=== PATIENT | male | born 1940 | race Caucasian/White ===

== ENCOUNTER → 2018-06-25 | Outpatient (CLI) | payer MEDICARE ==
[~2018-06-25] MED LIST: DIATRIZOATE MEGLUM/SODIUM 37% 120 ML (GASTROGRAFIN) NG ONE; FEXO-46 PO; FINA5TAB6 PO; LISI-552 PO; TAMS0.4C98 PO
--- NOTE | 2018-06-25 12:34 | Diagnostic Imaging Report ---
EXAMINATION: Small bowel follow-through. INDICATION: Abdominal pain There are no prior small bowel examinations available for comparison. There is no evidence for obstruction of the small bowel. The transit time through the small bowel is approximately 45 minutes (normal transit time 30 minutes to 3 hours). There are a few dilated segments of small bowel present. This is nonspecific. There is no focal area of narrowing. The terminal ileum was not spotted but shows no definite abnormality. IMPRESSION: There is no evidence for obstruction of the small bowel. Dictated by: Dictated on workstation # [id number]
== END ==
LOC: RAD 07:24
PROVIDERS: ATTEND Surgery
DX: R10.9 Unspecified abdominal pain (principal); R11.2 Nausea with vomiting, unspecified
CPT/HCPCS: 74250

== ENCOUNTER 2018-06-27 05:38 | Outpatient (CLI) | payer MEDICARE ==
[~2018-06-27] VITALS: Ht 177.8 cm; Wt 77.1 kg
[2018-06-27] MEDS ORDERED: FINA5TAB6 PO (13:45)
[2018-06-27] MEDS ORDERED: TAMS0.4C98 PO (13:45)
[2018-06-27] MEDS ORDERED: FEXO-46 PO (13:45)
[2018-06-27] MEDS ORDERED: LISI-552 PO (13:45)
== END 2018-06-27 13:46 | disposition home or self-care (01) ==
LOC: PREOP 05:38
PROVIDERS: ATTEND Surgery
DX: Z01.818 Encounter for other preprocedural examination (principal)

== ENCOUNTER 2018-07-02 12:25 | Day surgery (SDC) | payer MEDICARE ==
[~2018-07-02] VITALS: Ht 177.8 cm; Wt 77.1 kg
[~2018-07-02 12:25] MED LIST changes: -DIATRIZOATE MEGLUM/SODIUM 37% 120 ML (GASTROGRAFIN) NG ONE
[2018-07-02] MEDS ORDERED: LACTATED RINGERS 1,000 ML IV ONE (12:33)
[2018-07-02 13:00] VITALS: BP 138/86
--- NOTE | 2018-07-02 13:13 | Progress Note-Pre Operative ---
Pre-Operative Progress Note H&P Reviewed The H&P was reviewed, patient examined and no changes noted. Date Seen by Provider: Jul 02, 2018 Time Seen by Provider: 13:12 Date H&P Reviewed: Jul 02, 2018 Time H&P Reviewed: 13:13 Pre-Operative Diagnosis: diffuse abdominal pain, nausea and vomiting HEIDI KIDD DO Jul 02, 2018 13:13
[2018-07-02] MEDS ORDERED: PROPOFOL INJECTION 50 ML IV ONE (13:19)
[2018-07-02] MEDS ORDERED: LACTATED RINGERS 1,000 ML IV STA (13:19)
[2018-07-02] MEDS ORDERED: MIDAZOLAM 2 MG/2 ML (VERSED) VIAL ONE (13:20)
[2018-07-02] MEDS ORDERED: HURRICAINE EXT TUBE (BENZOCAINE) XX PRN (13:30)
[2018-07-02] MEDS ORDERED: HURRICAINE EXT TUBE (BENZOCAINE) ONE (13:36)
--- NOTE | 2018-07-02 14:18 | Anesthesia-General Post-Op ---
MAC Patient Condition Mental Status/LOC: Same as Preop Cardiovascular: Satisfactory Nausea/Vomiting: Absent Respiratory: Satisfactory Pain: Controlled Complications: Absent Post Op Complications Complications None Follow Up Care/Instructions Patient Instructions None needed. Anesthesiology Discharge Order Discharge Order Patient is doing well, no complaints, stable vital signs, no apparent adverse anesthesia problems. No complications reported per nursing. BARI ZAIDI CRNA Jul 02, 2018 14:18
--- NOTE | 2018-07-02 14:29 | Progress Note-Post Operative ---
Post-Operative Progess Note Surgeon (s)/Supervisor [facility] (s) Surgeon HEIDI KIDD DO Supervisor [facility]: na Pre-Operative Diagnosis diffuse abdominal pain, nausea and vomiting Post-Operative Diagnosis gastritis, small antral erosions, hiatal hernia, normal colon Procedure & Operative Findings Date of Procedure 07/02/18 Procedure Performed/Findings egd c biopsies, colonoscopy Anesthesia Type per chemical pumper Estimated Blood Loss Estimated blood loss (mL): none Specimens/Packing Specimens Removed antrum, ge HEIDI KIDD DO Jul 02, 2018 14:29
[2018-07-02 14:30] VITALS: BP 113/72
[2018-07-02] MEDS ORDERED: PANT40TA2 PO ×2 (14:34)
--- NOTE | 2018-07-02 14:47 | Discharge Inst-Simple/Standard ---
Discharge Inst-Standard Discharge Medications New, Converted or Re-Newed RX: Transmitted to Pharmacy Patient Instructions/Follow Up Plan of Care/Instructions/FU: 2 weeks Terry Activity as Tolerated: Yes Discharge Diet: Regular Diet HEIDI KIDD DO Jul 02, 2018 14:47
[2018-07-02 15:00] VITALS: BP 127/73
[2018-07-02 15:15] VITALS: BP 127/73
--- NOTE | 2018-07-02 21:44 | OPERATIVE REPORT ---
DATE OF SERVICE: 07/02/2018 PREOPERATIVE DIAGNOSES: Diffuse abdominal pain, nausea and vomiting. POSTOPERATIVE DIAGNOSES: Gastritis, small antral erosions, hiatal hernia, normal colon. PROCEDURES: EGD with biopsy and colonoscopy. SURGEON: Heidi Stewart DO ANESTHESIA: Per DEVELOPMENT PROFESSIONAL. ESTIMATED BLOOD LOSS: None. COMPLICATIONS: None. SPECIMENS: Antrum and GE junction. INDICATIONS: The patient is a 77-year-old male, who had a previous CT scan demonstrating possible partial small bowel obstruction. He had a follow up with a small bowel follow through, which had normal findings. The patient continued to have some diffuse abdominal pain, nausea and vomiting. He understands the risks and benefits of procedures and wished to proceed with procedure. Consent was signed in the chart. PROCEDURE IN DETAIL: The patient was taken to the endoscopy suite, placed in left lateral recumbent position. Timeout was performed. Scope was inserted in the mouth, down the esophagus, stomach and into the duodenum without difficulty. There were no polyps, masses or ulcerations within the duodenum. Scope was slowly retracted back into the stomach where it was further insufflated. The stomach had some slight gastritis appearance with some small antral erosions. Biopsy of this area was obtained in the antrum. Scope was retroflexed noting a hiatal hernia. No other pathology. Scope was returned to its normal position, slowly withdrawn to the distal esophagus, which had some erythematous changes. Biopsy of the GE junction was obtained. Scope was then slowly retracted back to completely removed, noting no other pathology. Digital rectal exam was performed noting no palpable polyps, masses or ulcerations. The prostate felt slightly enlarged. Scope was inserted in the rectum and advanced all the way to the cecum with minimal difficulty. Prep was adequate. Scope was then intubated through the ileocecal valve and advanced into the ileum. There are no polyps, masses or ulcerations in the visualized in the portion that was able to be visualized. Scope was then slowly retracted back into the colon. Again, there were no polyps, masses or ulcerations within the cecum, ascending, transverse, descending and sigmoid colon. Once in the rectum, scope was retroflexed noting no other pathology. Scope was returned to its normal position, slowly withdrawn until completely removed. The patient tolerated the procedure well without any complications and taken to recovery room in stable condition. RECOMMENDATIONS: The patient will be started on Protonix 40 mg daily to see if he has any improvement with this. He will need a repeat colonoscopy in 10 years unless family history of colon cancer, which would then be 5 years. If he has any issues before that, he should be seen at that time. Job ID: [id number] DocumentID: [id number] Dictated Date: 07/02/2018 14:51:52 Wrong Address Clerk Date: 07/02/2018 21:43:59 Dictated By: HEIDI STEWART DO
== END 2018-07-02 15:15 | disposition home or self-care (01) ==
LOC: ENDO 12:25
PROVIDERS: ATTEND Surgery
DX: R10.84 Generalized abdominal pain (principal); K21.0 Gastro-esophageal reflux disease with esophagitis; K29.50 Unspecified chronic gastritis without bleeding; K25.9 Gastric ulcer, unspecified as acute or chronic, without hemorrhage or perforation; K44.9 Diaphragmatic hernia without obstruction or gangrene; R19.7 Diarrhea, unspecified; I10 Essential (primary) hypertension; Z79.899 Other long term (current) drug therapy
CPT/HCPCS: 88305

== ENCOUNTER 2018-07-03 20:15 | Emergency (ER) | payer MEDICARE ==
[~2018-07-03] VITALS: Ht 177.8 cm; Wt 77.1 kg
[~2018-07-03 20:15] MED LIST changes: +PANT40TA2 PO
--- NOTE | 2018-07-03 21:45 | NUR ---
CALLED PT FROM WAITING ROOM. PT AND DECIDED THAT THEY DID NOT WISH TO BE SEEN ANYMORE DUE TO PT FEELING BETTER AND WISHING TO BE SEEN BY PCP INSTEAD.
--- NOTE | 2018-07-03 21:45 | NUR ---
PT STATES HE FEELS BETTER AND LEAVING AMA. PAPER NOT SIGNED BEFORE PT DEPARTED.
[2018-07-03 21:57] VITALS: BP 0/0
== END 2018-07-03 21:45 | disposition left against medical advice (07) ==
LOC: EDUNIT# 20:15 → ER 20:16
DX: R10.9 Unspecified abdominal pain (principal); Z98.890 Other specified postprocedural states
CPT/HCPCS: 99281

== ENCOUNTER 2018-07-11 20:18 | Emergency (ER) | payer MEDICARE ==
[~2018-07-11] VITALS: Ht 177.8 cm; Wt 77.1 kg
[2018-07-11 20:47] LABS: BASOPHILS % (AUTO) 0 % (0-10); EOSINOPHILS # (AUTO) 0.3 10^3/uL (0.0-0.3); EOSINOPHILS % (AUTO) 3 % (0-10); HEMATOCRIT 40 % (40-54); HEMOGLOBIN 13.5 G/DL (13.3-17.7); LYMPHOCYTES # (AUTO) 1.8 X 10^3 (1.0-4.0); LYMPHOCYTES % (AUTO) 21 % (12-44); MEAN CORPUSCULAR HEMOGLOBIN 28 PG (25-34); MEAN CORPUSCULAR HGB CONC 34 G/DL (32-36); MEAN CORPUSCULAR VOLUME 82 FL (80-99); MEAN PLATELET VOLUME 8.5 FL (7.4-10.4); MONOCYTES # (AUTO) 0.9 X 10^3 (0.0-1.0); MONOCYTES % (AUTO) 10 % (0-12); NEUTROPHILS # (AUTO) 5.9 X 10^3 (1.8-7.8); NEUTROPHILS % (AUTO) 66 % (42-75); PLATELET COUNT 195 10^3/uL (130-400); RED CELL DISTRIBUTION WIDTH 13.8 % (10.0-14.5); WHITE BLOOD COUNT 8.9 10^3/uL (4.3-11.0)
--- NOTE | 2018-07-11 20:47 | ED GI ---
General Stated Complaint: ABD PAIN Source of Information: Patient, Spouse Exam Limitations: No Limitations History of Present Illness Date Seen by Provider: Jul 11, 2018 Time Seen by Provider: 20:32 Initial Comments Pt had a colonoscopy a few weeks ago and EGD that were unremarkable and for the past 4 weeks he has had int cramping abd pain with N/V/D. This seems to come after eating. No abd surgeries. Known to Dr Murray. Somewhere he had an imaging study and was told that he had an obstruction 4 weeks ago but colonoscopy was unable to find anything and it spontaneously resolved. HE has a Hx of prostatism and was told that could cause a bowel obstruction so he went to Dr Tian, Urology who told him this was not the case and referred him to Dr Kidd for the endoscopy. He is anxious about his abd dumping and had an US RUQ setup outpt but wants to get that done tonight. His abd pain is intermittent, moderate, crampy and all 4 quads. Allergies and Home Medications Allergies Coded Allergies: No Known Drug Allergies (Unverified , 06/27/18) Home Medications Dicyclomine HCl 10 Mg Capsule, 10 MG PO QID Prescribed by: THU MARTINEZ on 07/11/182115 Fexofenadine HCl 180 Mg Tablet, 180 MG PO DAILY, (Reported) Finasteride 5 Mg Tablet, 5 MG PO DAILY, (Reported) Lisinopril 20 Mg Tablet, 20 MG PO DAILY, (Reported) Pantoprazole Sodium 40 Mg Tablet.dr, 40 MG PO DAILY Prescribed by: HEIDI KIDD on 07/02/18 1434 Tamsulosin HCl 0.4 Mg Cap, 0.4 MG PO DAILY, (Reported) Patient Home Medication List Home Medication List Reviewed: Yes Review of Systems Review of Systems Constitutional: No chills, No diaphoresis EENTM: No Blurred Vision, No Double Vision Respiratory: Denies Cough, Denies Shortness of Air Cardiovascular: Denies Chest Pain, Denies Lightheadedness Gastrointestinal: See HPI; Denies Abdomen Distended; Abdominal Pain; Denies Constipated; Diarrhea, Nausea, Vomiting Genitourinary: Denies Burning, Denies Discharge Musculoskeletal: No back pain, No joint pain Skin: No pruritus, No rash Past [place]-Xlnpcm-Dsadxg Hx Patient Social History Alcohol Use: Denies Use Recreational Drug Use: No Smoking Status: Never a Smoker 2nd Hand Smoke Exposure: No Recent Foreign Travel: No Contact w/Someone Who Travel: No Recent Hopitalizations: No Immunizations Up To Date Date of Pneumonia Vaccine: Mar 27, 2018 Date of Influenza Vaccine: Mar 27, 2018 Seasonal Allergies Seasonal Allergies: Yes Past Medical History Surgeries: No Respiratory: No Cardiac: Yes Hypertension Neurological: No Genitourinary: No Gastrointestinal: Yes (N&V) Chronic Diarrhea Musculoskeletal: No Endocrine: No HEENT: No Cancer: Yes Skin Psychosocial: No Integumentary: No Blood Disorders: No Physical Exam Vital Signs Vital Signs - First Documented 07/11/18 20:26 Temp 97.8 Pulse 107 Resp 16 B/P (MAP) 139/91 (107) Pulse Ox 98 O2 Delivery Room Air Capillary Refill : Height/Weight/BMI Height: 5'10.00" Weight: 170lbs. 0.0oz. [id number]; 24.4 BMI Method:Stated General Appearance: WD/WN, no apparent distress, other (anxious) HEENT: PERRL/EOMI, pharynx normal Respiratory: lungs clear, normal breath sounds, no respiratory distress, no accessory muscle use Cardiovascular: normal peripheral pulses, regular rate, rhythm, no edema Peripheral Pulses: 2+ Radial Pulses (R), 2+ Radial Pulses (L) Gastrointestinal: normal bowel sounds, soft, tenderness (LLQ and Epigastric. Mildly TTP diffusely. Neg Echevarria's, McBurneys , rebound tenderness, Psoas or other mesenteric signs. ) Neurologic/Psychiatric: alert, oriented x 3, other (anxious affect) Skin: normal color, warm/dry Focused Exam Lactate Level 07/11/18 21:08: Lactic Acid Level 0.64 Lactic Acid Level Laboratory Tests Test 07/11/18 21:08 Lactic Acid Level 0.64 MMOL/L (0.50-2.00) Progress/Results/Core Measures Results/Orders Lab Results Laboratory Tests Test 07/11/18 20:45 07/11/18 21:05 07/11/18 21:08 Range/Units White Blood Count 8.9 4.3-11.0 10^3/uL Red Blood Count 4.84 4.35-5.85 10^6/uL Hemoglobin 13.5 13.3-17.7 G/DL Hematocrit 40 40-54 % Mean Corpuscular Volume 82 80-99 FL Mean Corpuscular Hemoglobin 28 25-34 PG Mean Corpuscular Hemoglobin Concent 34 32-36 G/DL Red Cell Distribution Width 13.8 10.0-14.5 % Platelet Count 195 130-400 10^3/uL Mean Platelet Volume 8.5 7.4-10.4 FL Neutrophils (%) (Auto) 66 42-75 % Lymphocytes (%) (Auto) 21 12-44 % Monocytes (%) (Auto) 10 0-12 % Eosinophils (%) (Auto) 3 0-10 % Basophils (%) (Auto) 0 0-10 % Neutrophils # (Auto) 5.9 1.8-7.8 X 10^3 Lymphocytes # (Auto) 1.8 1.0-4.0 X 10^3 Monocytes # (Auto) 0.9 0.0-1.0 X 10^3 Eosinophils # (Auto) 0.3 0.0-0.3 10^3/uL Basophils # (Auto) 0.0 0.0-0.1 10^3/uL Sodium Level 136 135-145 MMOL/L Potassium Level 4.1 3.6-5.0 MMOL/L Chloride Level 99 98-107 MMOL/L Carbon Dioxide Level 26 21-32 MMOL/L Anion Gap 11 5-14 MMOL/L Blood Urea Nitrogen 12 7-18 MG/DL Creatinine 1.09 0.60-1.30 MG/DL Estimat Glomerular Filtration Rate > 60 BUN/Creatinine Ratio 11 Glucose Level 113 H 70-105 MG/DL Calcium Level 9.9 8.5-10.1 MG/DL Corrected Calcium 9.7 8.5-10.1 MG/DL Magnesium Level 2.0 1.8-2.4 MG/DL Total Bilirubin 0.5 0.1-1.0 MG/DL Aspartate Amino Transf (AST/SGOT) 28 5-34 U/L Alanine Aminotransferase (ALT/SGPT) 26 0-55 U/L Alkaline Phosphatase 78 40-136 U/L C-Reactive Protein High Sensitivity 0.38 0.00-0.50 MG/DL Total Protein 6.4 6.4-8.2 GM/DL Albumin 4.2 3.2-4.5 GM/DL Urine Color [place] H Urine Clarity CLEAR Urine pH 5 5-9 Urine Specific [place] 1.020 1.016-1.022 Urine Protein 1+ H NEGATIVE Urine Glucose (UA) NEGATIVE NEGATIVE Urine Ketones 2+ H NEGATIVE Urine Nitrite NEGATIVE NEGATIVE Urine Bilirubin NEGATIVE NEGATIVE Urine Urobilinogen 1 NORMAL MG/DL Urine Leukocyte Esterase 1+ H NEGATIVE Urine RBC (Auto) NEGATIVE NEGATIVE Urine RBC NONE /HPF Urine WBC 0-2 /HPF Urine Crystals NONE /LPF Urine Bacteria NEGATIVE /HPF Urine Casts NONE /LPF Urine Mucus LARGE H /LPF Urine Culture Indicated NO Lactic Acid Level 0.64 0.50-2.00 MMOL/L My Orders Orders - THU MARTINEZ Cbc With Automated Diff (07/11/18 20:40) Comprehensive Metabolic Panel (07/11/18 20:40) Hs C Reactive Protein (07/11/18 20:40) Lactic Acid Analyzer (07/11/18 20:40) Magnesium (07/11/18 20:40) Ua Culture If Indicated (07/11/18 20:40) Saline Lock/Iv-Start (07/11/18 20:40) Ns Iv 500 Ml (Sodium Chloride 0.9%) (07/11/18 21:16) Medications Given in ED Current Medications Medications Dose Ordered Sig/Maria Luz Route Start Time Stop Time Status Last Admin Dose Admin Sodium Chloride 500 ml @ 0 mls/hr Q0M ONCE IV 07/11/18 21:16 07/11/18 21:17 DC 07/11/18 21:22 0 MLS/HR Vital Signs/I&O 07/11/18 20:26 Temp 97.8 Pulse 107 Resp 16 B/P (MAP) 139/91 (107) Pulse Ox 98 O2 Delivery Room Air Progress Progress Note : Time: 20:49 Progress Note 06/2018: The patient is a 77-year-old male, who had a previous CT scan demonstrating possible partial small bowel obstruction. He had a follow up with a small bowel follow through, which had normal findings. The patient continued to have some diffuse abdominal pain, nausea and vomiting. 2006: Had EGD for Esophageal strictures. 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 Anxiety about his ongoing outpt workup brought hium here to hasten it. Vitals are aseptic and he denies current pain or N/V. We do not have US available. I have initiated Lab and UA. Offered CT Abd/Pelvis with oral gastrograffin but he states he has had 3-4 of those in the past month and they never show anything. Previous notes indicate some protonix and carafate but no antispasmodics. Might benefit from hyoscyamine. Antianxiety PRNs? after a discussion the patient thinks the dicyclomine is working but last dose was this AM. We will have him take it and refill it and he will get an US on Sunday morning, 4 days. If labs and UA are ok he wants to decline the CT abd/ Pelvis. Departure Impression Primary Impression: Abdominal cramping Disposition: HOME, SELF-CARE Condition: Improved Departure-Patient Inst. Decision time for Depature: 21:32 Referrals: HEIDI KIDD BENJAMEN H MD (PCP) Primary Care Physician Patient Instructions: Acute Abdomen (Belly Pain), Adult (DC) Add. Discharge Instructions: Keep taking the medicines as prescribed and get the US Sunday. Follow up with Dr Kidd. For severe, intractable Nausea, vomiting, abdominal pain or fever then you may return to the ER for management. Use Tylenol and Ibuprofen as needed. Scripts Dicyclomine HCl (Dicyclomine HCl) 10 Mg Capsule 10 MG PO QID for 14 Days, #56 CAP 0 Refills Prov: THU MARTINEZ 07/11/18 THU MARTINEZ Jul 11, 2018 20:46
[2018-07-11 21:05] LABS: ALANINE AMINOTRANSFERASE 26 U/L (0-55); ALBUMIN 4.2 GM/DL (3.2-4.5); ALKALINE PHOSPHATASE 78 U/L (40-136); BILIRUBIN,TOTAL 0.5 MG/DL (0.1-1.0); BUN/CREATININE RATIO 11; CALCIUM 9.9 MG/DL (8.5-10.1); CARBON DIOXIDE 26 MMOL/L (21-32); CHLORIDE 99 MMOL/L (98-107); CREATININE SERUM 1.09 MG/DL (0.60-1.30); GFR ESTIMATED > 60; GLUCOSE 113 MG/DL (70-105); POTASSIUM 4.1 MMOL/L (3.6-5.0); SODIUM 136 MMOL/L (135-145); TOTAL PROTEIN 6.4 GM/DL (6.4-8.2)
[2018-07-11 21:14] LABS: BILIRUBIN,URINE NEGATIVE (NEGATIVE); CLARITY,URINE CLEAR; COLOR,URINE AMBER; GLUCOSE, URINE (UA) NEGATIVE (NEGATIVE); KETONES,URINE 2+ (NEGATIVE); LEUKOCYTE ESTERASE ,URINE 1+ (NEGATIVE); NITRITE,URINE NEGATIVE (NEGATIVE); PH,URINE 5 (5-9); PROTEIN,URINE 1+ (NEGATIVE); UROBILINOGEN,URINE 1 MG/DL (NORMAL)
[2018-07-11] MEDS ORDERED: NS IV 500 ML 500 ML IV ONE (21:16)
[2018-07-11] MEDS ORDERED: DICY10CA12 PO (21:16)
[2018-07-11 21:22] LABS: BACTERIA,URINE NEGATIVE /HPF; WBC,URINE 0-2 /HPF
[2018-07-11 21:35] VITALS: BP 148/93
== END 2018-07-11 21:35 | disposition home or self-care (01) ==
LOC: EDUNIT# 20:18 → ER 20:20
DX: R10.13 Epigastric pain (principal); I10 Essential (primary) hypertension; Z87.19 Personal history of other diseases of the digestive system; Z85.828 Personal history of other malignant neoplasm of skin
CPT/HCPCS: 36415; 80053; 81000; 83605; 83735; 85025; 86141

== ENCOUNTER → 2018-07-15 | Outpatient (CLI) | payer MEDICARE ==
[~2018-07-15] MED LIST changes: +DICY10CA12 PO
--- NOTE | 2018-07-15 10:26 | Diagnostic Imaging Report ---
PROCEDURE: US Gallbladder. TECHNIQUE: Multiple real-time grayscale images were obtained over the right upper quadrant in various projections. INDICATION: Right upper quadrant pain. FINDINGS: The liver is normal in size at 13 cm. No discrete liver mass is identified. The portal vein is patent and shows normal direction of flow. The gallbladder is without stones or sludge. No wall thickening or pericholecystic fluid is identified. No definite biliary ductal dilatation is seen. The visualized pancreas is unremarkable. Right kidney is unremarkable. There is no ascites. IMPRESSION: No evidence of cholelithiasis or acute cholecystitis. Dictated by: Dictated on workstation # [id number]
== END ==
LOC: RAD 08:52
PROVIDERS: ATTEND Surgery
DX: R10.11 Right upper quadrant pain (principal)
CPT/HCPCS: 76705

== ENCOUNTER → 2018-07-19 | Outpatient (CLI) | payer MEDICARE ==
[~2018-07-19] MED LIST changes: +CATHETER FLUSH 10 ML SYR IV PRN
--- NOTE | 2018-07-19 12:39 | Diagnostic Imaging Report ---
INDICATION: Right upper quadrant pain. TECHNIQUE: Patient was administered 4.6 mCi technetium 99m Choletec intravenously and imaging over the abdomen was performed. After 60 minutes, patient ingested one can of Ensure and gallbladder ejection fraction was calculated. FINDINGS: There is homogeneous uptake of active by the liver. There is prompt excretion of activity into the gallbladder and common duct with normal passage of activity into the small bowel. There is a small amount of activity in the left upper quadrant, suggestive of mild bile reflux. Gallbladder ejection fraction is low at 28%. Normal values are 33% or greater. IMPRESSION: 1. No evidence of cystic duct or common bile duct obstruction. 2. Slightly low gallbladder ejection fraction of 28%. 3. Mild bile reflux into the stomach. Dictated by: Dictated on workstation # [id number]
== END ==
LOC: CARD 09:35
PROVIDERS: ATTEND Surgery
DX: R10.11 Right upper quadrant pain (principal)
CPT/HCPCS: 78227

== ENCOUNTER 2018-07-24 13:27 | Outpatient (CLI) | payer MEDICARE ==
[~2018-07-24] VITALS: Ht 177.8 cm; Wt 72.6 kg
[~2018-07-24 13:27] MED LIST changes: -CATHETER FLUSH 10 ML SYR IV PRN
[2018-07-25] MEDS ORDERED: ACHD5005 PO (11:12)
== END 2018-07-24 13:59 | disposition home or self-care (01) ==
LOC: PREOP 13:27
PROVIDERS: ATTEND Surgery
DX: Z01.818 Encounter for other preprocedural examination (principal)

== ENCOUNTER 2018-07-25 07:44 | Day surgery (SDC) | payer MEDICARE ==
[~2018-07-25] VITALS: Ht 177.8 cm; Wt 72.6 kg
[2018-07-25] MEDS: LACTATED RINGERS 1,000 ML IV PRN ×2 (08:15→11:00)
[2018-07-25] MEDS ORDERED: ceFAZolin 2 GM IV Premixed 50 ML IV ONE (08:45)
[2018-07-25] MEDS ORDERED: ceFAZolin 2 GM IV Premixed 50 ML ONE (09:04)
[2018-07-25] MEDS ORDERED: CATHETER FLUSH 10 ML SYR IV PRN (09:15)
--- NOTE | 2018-07-25 09:46 | Progress Note-Pre Operative ---
Pre-Operative Progress Note H&P Reviewed The H&P was reviewed, patient examined and no changes noted. Date Seen by Provider: Jul 25, 2018 Time Seen by Provider: 09:46 Date H&P Reviewed: Jul 25, 2018 Time H&P Reviewed: 09:46 Pre-Operative Diagnosis: RUQ ABDOMINAL PAIN, BILIARY DYSKINESIA HEIDI KIDD DO Jul 25, 2018 09:46
[2018-07-25] MEDS ORDERED: ONDANSETRON 4 MG/2 ML (SDV) Z0FRAN ONE (09:47)
[2018-07-25] MEDS ORDERED: DEXAMETHASONE 10 MG/ML (DECADRON) 1 ML VIAL ONE (09:47)
[2018-07-25] MEDS ORDERED: ROCURONIUM 10 MG/ML 5 ML SYRINGE IV ONE (09:47)
[2018-07-25] MEDS ORDERED: proPOfol 200 MG/20 ML (DIPRIVAN) VIAL IV ONE (09:48)
[2018-07-25] MEDS ORDERED: LIDOCAINE PF 2% 5 ML (XYLOCAINE) VIAL ONE (09:48)
[2018-07-25] MEDS ORDERED: fentaNYL INJECTION 100 MCG/2 ML AMP ONE ×2 (09:48→11:23)
[2018-07-25] MEDS ORDERED: SEVOFLURANE (ULTANE) 15 ML INHAL SOLN ONE ×4 (09:48→11:08)
[2018-07-25] MEDS ORDERED: BUP/EPI 0.5% 1:200,000 (SENSORCAINE) 30 ML VIAL ONE (09:49)
[2018-07-25] MEDS ORDERED: IOPAMIDOL 61% 30 ML (ISOVUE 300) VIAL IV ONE (09:50)
[2018-07-25] MEDS ORDERED: LIDOCAINE 1% INJ 20 ML 20 ML VIAL ONE (09:50)
[2018-07-25 10:22] VITALS: BP 115/67
[2018-07-25] MEDS ORDERED: GLYCOPYRROLATE 0.2 MG/ML (ROBINUL) 2 ML VIAL ONE (10:54)
[2018-07-25] MEDS ORDERED: NEOSTIGMINE 1 MG/ML 5 ML SYRINGE ONE (10:54)
--- NOTE | 2018-07-25 11:11 | Progress Note-Post Operative ---
Post-Operative Progess Note Surgeon (s)/Pipe Fitter Maintenance (s) Surgeon HEIDI KIDD DO Pipe Fitter Maintenance: Dr. Moore Pre-Operative Diagnosis RUQ ABDOMINAL PAIN, BILIARY DYSKINESIA Post-Operative Diagnosis same Procedure & Operative Findings Date of Procedure 07/25/18 Procedure Performed/Findings lap viki c ioc Anesthesia Type gen Estimated Blood Loss Estimated blood loss (mL): min Specimens/Packing Specimens Removed gallbladder HEIDI KIDD DO Jul 25, 2018 11:11
[2018-07-25] MEDS ORDERED: ACHD5005 PO (11:12)
--- NOTE | 2018-07-25 11:13 | Discharge Inst-Simple/Standard ---
Discharge Inst-Standard Discharge Medications New, Converted or Re-Newed RX: RX on Chart Patient Instructions/Follow Up Plan of Care/Instructions/FU: 2 weeks juhi Activity as Tolerated: No Discharge Diet: Regular Diet Other Inst to Patient Follow up Appt: Make appointment for 2 weeks. Instructions: No lifting greater than 10 pounds. No strenuous activity. May shower in 24 hours, no tub bath or soaking. Use incentive spirometer at home as directed. No Smoking Skin/Wound Care: You have special glue over incisions it will fall off on its own. Symptoms to Report: Appetite Changes, Extremity Discoloration, Numbness/Tingling, Swelling Increased , Bleeding Excessive, Eyesight Changes, Pain Increased, Urine Color Change, Constipation(Persistent), Fever over 101 degree F, Pain/Pressure in chest, Urinating Difficulty, Cough Up/Vomit Blood, Heart Beat Irreg/Pounding, Pain/ Pressure in jaw, Vaginal Bleeding Increase, Cramps in feet or legs, Lightheadedness, Pain/Pressure in shoulder, Diarrhea(Persistent), Memory Changes Suddenly, Questions/Concerns, Weight gain consecutive days, Dizziness/ Fainting, Nausea/Vomiting, Shortness of Breath, Weight gain over 2 pounds. If eyes or skin turn yellow notify physician. If questions or concerns contact your physician Or seek help at emergency department. HEIDI KIDD DO Jul 25, 2018 11:13
[2018-07-25] MEDS ORDERED: fentaNYL INJECTION 100 MCG/2 ML AMP IVP ONE (11:30)
[2018-07-25] MEDS ORDERED: MEPERIDINE (DEMEROL) INJ 50 MG/ML IVP ONE (11:30)
[2018-07-25] MEDS: ONDANSETRON 4 MG/2 ML (SDV) Z0FRAN IVP PRN ×2 (11:44→11:56)
[2018-07-25 12:10] VITALS: BP 127/67
[2018-07-25 12:40] VITALS: BP 115/61
[2018-07-25] MEDS ORDERED: HYDROcodone/APAP 5 MG/325 MG (LORTAB) TAB ONE (13:00)
[2018-07-25 13:10] VITALS: BP 124/67
[2018-07-25] MEDS ORDERED: HYDROcodone/APAP 5 MG/325 MG (LORTAB) TAB PO ONE (13:15)
--- NOTE | 2018-07-25 13:45 | Diagnostic Imaging Report ---
Indication: Fluoroscopy during cholecystectomy. Fluoroscopy was provided for Dr. Stewart in the OR during intraoperative cholangiogram. 11 seconds of fluoroscopy was utilized. Images demonstrate contrast being injected via the cystic duct remnant. Intrahepatic and extra hepatic bile ducts are of normal caliber. No filling defects are seen to suggest retained stone. There is some contrast in the duodenum. Impression: Fluoroscopy for intraoperative cholangiogram. Dictated by: Dictated on workstation # [id number]
--- NOTE | 2018-07-25 13:55 | Anesthesia-General Post-Op ---
MAC Patient Condition Mental Status/LOC: Same as Preop Cardiovascular: Satisfactory Nausea/Vomiting: Absent Respiratory: Satisfactory Pain: Controlled Complications: Absent Post Op Complications Complications None Follow Up Care/Instructions Patient Instructions None needed. Anesthesiology Discharge Order Discharge Order Patient is doing well, no complaints, stable vital signs, no apparent adverse anesthesia problems. No complications reported per nursing. JENNIFER KAUFMAN CRNA Jul 25, 2018 13:55
--- NOTE | 2018-07-25 14:17 | OPERATIVE REPORT ---
DATE OF SERVICE: 07/25/2018 PREOPERATIVE DIAGNOSES: Biliary dyskinesia and right upper quadrant abdominal pain. POSTOPERATIVE DIAGNOSES: Biliary dyskinesia and right upper quadrant abdominal pain. PROCEDURE: Laparoscopic cholecystectomy with intraoperative angiogram. SURGEON: Heidi Steawrt DO. SIEVE REPAIRER: Dr. Jose Moore, who assisted in retraction, dissection and closure. ANESTHESIA: General. ESTIMATED BLOOD LOSS: Minimal. COMPLICATIONS: None. INDICATIONS: The patient is a 77-year-old male, who has been having abdominal pain with workup consistent with biliary dyskinesia. He understands the risks and benefits of the procedure and wished to proceed with the procedure. Consent was signed in the chart. PROCEDURE: The patient was taken to the operating suite and was prepped and draped in a sterile fashion. Surgical pause was performed. An incision was made just above the umbilicus. Dissection was taken down to the fascia, which was then scored, grasped and elevated. The abdomen was then entered. A balloon trocar was placed after 0 Vicryl was placed in a tzidmu-kp-nfeye fashion. Abdomen was then insufflated. Under direct visualization of the laparoscope, a 5 mm trocar was placed in the subxiphoid region and two 5 mm trocars were placed in the right upper quadrant. Gallbladder was grasped, is little bit distended and elevated. Cystic duct and cystic artery were dissected out. Clips were placed on the proximal and distal portion of the cystic artery. A clip was placed on the distal portion of the cystic duct. The cystic duct was then partially transected. The catheter was inserted through the duct and the clip was used to hold it in place. A cholangiogram was performed. There were no filling defects. Contrast made its way into the duodenum without difficulty. The clip was removed and clips were placed on the proximal portion of the cystic duct after the catheter was removed. Endo-scissors were then used to completely transect the duct and the artery. Hook cautery was used to dissect the gallbladder from the gallbladder fossa achieving hemostasis. The gallbladder was placed in an Endobag and removed through the 12 mm trocar site. The abdomen was then inspected and a small left inguinal hernia noted. The cell of the distal ileum was slightly attached to the right abdominal wall near the cecum. No other pathology was noted. The abdomen was then desufflated and the trocars were removed. The Vicryl was placed in a [id number] fashion earlier was then tied down closing the fascial defect. The skin was then closed using a 4-0 Monocryl in the subcuticular fashion. The abdomen was washed and dried and Skin Affix was placed over the incisions. The patient tolerated the procedure well without complications and taken to the recovery room in stable condition. Job ID: [id number] DocumentID: [id number] Dictated Date: 07/25/2018 11:18:36 [place] Date: 07/25/2018 14:16:39 Dictated By: HEIDI STEWART DO
== END 2018-07-25 13:25 | disposition home or self-care (01) ==
LOC: SDC 07:44
PROVIDERS: ATTEND Surgery
DX: K81.1 Chronic cholecystitis (principal); I10 Essential (primary) hypertension; K21.9 Gastro-esophageal reflux disease without esophagitis; Z79.899 Other long term (current) drug therapy
CPT/HCPCS: 87081; 88304; 94664

== ENCOUNTER 2020-08-01 23:57 | Inpatient (IN) | payer MEDICARE, OTHER ==
[~2020-08-01] VITALS: Ht 172 cm; Wt 84.8 kg
[~2020-08-01 23:57] MED LIST changes: +ACHD5005 PO; -LISI-552 PO; +LISI20TA26 PO; -TAMS0.4C98 PO; +TMSL.4C PO
[2020-08-02] VITALS (10 sets, daily range): BP systolic 91–121; BP diastolic 53–69
[2020-08-02] MEDS ORDERED: fentaNYL INJECTION 100 MCG/2 ML AMP ONE ×2 (00:05→03:16)
[2020-08-02] MEDS ORDERED: fentaNYL INJECTION 100 MCG/2 ML AMP IVP ONE ×2 (00:15→03:30)
[2020-08-02] MEDS: LACTATED RINGERS 1,000 ML IV SCH ×7 (00:17→23:36)
[2020-08-02] MEDS ORDERED: ONDANSETRON 4 MG/2 ML (SDV) Z0FRAN ONE ×3 (00:42→05:20)
[2020-08-02] MEDS ORDERED: ONDANSETRON 4 MG/2 ML (SDV) Z0FRAN IVP ONE (01:00)
[2020-08-02] MEDS ORDERED: NOREPINEPHRINE 4 MG/250 ML 250 ML IV ONE (01:27)
--- NOTE | 2020-08-02 01:37 | ED Abdominal Pain ---
General Chief Complaint: Abdominal/GI Problems Stated Complaint: ABD PAIN Nursing Triage Note: transferred from [facility] for abdominal pain/hypotension after ingesting colonoscopy prep. Sepsis Screen: No Definite Risk Source of Information: Patient, EMS, Other Exam Limitations: No Limitations (Transferring facility) History of Present Illness Date Seen by Provider: Aug 02, 2020 Time Seen by Provider: 23:55 Initial Comments Mohsen is a 79-year-old male who presents to the emergency room transferred from a local hospital in [facility] with a chief complaint of abdominal pain and vomiting. Patient has a history of recent diagnosis of cancer, metastatic. Wi th masses in his lungs. Patient had a small bowel obstruction was treated at [facility] in [place] on July 01. He had a 3 or 4-day hospital stay and his small bowel obstruction resolved spontaneously with the assistance of an NG tube. Patient was referred to Dr. Yusuf this. He underwent biopsy of his left lung on July 06 which resulted in a left-sided pneumothorax. He was seen and treated overnight in the hospital and the pneumothorax resolved. He was then referred to Dr. Lawson for further evaluation of his abdomen. Dr. Lawson scheduled him for colonoscopy on August 03. Patient started drinking his bowel prep this evening and had a sudden onset of severe abdominal pain with copious vomiting. Patient presented to the hospital hypotensive in [facility]. He received a liter of fluids and had laboratory studies obtained. They did not have a CAT scan so the patient was transferred to our facility for further evaluation. Patient has previously seen Dr. Kidd here at [facility] and had his gallbladder taken out in July 2018. Patient presents with extreme abdominal pain. Peritoneal findings. Hypoactive bowel sounds and a rigid abdomen. He is not had anything to eat or drink since 4:00 this afternoon. All other review of systems reviewed and negative except as stated above. Timing/Duration: 4-6 Hours Severity/Quality: Severe, Aching, Cramping Location: Generalized Abdomen Activities at Onset: Activity (drinking bowel prep) Allergies and Home Medications Allergies Coded Allergies: No Known Drug Allergies (Unverified , 06/27/18) Home Medications Fexofenadine HCl 180 Mg Tablet, 180 MG PO DAILY, (Reported) Finasteride 5 Mg Tablet, 5 MG PO DAILY, (Reported) Hydrocodone Bit/Acetaminophen 1 Tab Tab, 1-2 TAB PO Q6H PRN for PAIN-MODERATE Prescribed by: HEIDI KIDD on 07/25/18 1112 Lisinopril 20 Mg Tablet, 20 MG PO DAILY, (Reported) Pantoprazole Sodium 40 Mg Tablet.dr, 40 MG PO DAILY Prescribed by: HEIDI KIDD on 07/02/18 1434 Tamsulosin HCl 0.4 Mg Cap, 0.4 MG PO DAILY, (Reported) Patient Home Medication List Home Medication List Reviewed: Yes Review of Systems Review of Systems Constitutional: see HPI EENTM: No Symptoms Reported Respiratory: No Symptoms Reported Cardiovascular: No Symptoms Reported Gastrointestinal: Abdominal Pain, Nausea, Vomiting Genitourinary: No Symptoms Reported Musculoskeletal: no symptoms reported Skin: no symptoms reported All Other Systems Reviewed Negative Unless Noted: Yes Past Pfawndi-Scgqfh-Onxtrk Hx Patient Social History Alcohol Use: Denies Use Smoking Status: Never a Smoker 2nd Hand Smoke Exposure: No Recent Infectious Disease Expo: No Recent Hopitalizations: No Immunizations Up To Date Date of Pneumonia Vaccine: Mar 27, 2018 Date of Influenza Vaccine: Mar 27, 2018 Seasonal Allergies Seasonal Allergies: Yes Past Medical History Surgeries: Yes (colonoscopy) Gallbladder Respiratory: No Cardiac: Yes Hypertension Neurological: No Genitourinary: No Gastrointestinal: Yes (N&V) Gastroesophageal Reflux, Chronic Constipation, Chronic Diarrhea, Gall Bladder Disease Musculoskeletal: No Endocrine: No HEENT: No Cancer: Yes Skin, Colon Psychosocial: No Integumentary: No Blood Disorders: No Physical Exam Vital Signs Vital Signs - First Documented Capillary Refill : Less Than 3 Seconds Height/Weight/BMI Height: 5'10.00" Weight: 160lbs. 0.0oz. 72.427348he; 24.00 BMI Method:Stated General Appearance: WD/WN, severe distress HEENT: PERRL/EOMI, other (dry oral mucosa) Respiratory: lungs clear, normal breath sounds, no respiratory distress, no accessory muscle use Cardiovascular: tachycardia Gastrointestinal: abnormal bowel sounds (hypoactive), guarding, tenderness (significant Abdominal tenderness, rigid abdomen) Extremities: non-tender, normal inspection, no pedal edema Male: normal genitalia Neurologic/Psychiatric: no motor/sensory deficits, alert, normal mood/affect, oriented x 3 Skin: normal color, warm/dry Focused Exam Lactate Level Lactic Acid Level Laboratory Tests Test 08/02/20 00:55 Lactic Acid Level 2.84 MMOL/L (0.50-2.00) *H Progress/Results/Core Measures Results/Orders Lab Results Laboratory Tests Test 08/02/20 00:55 Range/Units White Blood Count 7.6 4.3-11.0 10^3/uL Red Blood Count 4.63 4.30-5.52 10^6/uL Hemoglobin 12.6 L 13.3-17.7 g/dL Hematocrit 39 L 40-54 % Mean Corpuscular Volume 85 80-99 fL Mean Corpuscular Hemoglobin 27 25-34 pg Mean Corpuscular Hemoglobin Concent 32 32-36 g/dL Red Cell Distribution Width 14.4 10.0-14.5 % Platelet Count 176 130-400 10^3/uL Mean Platelet Volume 9.0 9.0-12.2 fL Immature Granulocyte % (Auto) 0 % Neutrophils (%) (Auto) 76 H 42-75 % Lymphocytes (%) (Auto) 12 12-44 % Monocytes (%) (Auto) 12 0-12 % Eosinophils (%) (Auto) 0 0-10 % Basophils (%) (Auto) 0 0-10 % Neutrophils # (Auto) 5.7 1.8-7.8 10^3/uL Lymphocytes # (Auto) 0.9 L 1.0-4.0 10^3/uL Monocytes # (Auto) 0.9 0.0-1.0 10^3/uL Eosinophils # (Auto) 0.0 0.0-0.3 10^3/uL Basophils # (Auto) 0.0 0.0-0.1 10^3/uL Immature Granulocyte # (Auto) 0.0 0.0-0.1 10^3/uL Prothrombin Time 14.9 H 12.2-14.7 SEC INR Comment 1.1 0.8-1.4 Activated Partial Thromboplast Time 26 24-35 SEC Sodium Level 139 135-145 MMOL/L Potassium Level 4.0 3.6-5.0 MMOL/L Chloride Level 105 98-107 MMOL/L Carbon Dioxide Level 21 21-32 MMOL/L Anion Gap 13 5-14 MMOL/L Blood Urea Nitrogen 22 H 7-18 MG/DL Creatinine 1.56 H 0.60-1.30 MG/DL Estimat Glomerular Filtration Rate 43 BUN/Creatinine Ratio 14 Glucose Level 199 H 70-105 MG/DL Lactic Acid Level 2.84 *H 0.50-2.00 MMOL/L Calcium Level 8.7 8.5-10.1 MG/DL Corrected Calcium 9.1 8.5-10.1 MG/DL Total Bilirubin 0.5 0.1-1.0 MG/DL Aspartate Amino Transf (AST/SGOT) 14 5-34 U/L Alanine Aminotransferase (ALT/SGPT) 12 0-55 U/L Alkaline Phosphatase 69 40-136 U/L C-Reactive Protein High Sensitivity 0.79 H 0.00-0.50 MG/DL Total Protein 5.5 L 6.4-8.2 GM/DL Albumin 3.5 3.2-4.5 GM/DL Micro Results Microbiology 08/02/20 Blood Culture - Preliminary, Resulted No growth 08/02/20 Blood Culture - Preliminary, Resulted No growth 08/02/20 Gram Stain - Final, Resulted 08/02/20 Sputum Culture - Preliminary, Resulted Gram Negative Carlito My Orders Orders - SHREYAS GIRON MD Hs C Reactive Protein (08/02/20 00:07) Lactic Acid Analyzer (08/02/20 00:07) Blood Culture (08/02/20 00:07) Ct Abdomen/Pelvis Wo (08/02/20 00:07) Fentanyl Injection (Sublimaze Injection (08/02/20 00:15) Lactated Ringers (Lr 1000 Ml Iv Solution (08/02/20 00:15) Fentanyl Injection (Sublimaze Injection (08/02/20 00:05) Ondansetron Injection (Zofran Injectio (08/02/20 01:00) Ondansetron Injection (Zofran Injectio (08/02/20 00:42) Norepinephrine 4 Mg/250 Ml (Norepinephri (08/02/20 01:27) Cbc With Automated Diff (08/02/20 01:34) Comprehensive Metabolic Panel (08/02/20 01:34) Norepinephrine 4 Mg/250 Ml (Norepinephri (08/02/20 01:44) Protime With Inr (08/02/20 01:45) Partial Thromboplastin Time (08/02/20 01:45) Lactated Ringers (Lr 1000 Ml Iv Solution (08/02/20 02:00) Morphine Injection (Morphine Injection (08/02/20 02:00) Morphine Injection (Morphine Injection (08/02/20 01:47) Medications Given in ED Vital Signs/I&O 08/01/20 08/01/20 08/02/20 23:57 23:57 01:37 Temp 36.7 36.7 36.7 Pulse 132 132 129 Resp 16 16 B/P (MAP) 70/51 (57) 70/51 (57) 88/62 Pulse Ox 94 94 O2 Delivery Room Air Room Air Blood Pressure Mean: 57 Progress Progress Note : Time: 01:45 Progress Note reviewed cat scan with dr kidd. patient being switched to levophed now. another liter of normal saline ordered. pulse is down to 109; morphine ordered. He is coming in to examine the patient Critical Care Note Critical Care Start Time: 01:00 Stop Time: 02:00 Total Time (minutes) [id number] minutes of critical care time in the evaluation and management of this patient with hypotension, rigid abdomen. Time includes evaluation of transf erring facilities lab work, evaluation and of the patient, laboratory studies, management of hypotension, discussion with general surgery and family member Departure Communication (Admissions) Time/Spoke to Admitting Phy: 02:33 Dr. Kidd will admit and take to surgery this morning. Time/Spoke to Consulting Phy: 01:[address] kidd Impression Primary Impression: Acute abdomen Additional Impressions: Nausea and vomiting Qualified Codes: R11.13 - Vomiting of fecal matter Sepsis Qualified Codes: A41.9 - Sepsis, unspecified organism; R65.21 - Severe sepsis with septic shock Disposition: ADMITTED INPATIENT Condition: Critical Admissions Decision to Admit Reason: Admit from ER (General) Decision to Admit/Date: Aug 02, 2020 Time/Decision to Admit Time: 02:33 Departure-Patient Inst. Referrals: JOHN POP MD (PCP/Family) Primary Care Physician SHREYAS GIRON MD Aug 02, 2020 01:37
[2020-08-02 01:40] LABS: BASOPHILS % (AUTO) 0 % (0-10); EOSINOPHILS % (AUTO) 0 % (0-10); HEMATOCRIT 39 % (40-54); HEMOGLOBIN 12.6 g/dL (13.3-17.7); LYMPHOCYTES # (AUTO) 0.9 10^3/uL (1.0-4.0); LYMPHOCYTES % (AUTO) 12 % (12-44); MEAN CORPUSCULAR HEMOGLOBIN 27 pg (25-34); MEAN CORPUSCULAR HGB CONC 32 g/dL (32-36); MEAN CORPUSCULAR VOLUME 85 fL (80-99); MONOCYTES # (AUTO) 0.9 10^3/uL (0.0-1.0); MONOCYTES % (AUTO) 12 % (0-12); NEUTROPHILS # (AUTO) 5.7 10^3/uL (1.8-7.8); NEUTROPHILS % (AUTO) 76 % (42-75); PLATELET COUNT 176 10^3/uL (130-400); WHITE BLOOD COUNT 7.6 10^3/uL (4.3-11.0)
[2020-08-02 01:44] LABS: ALBUMIN 3.5 GM/DL (3.2-4.5)
[2020-08-02] MEDS ORDERED: NOREPINEPHRINE 4 MG/250 ML 250 ML IV STA ×2 (01:44→06:28)
[2020-08-02 01:45] LABS: CALCIUM 8.7 MG/DL (8.5-10.1)
[2020-08-02 01:46] LABS: TOTAL PROTEIN 5.5 GM/DL (6.4-8.2)
[2020-08-02] MEDS ORDERED: morphine INJ 10 MG/ML 1ML (SYR OR VIAL) ONE ×2 (01:47→05:20)
[2020-08-02 01:48] LABS: BILIRUBIN,TOTAL 0.5 MG/DL (0.1-1.0)
[2020-08-02 01:50] LABS: CREATININE SERUM 1.56 MG/DL (0.60-1.30)
[2020-08-02] MEDS ORDERED: LACTATED RINGERS 1,000 ML IV SCH ×3 (02:00→19:15)
[2020-08-02] MEDS ORDERED: morphine INJ 4 MG/ML 1 ML (VIAL/SYRINGE) IVP ONE (02:00)
[2020-08-02 02:07] LABS: INR 1.1 (0.8-1.4); PROTHROMBIN TIME PATIENT 14.9 SEC (12.2-14.7)
[2020-08-02] MEDS ORDERED: PIPERACILLIN/TAZO 4.5 GM VIAL (ZOSYN) IV ONE (02:34)
[2020-08-02] MEDS ORDERED: NS (IVPB) 100 ML ONE (02:35)
[2020-08-02] MEDS ORDERED: PIPERACILLIN/TAZOBACTAM (BULK) 4.5 GM in NS (IVPB) 100 ML IV ONE (02:45)
--- NOTE | 2020-08-02 02:46 | History & Physical-Surgical ---
History of Present Illness History of Present Illness Reason for visit/HPI Seen and evaluated in ED. CC: Severe abdominal pain. Patient is a 79 year old male who presented to [place] [facility] and transferred to [place] for further evaluation. He has recently been diagnosed with left lung mass that is being worked up. This month he has had occasional abdominal pain and was admitted to other hospital for small bowel obstruction. This resolved with conservative measures. Patient is supposed to be having a colonoscopy this week. Was taking some prep and tonight began having severe 40/10 abdominal pain sharp/severe. Can't move without worsening pain. Nothing really making better. Has been having nausea and vomiting. Blood pressure has dropped into the 80's systolic now requiring pressors. Patient had ct scan showing thickened small bowel, free fluid in abdomen, mesenteric edema, left lung mass, question small focus of free air. Date of Admission T Date Seen by a Provider: Aug 02, 2020 Time Seen by a Provider: 02:45 I consulted on this patient on 08/02/20 02:40 Attending Physician Heidi Stewart DO Admitting Physician Jose Claudio MD Consult Allergies and Home Medications Allergies Coded Allergies: No Known Drug Allergies (Unverified , 06/27/18) Home Medications Fexofenadine HCl 180 Mg Tablet, 180 MG PO DAILY, (Reported) Finasteride 5 Mg Tablet, 5 MG PO DAILY, (Reported) Hydrocodone Bit/Acetaminophen 1 Tab Tab, 1-2 TAB PO Q6H PRN for PAIN-MODERATE Prescribed by: HEIDI STEWART on 07/25/18 1112 Lisinopril 20 Mg Tablet, 20 MG PO DAILY, (Reported) Pantoprazole Sodium 40 Mg Tablet.dr, 40 MG PO DAILY Prescribed by: HEIDI STEWART on 07/02/18 1434 Tamsulosin HCl 0.4 Mg Cap, 0.4 MG PO DAILY, (Reported) Patient Home Medication List Home Medication List Reviewed: Yes Past Qjvbgay-Iontji-Ynsbnz Hx Patient Social History Smoking Status: Never a Smoker 2nd Hand Smoke Exposure: No Recent Hopitalizations: No Immunizations Up To Date Date of Pneumonia Vaccine: Mar 27, 2018 Date of Influenza Vaccine: Mar 27, 2018 Seasonal Allergies Seasonal Allergies: Yes Surgeries History of Surgeries: Yes (colonoscopy) Surgeries: Gallbladder Respiratory History of Respiratory Disorde: No Cardiovascular History of Cardiac Disorders: Yes Cardiac Disorders: Hypertension Neurological History of Neurological Disord: No Genitourinary History of Genitourinary Disor: No Gastrointestinal History of Gastrointestinal Di: Yes (N&V) Gastrointestinal Disorders: Gastroesophageal Reflux, Chronic Constipation, Chronic Diarrhea, Gall Bladder Disease Musculoskeletal History of Musculoskeletal Dis: No Endocrine History of Endocrine Disorders: No HEENT History of HEENT Disorders: No Cancer History of Cancer: Yes Cancer: Skin, Colon Psychosocial History of Psychiatric Problem: No Integumentary History of Skin or Integumenta: No Blood Transfusions History of Blood Disorders: No Family Medical History Significant Family History: No Pertinent Family Hx Review of Systems Constitutional: No chills, No diaphoresis EENTM: No ear pain, No blurred vision, No double vision Respiratory: No cough, No dyspnea on exertion Cardiovascular: No chest pain Gastrointestinal: abdominal pain, nausea, vomiting Genitourinary: No decreased output, No discharge Musculoskeletal: No back pain, No joint pain Skin: No change in color, No change in hair/nails Psychiatric/Neurological: Denies Anxiety, Denies Depressed, Denies Emotional Problems All Other Systems Reviewed Negative Unless Noted: Yes (Negative excepted noted.) Physical Exam Vital Signs Vital Signs - First Documented Capillary Refill : Less Than 3 Seconds Height, Weight, BMI Height: 5'10.00" Weight: 160lbs. 0.0oz. 72.581332ib; 24.00 BMI Method:Stated General Appearance: Chronically ill, Moderate Distress HEENT: PERRL/EOMI, Normal ENT Inspection Neck: Normal Inspection, Non Tender Respiratory: Chest Non Tender, No Accessory Muscle Use, No Respiratory Distress Cardiovascular: No JVD, Tachycardia Gastrointestinal: Tenderness (diffuse-peritoneal on exam) Rectal: Deferred Back: No CVA Tenderness, No Vertebral Tenderness Extremity: Non Tender, No Calf Tenderness Neurologic/Psychiatric: Alert, Oriented x3, No Motor/Sensory Deficits, Normal Mood/Affect, financial engineer II-XII Norm as Tested Skin: Normal Color, Warm/Dry Lymphatic: No Adenopathy Data Review Labs Laboratory Tests 08/02/20 00:55: White Blood Count 7.6, Red Blood Count 4.63, Hemoglobin 12.6L, Hematocrit 39L, Mean Corpuscular Volume 85, Mean Corpuscular Hemoglobin 27, Mean Corpuscular Hemoglobin Concent 32, Red Cell Distribution Width 14.4, Platelet Count 176, Mean Platelet Volume 9.0, Immature Granulocyte % (Auto) 0, Neutrophils (%) (Auto) 76H, Lymphocytes (%) (Auto) 12, Monocytes (%) (Auto) 12, Eosinophils (%) (Auto) 0, Basophils (%) (Auto) 0, Neutrophils # (Auto) 5.7, Lymphocytes # (Auto) 0.9L, Monocytes # (Auto) 0.9, Eosinophils # (Auto) 0.0, Basophils # (Auto) 0.0, Immature Granulocyte # (Auto) 0.0, Prothrombin Time 14.9H, INR Comment 1.1, Activated Partial Thromboplast Time 26, Sodium Level 139, Potassium Level 4.0, Chloride Level 105, Carbon Dioxide Level 21, Anion Gap 13, Blood Urea Nitrogen 22H, Creatinine 1.56H, Estimat Glomerular Filtration Rate 43, BUN/Creatinine Ratio 14, Glucose Level 199H, Lactic Acid Level 2.84*H, Calcium Level 8.7, Corrected Calcium 9.1, Total Bilirubin 0.5, Aspartate Amino Transf (AST/SGOT) 14, Alanine Aminotransferase (ALT/SGPT) 12, Alkaline Phosphatase 69, C-Reactive Protein High Sensitivity 0.79H, Total Protein 5.5L, Albumin 3.5 Assessment/Plan Assessment/Plan Admission Diagonsis severe abdominal pain nausea vomiting hypotension concerned for ischemic bowel Admission Status: Inpatient Order (span 2 midnights) Reason for Inpatient Admission: Needing emergent surgical internvention and postop care that will require 2 midnight stay Assessment/Plan severe abdominal pain nausea vomiting hypotension concern for ischemic bowel left lung mass Patient with peritoneal abdominal exam, thickened small bowel and mesenteric edema, concern could have ischemic bowel. Patient hypotensive on IV fluids and dopamine currently. Patient discussed risks and benefits of exploratory laparotomy all other indicated procedures. He and understand risks and benefits and wish to proceed. To OR. They understand possible outcomes, including nothing that can be fixed and including . HEIDI STEWART DO Aug 02, 2020 02:46
[2020-08-02] MEDS ORDERED: MIDAZOLAM 2 MG/2 ML (VERSED) VIAL ONE (03:16)
[2020-08-02] MEDS ORDERED: LACTATED RINGERS 1,000 ML IV PRN (03:30)
[2020-08-02] MEDS ORDERED: MEPERIDINE (DEMEROL) INJ 50 MG/ML IVP ONE (03:30)
[2020-08-02] MEDS ORDERED: morphine INJ 10 MG/ML 1ML (SYR OR VIAL) IVP ONE (03:30)
[2020-08-02] MEDS ORDERED: ONDANSETRON 4 MG/2 ML (SDV) Z0FRAN IVP PRN (03:30)
[2020-08-02] MEDS ORDERED: ETOMIDATE IV SOLN 20 MG/10 ML VIAL ONE (03:33)
[2020-08-02] MEDS ORDERED: LIDOCAINE PF 2% 5 ML (XYLOCAINE) VIAL ONE (03:33)
[2020-08-02] MEDS ORDERED: SUCCINYLCHOLINE INJ 100 MG/5 ML SYR/VIAL ONE (03:33)
[2020-08-02] MEDS ORDERED: ISOFLURANE (FORANE) 15 ML/15 MIN INHALATION ONE (03:33)
[2020-08-02] MEDS ORDERED: ROCURONIUM 10 MG/ML 5 ML SYRINGE IV ONE ×2 (03:33→05:28)
[2020-08-02] MEDS ORDERED: ceFAZolin 2 GM IV Premixed 50 ML ONE (03:52)
[2020-08-02] MEDS ORDERED: PHENYLEPHRINE INJ 10 MG/ML (FOR DRIP KITS ONLY) ONE (04:18)
[2020-08-02] MEDS ORDERED: SEVOFLURANE (ULTANE) 15 ML INHAL SOLN ONE ×7 (05:19→06:01)
--- NOTE | 2020-08-02 05:47 | Progress Note-Post Operative ---
Post-Operative Progess Note Surgeon (s)/Business Trainer (s) Surgeon HEIDI KIDD DO Business Trainer: na Pre-Operative Diagnosis severe abdominal pain, concern for ischemic bowel Post-Operative Diagnosis small bowel mass c perforation Procedure & Operative Findings Date of Procedure 08/02/20 Procedure Performed/Findings exploratory lapartomy with small bowel resection Anesthesia Type general Estimated Blood Loss Estimated blood loss (mL): minimal Specimens/Packing Specimens Removed small bowel segment HEIDI KIDD DO Aug 02, 2020 05:47
--- NOTE | 2020-08-02 06:03 | Pulmonary Consultation ---
History of Present Illness History of Present Illness Date Seen by Provider: Aug 02, 2020 Time Seen by Provider: 05:58 Date of Admission History of Present Illness 79yo who was recently dx with left lung mass and at [facility] and is s/p CT bx. Pt has had persistent abdominal pain and was being treated for SBO which improved with medical treatment. Pt was scheduled for colonoscopy this week. During colonoscopy prep pt started having severe worsening abdominal pain and N/V. Pt was transferred from [facility] to our ER. Pt was found to have a small Bowel perforation and was taken to surgery for repair per Dr. Stewart. Dr. Roque is consulted me for ICU management. Allergies and Home Medications Allergies Coded Allergies: No Known Drug Allergies (Unverified , 06/27/18) Home Medications Fexofenadine HCl 180 Mg Tablet, 180 MG PO DAILY, (Reported) Finasteride 5 Mg Tablet, 5 MG PO DAILY, (Reported) Hydrocodone Bit/Acetaminophen 1 Tab Tab, 1-2 TAB PO Q6H PRN for PAIN-MODERATE Prescribed by: HEIDI STEWART on 07/25/18 1112 Lisinopril 20 Mg Tablet, 20 MG PO DAILY, (Reported) Pantoprazole Sodium 40 Mg Tablet.dr, 40 MG PO DAILY Prescribed by: HEIDI STEWART on 07/02/18 1434 Tamsulosin HCl 0.4 Mg Cap, 0.4 MG PO DAILY, (Reported) Past Rgbxwyo-Lmmedb-Vtylpn Hx Patient Social History Alcohol Use: Denies Use Smoking Status: Never a Smoker 2nd Hand Smoke Exposure: No Recent Infectious Disease Expo: No Recent Hopitalizations: No Immunizations Up To Date Date of Pneumonia Vaccine: Mar 27, 2018 Date of Influenza Vaccine: Mar 27, 2018 Seasonal Allergies Seasonal Allergies: Yes Past Medical History Surgeries: Yes (colonoscopy) Gallbladder Respiratory: No Cardiac: Yes Hypertension Neurological: No Genitourinary: No Gastrointestinal: Yes (N&V) Gastroesophageal Reflux, Chronic Constipation, Chronic Diarrhea, Gall Bladder Disease Musculoskeletal: No Endocrine: No HEENT: No Cancer: Yes Skin, Colon Psychosocial: No Integumentary: No Blood Disorders: No Family Medical History No Pertinent Family Hx Review of Systems Time Seen by Provider: 06:29 Sepsis Event Evaluation Height, Weight, BMI Height: 5'10.00" Weight: 160lbs. 0.0oz. 72.150070ch; 24.00 BMI Method:Stated Exam Exam Vital Signs Date Time Temp Pulse Resp B/P (MAP) Pulse Ox O2 Delivery O2 Flow Rate FiO2 08/02/20 03:35 36.2 96 21 121/75 96 Nasal Cannula 2.00 08/02/20 01:37 129 88/62 08/01/20 23:57 36.7 132 16 70/51 (57) 94 Room Air 36.7 08/01/20 23:57 36.7 132 16 70/51 (57) 94 Room Air I & O 08/02/20 07:00 Intake Total 2550 ml Output Total 150 ml Balance 2400 ml Height & Weight Height: 5'10.00" Weight: 160lbs. 0.0oz. 72.171568lx; 24.00 BMI Method:Stated General Appearance: Chronically ill, Other (Sedated on vent. ) HEENT: PERRL/EOMI, Normal ENT Inspection Neck: Normal Inspection, Non Tender Respiratory: Chest Non Tender, No Accessory Muscle Use, No Respiratory Distress Cardiovascular: No JVD, Tachycardia Capillary Refill: Less Than 3 Seconds Gastrointestinal: abnormal bowel sounds (hypoactive), guarding, tenderness (significant Abdominal tenderness, rigid abdomen) Extremity: Non Tender, No Calf Tenderness Skin: Normal Color, Warm/Dry Lymphatic: No Adenopathy Results Lab Laboratory Tests 08/02/20 00:55 Assessment/Plan Assessment/Plan Severe abdominal pain secondary colon perf from small bowel perforation secondary to mass -Pt remains of vent s/p surgery -Hold sedation and wean vent once pt is awake and alert. -Discussed with Dr. Stewart at 0600 -Check CXR Abdominal sepsis with septic shock upon arrival -IVF -- Increase LR to 150 -Cultures obtained while in ED -Femoral central line placed -Continue current Zosyn, and Flagyl -Start Diflucan secondary to SB perforation -Levophed - titrate to D/C -Will give another liter bolus of LR Lactic acidosis -Repeat LA -IVF Lung Mass s/p CT bx at [facility] -Obtain records and cytology report. Acute renal failure -IVF -Monitor DAPHNE SHIRLEY DO Aug 02, 2020 06:03
[2020-08-02] MEDS ORDERED: FLUCONAZOLE 200 MG/100 ML 100 ML IV ONE (06:15)
[2020-08-02] MEDS: metroNIDAZOLE 500MG/100ML IVPB 100 ML IV SCH ×3 (06:56→22:57)
--- NOTE | 2020-08-02 07:04 | Diagnostic Imaging Report ---
HISTORY: Intubation COMPARISON: None TECHNIQUE: Frontal view of the chest. FINDINGS: The endotracheal tube is about 2.7 cm above the kevin. The enteric tube tip projects over the stomach. There are bibasilar airspace opacities. This includes nodular densities in the lung bases. No pleural effusion or pneumothorax is seen. Lung volumes are normal. The cardiac silhouette is normal in size. IMPRESSION: 1. Bibasilar airspace opacities, including nodular opacities which may be due to infection or neoplastic process. Consider CT of the chest. 2. The endotracheal tube is about 2.7 cm above the kevin. Dictated by: Dictated on workstation # [id number]
--- NOTE | 2020-08-02 07:29 | Diagnostic Imaging Report ---
PROCEDURE: CT abdomen and pelvis without contrast. TECHNIQUE: Multiple contiguous axial images were obtained through the abdomen and pelvis without the use of intravenous contrast. Auto Exposure Controls were utilized during the CT exam to meet ALARA standards for radiation dose reduction. INDICATION: Abdominal pain COMPARISON: 07/20/2007 FINDINGS: There is a lobulated masslike density in the left lower lobe measuring up to 3.3 cm in size. There is dependent atelectasis in the lung bases. There is a calcified granuloma in the right lower lobe. There appears to be a likely nodule in the right middle lobe as well, but this is incompletely seen. There appear to be small nodules in the right lower lobe as well. The heart is normal in size. There is a moderate size hiatal hernia. The liver demonstrates no focal lesions. Cholecystectomy clips are noted. The spleen is large measuring 15.8 cm. The pancreas is not well seen, likely due to chronic atrophy. The adrenal glands appear normal. There is mild right hydronephrosis. There is no left hydronephrosis. No obstructing calculi are seen bilaterally. There is a small amount of ascites in the abdomen and pelvis. There is diffuse mesenteric edema. There are wall thickened mildly prominent loops of small bowel. There is diverticulosis of the colon without diverticulitis. There are small fat-containing bilateral inguinal hernias. No free air is seen. No acute osseous abnormality is seen. There are degenerative changes in the lumbar spine as well as grade 1 spondylolisthesis at multiple levels. IMPRESSION: 1. Lobulated masslike density in the left lower lobe with additional suspected nodules in the right lung. This is concerning for malignancy and metastatic disease. Consider CT of the chest to further evaluate. 2. Wall thickening and prominence of multiple loops of small bowel. This may be due to an enteritis. No definite transition point is identified. 3. Splenomegaly, may be due to portal hypertension. 4. Mild right hydronephrosis, likely reactive. 5. Mild ascites and diffuse mesenteric edema. 6. Moderate size hiatal hernia. Small bilateral inguinal hernias. Dictated by: Dictated on workstation # [id number]
[2020-08-02] MEDS: PANTOPRAZOLE 40 MG (PROTONIX) VIAL IV SCH (08:14)
[2020-08-02] MEDS: PIPERACILLIN/TAZOBACTAM (BULK) 4.5 GM in NS (IVPB) 100 ML IV SCH ×2 (08:14→18:24)
[2020-08-02] MEDS ORDERED: FLUCONAZOLE 200 MG/100 ML 50 ML, EMPTY IV BAG (PVC) 1 EA IV SCH ×2 (09:00)
--- NOTE | 2020-08-02 09:54 | Consultation - Hospitalist ---
TYLERPARKER, 08/02/20 0954: HPI History of Present Illness: HPI/Chief Complaint Hospitalist service has been consulted on Mr. Mayer for: medication management This patient is a 79-year-old male with past medical history significant for hypertension and GERD who presented to the [place] ER on 08/01 for severe abdominal cramping and vomiting. He started a colonoscopy prep for an upcoming colonoscopy but started having severe cramping. He was transferred to the [place] ED for CT imaging and further management. He was started on levophed for hypotension. Dr. Stewart was consulted for an acute abdomen and the patient had an exploratory laparotomy 08/02. Today, 08/02, the patient states he is still having abdominal pain but is improving. He is currently having hiccups and that is causing further discomfort. Source: patient Exam Limitations: no limitations Date Seen 08/02/20 Attending Physician Tariq Stewart Benjamen H MD Referring Physician Date of Admission Aug 02, 2020 at 05:59 Home Medications & Allergies Home Medications Reviewed patient Home Medication Reconciliation performed by pharmacy medication reconciliations aerospace physiological technician and/or nursing. Patients Allergies have been reviewed. Allergies Allergies Coded Allergies No Known Drug Allergies (Unverified06/27/18) Past Eyqcmou-Qciuql-Rixfly Hx Patient Social History Marrital Status: Alcohol Use: Denies Use Recreational Drug Use: No Smoking Status: Never a Smoker 2nd Hand Smoke Exposure: No Recent Foreign Travel: No Contact w/other who traveled: No Recent Hopitalizations: No Recent Infectious Disease Expo: No Immunizations Up To Date Date of Pneumonia Vaccine: Mar 27, 2018 Date of Influenza Vaccine: Mar 27, 2018 Seasonal Allergies Seasonal Allergies: Yes Past Medical History Surgeries: Gallbladder Cardiac: Hypertension Gastrointestinal: Gastroesophageal Reflux, Chronic Constipation, Chronic Diarrhea, Gall Bladder Disease Cancer: Skin, Colon History of Blood Disorders: No Family History Cancer (mother - skin cancer) Review of Systems Constitutional: chills; No malaise, No weakness EENTM: tearing Respiratory: No cough, No short of breath Cardiovascular: No chest pain, No palpitations Gastrointestinal: see HPI Genitourinary: No dysuria, No hematuria Musculoskeletal: no symptoms reported Skin: no symptoms reported Psychiatric/Neurological: No Symptoms Reported Physical Exam Physical Exam Vital Signs Vital Signs - First Documented 08/02/20 08/02/20 03:35 06:13 O2 Flow Rate 2.00 FiO2 40 Capillary Refill : Less Than 3 Seconds Height, Weight, BMI Height: 5'10.00" Weight: 160lbs. 0.0oz. 72.887628mz; 24.50 BMI Method:Stated General Appearance: Chronically ill HEENT: PERRL/EOMI; No Pale Conjunctivae (L), No Pale Conjunctivae (R) Neck: Non Tender, Supple Respiratory: Chest Non Tender, No Accessory Muscle Use, No Respiratory Distress Cardiovascular: Regular Rate, Rhythm, No Edema, Normal Peripheral Pulses, Tachycardia Gastrointestinal: Soft, Abnormal Bowel Sounds (hypoactive), Tenderness (diffuse-peritoneal on exam) Extremity: Non Tender, No Calf Tenderness Neurologic/Psychiatric: Alert, Oriented x3, No Motor/Sensory Deficits Skin: Normal Color, Warm/Dry Lymphatic: No Adenopathy Results Results/Procedures Labs Laboratory Tests 08/02/20 00:55 Patient resulted labs reviewed. Assessment/Plan Assessment and Plan Assess & Plan/Chief Complaint Small bowel perforation Septic shock requiring blood pressure support * S/p open laparotomy and small bowel resection * Dr. Stewart consulted * On flagyl, diflucan, zosyn * Off of levophed now Acute renal failure secondary to hypotension * Pt was on levophed drip in ED for hypotension, is now off * Labs revealed BUN 22, Cr 1.56, GFR 43 with no known kidney disease * Gentle fluid resuscitation * Avoid nephrotoxic agents * Renally dose all medications Lactic acidosis, resolved Hypertension * Hold home lisinopril due to ARF and hypotension Lung nodules * Recently diagnosed, work-up pending from [facility] * Will request documentation Diet: npo PPx: SCDs FULL CODE Dispo: likely >2 midnights for further treatment after open laparotomy ISABEL ROQUE MD 08/02/20 1252: HPI Referring Physician Dr Stewart Past Chusudg-Hhignp-Hppetw Hx Past Med/Social Hx: Reviewed Nursing Past Med/Soc Hx Results Results/Procedures Imaging: Reviewed Imaging Report Assessment/Plan Assessment and Plan Assess & Plan/Chief Complaint Patient was admitted to the ICU in septic shock due to bowel perforation. He underwent open laparotomy very early this AM which revealed a small bowel mass with perforation. He remained on the ventilator after surgery but was successfully liberated this morning. I am consulted for medical management. He s tates that he is feeling much better but still has incisional pain in his abdomen. He was weaned off of pressors this morning. He has a PMh of HTn and BPH. Will hold his current antihypertensives. Morrison in place with good UOP. Continue IV Abx. Await cultures. Supervisory-Addendum Brief Verification & Attestation Participated in pt care: history, MDM, physical Personally performed: exam, history, MDM, supervision of care Care discussed with: Medical Student Procedures: n/a Results interpretation: Verified all documentation Verification and Attestation of Medical Student E/M Service A medical student performed and documented this service in my presence. I reviewed and verified all information documented by the medical student and made modifications to such information, when appropriate. I personally performed the physical exam and medical decision making. Isabel Roque, Aug 02, 2020,12:22 PARKER SCOTT, Aug 02, 2020 09:54 ISABEL ROQUE MD Aug 02, 2020 12:52
[2020-08-02] MEDS: morphine INJ 4 MG/ML 1 ML (VIAL/SYRINGE) IVP PRN ×3 (10:42→22:56)
[2020-08-02] MEDS ORDERED: ARTIFICAL TEARS 0.4 ML UNIT DOSE (REFRESH PLUS) OU PRN (10:45)
[2020-08-02] MEDS: RT-ALBUTEROL SULF 2.5 MG/3 ML PRE-MIX VIAL INH SCH ×4 (11:08→22:03)
[2020-08-02] MEDS ORDERED: RT-ALBUTEROL SULF 2.5 MG/3 ML PRE-MIX VIAL INH PRN (12:00)
[2020-08-02] MEDS: HYDROcodone/APAP 5 MG/325 MG (LORTAB) TAB PO PRN ×2 (15:33→20:30)
[2020-08-02 19:57] LABS: CALCIUM 7.9 MG/DL (8.5-10.1); CREATININE SERUM 1.94 MG/DL (0.60-1.30); POTASSIUM 4.9 MMOL/L (3.6-5.0)
[2020-08-02] MEDS: NOREPINEPHRINE 4 MG/250 ML 250 ML IV SCH (20:31)
[2020-08-03] MEDS: RT-ALBUTEROL SULF 2.5 MG/3 ML PRE-MIX VIAL INH SCH ×6 (02:43→21:21)
[2020-08-03 02:54] LABS: BASOPHILS % (AUTO) 0 % (0-10); EOSINOPHILS % (AUTO) 0 % (0-10); HEMATOCRIT 30 % (40-54); HEMOGLOBIN 9.7 g/dL (13.3-17.7); LYMPHOCYTES # (AUTO) 1.1 10^3/uL (1.0-4.0); LYMPHOCYTES % (AUTO) 15 % (12-44); MEAN CORPUSCULAR HEMOGLOBIN 27 pg (25-34); MEAN CORPUSCULAR HGB CONC 32 g/dL (32-36); MEAN CORPUSCULAR VOLUME 84 fL (80-99); MEAN PLATELET VOLUME 8.8 fL (9.0-12.2); MONOCYTES # (AUTO) 0.6 10^3/uL (0.0-1.0); MONOCYTES % (AUTO) 9 % (0-12); NEUTROPHILS # (AUTO) 5.5 10^3/uL (1.8-7.8); NEUTROPHILS % (AUTO) 76 % (42-75); PLATELET COUNT 131 10^3/uL (130-400); WHITE BLOOD COUNT 7.3 10^3/uL (4.3-11.0)
[2020-08-03 03:05] LABS: ALBUMIN 2.5 GM/DL (3.2-4.5); POTASSIUM 4.3 MMOL/L (3.6-5.0)
[2020-08-03 03:06] LABS: CALCIUM 7.5 MG/DL (8.5-10.1)
[2020-08-03 03:09] LABS: BILIRUBIN,TOTAL 0.5 MG/DL (0.1-1.0)
[2020-08-03 03:10] LABS: PHOSPHORUS 3.5 MG/DL (2.3-4.7)
[2020-08-03 03:11] LABS: CREATININE SERUM 1.87 MG/DL (0.60-1.30)
[2020-08-03 03:14] LABS: MAGNESIUM 1.4 MG/DL (1.6-2.4)
[2020-08-03] MEDS ORDERED: LACTATED RINGERS 1,000 ML IV SCH ×2 (05:45→11:00)
--- NOTE | 2020-08-03 05:47 | Pulmonary Progress Note ---
Subjective Time Seen by a Provider: 05:40 Subjective/Events-last exam Pt is only requiring 2 liters of oxygen Sepsis Event Evaluation Height, Weight, BMI Height: 5'10.00" Weight: 160lbs. 0.0oz. 72.663529zp; 24.50 BMI Method:Stated Focused Exam Lactate Level 08/02/20 21:54: Lactic Acid Level 3.66*H 08/02/20 23:54: Lactic Acid Level 3.14*H 08/03/20 02:43: Lactic Acid Level 3.18*H Lactic Acid Level Laboratory Tests Test 08/03/20 02:43 Lactic Acid Level 3.18 MMOL/L (0.50-2.00) *H Exam Exam Vital Signs Date Time Temp Pulse Resp B/P (MAP) Pulse Ox O2 Delivery O2 Flow Rate FiO2 08/03/20 05:00 100 18 126/60 (82) 93 Room Air 08/03/20 04:30 36.6 08/03/20 04:01 95 Room Air 08/03/20 04:00 103 19 116/55 (75) 94 Room Air 08/03/20 03:00 99 21 104/55 (71) 93 Room Air 08/03/20 02:44 96 Room Air 08/03/20 02:00 98 13 108/58 (75) 94 Room Air 08/03/20 01:00 85 13 126/81 (96) 97 Room Air 08/03/20 01:00 85 08/03/20 00:00 89 18 121/59 (79) 96 Room Air 08/03/20 00:00 95 Room Air 08/02/20 23:52 37.0 08/02/20 23:00 101 19 117/55 (75) 95 Room Air 08/02/20 22:03 94 Room Air 08/02/20 22:00 93 14 122/65 (84) 95 Room Air 08/02/20 21:00 81 23 119/89 (99) 94 Room Air 08/02/20 20:31 102/53 08/02/20 20:15 98 22 90/48 (62) 95 Room Air 08/02/20 20:00 95 Room Air 08/02/20 19:00 105 08/02/20 19:00 36.6 08/02/20 19:00 105 15 108/46 (66) 96 Room Air 08/02/20 18:34 97 Room Air 21 08/02/20 18:00 93 15 87/51 (63) 97 Nasal Cannula 0.50 08/02/20 17:00 88 11 85/60 (68) 96 Nasal Cannula 0.50 08/02/20 16:00 95 Nasal Cannula 0.50 08/02/20 16:00 87 21 102/56 (71) 82 Nasal Cannula 0.50 08/02/20 16:00 36.4 08/02/20 15:00 91 21 101/48 (65) 96 Nasal Cannula 0.50 08/02/20 14:21 99 Room Air 08/02/20 14:00 90 20 81/48 (59) 96 Nasal Cannula 0.50 08/02/20 13:00 89 22 86/54 (65) 95 Nasal Cannula 0.50 08/02/20 12:51 87 08/02/20 12:00 95 Nasal Cannula 0.50 08/02/20 12:00 92 21 85/54 (64) 97 Nasal Cannula 0.50 08/02/20 11:19 Nasal Cannula 0.50 08/02/20 11:08 99 Nasal Cannula 3.00 08/02/20 11:00 82 19 88/56 (67) 99 Nasal Cannula 2.00 08/02/20 10:00 82 19 95/59 (71) 95 Nasal Cannula 2.00 08/02/20 09:00 93 18 89/56 (67) 100 Nasal Cannula 2.00 08/02/20 08:45 100 Nasal Cannula 2.00 08/02/20 08:45 36.1 96 100 28 08/02/20 08:02 99 Nasal Cannula 2.00 08/02/20 08:00 115 11 160/80 (106) 94 Nasal Cannula 2.00 08/02/20 07:51 36.1 Nasal Cannula 2.00 08/02/20 06:56 97 17 122/62 (82) 99 Mechanical Ventilator 40.00 08/02/20 06:40 36.3 14 116/62 (80) 100 Mechanical Ventilator 08/02/20 06:40 Mechanical Ventilator 08/02/20 06:32 90 08/02/20 06:30 14 105/56 (72) 100 Mechanical Ventilator 08/02/20 06:25 14 121/66 (84) 100 Mechanical Ventilator 08/02/20 06:25 Mechanical Ventilator 08/02/20 06:20 14 91/55 (67) 98 Mechanical Ventilator 08/02/20 06:15 14 95/58 (70) 98 Mechanical Ventilator 08/02/20 06:13 87 14 100 40 08/02/20 06:10 14 93/53 (66) 100 Mechanical Ventilator 08/02/20 06:10 Mechanical Ventilator 08/02/20 06:00 14 115/63 (80) 100 Mechanical Ventilator 08/02/20 05:55 Mechanical Ventilator 08/02/20 05:50 14 119/69 (86) 100 Mechanical Ventilator 08/02/20 05:44 36.4 14 119/69 (86) 100 Mechanical Ventilator 08/02/20 05:44 Mechanical Ventilator I & O 08/03/20 07:00 Intake Total 1000 ml Output Total 645 ml Balance 355 ml Height & Weight Height: 5'10.00" Weight: 160lbs. 0.0oz. 72.404525wy; 24.50 BMI Method:Stated General Appearance: Chronically ill HEENT: PERRL/EOMI; No Pale Conjunctivae (L), No Pale Conjunctivae (R) Neck: Non Tender, Supple Respiratory: Chest Non Tender, No Accessory Muscle Use, No Respiratory Distress Cardiovascular: Regular Rate, Rhythm, No Edema, Normal Peripheral Pulses, Tachycardia Capillary Refill: Less Than 3 Seconds Gastrointestinal: abnormal bowel sounds (hypoactive), guarding, tenderness (significant Abdominal tenderness, rigid abdomen) Extremity: Non Tender, No Calf Tenderness Neurologic/Psychiatric: Alert, Oriented x3, No Motor/Sensory Deficits Skin: Normal Color, Warm/Dry Lymphatic: No Adenopathy Results Lab Laboratory Tests 08/02/20 00:55 08/02/20 19:30 08/03/20 02:43 Assessment/Plan Assessment/Plan Hypoxia -Continue oxygen -Check Ct of chest Severe abdominal pain secondary colon perf from small bowel perforation secondary to mass -Pt remains of vent s/p surgery -Cytology pending -s/p ventilator Abdominal sepsis with septic shock upon arrival -IVF -- Increase LR to 150 -Cultures obtained while in ED -Femoral central line -D/C femoral line -Continue current Zosyn, and Flagyl -Start Diflucan secondary to SB perforation Lactic acidosis -Give another liter bolus of LR -Repeat LA -IVF Lung Mass s/p CT bx at [facility] -CT bx was negative -This is being followed in [place] -Consider repeat bx while here in Hospital -Check CT of chest. Acute renal failure -IVF -Monitor DAPHNE SHIRLEY DO Aug 03, 2020 05:47
[2020-08-03] MEDS: NOREPINEPHRINE 4 MG/250 ML 250 ML IV SCH ×3 (06:20→23:17)
[2020-08-03] MEDS: metroNIDAZOLE 500MG/100ML IVPB 100 ML IV SCH ×3 (06:20→23:13)
[2020-08-03] MEDS: LACTATED RINGERS 1,000 ML IV SCH ×3 (07:25→20:00)
[2020-08-03] MEDS: MAGNESIUM 1 GM/100 ML IVPB 100 ML IV SCH ×2 (08:07→10:22)
[2020-08-03] MEDS: PANTOPRAZOLE 40 MG (PROTONIX) VIAL IV SCH (08:07)
[2020-08-03] MEDS: PIPERACILLIN/TAZOBACTAM (BULK) 4.5 GM in NS (IVPB) 100 ML IV SCH ×4 (08:07→16:53)
[2020-08-03] MEDS: FLUCONAZOLE 100 MG/50 ML IVPB IV SCH (08:07)
[2020-08-03] MEDS: morphine INJ 4 MG/ML 1 ML (VIAL/SYRINGE) IVP PRN ×2 (08:15→12:05)
--- NOTE | 2020-08-03 08:34 | Progress Note - Surgery ---
LASHELL SOLORZANO MED STUDENT 08/03/20 0834: Subjective Date Seen by a Provider: Aug 03, 2020 Time Seen by a Provider: 08:00 Subjective/Events-last exam Pt states abd pain is improved today, light at rest, but 8-9/10 with coughing or deep breathing. Pt has not passed stool or gas yet since sx. Pt off levophed since 03:00 this morning, on room air. Pt states nausea is worse today, but denies vomiting. Pt has been using IS but struggles due to pain with deep breathing. Pt denies fevers, calf tenderness or palpitations. Review of Systems General: No Chills, No Night Sweats Pulmonary: No Dyspnea, No Cough, No Pleuritic Chest Pain Cardiovascular: No: Chest Pain, Palpitations Gastrointestinal: Nausea, Abdominal Pain, Other (obstipation ); No: Vomiting, Diarrhea Focused Exam Lactate Level 08/02/20 23:54: Lactic Acid Level 3.14*H 08/03/20 02:43: Lactic Acid Level 3.18*H 08/03/20 06:09: Lactic Acid Level 2.28*H Lactic Acid Level Laboratory Tests Test 08/03/20 06:09 Lactic Acid Level 2.28 MMOL/L (0.50-2.00) *H Objective Exam Vital Signs Date Time Temp Pulse Resp B/P (MAP) Pulse Ox O2 Delivery O2 Flow Rate FiO2 08/03/20 07:49 37.1 08/03/20 06:44 96 Room Air 0.00 08/03/20 06:00 91 20 116/54 (74) 94 Room Air 08/03/20 05:00 100 18 126/60 (82) 93 Room Air 08/03/20 04:30 36.6 08/03/20 04:01 95 Room Air 08/03/20 04:00 103 19 116/55 (75) 94 Room Air 08/03/20 03:00 99 21 104/55 (71) 93 Room Air 08/03/20 02:44 96 Room Air 21 08/03/20 02:00 98 13 108/58 (75) 94 Room Air 08/03/20 01:00 85 13 126/81 (96) 97 Room Air 08/03/20 01:00 85 08/03/20 00:00 89 18 121/59 (79) 96 Room Air 08/03/20 00:00 95 Room Air 08/02/20 23:52 37.0 08/02/20 23:00 101 19 117/55 (75) 95 Room Air 08/02/20 22:03 94 Room Air 21 08/02/20 22:00 93 14 122/65 (84) 95 Room Air 08/02/20 21:00 81 23 119/89 (99) 94 Room Air 08/02/20 20:31 102/53 08/02/20 20:15 98 22 90/48 (62) 95 Room Air 08/02/20 20:00 95 Room Air 08/02/20 19:00 105 08/02/20 19:00 36.6 08/02/20 19:00 105 15 108/46 (66) 96 Room Air 08/02/20 18:34 97 Room Air 21 08/02/20 18:00 93 15 87/51 (63) 97 Nasal Cannula 0.50 08/02/20 17:00 88 11 85/60 (68) 96 Nasal Cannula 0.50 08/02/20 16:00 95 Nasal Cannula 0.50 08/02/20 16:00 87 21 102/56 (71) 82 Nasal Cannula 0.50 08/02/20 16:00 36.4 08/02/20 15:00 91 21 101/48 (65) 96 Nasal Cannula 0.50 08/02/20 14:21 99 Room Air 08/02/20 14:00 90 20 81/48 (59) 96 Nasal Cannula 0.50 08/02/20 13:00 89 22 86/54 (65) 95 Nasal Cannula 0.50 08/02/20 12:51 87 08/02/20 12:00 95 Nasal Cannula 0.50 08/02/20 12:00 92 21 85/54 (64) 97 Nasal Cannula 0.50 08/02/20 11:19 Nasal Cannula 0.50 08/02/20 11:08 99 Nasal Cannula 3.00 08/02/20 11:00 82 19 88/56 (67) 99 Nasal Cannula 2.00 08/02/20 10:00 82 19 95/59 (71) 95 Nasal Cannula 2.00 08/02/20 09:00 93 18 89/56 (67) 100 Nasal Cannula 2.00 08/02/20 08:45 100 Nasal Cannula 2.00 08/02/20 08:45 36.1 96 100 28 I & O 08/03/20 07:00 Intake Total 1620 ml Output Total 770 ml Balance 850 ml Capillary Refill : Less Than 3 Seconds General Appearance: No Apparent Distress, Chronically ill HEENT: PERRL/EOMI; No Pale Conjunctivae (L), No Pale Conjunctivae (R) Neck: Non Tender, Supple Respiratory: Chest Non Tender, No Accessory Muscle Use, No Respiratory Distress Cardiovascular: Regular Rate, Rhythm, No Edema, Normal Peripheral Pulses, Tachycardia Gastrointestinal: normal bowel sounds, tenderness (diffuse tenderness to palpation, worse along midline abd incision. ) Extremity: Normal Inspection, Non Tender, No Calf Tenderness, Other (neg obed sign b/l ) Neurologic/Psychiatric: Alert, Oriented x3, No Motor/Sensory Deficits Skin: Normal Color, Warm/Dry, Other (abd incision line c/d/i, no erythema, no dehiscence. ) Lymphatic: No Adenopathy Results Lab Laboratory Tests 08/02/20 19:30: Sodium Level 139, Potassium Level 4.9, Chloride Level 106, Carbon Dioxide Level 21, Anion Gap 12, Blood Urea Nitrogen 26H, Creatinine 1.94H, Estimat Glomerular Filtration Rate 34, BUN/Creatinine Ratio 13, Glucose Level 152H, Lactic Acid Le brian 3.40*H, Calcium Level 7.9L 08/02/20 21:54: Lactic Acid Level 3.66*H 08/02/20 23:54: Lactic Acid Level 3.14*H 08/03/20 02:43: Sodium Level 137, Potassium Level 4.3, Chloride Level 106, Carbon Dioxide Level 21, Anion Gap 10, Blood Urea Nitrogen 28H, Creatinine 1.87H, Estimat Glomerular Filtration Rate 35, BUN/Creatinine Ratio 15, Glucose Level 161H, Lactic Acid Level 3.18*H, Calcium Level 7.5L, White Blood Count 7.3, Red Blood Count 3.56L, Hemoglobin 9.7#L, Hematocrit 30L, Mean Corpuscular Volume 84, Mean Corpuscular Hemoglobin 27, Mean Corpuscular Hemoglobin Concent 32, Red Cell Distribution Width 14.6H, Platelet Count 131, Mean Platelet Volume 8.8L, Immature Granulocyte % (Auto) 0, Neutrophils (%) (Auto) 76H, Lymphocytes (%) (Auto) 15, Monocytes (%) (Auto) 9, Eosinophils (%) (Auto) 0, Basophils (%) (Auto) 0, Neutrophils # (Auto) 5.5, Lymphocytes # (Auto) 1.1, Monocytes # (Auto) 0.6, Eosinophils # (Auto) 0.0, Basophils # (Auto) 0.0, Immature Granulocyte # (Auto) 0.0, Corrected Calcium 8.7, Phosphorus Level 3.5, Magnesium Level 1.4L, Total Bilirubin 0.5, Aspartate Amino Transf (AST/SGOT) 26, Alanine Aminotransferase (ALT/SGPT) 11, Alkaline Phosphatase 45, Total Protein 4.0L, Albumin 2.5L 08/03/20 06:09: Lactic Acid Level 2.28*H Microbiology 08/02/20 MRSA Screen - Final, Complete MRSA not isolated 08/02/20 Gram Stain - Final, Resulted 08/02/20 Anaerobic Culture, Resulted Pending 08/02/20 Surgical Culture - Preliminary, Resulted Gram Negative Carlito Assessment/Plan Assessment/Plan Assessment/Plan s/p small bowel resection 07/13 perforation. severe sepsis- pt of flagyl, zosyn, and fluconazole. taken off levophed this morning. obstipation ARTHUR left lung mass normocytic anemia d/c NG tube and urinary cath advance diet IS IV fluids and pain and nausea management IV protonix Chest CT ordered today for lung mass IV ABs DVT prophylaxis with SCD and lovenox. TARIQ STEWART DO 08/03/20 1509: Subjective Subjective/Events-last exam Pain controlled. Working on using IS. No flatus or bm. Off pressors. NG tube bothering. Lactic elevated. Objective Exam General Appearance: No Apparent Distress, Chronically ill HEENT: PERRL/EOMI Neck: Non Tender, Supple Respiratory: Chest Non Tender, No Accessory Muscle Use, No Respiratory Distress Cardiovascular: No JVD, Tachycardia Gastrointestinal: soft, tenderness (midline tenderness at incision, c/d/i no signs of infection) Extremity: Normal Inspection, Non Tender Neurologic/Psychiatric: Alert, Oriented x3 Skin: Normal Color, Warm/Dry Lymphatic: No Adenopathy Assessment/Plan Assessment/Plan Assessment/Plan s/p small bowel resection due to mass with perforation. severe sepsis- pt of flagyl, zosyn, and fluconazole. taken off levophed this morning. ARTHUR left lung mass normocytic anemia d/c NG tube and urinary cath advance diet to clears IS IV fluids and pain and nausea management IV protonix Chest CT ordered today for lung mass IV ABs DVT prophylaxis with SCD and lovenox. Supervisory-Addendum Brief Verification & Attestation Participated in pt care: history, MDM, physical Personally performed: exam, history, MDM, supervision of care Care discussed with: Medical Student Procedures: n/a Results interpretation: Verified all documentation Verification and Attestation of Medical Student E/M Service A medical student performed and documented this service in my presence. I reviewed and verified all information documented by the medical student and made modifications to such information, when appropriate. I personally performed the physical exam and medical decision making. Tariq Stewart, Aug 03, 2020,15:09 LASHELL SOLORZANO MED STUDENT Aug 03, 2020 08:34 TARIQ STEWART DO Aug 03, 2020 15:09
--- NOTE | 2020-08-03 08:58 | Diagnostic Imaging Report ---
Indication: Sepsis Portable chest 1:55 AM There is an NG tube tip projects over the stomach. There is minimal bibasilar atelectasis. There is a 2 cm round nodular opacity in right lower lung. There are no effusions or pneumothoraces. Heart size and pulmonary vascularity are normal. There has been interval removal of endotracheal tube since previous day. IMPRESSION: Minimal bibasilar atelectasis. Right lower lung pulmonary nodule. Further evaluation with chest CT recommended. Dictated by: Dictated on workstation # [id number]
--- NOTE | 2020-08-03 09:42 | Progress Note - Hospitalist ---
Subjective HPI/CC On Admission Date Seen by Provider: Aug 03, 2020 Time Seen by Provider: 09:36 Hospitalist service has been consulted on Mr. Mayer for: medication management This patient is a 79-year-old male with past medical history significant for hypertension and GERD who presented to the [place] ER on 08/01 for severe abd ominal cramping and vomiting. He started a colonoscopy prep for an upcoming colonoscopy but started having severe cramping. He was transferred to the [place] ED for CT imaging and further management. He was started on levophed for hypotension. Dr. Stewart was consulted for an acute abdomen and the patient had an exploratory laparotomy 08/02. Today, 08/02, the patient states he is still having abdominal pain but is improving. He is currently having hiccups and that is causing further discomfort . Subjective/Events-last exam Pt reports feeling better this morning. Still having incisional pain and some heart burn but no other complaints. Focused Exam Lactate Level 08/03/20 06:09: Lactic Acid Level 2.28*H 08/03/20 08:35: Lactic Acid Level 3.42*H 08/03/20 14:35: Lactic Acid Level 9.18*H Lactic Acid Level Laboratory Tests Test 08/03/20 14:35 Lactic Acid Level 9.18 MMOL/L (0.50-2.00) *H Objective Exam Vital Signs Vital Signs Date Time Temp Pulse Resp B/P (MAP) Pulse Ox O2 Delivery O2 Flow Rate FiO2 08/03/20 15:59 37.2 08/03/20 15:45 98 Room Air 08/03/20 15:00 110 12 119/68 (85) 08/03/20 10:39 0.00 08/03/20 02:44 21 Capillary Refill : Less Than 3 Seconds General Appearance: No Apparent Distress, WD/WN HEENT: Other (NGT in place) Respiratory: Lungs Clear, No Respiratory Distress Cardiovascular: Regular Rate, Rhythm, No Murmur Gastrointestinal: Abnormal Bowel Sounds (quiet); No Distended; Tenderness (appropriately), Other (surgical dressing in place, clean and dry) Neurologic/Psychiatric: Alert, Oriented x3 Results/Procedures Lab Laboratory Tests 08/02/20 19:30 08/03/20 02:43 Patient resulted labs reviewed. Imaging: Reviewed Imaging Report Assessment/Plan Assessment and Plan Assess & Plan/Chief Complaint Small bowel perforation Septic shock requiring blood pressure support * S/p open laparotomy and small bowel resection * Dr. Stewart primary * On flagyl, diflucan, zosyn * Off of levophed since 2am today * Doing well but lactic acidosis persists but was trending down on last check, continue to trend Acute renal failure secondary to hypotension * Creatinine down to 1.87 today, trend * Monitor UOP, was adequate yesterday * Gentle fluid resuscitation * Avoid nephrotoxic agents * Renally dose all medications Hypertension * Hold home lisinopril due to ARF and hypotension Lung nodules * Recently diagnosed, work-up pending from [facility] * Will request documentation * CT Chest ordered this AM and pending Diet: npo PPx: SCDs FULL CODE ISABEL VALDOVINOS MD Aug 03, 2020 09:42
--- NOTE | 2020-08-03 10:56 | Diagnostic Imaging Report ---
EXAMINATION: CT Chest without contrast. TECHNIQUE: Multiple contiguous axial images were obtained through the chest without the use of intravenous contrast. All CT scans use one or more of the following dose optimizing techniques: automated exposure control, MA and/or KvP adjustment based on a patient size and exam type, or iterative reconstruction. HISTORY: Lung mass. COMPARISON: None available. FINDINGS: There are small bilateral pleural effusions with overlying atelectasis. The radiographic abnormality is a 2.2 x 1.9 cm nodule in the right middle lobe. A more ill-defined mass-like area in the left lower lobe is now partially obscured by atelectasis. No pneumothorax. There is no axillary or supraclavicular lymphadenopathy. There is no mediastinal lymphadenopathy. Heart size is normal. There are severe coronary artery calcifications. No pericardial effusion. Aorta is normal in caliber. Limited views of the upper abdomen show changes of cholecystectomy. A nasogastric tube is present. There is a moderate amount of free air in the upper abdomen. There are no suspicious osseous lesions. IMPRESSION: 1. Masslike area in the left lower lobe is now partially obscured by atelectasis and the radiographic abnormality corresponds to a suspicious nodule in the right middle lobe. Biopsy or PET/CT is recommended. 2. Moderate amount of free air in the upper abdomen. The patient reportedly had an abdominal surgery yesterday as was confirmed with his nurse. Dictated by: Dictated on workstation # [id number]
--- NOTE | 2020-08-03 13:09 | Anesthesia-General Post-Op ---
General Patient Condition Mental Status/LOC: Same as Preop Cardiovascular: Satisfactory Nausea/Vomiting: Absent Respiratory: Satisfactory Pain: Controlled Complications: Absent Post Op Complications Complications None Follow Up Care/Instructions Patient Instructions None needed. Anesthesia/Patient Condition Patient Condition Patient is doing well, C/O sore throat but still with NGT, stable vital signs, no apparent adverse anesthesia problems. TATE BAKER DO Aug 03, 2020 13:09
[2020-08-03] MEDS ORDERED: NS IV 1000 ML 1,000 ML IV ONE (15:30)
--- NOTE | 2020-08-03 18:11 | OPERATIVE REPORT ---
DATE OF SERVICE: 08/02/2020 PREOPERATIVE DIAGNOSIS: Severe abdominal pain, concern for ischemic bowel. POSTOPERATIVE DIAGNOSIS: Small bowel mass with perforation. PROCEDURE PERFORMED: Exploratory laparotomy, small bowel resection. SURGEON: Tariq Stewart DO ANESTHESIA: General. ESTIMATED BLOOD LOSS: Minimal. COMPLICATIONS: None. SPECIMENS: Small bowel segment. INDICATIONS: The patient is a 79-year-old male who had previous small bowel obstruction, which was at outlying facility earlier in the month. The patient had conservative measures and was able to be discharged home. The patient was planning on colonoscopy this week and he was undergoing prep and started having severe abdominal pain and was transferred for further evaluation to the Emergency Department here for CT scan. CT scan was performed demonstrating thickening of the small bowel and with fluid in the abdomen and there was a small area that I question if there is some small free air. On physical exam, the patient had peritonitis and we discussed risks and benefits of evaluation with procedure. The patient and understand risks and benefits and wished to proceed. Consent was signed in the chart. DESCRIPTION OF PROCEDURE: The patient was prepped and draped in sterile fashion. Timeout was performed. Midline incision was made. A lot of succus throughout the abdomen, which was suctioned and cultured. The small bowel was then ran, which from the ligament of Treitz, which this area was all dilated and continued to be ran until a mass was found in the small bowel. There was evidence of perforation at this location, just distal to the mass was a mesenteric implant of approximately 1.4 cm in diameter. Small bowel was continued to be ran all the way to the ileocecal valve with no other pathology noted. The colon all had normal appearance. The stomach had normal appearance. The pelvis had a normal appearance. No other pathology noted. It was decided then to do a small bowel resection, also incorporating the mesenteric nodule. The small bowel, both proximally and distally was dissected around and a eoff-yu-ceab anastomosis was created. A LigaSure was then used to divide the mesentery from the small bowel. There was a slight mesenteric bleed. Therefore, 3-0 Vicryl suture was used to suture ligate this area. The anastomosis was then inspected along the transverse staple line and a small area of the anastomosis appeared to have some questionable ischemia; therefore, the abdomen was then irrigated with copious amounts of irrigation and suctioned until clear. The anastomosis was then reinspected and I question the viability of the anastomosis. Therefore, we performed a wqbq-cu-[id number] anastomosis with the linear TYRA staple and the previous anastomosis was resected. At this time, the mesentery defect was then closed using 3-0 Vicryl in a running fashion and the abdomen was then irrigated and suctioned and the anastomosis was reinspected and now appears viable. No other pathology was noted within the abdomen. The fascia was then closed using 1-0 looped PDS. The wound was irrigated and suctioned and the skin was then closed using cara. The patient tolerated procedure well without any complications, taken to recovery room in stable condition. The patient was sent to the Intensive Care Unit. Job ID: [id number] DocumentID: [id number] Dictated Date: 08/03/2020 16:42:27 Rn Bsn Date: 08/03/2020 18:11:25 Dictated By: DO NENO SMITH
[2020-08-03] MEDS: HYDROcodone/APAP 5 MG/325 MG (LORTAB) TAB PO PRN (20:00)
[2020-08-03] MEDS: ENOXAPARIN 40 MG/0.4 ML (LOVENOX) SYR SC SCH (21:27)
[2020-08-04] MEDS: PIPERACILLIN/TAZOBACTAM (BULK) 4.5 GM in NS (IVPB) 100 ML IV SCH ×4 (00:44→23:52)
[2020-08-04] MEDS: LACTATED RINGERS 1,000 ML IV SCH ×3 (00:44→23:49)
[2020-08-04] MEDS: RT-ALBUTEROL SULF 2.5 MG/3 ML PRE-MIX VIAL INH SCH ×2 (01:45→06:55)
[2020-08-04 03:43] LABS: BASOPHILS % (AUTO) 0 % (0-10); EOSINOPHILS % (AUTO) 0 % (0-10); HEMATOCRIT 28 % (40-54); HEMOGLOBIN 8.8 g/dL (13.3-17.7); LYMPHOCYTES # (AUTO) 0.9 10^3/uL (1.0-4.0); LYMPHOCYTES % (AUTO) 14 % (12-44); MEAN CORPUSCULAR HEMOGLOBIN 27 pg (25-34); MEAN CORPUSCULAR HGB CONC 32 g/dL (32-36); MEAN CORPUSCULAR VOLUME 85 fL (80-99); MEAN PLATELET VOLUME 9.1 fL (9.0-12.2); MONOCYTES # (AUTO) 0.3 10^3/uL (0.0-1.0); MONOCYTES % (AUTO) 5 % (0-12); NEUTROPHILS # (AUTO) 5.3 10^3/uL (1.8-7.8); NEUTROPHILS % (AUTO) 80 % (42-75); PLATELET COUNT 111 10^3/uL (130-400); WHITE BLOOD COUNT 6.6 10^3/uL (4.3-11.0)
[2020-08-04 03:57] LABS: POTASSIUM 4.2 MMOL/L (3.6-5.0)
[2020-08-04 03:58] LABS: CALCIUM 7.8 MG/DL (8.5-10.1)
[2020-08-04 04:03] LABS: CREATININE SERUM 1.56 MG/DL (0.60-1.30); PHOSPHORUS 2.9 MG/DL (2.3-4.7)
[2020-08-04 04:05] LABS: MAGNESIUM 2.1 MG/DL (1.6-2.4)
--- NOTE | 2020-08-04 05:48 | Pulmonary Progress Note ---
Subjective Time Seen by a Provider: 05:45 Sepsis Event Evaluation Height, Weight, BMI Height: 5'10.00" Weight: 160lbs. 0.0oz. [id number]; 24.50 BMI Method:Stated Focused Exam Lactate Level 08/03/20 14:35: Lactic Acid Level 9.18*H 08/03/20 17:20: Lactic Acid Level 3.03*H 08/03/20 19:31: Lactic Acid Level 1.77 Exam Exam Vital Signs Date Time Temp Pulse Resp B/P (MAP) Pulse Ox O2 Delivery O2 Flow Rate FiO2 08/04/20 05:00 95 16 148/81 (103) 96 Room Air 08/04/20 04:53 90 19 141/82 (101) 94 Room Air 08/04/20 04:00 93 19 159/77 (104) 93 Room Air 08/04/20 04:00 37.3 08/04/20 04:00 95 Room Air 08/04/20 03:00 92 18 155/72 (99) 93 Room Air 08/04/20 02:00 86 16 149/73 (98) 93 Room Air 08/04/20 01:45 93 Room Air 08/04/20 01:00 88 19 134/79 (97) 92 Room Air 08/04/20 01:00 88 08/04/20 00:00 93 Room Air 08/04/20 00:00 87 17 133/69 (90) 87 Room Air 08/04/20 00:00 37.0 08/03/20 23:00 92 17 129/64 (85) 93 Room Air 08/03/20 22:34 103 26 145/68 (93) 94 Room Air 08/03/20 21:21 95 Room Air 08/03/20 21:06 114 26 178/84 (115) 98 Room Air 08/03/20 20:00 97 Room Air 08/03/20 20:00 100 17 151/75 (106) 93 Room Air 08/03/20 19:00 103 08/03/20 19:00 98 19 159/77 (103) 94 Room Air 08/03/20 18:04 96 Room Air 08/03/20 18:00 96 18 149/72 (97) 94 Room Air 08/03/20 17:00 102 28 137/79 (98) 95 Room Air 08/03/20 16:00 112 23 149/109 (122) 96 Room Air 08/03/20 15:59 37.2 08/03/20 15:45 98 Room Air 08/03/20 15:00 110 12 119/68 (85) 92 Room Air 08/03/20 14:39 96 Room Air 08/03/20 14:00 98 17 141/78 (99) 93 Room Air 08/03/20 13:00 102 18 152/69 (96) 96 Room Air 08/03/20 12:52 105 08/03/20 12:00 100 22 159/90 (113) 95 Room Air 08/03/20 12:00 36.8 08/03/20 12:00 Room Air 08/03/20 11:00 105 23 121/66 (84) 94 Room Air 08/03/20 10:39 96 Room Air 0.00 08/03/20 10:00 99 13 136/57 (83) 92 Room Air 08/03/20 09:00 102 18 143/66 (91) 94 Room Air 08/03/20 08:00 102 17 157/83 (107) 97 Room Air 08/03/20 07:49 37.1 08/03/20 07:45 97 Room Air 08/03/20 07:00 101 14 115/71 (86) 95 Room Air 08/03/20 06:44 96 Room Air 0.00 08/03/20 06:36 91 08/03/20 06:00 91 20 116/54 (74) 94 Room Air I & O 08/04/20 07:00 Intake Total 3600 ml Output Total 1150 ml Balance 2450 ml Height & Weight Height: 5'10.00" Weight: 160lbs. 0.0oz. 72.404064pf; 24.50 BMI Method:Stated General Appearance: No Apparent Distress, WD/WN HEENT: Other (NGT in place) Neck: Non Tender, Supple Respiratory: Lungs Clear, No Respiratory Distress Cardiovascular: Regular Rate, Rhythm, No Murmur Capillary Refill: Less Than 3 Seconds Gastrointestinal: soft, tenderness (midline tenderness at incision, c/d/i no signs of infection) Extremity: Normal Inspection, Non Tender Neurologic/Psychiatric: Alert, Oriented x3 Skin: Normal Color, Warm/Dry Lymphatic: No Adenopathy Results Lab Laboratory Tests 08/02/20 19:30 08/03/20 02:43 08/04/20 03:15 Assessment/Plan Assessment/Plan Hypoxia -Now on RA Severe abdominal pain secondary colon perf from small bowel perforation s econdary to mass -Pt remains of vent s/p surgery -Cytology pending -s/p ventilator Abdominal sepsis with septic shock upon arrival -IVF -- Increase LR to 150 -Cultures obtained while in ED -Femoral central line -D/C femoral line -Continue current Zosyn, and Flagyl -Start Diflucan secondary to SB perforation Lactic acidosis -Give another liter bolus of LR -Repeat LA -IVF Lung Mass s/p CT bx at [facility] -CT bx was negative -This is being followed in [place] 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 Pt already had bx and is scheduled for repeat imaging per pt. Acute renal failure -IVF -Monitor I will sign off once pt transfers out of ICU. Please call with any questions or concerns. DAPHNE SHIRLEY DO Aug 04, 2020 05:48
[2020-08-04] MEDS: ONDANSETRON 4 MG/2 ML (SDV) Z0FRAN IVP PRN (06:19)
[2020-08-04] MEDS: HYDROcodone/APAP 5 MG/325 MG (LORTAB) TAB PO PRN ×2 (06:22→23:51)
[2020-08-04] MEDS: metroNIDAZOLE 500MG/100ML IVPB 100 ML IV SCH ×3 (06:22→21:28)
--- NOTE | 2020-08-04 07:57 | Progress Note - Surgery ---
LASHELL SOLORZANO MED STUDENT 08/04/20 0757: Subjective Date Seen by a Provider: Aug 04, 2020 Time Seen by a Provider: 07:40 Subjective/Events-last exam Pt states he feels 'much better' this morning. States hes sleeping well, which is a first since admission. Abd pain is minimal at rest. Pt states nausea is unchanged- no vomitting. Pt has not passed gas or stool. Pt has urinated multiple times since cath was pulled- denies dysuria. Pt only has abd pain with standing up and moving. Using IS. No new complaints. Review of Systems General: No Chills, No Night Sweats HEENT: No Dysphasia, No Sore Throat Pulmonary: No Dyspnea, No Cough, No Pleuritic Chest Pain Cardiovascular: Chest Pain (some acid reflux sxs with liquids. ); No: Palpitations Gastrointestinal: Nausea, Abdominal Pain (minimal at rest this morning. ); No: Vomiting, Diarrhea, Melena, Hematochezia Genitourinary: No Dysuria, No Incontinence Focused Exam Lactate Level 08/03/20 14:35: Lactic Acid Level 9.18*H 08/03/20 17:20: Lactic Acid Level 3.03*H 08/03/20 19:31: Lactic Acid Level 1.77 Objective Exam Vital Signs Date Time Temp Pulse Resp B/P (MAP) Pulse Ox O2 Delivery O2 Flow Rate FiO2 08/04/20 06:55 96 Room Air 08/04/20 06:00 98 15 155/86 (109) 93 Room Air 08/04/20 05:00 95 16 148/81 (103) 96 Room Air 08/04/20 04:53 90 19 141/82 (101) 94 Room Air 08/04/20 04:00 93 19 159/77 (104) 93 Room Air 08/04/20 04:00 37.3 08/04/20 04:00 95 Room Air 08/04/20 03:00 92 18 155/72 (99) 93 Room Air 08/04/20 02:00 86 16 149/73 (98) 93 Room Air 08/04/20 01:45 93 Room Air 08/04/20 01:00 88 19 134/79 (97) 92 Room Air 08/04/20 01:00 88 08/04/20 00:00 93 Room Air 08/04/20 00:00 87 17 133/69 (90) 87 Room Air 08/04/20 00:00 37.0 08/03/20 23:00 92 17 129/64 (85) 93 Room Air 08/03/20 22:34 103 26 145/68 (93) 94 Room Air 08/03/20 21:21 95 Room Air 08/03/20 21:06 114 26 178/84 (115) 98 Room Air 08/03/20 20:00 97 Room Air 08/03/20 20:00 100 17 151/75 (106) 93 Room Air 08/03/20 19:00 103 08/03/20 19:00 98 19 159/77 (103) 94 Room Air 08/03/20 18:04 96 Room Air 08/03/20 18:00 96 18 149/72 (97) 94 Room Air 08/03/20 17:00 102 28 137/79 (98) 95 Room Air 08/03/20 16:00 112 23 149/109 (122) 96 Room Air 08/03/20 15:59 37.2 08/03/20 15:45 98 Room Air 08/03/20 15:00 110 12 119/68 (85) 92 Room Air 08/03/20 14:39 96 Room Air 08/03/20 14:00 98 17 141/78 (99) 93 Room Air 08/03/20 13:00 102 18 152/69 (96) 96 Room Air 08/03/20 12:52 105 08/03/20 12:00 100 22 159/90 (113) 95 Room Air 08/03/20 12:00 36.8 08/03/20 12:00 Room Air 08/03/20 11:00 105 23 121/66 (84) 94 Room Air 08/03/20 10:39 96 Room Air 0.00 08/03/20 10:00 99 13 136/57 (83) 92 Room Air 08/03/20 09:00 102 18 143/66 (91) 94 Room Air 08/03/20 08:00 102 17 157/83 (107) 97 Room Air I & O 08/04/20 07:00 Intake Total 3800 ml Output Total 1400 ml Balance 2400 ml Capillary Refill : Less Than 3 Seconds General Appearance: No Apparent Distress, WD/WN HEENT: PERRL/EOMI, Moist Mucous Membranes, Other (NGT in place) Neck: Non Tender, Supple Respiratory: Lungs Clear, Normal Breath Sounds, No Respiratory Distress Cardiovascular: Regular Rate, Rhythm, No Murmur Gastrointestinal: guarding, tenderness (very tender to palpation diffusely. ), other (abd incision site c/d/i, no erythema, no dehisence. ) Extremity: Normal Inspection, Non Tender, No Calf Tenderness, Other (neg b/l obed sign ) Neurologic/Psychiatric: Alert, Oriented x3, Normal Mood/Affect, vp transportation II-XII Norm as Tested Skin: Normal Color, Warm/Dry Lymphatic: No Adenopathy Results Lab Laboratory Tests 08/03/20 08:35: Lactic Acid Level 3.42*H 08/03/20 14:35: Lactic Acid Level 9.18*H 08/03/20 17:20: Lactic Acid Level 3.03*H 08/03/20 19:31: Lactic Acid Level 1.77 08/04/20 03:15: White Blood Count 6.6, Red Blood Count 3.27L, Hemoglobin 8.8L, Hematocrit 28L, Mean Corpuscular Volume 85, Mean Corpuscular Hemoglobin 27, Mean Corpuscular Hemoglobin Concent 32, Red Cell Distribution Width 14.6H, Platelet Count 111L, M haider Platelet Volume 9.1, Immature Granulocyte % (Auto) 1, Neutrophils (%) (Auto) 80H, Lymphocytes (%) (Auto) 14, Monocytes (%) (Auto) 5, Eosinophils (%) (Auto) 0, Basophils (%) (Auto) 0, Neutrophils # (Auto) 5.3, Lymphocytes # (Auto) 0.9L, Monocytes # (Auto) 0.3, Eosinophils # (Auto) 0.0, Basophils # (Auto) 0.0, Immature Granulocyte # (Auto) 0.1, Sodium Level 138, Potassium Level 4.2, Chloride Level 108H, Carbon Dioxide Level 23, Anion Gap 7, Blood Urea Nitrogen 25H, Creatinine 1.56H, Estimat Glomerular Filtration Rate 43, BUN/Creatinine Ratio 16, Glucose Level 111H, Calcium Level 7.8L, Phosphorus Level 2.9, Magne sium Level 2.1 Microbiology 08/02/20 MRSA Screen - Final, Complete MRSA not isolated 08/02/20 Gram Stain - Final, Resulted 08/02/20 Anaerobic Culture, Resulted Pending 08/02/20 Surgical Culture - Preliminary, Resulted Enterobacter cloacae complex Hafnia alvei Testing In Progress 08/02/20 Blood Culture - Preliminary, Resulted No growth Assessment/Plan Assessment/Plan Assessment/Plan s/p small bowel resection due to mass with perforation. sepsis- pt of flagyl, zosyn, and fluconazole. Pt normotensive. lactic acid dropped to 1.77 last night. ARTHUR left lower lobe and right middle lobe lung masses - per chest CT 08/03 normocytic anemia advance diet once pt passes gas. IS and encourage ambulation. IV fluids, pain, nausea, and electrolyte management IV protonix IV ABs DVT prophylaxis with SCD and lovenox. Outpt PET scan Pathology results on SB mass pending. TARIQ STEWART DO 08/05/20 1449: Subjective Subjective/Events-last exam Patient feeling better today. Ambulating. Pain fairly controlled. No flatus or bm. No difficulty urinating. Using IS. Denies n/v fever sweats chills shortness of breath or chest pain. Objective Exam General Appearance: No Apparent Distress, WD/WN HEENT: PERRL/EOMI, Normal ENT Inspection Neck: Non Tender, Supple Respiratory: Chest Non Tender, No Accessory Muscle Use, No Respiratory Distress Cardiovascular: Regular Rate, Rhythm, No JVD Gastrointestinal: No guarding, No rebound; tenderness (incisional clean dry intact) Extremity: Normal Inspection, Non Tender, No Calf Tenderness Neurologic/Psychiatric: Alert, Oriented x3, Normal Mood/Affect, vp transportation II-XII Norm as Tested Skin: Normal Color, Warm/Dry Lymphatic: No Adenopathy Assessment/Plan Assessment/Plan Assessment/Plan s/p small bowel resection due to mass with perforation. sepsis- pt on flagyl, zosyn, and fluconazole ARTHUR left lower lobe and right middle lobe lung masses - per chest CT 08/03 normocytic anemia clear liquids will advance diet once pt passes gas. IS and encourage ambulation. IV fluids, pain, nausea, and electrolyte management IV protonix IV ABs DVT prophylaxis with SCD and lovenox. Pathology results on SB mass pending. Supervisory-Addendum Brief Verification & Attestation Participated in pt care: history, MDM, physical Personally performed: exam, history, MDM, supervision of care Care discussed with: Medical Student Procedures: n/a Results interpretation: Verified all documentation Verification and Attestation of Medical Student E/M Service A medical student performed and documented this service in my presence. I re viewed and verified all information documented by the medical student and made modifications to such information, when appropriate. I personally performed the physical exam and medical decision making. Traiq Stewart, Aug 04, 2020,14:52 LASHELL SOLORZANO MED STUDENT Aug 04, 2020 07:57 TARIQ STEWART DO Aug 05, 2020 14:49
--- NOTE | 2020-08-04 08:10 | Diagnostic Imaging Report ---
Indication: Sepsis Upright portable chest shows normal heart size and vascularity. There is a nodule at the right lung base which is partially obscured by EKG leads. Bibasilar atelectasis. No significant effusions are evident. These findings are similar to the 08/03/2020 study. IMPRESSION: Stable chest. Dictated by: Dictated on workstation # [id number]
[2020-08-04] MEDS ORDERED: KETOROLAC 15 MG/ML VIAL ONE (08:35)
[2020-08-04] MEDS ORDERED: KETOROLAC 15 MG/ML VIAL IVP ONE (08:45)
[2020-08-04] MEDS: FLUCONAZOLE 100 MG/50 ML IVPB IV SCH (08:49)
[2020-08-04] MEDS: PANTOPRAZOLE 40 MG (PROTONIX) VIAL IV SCH (08:49)
--- NOTE | 2020-08-04 09:27 | Progress Note - Hospitalist ---
Subjective HPI/CC On Admission Date Seen by Provider: Aug 04, 2020 Time Seen by Provider: 09:22 Hospitalist service has been consulted on Mr. Mayer for: medication management This patient is a 79-year-old male with past medical history significant for hypertension and GERD who presented to the [facility] on 08/01 for severe abd ominal cramping and vomiting. He started a colonoscopy prep for an upcoming colonoscopy but started having severe cramping. He was transferred to the [place] ED for CT imaging and further management. He was started on levophed for hypotension. Dr. Stewart was consulted for an acute abdomen and the patient had an exploratory laparotomy 08/02. Today, 08/02, the patient states he is still having abdominal pain but is improving. He is currently having hiccups and that is causing further discomfort . Subjective/Events-last exam Pt reports doing better. About to get to the chair so he can eat breakfast. Having some incisional pain. Focused Exam Lactate Level 08/03/20 14:35: Lactic Acid Level 9.18*H 08/03/20 17:20: Lactic Acid Level 3.03*H 08/03/20 19:31: Lactic Acid Level 1.77 Objective Exam Vital Signs Vital Signs Date Time Temp Pulse Resp B/P (MAP) Pulse Ox O2 Delivery O2 Flow Rate FiO2 08/04/20 08:01 37.1 08/04/20 06:55 96 Room Air 08/04/20 06:00 98 15 155/86 (109) 08/03/20 10:39 0.00 08/03/20 02:44 21 Capillary Refill : Less Than 3 Seconds General Appearance: No Apparent Distress, Chronically ill Cardiovascular: Regular Rate, Rhythm, No Murmur Gastrointestinal: Normal Bowel Sounds, Non Tender, Soft Neurologic/Psychiatric: Alert, Oriented x3 Results/Procedures Lab Laboratory Tests 08/04/20 03:15 Patient resulted labs reviewed. Imaging: Reviewed Imaging Report Assessment/Plan Assessment and Plan Assess & Plan/Chief Complaint Small bowel perforation Septic shock requiring blood pressure support * S/p open laparotomy and small bowel resection * Dr. Stewart primary * On flagyl, diflucan, zosyn * Lactic acidosis resolved * tolerating CLD Acute renal failure secondary to hypotension * Creatinine down to 1.56 today, trend * Avoid nephrotoxic agents * Renally dose all medications Hypertension * Hold home lisinopril due to ARF and hypotension Lung nodules * Recently diagnosed, work-up pending from [facility] * Will request documentation from [facility] * CT Chest confirms mass, defer to Dr Ghotra regarding potential biopsy Diet: CLD PPx: SCDs FULL CODE ISABEL VALDOVINOS MD Aug 04, 2020 09:27
[2020-08-04 10:30] VITALS: BP 99/74
--- NOTE | 2020-08-04 14:13 | Occupational Therapy Eval ---
OT Evaluation-General/PLF Medical Diagnosis Admission Date Aug 02, 2020 at 05:59 Medical Diagnosis: Laparotomy and small bowel resection. Small bowel perforation Onset Date: Aug 01, 2020 Therapy Diagnosis Therapy Diagnosis: Weakness, Decreased ADL skills Height/Weight Height (Feet): 5 Height (Inches): 10.00 Weight (Pounds): 160 Weight (Ounces): 0.0 Precautions Precautions/Isolations: Fall Prevention, Standard Precautions Weight Bear Status Weight Bearing Restriction: Weight Bearing/Tolerated Referral Physician: Dr. Ghotra Referral Reason: Activity Tolerance, Self Care, Evaluation/Treatment, Strengthening/ROM Medical History Pertinent Medical History: GERD, HTN Additional Medical History Lung mass Current History Pt. became nauseated and was vomiting at home. Came to ER in [place] and then sent to ER in [place]. Underwent laparotomy and small bowel resection. Reviewed History: Yes Social History Home: Single Level Current Living Status: Spouse ADL-Prior Level of Function SCALE: Activities may be completed with or without assistive devices. 7-Llikckrveh-dslbdaq completes the activity by him/herself with no assistance from a helper. 5-Set-up or Clean-up Assistance-helper sets up or cleans up; patient completes activity. [place] assists only prior to or following the activity. 4-Supervision or Touching Assistance-helper provides verbal cues and/or touching/steadying and/or contact guard assistance as patient completes activity. Assistance may be provided throughout the activity or intermittently. 3-Partial/Moderate Assistance-helper does LESS THAN HALF the effort. [place] lifts, holds or supports trunk or limbs, but provides less than half the effort. 2-Substantial/Maximal Assistance-helper does MORE THAN HALF the effort. [place] lifts or holds trunk or limbs and provides more than half the effort. 1-Qecnkvoeb-tqahlz does ALL the effort. Patient does none of the effort to complete the activity. Or, the assistance of 2 or more helpers is required for the patient to complete the activity. If activity was not attempted, code reason: 7-Patient Refused. 9-Not Applicable-not attempted and the patient did not perform the activity before the current illness, exacerbation or injury. 10-Not Attempted due to Environmental Limitations-(lack of equipment, weather restraints, etc.). 88-Not Attempted due to Medical Conditions or Safety Concerns. ADL PLOF Comments Pt. was independent with daily tasks prior to this hospitalization. Does not use walker or assistive device. 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 indicates that he has some discomfort in abdomen with movement, but is com fortable sitting. Pt. has had pain medication. Appearance Pt. up in chair. Alert and oriented. Agrees to work with therapy. Mental Status/Objective Patient Orientation: Person, Place, Time, Situation Attachments: IV, Telemetry Current Glasses/Contacts: Yes Upper Extremity ROM WFL Upper Extremity Strength NT due to abdominal surgery ADL-Treatment Eating (QC): 88 (Pt. only allowed clear liquids.) On/Off Footwear (QC): 4 (Pt. able to bring up feet while seated, and doff/don slipper socks.) Toileting Hygiene (QC): 88 (Pt. has not been able to have BM or pass gas yet.) Other Treatments Pt. up in chair. Spouse in room. OT/PT completed co-treatment due to need of skilled assistance x 2 for low endurance and mobility needs. PT tests LE strength and facilitates mobility while OT addresses ADL goals. Pt. is able to doff/don slipper socks with SBA, while seated in chair. Pt. indicates that his LE are swollen and feel tight. He is able to stand with CGA, and ambulate slowly with walker in mobley. Please see PT notes for distance. Pt. indicates when he needs to go back to room. Pt. able to transfer back to chair. UE strength not tested due to recent abdominal surgery. All needs met up in chair. Pt. still on clear liquid diet and has not had BM yet. Educated on therapy goals. Pt. verbalizes understanding. Education OT Patient Education: Correct positioning, Modified ADL techniques, Progress toward Goal/Update tx plan, Purpose of tx/functional activities, Reviewed precautions, Rehab process, Transfer techniques Teaching Recipient: Patient Teaching Methods: Demonstration, Discussion Response to Teaching: Verbalize Understanding, Return Demonstration OT Hydraulic Boom Operator Goals Usp Goals Time Frame: Aug 11, 2020 Eating (QC): 6 Oral Hygiene (QC): 6 Toileting Hygiene (QC): 6 Shower/Bathe Self (QC): 4 Upper Body Dressing (QC): 6 Lower Body Dressing (QC): 6 On/Off Footwear (QC): 6 Additional Goals: 1-Demonstrate ADL Tasks, 2-Verbalize Understanding, 3-ImproveStrength/Bharathi 1=Demonstrate adherence to instructed precautions during ADL tasks. 2=Patient will verbalize/demonstrate understanding of assistive devices/modifications for ADL. 3=Patient will improve strength/tolerance for activity to enable patient to per form ADL's. OT Education/Plan Problem List/Assessment Assessment: Decreased Activ Tolerance, Impaired I ADL's, Impaired Self-Care Skills Discharge Recommendations Plan/Recommendations: Continue POC Therapy Discharge Recommendati: Home & Family Treatment Plan/Plan of Care Treatment,Training & Education: Yes Patient would benefit from OT for education, treatment and training to promote independence in ADL's, mobility, safety and/or upper extremity function for ADL's. Plan of Care: ADL Retraining, Functional Mobility, UE Funct Exercise/Act Treatment Duration: Aug 11, 2020 Frequency: 5 times per week Estimated Hrs Per Day: .25 hour per day Agreement: Yes Rehab Potential: Good Time/GCodes Start Time: 13:25 Stop Time: 13:45 Total Time Billed (hr/min): 20 Billed Treatment Time 1, MARY RUSSELL OT Aug 04, 2020 14:13
--- NOTE | 2020-08-04 14:22 | Physical Therapy Evaluation ---
PT Evaluation-General Medical Diagnosis Admission Date Aug 02, 2020 at 05:59 Medical Diagnosis: Laparotomy and small bowel resection. Small bowel perforation Onset Date: Aug 01, 2020 Therapy Diagnosis Therapy Diagnosis: impaired mobility, strength, endurance Height/Weight Height (Feet): 5 Height (Inches): 10.00 Weight (Pounds): 160 Weight (Ounces): 0.0 Precautions Precautions/Isolations: Fall Prevention, Standard Precautions Referral Physician: Dr. Ghotra Reason for Referral: Evaluation/Treatment Medical History Pertinent Medical History: GERD, HTN Reviewed History: Yes Social History Home: Single Level Current Living Status: Spouse Entry Into Home: Stairs With Railing PT Steps Into Home: 2 Prior Prior Level of Function SCALE: Activities may be completed with or without assistive devices. 8-Vikdbbmpaq-ijaqflr completes the activity by him/herself with no assistance from a helper. 5-Set-up or Clean-up Assistance-helper sets up or cleans up; patient completes activity. [place] assists only prior to or following the activity. 4-Supervision or Touching Assistance-helper provides verbal cues and/or touching/steadying and/or contact guard assistance as patient completes activity. Assistance may be provided throughout the activity or intermittently. 3-Partial/Moderate Assistance-helper does LESS THAN HALF the effort. [place] lifts, holds or supports trunk or limbs, but provides less than half the effort. 2-Substantial/Maximal Assistance-helper does MORE THAN HALF the effort. [place] lifts or holds trunk or limbs and provides more than half the effort. 7-Ncaqxhlem-erjbgp does ALL the effort. Patient does none of the effort to compl ete the activity. Or, the assistance of 2 or more helpers is required for the patient to complete the activity. If activity was not attempted, code reason: 7-Patient Refused. 9-Not Applicable-not attempted and the patient did not perform the activity before the current illness, exacerbation or injury. 10-Not Attempted due to Environmental Limitations-(lack of equipment, weather restraints, etc.). 88-Not Attempted due to Medical Conditions or Safety Concerns. Bed Mobility: 6 Transfers (B,C,W/C): 6 Gait: 6 Stairs: 6 Stairs: Independent PT Evaluation-Current Subjective Patient in recliner pre tx, agrees to PT, has no complaints of pain Pt/Family Goals to be independent at home Objective Patient Orientation: Person, Place, Situation Attachments: Morrison Catheter, IV ROM/Strength ROM Lower Extremities WNL Strength Lower Extremities LLE (hip flexion 3-/5, knee flexion 4/5, knee extension 4/5, dorsiflexion 5/5), RLE (hip flexion 3-/5, knee flexion 4/5, knee extension 4/5, dorsiflexion 5/5) Sensory Vision: Wears Glasses Hearing: Functional Sensation Right Lower Extremit: Intact Sensation Left Lower Extremity: Intact Transfers Sit to Stand (QC): 4 Chair/Pwj-ye-Ijwdg Xfer(QC): 4 Gait Does the Patient Walk?: Yes Mode of Locomotion: Walk Anticipated Mode of Locomotion: Walk Walk 10 feet (QC): 4 Walk 50 ft with 2 Turns(QC): 4 Walk 150 ft (QC): 4 Distance: 160' Gait Assistive Device: FWW Comments/Gait Description Patient ambulates slow but steady, no LOB Balance Sitting Static: Normal Sitting Dynamic: Normal Standing Static: Good Standing Dynamic: Good Treatment BLE seated exercises x20 (AP, LAQ) Assessment/Needs Patient has impaired mobility, strength, endurance. Patient in recliner post tx with nurse call,phone, tray, all needs met, in room. Patient needs CGA with ambulation, no unsteadiness Rehab Potential: Fair PT [employer] Worker Goals Alf Goals PT [employer] Worker Goals Time Frame: Aug 11, 2020 Roll Left & Right (QC): 6 Sit to Lying (QC): 6 Lying-Sitting on Side/Bed(QC): 6 Sit to Stand (QC): 6 Chair/Hfv-xo-Vhgoi Xfer(QC): 6 Walk 10 feet (QC): 6 Walk 50ft with 2 Turns (QC): 6 Walk 150 ft (QC): 6 PT Plan Problem List Problem List: Activity Tolerance, Functional Strength, Safety, Balance, Gait, Transfer, Bed Mobility, ROM Treatment/Plan Treatment Plan: Continue Plan of Care Treatment Plan: Bed Mobility, Education, Functional Activity Bharathi, Functional Strength, Gait, Safety, Therapeutic Exercise, Transfers Treatment Duration: Aug 11, 2020 Frequency: 6 times per week Estimated Hrs Per Day: .25 hour per day Patient and/or Family Agrees t: Yes Safety Risks/Education Patient Education: Gait Training, Transfer Techniques, Correct Positioning, Safety Issues Teaching Recipient: Patient Teaching Methods: Demonstration, Discussion Response to Teaching: Reinforcement Needed Discharge Recommendations Plan Patient will perform bed mobility and transfer training, balance and endurance training,functional strengthening, stair training, gait training, and education, to improve functional mobility and independence at home. Therapy Discharge Recommendati: Home & Family Time/GCodes Time In: 1324 Time Out: 1341 Total Billed Treatment Time: 17 Total Billed Treatment 1 visit DOMENICO Mccarthy' YASMINE MCINTYRE PT Aug 04, 2020 14:22
[2020-08-04] MEDS: ENOXAPARIN 40 MG/0.4 ML (LOVENOX) SYR SC SCH (20:42)
[2020-08-05] MEDS: metroNIDAZOLE 500MG/100ML IVPB 100 ML IV SCH (05:40)
[2020-08-05 06:04] LABS: EOSINOPHILS # (AUTO) 0.3 10^3/uL (0.0-0.3); MEAN CORPUSCULAR VOLUME 85 fL (80-99)
[2020-08-05 06:06] LABS: BASOPHILS % (AUTO) 0 % (0-10); EOSINOPHILS % (AUTO) 4 % (0-10); HEMATOCRIT 30 % (40-54); HEMOGLOBIN 9.8 g/dL (13.3-17.7); LYMPHOCYTES % (AUTO) 16 % (12-44); MEAN CORPUSCULAR HEMOGLOBIN 28 pg (25-34); MEAN CORPUSCULAR HGB CONC 33 g/dL (32-36); MEAN PLATELET VOLUME 9.2 fL (9.0-12.2); MONOCYTES # (AUTO) 0.3 10^3/uL (0.0-1.0); MONOCYTES % (AUTO) 4 % (0-12); NEUTROPHILS # (AUTO) 4.8 10^3/uL (1.8-7.8); NEUTROPHILS % (AUTO) 76 % (42-75); PLATELET COUNT 121 10^3/uL (130-400); WHITE BLOOD COUNT 6.4 10^3/uL (4.3-11.0)
[2020-08-05 06:11] LABS: POTASSIUM 3.8 MMOL/L (3.6-5.0)
[2020-08-05 06:12] LABS: CALCIUM 8.1 MG/DL (8.5-10.1)
[2020-08-05 06:16] LABS: PHOSPHORUS 2.5 MG/DL (2.3-4.7)
[2020-08-05 06:17] LABS: CREATININE SERUM 1.55 MG/DL (0.60-1.30)
[2020-08-05 06:19] LABS: MAGNESIUM 2.1 MG/DL (1.6-2.4)
[2020-08-05 06:20] LABS: SMEAR SCAN COMMENT YES
--- NOTE | 2020-08-05 07:49 | Progress Note - Surgery ---
LASHELL SOLORZANO MED STUDENT 08/05/20 0749: Subjective Date Seen by a Provider: Aug 05, 2020 Time Seen by a Provider: 07:30 Subjective/Events-last exam Pt overall feels worse today, mainly due to the feeling of distension and SOB. Pt states hes SOB with drinking liquids, but denies SOB with movement. Pt has not passed gas or stool since surgery. Pt urine output adequate over past 24hrs. Nausea is unchanged. Pt struggleing to tolerate liquid diet due to sense of distension and accompanying SOB. abd pain is minimal at rest. Pt denies night sweats, SOB, chest pain, and calf pain. Review of Systems General: No Chills, No Night Sweats HEENT: No Dysphasia, No Sore Throat Pulmonary: Dyspnea; No Pleuritic Chest Pain Cardiovascular: Edema; No: Chest Pain, Palpitations Gastrointestinal: Nausea, Abdominal Pain, Constipation (ileus ); No: Vomiting, Diarrhea, Melena, Hematochezia Genitourinary: No Dysuria, No Incontinence Focused Exam Lactate Level 08/03/20 14:35: Lactic Acid Level 9.18*H 08/03/20 17:20: Lactic Acid Level 3.03*H 08/03/20 19:31: Lactic Acid Level 1.77 Objective Exam Vital Signs Date Time Temp Pulse Resp B/P (MAP) Pulse Ox O2 Delivery O2 Flow Rate FiO2 08/05/20 04:27 36.5 97 22 144/79 (100) 93 Room Air 08/05/20 00:01 36.9 98 22 158/76 (103) 93 Room Air 08/04/20 20:28 36.6 98 22 161/76 (104) 94 Room Air 08/04/20 20:00 Room Air 08/04/20 19:11 95 Room Air 08/04/20 16:21 80 17 118/73 (88) 97 Room Air 08/04/20 16:00 Room Air 08/04/20 13:00 90 08/04/20 12:00 36.5 08/04/20 12:00 95 Room Air 08/04/20 12:00 80 17 118/73 (88) 97 Room Air 08/04/20 11:00 87 19 130/75 (93) 93 Room Air 08/04/20 10:30 37.1 95 92 08/04/20 10:00 95 18 99/74 (82) 92 Room Air 08/04/20 09:00 92 20 140/81 (100) 92 Room Air 08/04/20 08:01 37.1 08/04/20 08:00 108 20 153/82 (105) 92 Room Air 08/04/20 08:00 95 Room Air I & O 08/05/20 07:00 Intake Total 2400 ml Output Total 1100 ml Balance 1300 ml Capillary Refill : Less Than 3 Seconds General Appearance: No Apparent Distress, Chronically ill HEENT: PERRL/EOMI, Moist Mucous Membranes, Other (NGT in place) Neck: Non Tender, Supple Respiratory: No Accessory Muscle Use, No Respiratory Distress, Decreased Breath Sounds (lung sounds decreased in b/l lower patino. ) Cardiovascular: Regular Rate, Rhythm, No Murmur Gastrointestinal: distended (distended and firm abd ), tenderness (improved compared to yesterday, mainly over incision site. ), other (abd incision site c/d/i, no erythema, no dehisence. ) Extremity: Normal Inspection, Non Tender, No Calf Tenderness, Pedal Edema, Other (neg b/l obed sign ) Neurologic/Psychiatric: Alert, Oriented x3, Normal Mood/Affect, snipper II-XII Norm as Tested Skin: Normal Color, Warm/Dry Lymphatic: No Adenopathy Results Lab Laboratory Tests 08/05/20 05:32: White Blood Count 6.4, Red Blood Count 3.56L, Hemoglobin 9.8L, Hematocrit 30L, Mean Corpuscular Volume 85, Mean Corpuscular Hemoglobin 28, Mean Corpuscular Hemoglobin Concent 33, Red Cell Distribution Width 14.6H, Platelet Count 121L, Mean Platelet Volume 9.2, Immature Granulocyte % (Auto) 0, Neutrophils (%) (Auto) 76H, Lymphocytes (%) (Auto) 16, Monocytes (%) (Auto) 4, Eosinophils (%) (Auto) 4, Basophils (%) (Auto) 0, Neutrophils # (Auto) 4.8, Lymphocytes # (Auto) 1.0, Monocytes # (Auto) 0.3, Eosinophils # (Auto) 0.3, Basophils # (Auto) 0.0, Immature Granulocyte # (Auto) 0.0, Sodium Level 136, Potassium Level 3.8, Chloride Level 107, Carbon Dioxide Level 22, Anion Gap 7, Blood Urea Nitrogen 23H, Creatinine 1.55H, Estimat Glomerular Filtration Rate 44, BUN/Creatinine Ratio 15, Glucose Level 92, Calcium Level 8.1L, Phosphorus Level 2.5, Magnesium Level 2.1, Smear Scan YES Microbiology 08/03/20 Catheter Tip Culture - Preliminary, Resulted No growth 08/02/20 MRSA Screen - Final, Complete MRSA not isolated 08/02/20 Gram Stain - Final, Resulted 08/02/20 Anaerobic Culture - Preliminary, Resulted No anaerobes isolated 08/02/20 Surgical Culture - Preliminary, Resulted 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 Postoperative ileus Possible pulmonary edema sepsis- pt of flagyl, zosyn, and fluconazole. Pt normotensive. 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 liquid diet CXR IS and encourage ambulation. IV fluids, nausea, and electrolyte management. IV protonix IV ABs - surgical culture results zosyn sensitive. DVT prophylaxis with SCD and lovenox. Outpt PET scan Pathology results on SB mass pending. TARIQ STEWART DO 08/05/20 1457: Subjective Subjective/Events-last exam Feeling okay, a little bloated. No bm or flatus. Tolerating liquids. No n/v. Ambulating and using IS. Denies n/v fever sweats chills shortness of breath or chest pain. Objective Exam General Appearance: No Apparent Distress, Chronically ill HEENT: PERRL/EOMI Neck: Non Tender, Supple Respiratory: Chest Non Tender, No Accessory Muscle Use, No Respiratory Distress Cardiovascular: Regular Rate, Rhythm, No JVD Gastrointestinal: distended (minimal distention), tenderness (incisional), other (abd incision site c/d/i, no erythema, no dehisence. ) Extremity: Normal Inspection, Non Tender, No Calf Tenderness Neurologic/Psychiatric: Alert, Oriented x3, Normal Mood/Affect, snipper II-XII Norm as Tested Skin: Normal Color, Warm/Dry Lymphatic: No Adenopathy Assessment/Plan Assessment/Plan Assessment/Plan s/p small bowel resection due to mass with perforation. Postoperative ileus- awaiting bowel function sepsis ARTHUR left lower lobe and right middle lobe lung masses - per chest CT 08/03 normocytic anemia - H&H improved today. liquid diet CXR stable IS and encourage ambulation. IV fluids, nausea, and electrolyte management. IV protonix IV ABs - surgical culture results zosyn sensitive. DVT prophylaxis with SCD and lovenox. Outpt PET scan Pathology results on SB mass pending. Supervisory-Addendum Brief Verification & Attestation Participated in pt care: history, MDM, physical Personally performed: exam, history, MDM, supervision of care Care discussed with: Medical Student Procedures: n/a Results interpretation: Verified all documentation Verification and Attestation of Medical Student E/M Service A medical student performed and documented this service in my presence. I reviewed and verified all information documented by the medical student and made modifications to such information, when appropriate. I personally performed the physical exam and medical decision making. Tariq Stewart, Aug 05, 2020,14:57 LASHELL SOLORZANO MED STUDENT Aug 05, 2020 07:49 TARIQ STEWART DO Aug 05, 2020 14:57
[2020-08-05] MEDS: PANTOPRAZOLE 40 MG (PROTONIX) VIAL IV SCH (09:13)
[2020-08-05] MEDS: PIPERACILLIN/TAZOBACTAM (BULK) 4.5 GM in NS (IVPB) 100 ML IV SCH ×2 (09:15→17:13)
--- NOTE | 2020-08-05 10:42 | Occupational Ther Daily Note ---
OT Current Status-Daily Note Subjective Pt AxO, denies pain though states "pressure like a balloon," in abdomen. Pt agrees to tx. Nursing notified of pt's desires to shower, denies with cara at this time, bed bath completed Mental Status/Objective Patient Orientation: Person, Place, Situation, Normal For Age Attachments: IV ADL-Treatment Therapy Code Descriptions/Definitions Functional [place] Measure: 0=Not Assessed/NA 4=Minimal Assistance 1=Total Assistance 5=Supervision or Setup 2=Maximal Assistance 6=Modified [place] 3=Moderate Assistance 7=Complete IndependenceSCALE: Activities may be completed with or without assistive devices. 6-Zkwridotci-ttsdbop completes the activity by him/herself with no assistance from a helper. 5-Set-up or Clean-up Assistance-helper sets up or cleans up; patient completes activity. [place] assists only prior to or following the activity. 4-Supervision or Touching Assistance-helper provides verbal cues and/or touching/steadying and/or contact guard assistance as patient completes activity. Assistance may be provided throughout the activity or intermittently. 3-Partial/Moderate Assistance-helper does LESS THAN HALF the effort. [place] l ifts, holds or supports trunk or limbs, but provides less than half the effort. 2-Substantial/Maximal Assistance-helper does MORE THAN HALF the effort. [place] lifts or holds trunk or limbs and provides more than half the effort. 8-Iuhxiievl-rtxkuk does ALL the effort. Patient does none of the effort to complete the activity. Or, the assistance of 2 or more helpers is required for t he patient to complete the activity. If activity was not attempted, code reason: 7-Patient Refused. 9-Not Applicable-not attempted and the patient did not perform the activity before the current illness, exacerbation or injury. 10-Not Attempted due to Environmental Limitations-(lack of equipment, weather restraints, etc.). 88-Not Attempted due to Medical Conditions or Safety Concerns. Eating (QC): 6 Bathing Location: L Arm, R Arm, L Upper Leg, R Upper Leg, Chest, Abdomen, Buttocks, Perineal Area Shower/Bathe Self (QC): 4 (s/u cloths and SBA all tasks while on toilet.) Upper Body Dressing (QC): 5 (s/u gown) Toileting Hygiene (QC): 4 (SBA in stance/ in sit.) Toilet Transfer (QC): 4 (CGA) Other Treatment Pt completes sit to stand CGA, ambulates to toilet with no AD. Sits with control, completes sponge bath and dressing as outlined. No safety concerns, tho ug pt does express increased pressure upon movement. Returns to chair, edema in BLE, educated on benefits of elevation intermittently. Scrotum edematous. Educated on benefits of ambulation with therapy and LE exercises. Pt agrees, left in recliner with all needs met, call light in reach. Education OT Patient Education: Correct positioning, Modified ADL techniques, Progress toward Goal/Update tx plan, Safety issues Teaching Recipient: Patient Teaching Methods: Demonstration, Discussion Response to Teaching: Verbalize Understanding, Return Demonstration OT Retirement Goals Vice Provost Goals Time Frame: Aug 11, 2020 Eating (QC): 6 Oral Hygiene (QC): 6 Toileting Hygiene (QC): 6 Shower/Bathe Self (QC): 4 Upper Body Dressing (QC): 6 Lower Body Dressing (QC): 6 On/Off Footwear (QC): 6 Additional Goals: 1-Demonstrate ADL Tasks, 2-Verbalize Understanding, 3- ImproveStrength/Bharathi 1=Demonstrate adherence to instructed precautions during ADL tasks. 2=Patient will verbalize/demonstrate understanding of assistive devices/modifications for ADL. 3=Patient will improve strength/tolerance for activity to enable patient to perform ADL's. OT Education/Plan Problem List/Assessment Assessment: Decreased Activ Tolerance, Edema, Impaired I ADL's Discharge Recommendations Plan/Recommendations: Continue POC Therapy Discharge Recommendati: Home & Family Treatment Plan/Plan of Care Treatment,Training & Education: Yes Patient would benefit from OT for education, treatment and training to promote independence in ADL's, mobility, safety and/or upper extremity function for ADL's. Plan of Care: ADL Retraining, Functional Mobility, UE Funct Exercise/Act Treatment Duration: Aug 11, 2020 Frequency: 5 times per week Estimated Hrs Per Day: .25 hour per day Agreement: Yes Rehab Potential: Good Time/GCodes Start Time: 10:10 Stop Time: 10:26 Total Time Billed (hr/min): 16 Billed Treatment Time 1, ADL (16) SYL ROTH OTR Aug 05, 2020 10:42
--- NOTE | 2020-08-05 12:09 | Physical Therapy Daily Note ---
PT Daily Note-Current Subjective Patient agrees to PT. Pain Numeric Pain Scale: 8 Location: Left, Lower Location Body Site: Abdomen Pain Description: Sharp Comment: RN and physician notified Mental Status Patient Orientation: Normal For Age Attachments: IV Transfers SCALE: Activities may be completed with or without assistive devices. 9-Coknodrjyi-toqpyyo completes the activity by him/herself with no assistance from a helper. 5-Set-up or Clean-up Assistance-helper sets up or cleans up; patient completes activity. [place] assists only prior to or following the activity. 4-Supervision or Touching Assistance-helper provides verbal cues and/or touching/steadying and/or contact guard assistance as patient completes activity. Assistance may be provided throughout the activity or intermittently. 3-Partial/Moderate Assistance-helper does LESS THAN HALF the effort. [place] lifts, holds or supports trunk or limbs, but provides less than half the effort. 2-Substantial/Maximal Assistance-helper does MORE THAN HALF the effort. [place] lifts or holds trunk or limbs and provides more than half the effort. 3-Jolyxnnae-amgdgn does ALL the effort. Patient does none of the effort to complete the activity. Or, the assistance of 2 or more helpers is required for the patient to complete the activity. If activity was not attempted, code reason: 7-Patient Refused. 9-Not Applicable-not attempted and the patient did not perform the activity before the current illness, exacerbation or injury. 10-Not Attempted due to Environmental Limitations-(lack of equipment, weather restraints, etc.). 88-Not Attempted due to Medical Conditions or Safety Concerns. Sit to Stand (QC): 6 Gait Training Does the Patient Walk?: Yes Distance: 500' Walk 10 feet (QC): 6 Walk 50 ft with 2 Turns(QC): 6 Walk 150 ft (QC): 6 Gait Assistive Device: FWW safe and functional with no deviation Assessment Nursing instructed by physician to ambulate in hallway PRN. Patient, if not att ached to IV, can be up in room and hallway ad albert. PT Prison Goals Meat Butcher Goals PT Prison Goals Time Frame: Aug 11, 2020 Roll Left & Right (QC): 6 Sit to Lying (QC): 6 Lying-Sitting on Side/Bed(QC): 6 Sit to Stand (QC): 6 Chair/Xdn-cv-Xrrzs Xfer(QC): 6 Walk 10 feet (QC): 6 Walk 50ft with 2 Turns (QC): 6 Walk 150 ft (QC): 6 PT Plan Treatment/Plan Treatment Plan: Continue Plan of Care Treatment Plan: Bed Mobility, Education, Functional Activity Bharathi, Functional Strength, Gait, Safety, Therapeutic Exercise, Transfers Treatment Duration: Aug 11, 2020 Frequency: 6 times per week Estimated Hrs Per Day: .25 hour per day Patient and/or Family Agrees t: Yes Time/GCodes Time In: 1115 Time Out: 1125 Total Billed Treatment Time: 10 Total Billed Treatment 1 visit FA 10 min CARLO CUMMINGS PT Aug 05, 2020 12:09
[2020-08-05] MEDS: LACTATED RINGERS 1,000 ML IV SCH (14:09)
[2020-08-05] MEDS: ENOXAPARIN 40 MG/0.4 ML (LOVENOX) SYR SC SCH (19:18)
[2020-08-05] MEDS ORDERED: lisINopril 20 MG (PRINIVIL) TABLET ONE (19:43)
[2020-08-05] MEDS: lisINopril 20 MG (PRINIVIL) TABLET PO SCH (19:49)
[2020-08-05] MEDS: ONDANSETRON 4 MG/2 ML (SDV) Z0FRAN IVP PRN (23:26)
[2020-08-06] MEDS: PIPERACILLIN/TAZOBACTAM (BULK) 4.5 GM in NS (IVPB) 100 ML IV SCH ×3 (00:14→17:13)
[2020-08-06] MEDS ORDERED: ACETAMINOPHEN 325 MG TABLET ONE (03:39)
[2020-08-06] MEDS: LACTATED RINGERS 1,000 ML IV SCH ×2 (03:44→16:22)
[2020-08-06] MEDS ORDERED: ACETAMINOPHEN 325 MG TABLET PO PRN (03:45)
[2020-08-06 06:33] LABS: BASOPHILS % (AUTO) 0 % (0-10); EOSINOPHILS # (AUTO) 0.1 10^3/uL (0.0-0.3); EOSINOPHILS % (AUTO) 2 % (0-10); HEMATOCRIT 29 % (40-54); HEMOGLOBIN 9.3 g/dL (13.3-17.7); LYMPHOCYTES # (AUTO) 0.9 10^3/uL (1.0-4.0); LYMPHOCYTES % (AUTO) 12 % (12-44); MEAN CORPUSCULAR HEMOGLOBIN 27 pg (25-34); MEAN CORPUSCULAR HGB CONC 33 g/dL (32-36); MEAN CORPUSCULAR VOLUME 84 fL (80-99); MONOCYTES # (AUTO) 0.6 10^3/uL (0.0-1.0); MONOCYTES % (AUTO) 7 % (0-12); NEUTROPHILS % (AUTO) 78 % (42-75); PLATELET COUNT 122 10^3/uL (130-400); WHITE BLOOD COUNT 7.7 10^3/uL (4.3-11.0)
[2020-08-06 06:51] LABS: POTASSIUM 3.5 MMOL/L (3.6-5.0)
[2020-08-06 06:57] LABS: CREATININE SERUM 1.43 MG/DL (0.60-1.30); PHOSPHORUS 2.5 MG/DL (2.3-4.7)
[2020-08-06 07:00] LABS: MAGNESIUM 1.8 MG/DL (1.6-2.4)
--- NOTE | 2020-08-06 07:47 | Progress Note - Surgery ---
ANKIT DOMÍNGUEZ,MED STUDENT 08/06/20 0747: Subjective Date Seen by a Provider: Aug 06, 2020 Time Seen by a Provider: 06:53 Subjective/Events-last exam Pt seen and examined this AM. Had 3 BMs overnight and states he is feeling much better. States first BM was desmond and then last one was larger and softer. Reports emesis that was black in color while he was having first BM. Denies abdominal pain, nausea, fever, chills. SOB and abdominal distension improved from yesterday Review of Systems General: No Chills Pulmonary: No Dyspnea, No Cough Cardiovascular: No: Chest Pain, Edema Gastrointestinal: Vomiting; No: Nausea, Abdominal Pain Focused Exam Lactate Level 08/03/20 14:35: Lactic Acid Level 9.18*H 08/03/20 17:20: Lactic Acid Level 3.03*H 08/03/20 19:31: Lactic Acid Level 1.77 Objective Exam Vital Signs Date Time Temp Pulse Resp B/P (MAP) Pulse Ox O2 Delivery O2 Flow Rate FiO2 08/06/20 07:31 Room Air 08/06/20 04:40 37.1 08/06/20 04:00 38.1 98 17 144/75 (98) 95 Room Air 08/06/20 03:44 38.1 08/05/20 23:59 37.4 101 17 158/75 (102) 96 Room Air 08/05/20 19:20 37.3 97 16 185/85 (118) 95 Room Air 08/05/20 19:19 Room Air 08/05/20 18:09 96 Room Air 08/05/20 16:32 37.1 91 17 153/80 (104) 96 Room Air 08/05/20 12:00 37.7 95 22 134/78 (96) 97 Room Air 08/05/20 08:00 Room Air 08/05/20 08:00 35.8 91 20 124/71 (88) 95 Room Air I & O 08/06/20 07:00 Intake Total 4190 ml Output Total 75 ml Balance 4115 ml Capillary Refill : Less Than 3 Seconds General Appearance: No Apparent Distress, Chronically ill HEENT: PERRL/EOMI Respiratory: Lungs Clear, No Accessory Muscle Use, No Respiratory Distress Cardiovascular: Regular Rate, Rhythm, No Murmur Peripheral Pulses: 2+ Radial Pulses (R), 2+ Radial Pulses (L) Gastrointestinal: soft, distended, tenderness (incisional), other (abd incision site c/d/i, no erythema) Extremity: Non Tender, No Calf Tenderness Neurologic/Psychiatric: Alert, No Motor/Sensory Deficits, Normal Mood/Affect Skin: Normal Color, Warm/Dry Results Lab Laboratory Tests 08/06/20 05:57: White Blood Count 7.7, Red Blood Count 3.39L, Hemoglobin 9.3L, Hematocrit 29L, Mean Corpuscular Volume 84, Mean Corpuscular Hemoglobin 27, Mean Corpuscular Hemoglobin Concent 33, Red Cell Distribution Width 14.5, Platelet Count 122L, Mean Platelet Volume 9.0, Immature Granulocyte % (Auto) 0, Neutrophils (%) (Auto) 78H, Lymphocytes (%) (Auto) 12, Monocytes (%) (Auto) 7, Eosinophils (%) (Auto) 2, Basophils (%) (Auto) 0, Neutrophils # (Auto) 6.0, Lymphocytes # (Auto) 0.9L, Monocytes # (Auto) 0.6, Eosinophils # (Auto) 0.1, Basophils # (Auto) 0.0, Immature Granulocyte # (Auto) 0.0, Sodium Level 135, Potassium Level 3.5L, Chloride Level 106, Carbon Dioxide Level 21, Anion Gap 8, Blood Urea Nitrogen 19H, Creatinine 1.43H, Estimat Glomerular Filtration Rate 48, BUN/Creatinine Ratio 13, Glucose Level 106H, Calcium Level 8.0L, Phosphorus Level 2.5, Magnesium Level 1.8 Microbiology 08/03/20 Catheter Tip Culture - Preliminary, Resulted No growth 08/02/20 MRSA Screen - Final, Complete MRSA not isolated 08/02/20 Gram Stain - Final, Resulted 08/02/20 Anaerobic Culture - Preliminary, Resulted No anaerobes isolated 08/02/20 Surgical Culture - Final, Resulted 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 Postoperative ileus- improved hypokalemia- K 3.5 this AM sepsis, resolved ARTHUR- Cr 1.43 today from 1.55 yesterday, urine output low yesterday- 0.35ml/kg/hr left lower lobe and right middle lobe lung masses - per chest CT 08/03 normocytic anemia- Hgb stable, 9.3 this AM. liquid diet currently, advance? Replace potassium CXR stable IS and encourage ambulation. Continue IV fluids, protonix and antibiotics Monitor urine output DVT prophylaxis with SCD and lovenox. Outpt PET scan Pathology results on SB mass pending. STEWARTTARIQ Wil DO 08/06/20 1007: Subjective Subjective/Events-last exam Feeling better. + flatus and bm. tolerating clear liquids. feels a little weak. Denies n/v fever sweats chills shortness of breath or chest pain. Objective Exam General Appearance: No Apparent Distress, Chronically ill HEENT: PERRL/EOMI Respiratory: Chest Non Tender, No Accessory Muscle Use, No Respiratory Distress Cardiovascular: Regular Rate, Rhythm, No JVD Gastrointestinal: soft, distended (minimal), tenderness (incisional), other (abd incision site c/d/i, no erythema) Extremity: Non Tender, No Calf Tenderness Neurologic/Psychiatric: Alert, Oriented x3, No Motor/Sensory Deficits, Normal Mood/Affect Skin: Normal Color, Warm/Dry Lymphatic: No Adenopathy Assessment/Plan Assessment/Plan Assessment/Plan s/p small bowel resection due to mass with perforation. Postoperative ileus- improved hypokalemia- K 3.5 this AM sepsis, resolved ARTHUR- Cr 1.43 today from 1.55 yesterday, urine output low yesterday- 0.35ml/kg/hr left lower lobe and right middle lobe lung masses - per chest CT 08/03 normocytic anemia- Hgb stable, 9.3 this AM. liquid diet currently, advance diet today Replace potassium IS and encourage ambulation. Continue IV fluids, protonix and antibiotics Monitor urine output since decreased DVT prophylaxis with SCD and lovenox. Consult Dr. Perdomo- oncology Pathology results on SB mass pending. likely home tomorrow Supervisory-Addendum Brief Verification & Attestation Participated in pt care: history, MDM, physical Personally performed: exam, history, MDM, supervision of care Care discussed with: Medical Student Procedures: n/a Results interpretation: Verified all documentation Verification and Attestation of Medical Student E/M Service A medical student performed and documented this service in my presence. I r eviewed and verified all information documented by the medical student and made modifications to such information, when appropriate. I personally performed the physical exam and medical decision making. Tariq Stewart, Aug 06, 2020,10:07 ANKIT DOMÍNGUEZ,MED STUDENT Aug 06, 2020 07:47 TARIQ STEWART DO Aug 06, 2020 10:07
[2020-08-06] MEDS: PANTOPRAZOLE 40 MG (PROTONIX) VIAL IV SCH (09:24)
[2020-08-06] MEDS: lisINopril 20 MG (PRINIVIL) TABLET PO SCH (09:24)
[2020-08-06] MEDS ORDERED: ACHD5005 PO (10:09)
[2020-08-06] MEDS ORDERED: DOCU-143 PO (10:11)
--- NOTE | 2020-08-06 10:13 | Discharge Inst-Simple/Standard ---
Discharge Inst-Standard Discharge Medications New, Converted or Re-Newed RX: RX on Chart Patient Instructions/Follow Up Plan of Care/Instructions/FU: 2 weeks Terry Activity as Tolerated: No Discharge Diet: Regular Diet Other Inst to Patient Follow up Appt: Make appointment for 2 weeks- Terry. Instructions: No lifting greater than 10 pounds. No strenuous activity. May shower, no tub bath or soaking. Use incentive spirometer at home as directed. No Smoking Skin/Wound Care: Keep incision area clean and dry. Symptoms to Report: Appetite Changes, Extremity Discoloration, Numbness/Tingling, Swelling Increased, Bleeding Excessive, Eyesight Changes, Pain Increased, Urine Color Change, Constipation(Persistent), Fever over 101 degree F, Pain/Pressure in chest, Urinating Difficulty, Cough Up/Vomit Blood, Heart Beat Irreg/Pounding, Pain/Pressure in jaw, Vaginal Bleeding Increase, Cramps in feet or legs, Lightheadedness, Pain/Pressure in shoulder, Diarrhea(Persistent), Memory Changes Suddenly, Questions/Concerns, Weight gain consecutive days, Dizziness/Fainting, Nausea/Vomiting, Shortness of Breath, Weight gain over 2 pounds If questions or concerns contact your physician Or seek help at emergency department. HEIDI KDID DO Aug 06, 2020 10:13
[2020-08-06 10:31] VITALS: BP 131/71
--- NOTE | 2020-08-06 10:58 | Occupational Ther Daily Note ---
OT Current Status-Daily Note Subjective Pt AxO, upright in chair. No c/o pain. States ~4 BMs yesterday. Agrees to tx. Mental Status/Objective Patient Orientation: Person, Place, Situation, Normal For Age ADL-Treatment Therapy Code Descriptions/Definitions Functional Brock Measure: 0=Not Assessed/NA 4=Minimal Assistance 1=Total Assistance 5=Supervision or Setup 2=Maximal Assistance 6=Modified Brock 3=Moderate Assistance 7=Complete IndependenceSCALE: Activities may be completed with or without assistive devices. 0-Fbarwnbdgw-jzlbtjp completes the activity by him/herself with no assistance from a helper. 5-Set-up or Clean-up Assistance-helper sets up or cleans up; patient completes activity. [place] assists only prior to or following the activity. 4-Supervision or Touching Assistance-helper provides verbal cues and/or touching/steadying and/or contact guard assistance as patient completes activity. Assistance may be provided throughout the activity or intermittently. 3-Partial/Moderate Assistance-helper does LESS THAN HALF the effort. [place] lifts, holds or supports trunk or limbs, but provides less than half the effort. 2-Substantial/Maximal Assistance-helper does MORE THAN HALF the effort. [place] lifts or holds trunk or limbs and provides more than half the effort. 2-Sclkbafgf-doxjrd does ALL the effort. Patient does none of the effort to complete the activity. Or, the assistance of 2 or more helpers is required for the patient to complete the activity. If activity was not attempted, code reason: 7-Patient Refused. 9-Not Applicable-not attempted and the patient did not perform the activity before the current illness, exacerbation or injury. 10-Not Attempted due to Environmental Limitations-(lack of equipment, weather restraints, etc.). 88-Not Attempted due to Medical Conditions or Safety Concerns. Eating (QC): 6 Oral Hygiene (QC): 6 Lower Body Dressing (QC): 6 Toileting Hygiene (QC): 5 Toilet Transfer (QC): 6 Other Treatment Completes all transfers without AD and with IND level. Pt completes BM on toilet (loose), completes hygiene and changes briefs. Pt states main goal is to ambulate further, IND with ADLs. Pt washes hands and completes oral care IND, returns to recliner with all needs met, call light in reach, d/c on this time due to IND ADLs. 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 2=Patient will verbalize/demonstrate understanding of assistive devices/modifications for ADL. 3=Patient will improve strength/tolerance for activity to enable patient to perform ADL's. OT Education/Plan Problem List/Assessment Assessment: Decreased Activ Tolerance, Impaired I ADL's Discharge Recommendations Plan/Recommendations: Continue POC Therapy Discharge Recommendati: Home & Family Treatment Plan/Plan of Care Treatment,Training & Education: Yes Patient would benefit from OT for education, treatment and training to promote independence in ADL's, mobility, safety and/or upper extremity function for ADL's. Plan of Care: ADL Retraining, Functional Mobility, UE Funct Exercise/Act Treatment Duration: Aug 11, 2020 Frequency: 5 times per week Estimated Hrs Per Day: .25 hour per day Agreement: Yes Rehab Potential: Good Time/GCodes Start Time: 10:10 Stop Time: 10:25 Total Time Billed (hr/min): 15 Billed Treatment Time 1, ADL (15) d/c. SYL ROTH OTR Aug 06, 2020 10:58
--- NOTE | 2020-08-06 11:05 | Physical Therapy Daily Note ---
PT Daily Note-Current Subjective Patient agrees to PT. Patient and nursing report he is up ambulating with nursing staff 3/day. Mental Status Patient Orientation: Normal For Age Attachments: IV Transfers SCALE: Activities may be completed with or without assistive devices. 7-Hlzagsflpe-oexejcm completes the activity by him/herself with no assistance from a helper. 5-Set-up or Clean-up Assistance-helper sets up or cleans up; patient completes activity. [place] assists only prior to or following the activity. 4-Supervision or Touching Assistance-helper provides verbal cues and/or touching/steadying and/or contact guard assistance as patient completes activity. Assistance may be provided throughout the activity or intermittently. 3-Partial/Moderate Assistance-helper does LESS THAN HALF the effort. [place] lifts, holds or supports trunk or limbs, but provides less than half the effort. 2-Substantial/Maximal Assistance-helper does MORE THAN HALF the effort. [place] lifts or holds trunk or limbs and provides more than half the effort. 9-Dzqgflase-wlbifw does ALL the effort. Patient does none of the effort to complete the activity. Or, the assistance of 2 or more helpers is required for the patient to complete the activity. If activity was not attempted, code reason: 7-Patient Refused. 9-Not Applicable-not attempted and the patient did not perform the activity before the current illness, exacerbation or injury. 10-Not Attempted due to Environmental Limitations-(lack of equipment, weather restraints, etc.). 88-Not Attempted due to Medical Conditions or Safety Concerns. Sit to Stand (QC): 6 Gait Training Does the Patient Walk?: Yes Distance: 800' Walk 10 feet (QC): 6 Walk 50 ft with 2 Turns(QC): 6 Walk 150 ft (QC): 6 Gait Assistive Device: FWW safe and functional with no deviation Assessment Patient remains up in recliner. PT to dismiss patient from services due to at PLOF and is up with nursing staff 3/day. RN agrees. PT Pharmaceutical Scientist Goals Senior Care Goals PT Pharmaceutical Scientist Goals Time Frame: Aug 11, 2020 Roll Left & Right (QC): 6 Sit to Lying (QC): 6 Lying-Sitting on Side/Bed(QC): 6 Sit to Stand (QC): 6 Chair/Rsj-du-Fuaty Xfer(QC): 6 Walk 10 feet (QC): 6 Walk 50ft with 2 Turns (QC): 6 Walk 150 ft (QC): 6 PT Plan Treatment/Plan Treatment Plan: Discontinue PT, goals met Treatment Plan: Bed Mobility, Education, Functional Activity Bharathi, Functional Strength, Gait, Safety, Therapeutic Exercise, Transfers Treatment Duration: Aug 11, 2020 Frequency: 6 times per week Estimated Hrs Per Day: .25 hour per day Patient and/or Family Agrees t: Yes Time/GCodes Time In: 1025 Time Out: 1035 Total Billed Treatment Time: 10 Total Billed Treatment 1 visit FA 10 min CARLO CUMMINGS PT Aug 06, 2020 11:05
[2020-08-06] MEDS: ONDANSETRON 4 MG/2 ML (SDV) Z0FRAN IVP PRN ×2 (12:30→17:13)
--- NOTE | 2020-08-06 13:30 | Oncology Consultation ---
Visit Information Visit Information Date of Admission Aug 02, 2020 at 05:59 Attending Physician Heidi Kidd DO Admitting Physician Jose Claudio MD Chief Complaint Called to see the patient with newly diagnosed DLBCL Interval History Mr. Mayer is a 79 year old white man presented to ER with severe abdominal pain., n/v and CT scan showed small bowel mass with perforation 08/02/2019. He had surgery by Dr Kidd and complicated with post surgical ileum. 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 He is still have staple in his large incision in the middle of abdomen. He is able to eat soft food. He had bowel movement last night. His pain is resolved. The plan is to discharge home either today or tomorrow. He has no fever, chill nor other B symptoms. I consulted the patient on: 08/06/20 13:24 Time Seen by Provider: 11:00 Review of Systems Constitutional: see HPI Health Status Allergies Coded Allergies: No Known Drug Allergies (Unverified , 06/27/18) Home Medications Docusate Sodium (Colace) 100 Mg Capsule, 100 MG PO BID, #30 Prescribed by: HEIDI KIDD on 08/06/20 1011 Fexofenadine HCl (Fexofenadine HCl) 180 Mg Tablet, 180 MG PO DAILY, (Reported) Finasteride (Finasteride) 5 Mg Tablet, 5 MG PO DAILY, (Reported) Hydrocodone Bit/Acetaminophen (Lortab 5 Mg Tablet) 1 Tab Tab, 1-2 TAB PO Q6H PRN for PAIN-MODERATE, #30 Ref 0 Prescribed by: HEIDI KIDD on 07/25/18 1112 Hydrocodone/Acetaminophen (Hydrocodone-Acetamin 5-325 mg) 1 Each Tablet, 1 EACH PO Q4H PRN for PAIN-MODERATE (5-7), #20 Prescribed by: HEIDI KIDD on 08/06/20 1009 Lisinopril (Lisinopril) 20 Mg Tablet, 20 MG PO DAILY, (Reported) Pantoprazole Sodium (Protonix) 40 Mg Tablet.dr, 40 MG PO DAILY, #30 Ref 4 Prescribed by: HEIDI KIDD on 07/02/18 1434 Tamsulosin HCl (Flomax) 0.4 Mg Cap, 0.4 MG PO DAILY, (Reported) IQP-Ijfqig-Dgcalg Hx Patient Social History Marrital Status: Smoking Status: Never a Smoker 2nd Hand Smoke Exposure: No Recent Hopitalizations: No Alcohol Use?: Unable to obtain Have you traveled recently?: No Immunizations Up To Date Date of Pneumonia Vaccine: Mar 27, 2018 Date of Influenza Vaccine: Mar 11, 2020 Family Medical History Significant Family History: Cancer (mother - skin cancer) Physical Exam Vital Signs Vital Signs - First Documented 08/02/20 08/02/20 03:35 06:13 O2 Flow Rate 2.00 FiO2 40 Capillary Refill : Less Than 3 Seconds Height, Weight, BMI Height: 5'10.00" Weight: 160lbs. 0.0oz. [id number]; 24.50 BMI Method:Stated General Appearance: No Apparent Distress HEENT: PERRL/EOMI Neck: Non Tender, Supple Respiratory: Lungs Clear, No Accessory Muscle Use, No Respiratory Distress Cardiovascular: Regular Rate, Rhythm, No Edema Gastrointestinal: Soft, Other (large incision 20cm long with cara in the mid abdomen. No bleeding. No sign of infection) Extremity: No Calf Tenderness, No Pedal Edema Neurologic/Psychiatric: Alert, Oriented x3 Data Review Labs Laboratory Tests 08/06/20 05:57 Laboratory Tests 08/03/20 14:35: Lactic Acid Level 9.18*H 08/03/20 17:20: Lactic Acid Level 3.03*H 08/03/20 19:31: 08/04/20 03:15: Red Blood Count 3.27L, Hemoglobin 8.8L, Hematocrit 28L, Red Cell Distribution Width 14.6H, Platelet Count 111L, Neutrophils (%) (Auto) 80H, Lymphocytes # (Auto) 0.9L, Chloride Level 108H, Blood Urea Nitrogen 25H, Creatinine 1.56H, Glucose Level 111H, Calcium Level 7.8L 08/05/20 05:32: Red Blood Count 3.56L, Hemoglobin 9.8L, Hematocrit 30L, Red Cell Distribution Width 14.6H, Platelet Count 121L, Neutrophils (%) (Auto) 76H, Blood Urea Nitrogen 23H, Creatinine 1.55H, Calcium Level 8.1L 08/06/20 05:57: Red Blood Count 3.39L, Hemoglobin 9.3L, Hematocrit 29L, Platelet Count 122L, Neutrophils (%) (Auto) 78H, Blood Urea Nitrogen 19H, Creatinine 1.43H, Calcium Level 8.0L, Lymphocytes # (Auto) 0.9L, Potassium Level 3.5L, Glucose Level 106H Laboratory Tests 08/06/20 05:57 Impression & Plan Impression & Plan IMP: 1 Diffuse large b cell lymphoma. Presented with small bowel obstruction and perforation from the mass. 2.Local physician noticed lung mass and was in the processing of work up before this admission. 3. Anemia from recent surgery. 4. Large abdominal incision with cara. 5. Acute renal insufficiency noticed during this admission. Cr is better from 1.9 to 1.43 now. Plan: 1. Need PET CT to complete the staging. Will call him next week for the schedule and instruction. 2. Pt is interested in chemotherapy. 3. He will need the port placement at some point' 4. Can be discharged from hem/onc point of view 5. I will see him at the cancer center on 08/17/2020 to discuss the PET CT result and prognosis as well as treatment options. TIM PATEL MD Aug 06, 2020 13:30
[2020-08-06] MEDS: ENOXAPARIN 40 MG/0.4 ML (LOVENOX) SYR SC SCH (21:05)
[2020-08-07] MEDS: PIPERACILLIN/TAZOBACTAM (BULK) 4.5 GM in NS (IVPB) 100 ML IV SCH ×2 (01:04→08:04)
[2020-08-07 06:07] LABS: BASOPHILS % (AUTO) 0 % (0-10); EOSINOPHILS # (AUTO) 0.3 10^3/uL (0.0-0.3); EOSINOPHILS % (AUTO) 5 % (0-10); HEMATOCRIT 32 % (40-54); HEMOGLOBIN 10.1 g/dL (13.3-17.7); LYMPHOCYTES # (AUTO) 1.1 10^3/uL (1.0-4.0); LYMPHOCYTES % (AUTO) 16 % (12-44); MEAN CORPUSCULAR HEMOGLOBIN 27 pg (25-34); MEAN CORPUSCULAR HGB CONC 32 g/dL (32-36); MEAN CORPUSCULAR VOLUME 84 fL (80-99); MEAN PLATELET VOLUME 9.1 fL (9.0-12.2); MONOCYTES # (AUTO) 0.6 10^3/uL (0.0-1.0); MONOCYTES % (AUTO) 9 % (0-12); NEUTROPHILS # (AUTO) 4.6 10^3/uL (1.8-7.8); NEUTROPHILS % (AUTO) 69 % (42-75); PLATELET COUNT 155 10^3/uL (130-400); WHITE BLOOD COUNT 6.6 10^3/uL (4.3-11.0)
[2020-08-07 06:15] LABS: POTASSIUM 3.5 MMOL/L (3.6-5.0)
[2020-08-07 06:16] LABS: CALCIUM 8.1 MG/DL (8.5-10.1)
[2020-08-07 06:20] LABS: PHOSPHORUS 2.4 MG/DL (2.3-4.7)
[2020-08-07 06:21] LABS: CREATININE SERUM 1.31 MG/DL (0.60-1.30)
[2020-08-07] MEDS: LACTATED RINGERS 1,000 ML IV SCH (06:29)
[2020-08-07] MEDS: PANTOPRAZOLE 40 MG (PROTONIX) VIAL IV SCH (08:04)
[2020-08-07] MEDS: lisINopril 20 MG (PRINIVIL) TABLET PO SCH (08:04)
--- NOTE | 2020-08-07 08:28 | Progress Note - Surgery ---
ANKIT DOMÍNGUEZ,MED STUDENT 08/07/20 0828: Subjective Date Seen by a Provider: Aug 07, 2020 Time Seen by a Provider: 07:40 Subjective/Events-last exam Pt seen and examined this AM. Denies any abd pain. Reports loose BMs. States that foods and liquids aren't sitting well in his stomach and he is vomiting foods back up. Also reports burping often. Denies fever, chills, chest pain, SOB. Review of Systems General: No Chills Pulmonary: No Dyspnea, No Cough Cardiovascular: No: Chest Pain, Edema Gastrointestinal: Nausea, Vomiting, Diarrhea; No: Abdominal Pain Neurological: No: Weakness Objective Exam Vital Signs Date Time Temp Pulse Resp B/P (MAP) Pulse Ox O2 Delivery O2 Flow Rate FiO2 08/07/20 08:00 Room Air 08/07/20 04:54 88 18 152/83 (106) 95 Room Air 08/06/20 23:56 37.1 94 20 164/86 (112) 94 Room Air 08/06/20 21:00 Room Air 08/06/20 20:20 35.7 95 19 149/82 (104) 96 Room Air 08/06/20 18:19 Room Air 08/06/20 15:57 36.4 95 18 149/83 (105) 96 Room Air 08/06/20 12:00 36.0 105 18 166/83 (110) 97 Room Air 08/06/20 10:31 96 95 I & O 08/07/20 07:00 Intake Total 3710 ml Output Total 100 ml Balance 3610 ml Capillary Refill : Less Than 3 Seconds General Appearance: No Apparent Distress, WD/WN, Chronically ill HEENT: PERRL/EOMI, Moist Mucous Membranes Respiratory: Lungs Clear, No Accessory Muscle Use, No Respiratory Distress Cardiovascular: Regular Rate, Rhythm, No Edema Peripheral Pulses: 2+ Radial Pulses (R), 2+ Radial Pulses (L) Gastrointestinal: soft, distended (minimal), tenderness (incisional), other (abd incision site c/d/i, no erythema) Extremity: No Calf Tenderness, No Pedal Edema Neurologic/Psychiatric: Alert, Oriented x3, Normal Mood/Affect Skin: Normal Color, Warm/Dry Results Lab Laboratory Tests 08/07/20 05:23: White Blood Count 6.6, Red Blood Count 3.78L, Hemoglobin 10.1L, Hematocrit 32L, Mean Corpuscular Volume 84, Mean Corpuscular Hemoglobin 27, Mean Corpuscular H emoglobin Concent 32, Red Cell Distribution Width 14.5, Platelet Count 155, Mean Platelet Volume 9.1, Immature Granulocyte % (Auto) 1, Neutrophils (%) (Auto) 69, Lymphocytes (%) (Auto) 16, Monocytes (%) (Auto) 9, Eosinophils (%) (Auto) 5, Basophils (%) (Auto) 0, Neutrophils # (Auto) 4.6, Lymphocytes # (Auto) 1.1, Monocytes # (Auto) 0.6, Eosinophils # (Auto) 0.3, Basophils # (Auto) 0.0, Immature Granulocyte # (Auto) 0.1, Sodium Level 137, Potassium Level 3.5L, Chloride Level 108H, Carbon Dioxide Level 21, Anion Gap 8, Blood Urea Nitrogen 19H, Creatinine 1.31H, Estimat Glomerular Filtration Rate 53, BUN/Creatinine Ratio 15, Glucose Level 103, Calcium Level 8.1L, Phosphorus Level 2.4, Magnesium Level 2.0 Microbiology 08/03/20 Catheter Tip Culture - Final, Complete No growth 08/02/20 MRSA Screen - Final, Complete MRSA not isolated 08/02/20 Gram Stain - Final, Complete 08/02/20 Anaerobic Culture - Final, Complete No anaerobes isolated 08/02/20 Surgical Culture - Final, Complete 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 Postoperative ileus- improved hypokalemia- K 3.5 this AM, unchanged from yesterday sepsis, resolved ARTHUR- Cr 1.31 today from 1.43 yesterday left lower lobe and right middle lobe lung masses - per chest CT 08/03 normocytic anemia- Hgb stable, 10.1 this AM. Regular diet, zofran for nausea Replace potassium IS and encourage ambulation. Continue IV fluids, protonix and antibiotics DVT prophylaxis with SCD and lovenox. 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 Perdomo consulted- PET scan next week and appointment 08/17/2020 JOSE CRENSHAW DO 08/07/20 1024: Subjective Time Seen by a Provider: 10:16 Subjective/Events-last exam Pt seen and examined, denied any nausea and vomiting to me. He stated they gave him too much food and he can't eat it all. Denied abdominal pain. +BM Review of Systems General: No Chills Pulmonary: No Dyspnea, No Cough Cardiovascular: No: Chest Pain, Edema Gastrointestinal: Diarrhea; No: Nausea, Vomiting, Abdominal Pain Objective Exam General Appearance: No Apparent Distress, Chronically ill HEENT: Moist Mucous Membranes Respiratory: Lungs Clear, No Accessory Muscle Use, No Respiratory Distress Cardiovascular: Regular Rate, Rhythm, No Murmur Gastrointestinal: soft, distended (minimal), tenderness (incisional) Neurologic/Psychiatric: Alert, Oriented x3 Assessment/Plan Assessment/Plan Assessment/Plan s/p small bowel resection due to mass with perforation. Postoperative ileus- improved hypokalemia- K 3.5 this AM, unchanged from yesterday sepsis, resolved ARTHUR- Cr 1.31 today from 1.43 yesterday left lower lobe and right middle lobe lung masses - per chest CT 08/03 normocytic anemia- Hgb stable, 10.1 this AM. Regular diet, zofran for nausea Replace potassium IS and encourage ambulation. Continue IV fluids, protonix and antibiotics DVT prophylaxis with SCD and lovenox. 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 Perdomo consulted- PET scan next week and appointment 08/17/2020 Supervisory-Addendum Brief Verification & Attestation Participated in pt care: history, MDM, physical Personally performed: exam, history, MDM Care discussed with: Medical Student Procedures: n/a Verification and Attestation of Medical Student E/M Service A medical student performed and documented this service. I then reviewed and verified all information documented by the medical student and made modifications to such information, when appropriate. I personally performed a physical exam, medical decision making and then discussed any differences between the notes and made revisions as necessary to create one note. Jose Crenshaw , 08/07/20 , 10:23 ANKIT DOMÍNGUEZ,MED STUDENT Aug 07, 2020 08:28 JOSE CRENSHAW DO Aug 07, 2020 10:24
[2020-08-07] MEDS ORDERED: AMOX-358 PO (10:25)
--- NOTE | 2020-08-09 03:18 | Physician Query Clarification ---
PQ-Link Manifestation-Etiology Admission/Discharge Admission Date: Aug 02, 2020 at 05:59 Discharge Date: Aug 07, 2020 at 12:40 HEIDI Alegre DO The medical record reflects the following clinical scenario: History/Risk Factors:79 y/o male patient abdominal pain, nausea vomiting and blood pressure has dropped into 80 s. Hand P, 08/02: abdominal pain, nausea vomiting, hypotension and concerned for ischemic bowel. Progress notes, 08/03: Small bowel perforation, septic shock requiring blood pressure support, acute renal failure secondary to hypotension. Respiratory progress notes, 08/04: Severe abdominal pain secondary colon perforation from small bowel perforation secondary to mass, abdominal sepsis with septic shock upon arrival . Clinical Findings:Lactic acid-2.84 H, BP-70/51, pulse-132 Treatment: small bowel resection, IV F, IV antibiotics Question: Can you specify if the Sepsis is due to/associated with small bowel perforation? Please document a response in the Progress Note or Discharge Summary. 1. Yes - Sepsis is due to/associated with small bowel perforation. 2. No -Sepsis is not due to/associated with small bowel perforation. 3. Other, with explanation of the clinical findings. 4. Clinically undetermined, no explanation for the clinical findings. PHYSICIAN RESPONSE Manifestation due to/assoic: Yes Please remember a lack of response to the above will prompt a phone page by [facility]/Coding staff. In responding to this query, please exercise your independent professional judgment. The purpose of this communication is to more accurately reflect the complexity of your patients condition. The fact that a question is asked does not imply that any particular answer is desired or expected. Thank you for your timely response to this clarification. Requestors name: [ ] Phone # [ ] THIS PHYSICIAN QUERY FORM IS A PERMANENT PART OF THE MEDICAL RECORD TARIQ AGUILARAllan Aug 09, 2020 03:18 HEIDI KIDD DO Aug 09, 2020 08:09
== END 2020-08-07 12:40 | disposition home or self-care (01) | DRG 853 ==
LOC: EDUNIT# 23:57 → ER 23:58 → SDC 08-02 02:33 → ICU 08-02 05:59 → 4TH 08-04 14:27
PROVIDERS: ADMIT Surgery; ATTEND Surgery
PROC: 5A1935Z Respiratory Ventilation, Less than 24 Consecutive Hours (ICD-10-PCS; 2020-08-02)
PROC: 0BH17EZ Insertion of Endotracheal Airway into Trachea, Via Natural or Artificial Opening (ICD-10-PCS; 2020-08-02)
PROC: 0DT80ZZ Resection of Small Intestine, Open Approach (ICD-10-PCS; principal; 2020-08-02 03:47)
DX: A41.9 Sepsis, unspecified organism (principal); K63.1 Perforation of intestine (nontraumatic); R65.21 Severe sepsis with septic shock; E87.2 Acidosis; N17.9 Acute kidney failure, unspecified; K56.7 Ileus, unspecified; I10 Essential (primary) hypertension; Z20.822 Contact with and (suspected) exposure to COVID-19; K21.9 Gastro-esophageal reflux disease without esophagitis; R91.8 Other nonspecific abnormal finding of lung field; I95.9 Hypotension, unspecified; K59.00 Constipation, unspecified; D64.9 Anemia, unspecified; E87.6 Hypokalemia; R09.02 Hypoxemia
CPT/HCPCS: 36415; 71045; 71250; 74176; 80048; 80053; 83605; 83735; 84100; 85025; 85610; 85730; 86141; 87040; 87070; 87075; 87077; 87081; 87186; 87205; 87635; 94002; 94640; 94664; 94760; 94799; 96361; 96365; 96366; 96375

== ENCOUNTER 2020-08-17 05:43 | Outpatient (RCR) | payer MEDICARE ==
[~2020-08-17] VITALS: Ht 177.8 cm; Wt 83.6 kg
[~2020-08-17 05:43] MED LIST changes: -FOLI-88 PO; -MAGN200T PO; -OMEG12002 PO
[2020-08-17] MEDS ORDERED: OMEG12002 PO (15:01)
[2020-08-17] MEDS ORDERED: FOLI-88 PO (15:01)
[2020-08-17] MEDS ORDERED: MAGN200T PO (15:01)
== END 2020-08-17 15:59 | disposition home or self-care (01) ==
LOC: PREOP 05:43
PROVIDERS: ATTEND Surgery
DX: Z01.818 Encounter for other preprocedural examination (principal)

== ENCOUNTER → 2020-08-17 | Outpatient (CLI) | payer MEDICARE ==
[~2020-08-17] MED LIST changes: +AMOX-358 PO; +DOCU-143 PO; +FOLI-88 PO; +MAGN200T PO; +OMEG12002 PO
--- NOTE | 2020-08-17 14:58 | Diagnostic Imaging Report ---
INDICATION: Diffuse non-Hodgkin's lymphoma. The study was performed for initial staging. Serum blood glucose level at the time of injection is 105 mg/dL. TECHNIQUE: The patient was administered 13.8 mCi F18-FDG intravenously in the left antecubital location and PET imaging was performed from the top of the skull to mid thighs. Noncontrast CT was also performed for attenuation correction and anatomic correlation. COMPARISON: No prior PET/CT studies are available for comparison. There is symmetric activity throughout the brain. Soft tissues of the neck are unremarkable. No mediastinal or hilar hypermetabolism is identified. There is a hypermetabolic mass in the right upper lobe measuring 22 mm in size. SUV max is approximately 9.9. There is also a hypermetabolic mass in the posterolateral left lower lobe measuring approximately 19 mm. SUV max is 11.4. The patient does have moderate bilateral pleural effusions. The abdomen and pelvis demonstrate physiologic activity throughout the gastrointestinal and genitourinary tract. The patient is status post recent colon surgery. There is perihepatic ascites. The patient has diverticulosis of the sigmoid. No other suspicious areas of hypermetabolism are seen. IMPRESSION: 1. Moderate bilateral pleural effusions. There is a hypermetabolic mass in the right upper lobe and a hypermetabolic mass in the left lower lobe of the chest. No hypermetabolic mediastinal or hilar lymphadenopathy is identified. No suspicious hypermetabolism in the abdomen or pelvis is detected. Dictated by: Dictated on workstation # [id number]
== END ==
LOC: RAD 10:04
PROVIDERS: ATTEND Internal Medicine Hematology & Oncology
DX: C83.30 Diffuse large B-cell lymphoma, unspecified site (principal); J90 Pleural effusion, not elsewhere classified
CPT/HCPCS: 78815; A9552

== ENCOUNTER 2020-08-20 08:08 | Day surgery (SDC) | payer MEDICARE, OTHER ==
[~2020-08-20] VITALS: Ht 177.8 cm; Wt 83.6 kg
[~2020-08-20 08:08] MED LIST changes: +FOLI-88 PO; +MAGN200T PO; +OMEG12002 PO
[2020-08-20] MEDS ORDERED: 0.9% SODIUM CHLORIDE PF INJ 20 ML VIAL ONE (08:26)
[2020-08-20] MEDS ORDERED: HEParin (CENTRAL IV FLUSH) 500 UNIT/5 ML SYR ONE (08:26)
[2020-08-20] MEDS ORDERED: LIDOCAINE/EPI 1%-1:100,000 (XYLOCAINE) 50 ML ONE (08:26)
[2020-08-20] MEDS ORDERED: LACTATED RINGERS 1,000 ML IV PRN (08:30)
[2020-08-20] MEDS ORDERED: ceFAZolin 2 GM IV Premixed 50 ML IV ONE (08:30)
[2020-08-20 09:00] VITALS: BP 136/88
[2020-08-20] MEDS ORDERED: PROPOFOL INJECTION 50 ML IV ONE (09:23)
[2020-08-20] MEDS ORDERED: fentaNYL INJ 100 MCG/2 ML AMP ONE (09:41)
--- NOTE | 2020-08-20 11:27 | Progress Note-Pre Operative ---
Pre-Operative Progress Note H&P Reviewed The H&P was reviewed, patient examined and no changes noted. Date Seen by Provider: Aug 20, 2020 Time Seen by Provider: : Date H&P Reviewed: Aug 20, 2020 Time H&P Reviewed: : Pre-Operative Diagnosis: b-cell lymphoma HEIDI KIDD DO Aug 20, 2020 11:27
[2020-08-20 12:01] VITALS: BP 115/66
--- NOTE | 2020-08-20 12:03 | Discharge Inst-Simple/Standard ---
Discharge Inst-Standard Patient Instructions/Follow Up Plan of Care/Instructions/FU: 2-3 weeks Terry Ice pack on 15min off 30 min and repeat for first 48 hours. This decreases swelling and discomfort. Activity as Tolerated: No Discharge Diet: Regular Diet Other Inst to Patient Follow up Appt: Make appointment for 2-3 week. Instructions: No lifting greater than 10 pounds. No strenuous activity. May shower in 24 hours, no tub bath or soaking. Use incentive spirometer at home as directed. No Smoking Skin/Wound Care: You have special glue over your incision that will fall off on it's own. Ice pack on 15 min off 30 min and repeat for first 48 hours. This will decrease swelling and discomfort. Symptoms to Report: Appetite Changes, Extremity Discoloration, Numbness/Tingling, Swelling Increased, Bleeding Excessive, Eyesight Changes, Pain Increased, Urine Color Change, Constipation(Persistent), Fever over 101 degree F, Pain/Pressure in chest, Urinating Difficulty, Cough Up/Vomit Blood, Heart Beat Irreg/Pounding, Pain/Pressure in jaw, Vaginal Bleeding Increase, Cramps in feet or legs, Lightheadedness, Pain/Pressure in shoulder, Diarrhea(Persistent), Memory Changes Suddenly, Questions/Concerns, Weight gain consecutive days, Dizziness/Fainting, Nausea/Vomiting, Shortness of Breath, Weight gain over 2 pounds If questions or concerns contact your physician Or seek help at emergency department. HEIDI KIDD DO Aug 20, 2020 12:03
--- NOTE | 2020-08-20 12:06 | Anesthesia-General Post-Op ---
MAC Patient Condition Mental Status/LOC: Same as Preop Cardiovascular: Satisfactory Nausea/Vomiting: Absent Respiratory: Satisfactory Pain: Controlled Complications: Absent Post Op Complications Complications None Follow Up Care/Instructions Patient Instructions None needed. Anesthesiology Discharge Order Discharge Order Patient is doing well, no complaints, stable vital signs, no apparent adverse anesthesia problems. No complications reported per nursing. SOO VIEIRA CRNA Aug 20, 2020 12:06
[2020-08-20 12:10] VITALS: BP 115/71
[2020-08-20] MEDS ORDERED: morphine INJ 10 MG/ML 1ML (SYR OR VIAL) IVP ONE (12:15)
[2020-08-20 12:20] VITALS: BP_SYST 121; BP_SYST 136; BP_DIAS 70; BP_DIAS 71
--- NOTE | 2020-08-20 12:22 | Diagnostic Imaging Report ---
INDICATION: Port placement Portable chest 12:17 PM Right IJ Port-A-Cath tip projects over the SVC. There is a 2.2 cm nodule in the right lower lung. There is a 2.8 cm nodular opacity in the left lower lung. There are no effusions or pneumothoraces. IMPRESSION: Port-A-Cath tip projects over the SVC. Dictated by: Dictated on workstation # [id number]
[2020-08-20 12:50] VITALS: BP 164/87
[2020-08-20 13:05] VITALS: BP 164/87
--- NOTE | 2020-08-20 14:17 | Diagnostic Imaging Report ---
INDICATION: Port insertion IMPRESSION: 30.7 seconds of fluoroscopy and single AP digital image was used in surgery by Dr. Stewart during Port-A-Cath insertion. Images of catheter tip projecting over the SVC at the cavoatrial junction. Dictated by: Dictated on workstation # [id number]
--- NOTE | 2020-09-08 20:04 | Progress Note-Post Operative ---
Post-Operative Progess Note Surgeon (s)/Foreign Collection Clerk (s) Surgeon HEIDI KIDD DO Foreign Collection Clerk: na Pre-Operative Diagnosis b-cell lymphoma Post-Operative Diagnosis same Procedure & Operative Findings Date of Procedure 08/20/20 Procedure Performed/Findings PROCEDURE: Right internal jugular port placement using ultrasound guidance. COMPLICATIONS: None. INDICATIONS: The patient is a 79 year old male with b cell lymphoma. Patient understands the risks and benefits of port placement and wished to proceed with the procedure. Consent was signed on the chart. PROCEDURE: The patient was taken to the operating suite, was prepped and draped in the sterile fashion. A surgical pause was performed. Ultrasound was used to locate the internal jugular vein. Once located anesthetic was infiltrated above it. Using micro-access kit, the right internal vein was accessed. Dark nonpulsatile blood was withdrawn. The wire was inserted. Fluoroscopy assured proper placement. The needle was removed. The micro-access dilator was advanced over the wire and the wire was removed. The regular wire was inserted and fluoroscopy assured proper placement. The wire was then secured. Local anesthetic was used to anesthetize from the neck for tunneling down to the right chest and for pocket creation. A 15 blade scalpel was used to make an incision over the right chest. Cautery was used to dissect down to the pectoral fascia. A pocket was created with blunt dissection. The dilator sheath was then advanced over the wire under fluoroscopy and the dilator and wire were removed. The Groshong catheter was inserted through the sheath and the sheath was then removed. The Groshong wire was removed. The catheter was then tunneled to the right chest pocket. Fluoroscopy was used to cut to length and this was then attached to the port which was then placed within the pocket. The port was then accessed without difficulty. It was then flushed with saline and then heparin. The subcutaneous tissues were then reapproximated using 3-0 Vicryl. The areas were then washed and dried. Skin Affix was placed over incision. The insertion point of the neck Skin Affix was placed over the incision. The patient tolerated the procedure well without complication and was taken to recovery room in stable condition. Chest x-ray is pending. Anesthesia Type mac c local Estimated Blood Loss Estimated blood loss (mL): minimal Specimens/Packing Specimens Removed EHIDI Beckford DO Sep 08, 2020 20:04
== END 2020-08-20 13:05 | disposition home or self-care (01) ==
LOC: SDC 08:08
PROVIDERS: ATTEND Surgery
DX: C83.30 Diffuse large B-cell lymphoma, unspecified site (principal); I87.2 Venous insufficiency (chronic) (peripheral); I10 Essential (primary) hypertension; K21.9 Gastro-esophageal reflux disease without esophagitis; Z79.899 Other long term (current) drug therapy; Z20.822 Contact with and (suspected) exposure to COVID-19
CPT/HCPCS: 36561; 71045; 76000; 87081; C1788

== ENCOUNTER → 2020-08-26 | Outpatient (CLI) | payer MEDICARE ==
[~2020-08-26] MED LIST changes: +CATHETER FLUSH 10 ML SYR IV PRN; +HEParin (CENTRAL IV FLUSH) 500 UNIT/5 ML SYR ONE
--- NOTE | 2020-08-27 12:26 | Diagnostic Imaging Report ---
INDICATION: Anti-neoplastic chemo regimen. The patient was administered 27.3 mCi technetium 99m pertechnetate labeled to the patient's red blood cells and gated cardiac imaging over the chest was performed. Left ventricular ejection fraction is calculated to be 62%. IMPRESSION: LV ejection fraction of 62%. Dictated by: Dictated on workstation # [id number]
== END ==
LOC: CARD 14:00
PROVIDERS: ATTEND Internal Medicine Hematology & Oncology
DX: Z51.11 Encounter for antineoplastic chemotherapy (principal)
CPT/HCPCS: 78472; A9560

== ENCOUNTER 2020-09-10 10:33 | Observation (INO) | payer MEDICARE ==
[2020-09-10] VITALS (8 sets, daily range): BP systolic 123–167; BP diastolic 66–78
[~2020-09-10] VITALS: Ht 167.7 cm; Wt 73.0 kg
[~2020-09-10 10:33] MED LIST changes: -CATHETER FLUSH 10 ML SYR IV PRN; -HEParin (CENTRAL IV FLUSH) 500 UNIT/5 ML SYR ONE
--- NOTE | 2020-09-10 10:54 | ED Chest Pain ---
General Stated Complaint: CP Source: patient, spouse Exam Limitations: no limitations History of Present Illness Date Seen by Provider: Sep 10, 2020 Time Seen by Provider: 10:41 Initial Comments The patient presents ER by private conveyance with his spouse and chief complaint that about 7:00 this morning he started experiencing some left-sided chest pain nonradiating waxing and waning between a 4 and a 6. Presently a 4 out of 10. No nausea sweats fever shortness of breath dysuria diarrhea. He does not have a history of coronary disease. He is never a smoker and not a drinker. He thought maybe it was just indigestion but did not take any antacids, Tylenol, aspirin etc. He was recently diagnosed with colon cancer and had a colectomy by local surgery and started his first dose of chemotherapy on 31 August under the care of Dr. Cardenas, oncology. He is not having a cough. His pain is not worse with exertion. He was feeling some palpitations in his chest and irregular heart rate but denies a history of atrial fibrillation/flutter. He is not on blood thinners. He does not know a balloon sander. Allergies and Home Medications Allergies Coded Allergies: No Known Drug Allergies (Unverified , 08/17/20) Home Medications Docusate Sodium 100 Mg Capsule, 100 MG PO BID Prescribed by: HEIDI KIDD on 08/06/20 1011 Finasteride 5 Mg Tablet, 5 MG PO DAILY, (Reported) Folic Acid/Multivit-Min/Lutein 1 Each Tab.chew, 1 EACH PO DAILY, (Reported) Lisinopril 20 Mg Tablet, 20 MG PO DAILY, (Reported) Magnesium 200 Mg Tablet, 400 MG PO UD, (Reported) THREE TIMES A WEEK [place]-3/Dha/Epa/Fish Oil 1,200 Mg Capsule, 1,200 MG PO DAILY, (Reported) Tamsulosin HCl 0.4 Mg Cap, 0.4 MG PO DAILY, (Reported) Patient Home Medication List Home Medication List Reviewed: Yes Review of Systems Review of Systems Constitutional: No chills, No diaphoresis EENTM: No Blurred Vision, No Double Vision Respiratory: Denies Cough, Denies Shortness of Air, Denies SOA With Exertion Cardiovascular: See HPI, Chest Pain; Denies Edema; Irregular Heart Rate, Palpitations Gastrointestinal: Denies Abdomen Distended, Denies Abdominal Pain Genitourinary: Denies Burning, Denies Discharge Musculoskeletal: No back pain, No joint pain All Other Systems Reviewed Negative Unless Noted: Yes Past Upcbhgn-Bhidnq-Whjeim Hx Patient Social History 2nd Hand Smoke Exposure: No Recent Hopitalizations: Yes (AUG 02 2020 BOWEL OBSTRUCTION SX) Immunizations Up To Date Date of Pneumonia Vaccine: Mar 27, 2018 Date of Influenza Vaccine: Mar 11, 2020 Seasonal Allergies Seasonal Allergies: Yes (HAY FEVER) Past Medical History Surgeries: Yes (colonoscopy, BOWEL OB SX, 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 0.0oz. 72.786016wg; 26.44 BMI Method:Stated General Appearance: WD/WN, Anxious, Mild Distress HEENT: PERRL/EOMI, Pharynx Normal, Moist Mucous Membranes Neck: Full Range of Motion, Normal Inspection Respiratory: Chest Non Tender, Lungs Clear, Normal Breath Sounds, No Accessory Muscle Use, No Respiratory Distress Cardiovascular: Regular Rate, Rhythm, No Edema, Normal Peripheral Pulses Gastrointestinal: No Organomegaly, Non Tender, Soft Extremity: Normal Capillary Refill, Normal Inspection, No Pedal Edema Neurologic/Psychiatric: Alert, Oriented x3 Skin: Normal Color, Warm/Dry Progress/Results/Core Measures Results/Orders Lab Results Laboratory Tests Test 09/10/20 10:54 Range/Units White Blood Count 3.7 L 4.3-11.0 10^3/uL Red Blood Count 3.51 L 4.30-5.52 10^6/uL Hemoglobin 9.3 L 13.3-17.7 g/dL Hematocrit 30 L 40-54 % Mean Corpuscular Volume 84 80-99 fL Mean Corpuscular Hemoglobin 27 25-34 pg Mean Corpuscular Hemoglobin Concent 32 32-36 g/dL Red Cell Distribution Width 15.8 H 10.0-14.5 % Platelet Count 174 130-400 10^3/uL Mean Platelet Volume 8.5 L 9.0-12.2 fL Immature Granulocyte % (Auto) 1 % Neutrophils (%) (Auto) 70 42-75 % Lymphocytes (%) (Auto) 15 12-44 % Monocytes (%) (Auto) 9 0-12 % Eosinophils (%) (Auto) 6 0-10 % Basophils (%) (Auto) 1 0-10 % Neutrophils # (Auto) 2.6 1.8-7.8 10^3/uL Lymphocytes # (Auto) 0.5 L 1.0-4.0 10^3/uL Monocytes # (Auto) 0.3 0.0-1.0 10^3/uL Eosinophils # (Auto) 0.2 0.0-0.3 10^3/uL Basophils # (Auto) 0.0 0.0-0.1 10^3/uL Immature Granulocyte # (Auto) 0.0 0.0-0.1 10^3/uL Prothrombin Time 14.4 12.2-14.7 SEC INR Comment 1.1 0.8-1.4 Activated Partial Thromboplast Time 28 24-35 SEC D-Dimer 1.86 H 0.00-0.49 UG/ML Sodium Level 137 135-145 MMOL/L Potassium Level 4.3 3.6-5.0 MMOL/L Chloride Level 103 98-107 MMOL/L Carbon Dioxide Level 25 21-32 MMOL/L Anion Gap 9 5-14 MMOL/L Blood Urea Nitrogen 21 H 7-18 MG/DL Creatinine 1.11 0.60-1.30 MG/DL Estimat Glomerular Filtration Rate > 60 BUN/Creatinine Ratio 19 Glucose Level 112 H 70-105 MG/DL Calcium Level 9.0 8.5-10.1 MG/DL Corrected Calcium 9.2 8.5-10.1 MG/DL Magnesium Level 1.9 1.6-2.4 MG/DL Total Bilirubin 0.3 0.1-1.0 MG/DL Aspartate Amino Transf (AST/SGOT) 18 5-34 U/L Alanine Aminotransferase (ALT/SGPT) 25 0-55 U/L Alkaline Phosphatase 70 40-136 U/L Myoglobin 50.7 10.0-92.0 NG/ML Troponin I < 0.028 <0.028 NG/ML B-Type Natriuretic Peptide 37.2 <100.0 PG/ML Total Protein 5.9 L 6.4-8.2 GM/DL Albumin 3.8 3.2-4.5 GM/DL Lipase 29 8-78 U/L My Orders Orders - THU MARTINEZ Continuous Ekg Monitoring (09/10/20 10:37) Ekg Tracing (09/10/20 10:37) Cbc With Automated Diff (09/10/20 10:48) Magnesium (09/10/20 10:48) Chest 1 View, Ap/Pa Only (09/10/20 10:48) Comprehensive Metabolic Panel (09/10/20 10:48) Myoglobin Serum (09/10/20 10:48) Protime With Inr (09/10/20 10:48) Partial Thromboplastin Time (09/10/20 10:48) O2 (09/10/20 10:48) Lipid Panel (09/11/20 06:00) Ed Iv/Invasive Line Start (09/10/20 10:48) Lipase (09/10/20 10:48) BNP (09/10/20 10:48) Fibrin Degradation Products (09/10/20 10:48) Troponin I (09/10/20 10:48) Nitroglycerin 0.4 Mg Btl 25's (Nitrostat (09/10/20 11:00) Aspirin Chewable Tablet (Baby Aspirin Ch (09/10/20 11:00) Pantoprazole Injection (Protonix Injecti (09/10/20 11:00) Ct Angio Chest W (09/10/20 11:33) Iohexol Injection (Omnipaque 350 Mg/Ml 1 (09/10/20 11:45) Received Contrast (Hold Metformin- Contr (09/10/20 11:45) Sodium Chloride Flush (Catheter Flush Sy (09/10/20 11:45) Ns (Ivpb) (Sodium Chloride 0.9% Ivpb Bag (09/10/20 11:45) Medications Given in ED Current Medications Medications Dose Ordered Sig/Maria Luz Route Start Time Stop Time Status Last Admin Dose Admin Aspirin 324 mg ONCE ONCE PO 09/10/20 11:00 09/10/20 11:01 DC 09/10/20 10:57 324 MG Iohexol 100 ml ONCE ONCE IV 09/10/20 11:45 09/10/20 11:46 DC 09/10/20 12:03 67 ML Pantoprazole 40 mg ONCE ONCE IV 09/10/20 11:00 09/10/20 11:01 DC 09/10/20 10:57 40 MG Sodium Chloride 10 ml NEEDED PRN IV 09/10/20 11:45 09/10/20 14:17 DC 09/10/20 12:03 10 ML Sodium Chloride 100 ml ONCE ONCE IV 09/10/20 11:45 09/10/20 11:46 DC 09/10/20 12:03 80 ML Vital Signs/I&O 09/10/20 09/10/20 10:40 10:40 Pulse 67 Resp 18 B/P (MAP) 147/89 (108) Pulse Ox 100 O2 Delivery Room Air Room Air Progress Progress Note : Time: 10:52 Progress Note The patient's lungs are clear. We will get a D-dimer because of the possibility of a blood clot related to his cancer. Cardiac work-up with aspirin 324 mg and since he still having 4 out of 10 pain we will give him some nitroglycerin. Even with a negative troponin he is still high risk for acute coronary syndrome. Pain started about 3 to 4 hours prior to his arrival. High risk; 12-65% 30-day MACE. Admit to hospital or observation. Further testing indicated. Pantoprazole Initial ECG Impression Date: Sep 10, 2020 Initial ECG Impression Time: 10:44 Initial ECG Rate: 77 Initial ECG Rhythm: Normal Sinus Initial ECG Intervals: Normal Initial ECG Impression: Normal Comment Normal sinus rhythm without clinically relevant ST elevation or depression. PVC. Diagnostic Imaging Diagonstic Imaging: Xray Plain Films/CT/US/NM/MRI: chest Comments Right lower lobe nodule noted. No acute infiltrate. [facility]. [place], [place] NAME: WESLEY CRUM [facility] REC#: [id number] PT STATUS: REG ER : 1940 PHYSICIAN: THU MARTINEZ MD ADMIT DATE: 09/10/20/ER Draft Date of Exam:09/10/20 CHEST 1 VIEW, AP/PA ONLY CLINICAL INDICATION: Patient complains of chest pain and irregular heart rate. Patient's symptoms started around 7:00 a.m. EXAM: Portable chest x-ray upright view. COMPARISONS: Chest x-ray dated 08/20/2020. FINDINGS: There is interval increased size of the nodule overlying the periphery of the right lung base which measures 2.6 cm compared to the prior study measured at 2.2 cm. Amorphous opacity in the left lung base region is again noted but more ill-defined. There is no interval lung infiltrate. There is no pleural effusion or pneumothorax. Pulmonary vasculature and cardiac silhouette is within normal limits. There are degenerative spurs involving the thoracic spine. Port-A-Cath is again seen overlying the right chest. IMPRESSION: 1: There is no interval lung infiltrate seen. 2: There is slight increased size of the nodular area in the right lung base. 3: There is more ill-defined appearance of the amorphous opacity in the left lung base region. 3: The remainder of this exam shows no significant interval change compared to the prior study of comparison. Dictated on workstation # [id number] Dict: 09/10/20 1134 Trans: 09/10/20 1139 [facility] [id number] Interpreted by: TRISTAN SANTILLAN MD Electronically signed by: Reviewed: Reviewed by Me, Discussed w/Radiologist (Left message with radiologist) Diagonstic Imaging: CT (angio) Plain Films/CT/US/NM/MRI: chest Comments NAME: WESLEY CRUM MED REC#: [id number] PT STATUS: REG ER : 1940 PHYSICIAN: THU MARTINEZ MD ADMIT DATE: 09/10/20/ER Draft Date of Exam:09/10/20 CT ANGIO CHEST W PROCEDURE: CT angiography of the chest with contrast. TECHNIQUE: Multiple contiguous axial images were obtained through the chest after uneventful bolus administration of intravenous contrast. 3D reconstructed CTA MIP acquisitions were also performed. Auto Exposure Controls were utilized during the CT exam to meet ALARA standards for radiation dose reduction. INDICATION: Chest pain, tachycardia, small intestine malignancy. COMPARISON with a nonenhanced chest CT 08/03/2020. The pulmonary arterial branches are widely patent, well opacified and showed no evidence for PE. The thoracic aorta is nonaneurysmal. There are coronary arterial atherosclerotic vascular calcifications. There is no pleural or pericardial effusion. Soft tissue density right lung mass, unchanged, measuring 2.3 cm in diameter. It is believed to be within the posterior inferior aspect of the right middle lobe. No new lung mass. No findings of pneumonia. Mild basilar atelectasis. No acute soft tissue or osseous chest wall pathology. The visualized upper abdomen unremarkable. IMPRESSION: Right lung mass, unchanged. No new lesion, no adenopathy or effusion. Negative for PE. No findings of pneumonia or pneumothorax. Resolution of prior pleural fluid and infiltrates. Dictated on workstation # [id number] Dict: 09/10/20 1216 Trans: 09/10/20 1221 [facility] [id number] Interpreted by: NICK SILVA Electronically signed by: Reviewed: Reviewed by Me Departure Communication (Admissions) Time/Spoke to Admitting Phy: 12:[address] Lomeli and she agrees to observe the patient with consult cardiology. She would like a right leg ultrasound venous Doppler. Time/Spoke to Consulting Phy: 12:30 Discussed the case with cardiology Dr. Phillips and he agrees to consult on the case. We discussed doing Lovenox for now and since the patient had recent colectomy and has lung nodules and possible mets elsewhere including the brain we have elected to withhold Lovenox for the time being. Impression Primary Impression: Chest pain Qualified Codes: R07.9 - Chest pain, unspecified Additional Impression: Acute coronary syndrome without high troponin Disposition: ADMITTED INPATIENT Condition: Stable Admissions Decision to Admit Reason: Admit from ER (General) Decision to Admit/Date: Sep 10, 2020 Time/Decision to Admit Time: 11:00 Departure-Patient Inst. Referrals: JOHN POP MD (PCP/Family) Primary Care Physician THU MARTINEZ Sep 10, 2020 10:54
[2020-09-10 11:00] LABS: BASOPHILS % (AUTO) 1 % (0-10); EOSINOPHILS # (AUTO) 0.2 10^3/uL (0.0-0.3); EOSINOPHILS % (AUTO) 6 % (0-10); HEMATOCRIT 30 % (40-54); HEMOGLOBIN 9.3 g/dL (13.3-17.7); LYMPHOCYTES # (AUTO) 0.5 10^3/uL (1.0-4.0); LYMPHOCYTES % (AUTO) 15 % (12-44); MEAN CORPUSCULAR HEMOGLOBIN 27 pg (25-34); MEAN CORPUSCULAR HGB CONC 32 g/dL (32-36); MEAN CORPUSCULAR VOLUME 84 fL (80-99); MEAN PLATELET VOLUME 8.5 fL (9.0-12.2); MONOCYTES # (AUTO) 0.3 10^3/uL (0.0-1.0); MONOCYTES % (AUTO) 9 % (0-12); NEUTROPHILS # (AUTO) 2.6 10^3/uL (1.8-7.8); NEUTROPHILS % (AUTO) 70 % (42-75); PLATELET COUNT 174 10^3/uL (130-400); WHITE BLOOD COUNT 3.7 10^3/uL (4.3-11.0)
[2020-09-10] MEDS ORDERED: ASPIRIN 81 MG CHEW (CHILDREN'S ASA) PO ONE (11:00)
[2020-09-10] MEDS ORDERED: NITROGLYCERIN 0.4 MG SL TABS BTL 25'S SL PRN ×2 (11:00→14:30)
[2020-09-10] MEDS ORDERED: PANTOPRAZOLE 40 MG (PROTONIX) VIAL IV ONE (11:00)
[2020-09-10 11:15] LABS: INR 1.1 (0.8-1.4); PROTHROMBIN TIME PATIENT 14.4 SEC (12.2-14.7)
[2020-09-10 11:22] LABS: ALANINE AMINOTRANSFERASE 25 U/L (0-55); ALBUMIN 3.8 GM/DL (3.2-4.5); ALKALINE PHOSPHATASE 70 U/L (40-136); BILIRUBIN,TOTAL 0.3 MG/DL (0.1-1.0); BUN/CREATININE RATIO 19; CARBON DIOXIDE 25 MMOL/L (21-32); CHLORIDE 103 MMOL/L (98-107); CREATININE SERUM 1.11 MG/DL (0.60-1.30); GFR ESTIMATED > 60; GLUCOSE 112 MG/DL (70-105); LIPASE 29 U/L (8-78); MAGNESIUM 1.9 MG/DL (1.6-2.4); POTASSIUM 4.3 MMOL/L (3.6-5.0); SODIUM 137 MMOL/L (135-145); TOTAL PROTEIN 5.9 GM/DL (6.4-8.2)
--- NOTE | 2020-09-10 11:40 | Diagnostic Imaging Report ---
CLINICAL INDICATION: Patient complains of chest pain and irregular heart rate. Patient's symptoms started around 7:00 a.m. EXAM: Portable chest x-ray upright view. COMPARISONS: Chest x-ray dated 08/20/2020. FINDINGS: There is interval increased size of the nodule overlying the periphery of the right lung base which measures 2.6 cm compared to the prior study measured at 2.2 cm. The previously seen 2.8 cm nodular opacity in the left lung base region is more ill-defined on this exam. There is no interval lung infiltrate. There is no pleural effusion or pneumothorax. Pulmonary vasculature and cardiac silhouette is within normal limits. There are degenerative spurs involving the thoracic spine. Port-A-Cath is again seen overlying the right chest. IMPRESSION: 1: There is no interval lung infiltrate seen. 2: There is slight increased size of the nodular area in the right lung base. 3: There is more ill-defined appearance of the previous described nodular opacity in the left lung base region. 3: The remainder of this exam shows no significant interval change compared to the prior study of comparison. Dictated by: Dictated on workstation # [id number]
[2020-09-10] MEDS ORDERED: NS 100 ML (IVPB) BAG IV ONE (11:45)
[2020-09-10] MEDS ORDERED: IOHEXOL 350 MG/ML 100 ML (OMNIPAQUE 350) VIAL IV ONE (11:45)
[2020-09-10] MEDS ORDERED: CATHETER FLUSH 10 ML SYR IV PRN ×2 (11:45→14:30)
[2020-09-10] MEDS ORDERED: HOLD METFORMIN - RECEIVED CONTRAST 20 ML VIAL IV SCH (11:45)
--- NOTE | 2020-09-10 12:22 | Diagnostic Imaging Report ---
PROCEDURE: CT angiography of the chest with contrast. TECHNIQUE: Multiple contiguous axial images were obtained through the chest after uneventful bolus administration of intravenous contrast. 3D reconstructed CTA MIP acquisitions were also performed. Auto Exposure Controls were utilized during the CT exam to meet ALARA standards for radiation dose reduction. INDICATION: Chest pain, tachycardia, small intestine malignancy. COMPARISON with a nonenhanced chest CT 08/03/2020. The pulmonary arterial branches are widely patent, well opacified and showed no evidence for PE. The thoracic aorta is nonaneurysmal. There are coronary arterial atherosclerotic vascular calcifications. There is no pleural or pericardial effusion. Soft tissue density right lung mass, unchanged, measuring 2.3 cm in diameter. It is believed to be within the posterior inferior aspect of the right middle lobe. No new lung mass. No findings of pneumonia. Mild basilar atelectasis. No acute soft tissue or osseous chest wall pathology. The visualized upper abdomen unremarkable. IMPRESSION: Right lung mass, unchanged. No new lesion, no adenopathy or effusion. Negative for PE. No findings of pneumonia or pneumothorax. Resolution of prior pleural fluid and infiltrates. Dictated by: Dictated on workstation # [id number]
--- NOTE | 2020-09-10 14:15 | Diagnostic Imaging Report ---
PROCEDURE: US right lower extremity venous. TECHNIQUE: Multiple real-time grayscale images were obtained over the right lower extremity in various projections. Additional spectral analysis and color Doppler duplex images were also obtained. INDICATION: Right leg swelling. The femoropopliteal deep venous system is widely patent. Superficial veins of the thigh are patent. The popliteal vein is patent. Within the calf there is a segment of occlusive thrombus within the peroneal vein. IMPRESSION: Venous thrombus isolated to the peroneal vein within the calf. The femoropopliteal deep venous system was all widely patent. Dictated by: Dictated on workstation # [id number]
[2020-09-10] MEDS ORDERED: ACETAMINOPHEN 325 MG TABLET PO PRN (14:30)
[2020-09-10] MEDS ORDERED: ANTACID SUSP 30 ML UDC (MYLANTA) PO PRN (14:30)
[2020-09-10] MEDS ORDERED: ONDANSETRON 4 MG/2 ML (SDV) Z0FRAN IVP PRN (14:30)
[2020-09-10] MEDS ORDERED: morphine INJ 4 MG/ML 1 ML (VIAL/SYRINGE) IV PRN (14:30)
--- NOTE | 2020-09-10 14:49 | History & Physical-Hospitalist ---
History of Present Illness HPI/Chief Complaint 79 yo wm presented to ER this am with with c/o indigestion and irregular heart beats. At the time of my interview he is pain free without intervention. Denies NVD or diaphoresis. No hx CAD. CTA negative for PE. Venous dopller right leg negative. EKG unremarkable Source: patient Exam Limitations: no limitations Date Seen 09/10/20 Time Seen by a Provider: 12:30 Attending Physician Hilary Roman MD PCP Jose Claudio MD Referring Physician Date of Admission Sep 10, 2020 at 12:45 Home Medications & Allergies Home Medications Reviewed patient Home Medication Reconciliation performed by pharmacy medication reconciliations emergency veterinary technician and/or nursing. Patients Allergies have been reviewed. Allergies Allergies Coded Allergies No Known Drug Allergies (Unverified08/17/20) Patient Social History Marrital Status: Employed/Student: retired Tobacco Use?: No Smoking Status: Never a Smoker Substance use?: No Alcohol Use?: No Pt stated abuse/neglect: No Immunizations Up To Date Influenza Vaccine Up-to-Date: Yes; Up-to-Date First/Initial COVID19 Vaccinat: 09-02-20 Tetanus Booster (TDap): Unknown Date of Pneumonia Vaccine: Mar 27, 2018 Current Status Do you have an Advance Directi: No Communicates: Verbally Primary Language: Irish Preferred Spoken Language: Irish Is interpretation needed?: No Sensory deficits: Vision impairment Implanted or Applied Medical D: Port-a-cath Past Medical History Ca colon- metastatic, s/p resection HTN Hyperlipidemia Review of Systems Constitutional: see HPI EENTM: no symptoms reported Respiratory: no symptoms reported Cardiovascular: chest pain, edema, palpitations Gastrointestinal: abdominal pain (mild since surgery) Musculoskeletal: no symptoms reported Skin: no symptoms reported Psychiatric/Neurological: No Symptoms Reported Physical Exam Physical Exam Vital Signs Vital Signs - First Documented 09/10/20 14:00 Temp 35.6 Capillary Refill : Less Than 3 Seconds Height, Weight, BMI Height: 5'10.00" Weight: 160lbs. 0.0oz. 72.860693cp; 25.95 BMI Method:Stated General Appearance: No Apparent Distress HEENT: Normal ENT Inspection Neck: Normal Inspection, Non Tender Respiratory: Chest Non Tender, Lungs Clear, Normal Breath Sounds, No Accessory Muscle Use, No Respiratory Distress Cardiovascular: Regular Rate, Rhythm, No Gallop, No Murmur, Normal Peripheral Pulses Gastrointestinal: Normal Bowel Sounds, Soft, Tenderness Rectal: Deferred Back: Normal Inspection, No Vertebral Tenderness Extremity: No Calf Tenderness, Pedal Edema (right greater than left) Neurologic/Psychiatric: Alert, Oriented x3, No Motor/Sensory Deficits, Normal Mood/Affect Skin: Pallor Lymphatic: No Adenopathy Results Results/Procedures Labs Laboratory Tests 09/10/20 10:54 09/11/20 04:00 Patient resulted labs reviewed. 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
--- NOTE | 2020-09-10 15:18 | Consultation-Cardiology ---
HPI-Cardiology Cardiology Consultation: Date of Consultation 09/10/20 Date of Admission Attending Physician Hilary Jara MD Admitting Physician Jose Claudio MD Consulting Physician Reinaldo PHILLIPS MD HPI: Time Seen by a Provider: 14:00 Chief Complaint: Chest discomfort This is a 79-year-old gentleman who presented with nonradiating left-sided chest discomfort. Mild intensity. No other cardiac complaints. Patient denies any history of coronary disease. He denies active smoking. He denies diabetes and hyperlipidemia. He has a history of hypertension. 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 He received his first chemotherapy 2 weeks ago. He received his first dose of COVID-19 vaccine last week. Review of Systems-Cardiology Review of Systems Constitutional: As described under HPI; No As described under HPI, No no symptoms reported, No chills, No fever, No lightheadedness Eyes: No As described under HPI, No no symptoms reported, No blindness, No blurred vision, No contact lenses, No drainage, No decreased acuity, No foreign body sensation, No pain, No vision change Ears/Nose/Throat: No As described under HPI, No no symptoms reported, No chronic hearing loss, No ear discharge, No ear pain, No nasal drainage, No ulcerations Respiratory: No no symptoms reported; As described under HPI; No As described under HPI, No cough, No orthopnea, No shortness of breath, No SOB with excertion Cardiovascular: No no symptoms reported; As described under HPI; No As described under HPI; chest pain; No edema, No irregular heart rate, No light headedness, No palpitations Gastrointestinal: No no symptoms reported, No As described under HPI, No abdom en distended, No abdominal pain, No blood streaked bowels, No constipation, No diarrhea, No nausea, No vomiting, No stool coloration changes Genitourinary: No As described under HPI, No burning, No dysuria, No discharge, No frequency, No flank pain, No hematuria, No urgency Skin: No rash, No skin related problems, No ulcerations Psychiatric/Neurological: No anxiety, No depression, No seizure, No focal weakness, No syncope Hematologic: No bleeding abnormalities All Other Systems Reviewed Negative Unless Noted: Yes ADV-Trspdt-Dombtr Hx Patient Social History Marrital Status: Employed/Student: retired Smoking Status: Never a Smoker 2nd Hand Smoke Exposure: No Have you traveled recently?: No Alcohol Use?: No Pt feels they are or have been: No Immunizations Up To Date Tetanus Booster (TDap): Unknown Date of Pneumonia Vaccine: Mar 27, 2018 Date of Influenza Vaccine: Mar 11, 2020 Past Medical History PMH As described under Assessment. Allergies and Home Medications Allergies Coded Allergies: No Known Drug Allergies (Unverified , 08/17/20) Home Medications Docusate Sodium 100 Mg Capsule, 100 MG PO BID Prescribed by: HEIDI KIDD on 08/06/20 1011 Finasteride 5 Mg Tablet, 5 MG PO DAILY, (Reported) Folic Acid/Multivit-Min/Lutein 1 Each Tab.chew, 1 EACH PO DAILY, (Reported) Lisinopril 20 Mg Tablet, 20 MG PO DAILY, (Reported) Magnesium 200 Mg Tablet, 400 MG PO UD, (Reported) THREE TIMES A WEEK Harrison-3/Dha/Epa/Fish Oil 1,200 Mg Capsule, 1,200 MG PO DAILY, (Reported) Tamsulosin HCl 0.4 Mg Cap, 0.4 MG PO DAILY, (Reported) Patient Home Medication List Home Medication List Reviewed: Yes Physical Exam-Cardiology Physical Exam Vital Signs/I&O 09/10/20 09/10/20 09/10/20 09/10/20 10:40 10:40 13:55 14:00 Temp 35.6 Pulse 67 65 71 Resp 18 16 18 B/P (MAP) 147/89 (108) 173/82 167/78 (107) Pulse Ox 100 99 99 O2 Delivery Room Air Room Air Room Air Room Air 09/10/20 09/10/20 09/10/20 14:22 14:39 14:59 Temp 36.09148 Pulse 71 69 Resp 18 B/P (MAP) 167/78 Pulse Ox 99 O2 Delivery Room Air Capillary Refill : Less Than 3 Seconds Constitutional: appears stated age, AAO x 3; No apparent distress; well- developed, well-nourished HEENT: PERRL; No discharge; hearing is well preserved, oral hygience is good; No ulceration, No xanthelasmas are seen Neck: No carotid bruit; carotid pulses are 2 + bilaterally Respiratory: chest is bilaterally symmetric, lungs clear to auscultation Cardiovascular: regular rate-rhythm, S1 and S2 Gastrointestinal: soft, audible bowel sounds; No spleenomegaly Rectal: deferred Extremities: No clubbing, No cyanosis; no lower extremity edema bilateral; No significant edema Neurologic/Psychiatric: no motor/sensory deficits, alert, normal mood/affect, oriented x 3, power is 5/5 both on sides Skin: normal color; No rash, No ulcerations Data Review Labs Laboratory Tests 09/10/20 10:54: White Blood Count 3.7L, Red Blood Count 3.51L, Hemoglobin 9.3L, Hematocrit 30L, Mean Corpuscular Volume 84, Mean Corpuscular Hemoglobin 27, Mean Corpuscular Hemoglobin Concent 32, Red Cell Distribution Width 15.8H, Platelet Count 174, Mean Platelet Volume 8.5L, Immature Granulocyte % (Auto) 1, Neutrophils (%) (Auto) 70, Lymphocytes (%) (Auto) 15, Monocytes (%) (Auto) 9, Eosinophils (%) (Auto) 6, Basophils (%) (Auto) 1, Neutrophils # (Auto) 2.6, Lymphocytes # (Auto) 0.5L, Monocytes # (Auto) 0.3, Eosinophils # (Auto) 0.2, Basophils # (Auto) 0.0, Immature Granulocyte # (Auto) 0.0, Prothrombin Time 14.4, INR Comment 1.1, Activated Partial Thromboplast Time 28, D-Dimer 1.86H, Sodium Level 137, Potassium Level 4.3, Chloride Level 103, Carbon Dioxide Level 25, Anion Gap 9, Blood Urea Nitrogen 21H, Creatinine 1.11, Estimat Glomerular Filtration Rate > 60, BUN/Creatinine Ratio 19, Glucose Level 112H, Calcium Level 9.0, Corrected Calcium 9.2, Magnesium Level 1.9, Total Bilirubin 0.3, Aspartate Amino Transf (AST/SGOT) 18, Alanine Aminotransferase (ALT/SGPT) 25, Alkaline Phosphatase 70, Myoglobin 50.7, Troponin I < 0.028, B-Type Natriuretic Peptide 37.2, Total Protein 5.9L, Albumin 3.8, Lipase 29 A/P-Cardiology Assessment/Admission Diagnosis Chest discomfort, Hypertension, B-cell lymphoma Plan Lower likelihood of acute coronary syndrome. Echocardiogram. Serial troponin. If negative serial troponin, acute coronary syndrome will be ruled out. Patient will follow up with Dr. Chow as an outpatient for nuclear stress testing. Patient understands. Continue outpatient medical therapy for hypertension. Defer treatment of B-cell lymphoma to oncology. Thank you for your consultation. Please call me if you have any questions. Jim Phillips MD, FACP, FACC, FSCAI, FHRS, CCDS Interventional Cardiology Cardiac Electrophysiology Vascular Medicine and Endovascular Interventions Clinical Quality Measures AMI/AHF: ASA po Prior to arrival: Reinaldo Hernandez MD Sep 10, 2020 15:18
[2020-09-10] MEDS ORDERED: PANT40TA52 PO (15:29)
[2020-09-10] MEDS ORDERED: ONDA8TAB13 PO (15:29)
[2020-09-10] MEDS ORDERED: LORA10TA7 PO (15:29)
[2020-09-10] MEDS ORDERED: ALLO300T2 PO (15:29)
[2020-09-10] MEDS ORDERED: ACET-2267 PO (15:29)
[2020-09-11] MEDS: CATHETER FLUSH 10 ML SYR IV SCH ×2 (01:52→05:19)
[2020-09-11 04:00] VITALS: BP 109/66
[2020-09-11 04:08] LABS: BASOPHILS % (AUTO) 1 % (0-10); EOSINOPHILS # (AUTO) 0.2 10^3/uL (0.0-0.3); EOSINOPHILS % (AUTO) 6 % (0-10); HEMATOCRIT 29 % (40-54); HEMOGLOBIN 8.9 g/dL (13.3-17.7); LYMPHOCYTES # (AUTO) 0.5 10^3/uL (1.0-4.0); LYMPHOCYTES % (AUTO) 14 % (12-44); MEAN CORPUSCULAR HEMOGLOBIN 26 pg (25-34); MEAN CORPUSCULAR HGB CONC 31 g/dL (32-36); MEAN CORPUSCULAR VOLUME 85 fL (80-99); MEAN PLATELET VOLUME 8.8 fL (9.0-12.2); MONOCYTES # (AUTO) 0.3 10^3/uL (0.0-1.0); MONOCYTES % (AUTO) 9 % (0-12); NEUTROPHILS # (AUTO) 2.4 10^3/uL (1.8-7.8); NEUTROPHILS % (AUTO) 71 % (42-75); PLATELET COUNT 163 10^3/uL (130-400); WHITE BLOOD COUNT 3.4 10^3/uL (4.3-11.0)
[2020-09-11 04:33] LABS: ALANINE AMINOTRANSFERASE 22 U/L (0-55); ALBUMIN 3.4 GM/DL (3.2-4.5); ALKALINE PHOSPHATASE 61 U/L (40-136); BILIRUBIN,TOTAL 0.3 MG/DL (0.1-1.0); BUN/CREATININE RATIO 20; CALCIUM 8.9 MG/DL (8.5-10.1); CARBON DIOXIDE 25 MMOL/L (21-32); CHLORIDE 105 MMOL/L (98-107); CHOLESTEROL 95 MG/DL (< 200); CREATININE SERUM 1.08 MG/DL (0.60-1.30); GFR ESTIMATED > 60; GLUCOSE 100 MG/DL (70-105); HDL CHOLESTEROL 38 MG/DL (40-60); POTASSIUM 4.4 MMOL/L (3.6-5.0); SODIUM 139 MMOL/L (135-145); TOTAL PROTEIN 5.2 GM/DL (6.4-8.2); TRIGLYCERIDES 60 MG/DL (<150); VLDL CHOLESTEROL 12 MG/DL (5-40)
[2020-09-11 08:37] VITALS: BP 111/67
[2020-09-11] MEDS ORDERED: ASPIRIN E.C. 81 MG (ECOTRIN) TAB PO SCH (09:00)
--- NOTE | 2020-09-11 11:37 | Discharge Summary ---
Discharge Summary Hospital Course Was the Problem List Reviewed?: Yes Final Diagnosis: Chest pain uncertain etiology Hospital Course Date of Admission: Sep 10, 2020 at 12:45 Admission Diagnosis : Chest pain Family Physician/Provider: Jose Claudio MD Date of Discharge: 09/11/20 Discharge Diagnosis: [Chest pain uncertain etiology] Hospital Course: [79-year-old white male admitted with complaints of chest pain and irregular heartbeat. Serial troponins were negative. There were no cardiac arrhythmias. Patient did have frequent PVCs. Patient was seen by cardiology who felt that the patient was stable for outpatient risk stratification. He is being discharged with follow-up with Dr. Chow next week. Lipid panel showed no evidence of hyperlipidemia.] Labs and Pending Lab Test: Laboratory Tests 09/10/20 17:10: Troponin I < 0.028 09/11/20 04:00: Troponin I < 0.028, White Blood Count 3.4L, Red Blood Count 3.39L, Hemoglobin 8.9L, Hematocrit 29L, Mean Corpuscular Volume 85, Mean Corpuscular Hemoglobin 26, Mean Corpuscular Hemoglobin Concent 31L, Red Cell Distribution Width 15.7H, Platelet Count 163, Mean Platelet Volume 8.8L, Immature Granulocyte % (Auto) 0, Neutrophils (%) (Auto) 71, Lymphocytes (%) (Auto) 14, Monocytes (%) (Auto) 9, Eosinophils (%) (Auto) 6, Basophils (%) (Auto) 1, Neutrophils # (Auto) 2.4, Lymphocytes # (Auto) 0.5L, Monocytes # (Auto) 0.3, Eosinophils # (Auto) 0.2, B asophils # (Auto) 0.0, Immature Granulocyte # (Auto) 0.0, Sodium Level 139, Potassium Level 4.4, Chloride Level 105, Carbon Dioxide Level 25, Anion Gap 9, Blood Urea Nitrogen 22H, Creatinine 1.08, Estimat Glomerular Filtration Rate > 6 0, BUN/Creatinine Ratio 20, Glucose Level 100, Calcium Level 8.9, Corrected Calcium 9.4, Total Bilirubin 0.3, Aspartate Amino Transf (AST/SGOT) 16, Alanine Aminotransferase (ALT/SGPT) 22, Alkaline Phosphatase 61, Total Protein 5.2L, Al bumin 3.4, Triglycerides Level 60, Cholesterol Level 95, LDL Cholesterol Direct 34, VLDL Cholesterol 12, HDL Cholesterol 38L Home Meds Active Reported Tylenol Extra Strength (Acetaminophen) 500 Mg Tablet 500-1,000 Mg PO Q8H PRN Loratadine 10 Mg Tablet 10 Mg PO DAILY Ondansetron Odt (Ondansetron) 8 Mg Tab.rapdis 8 Mg PO Q6H Pantoprazole Sodium 40 Mg Tablet.dr 40 Mg PO DAILY Allopurinol 300 Mg Tablet 300 Mg PO DAILY Multi-Vitamin Gummies (Folic Acid/Multivit-Min/Lutein) 1 Each Tab.chew 1 Each PO DAILY Lisinopril 20 Mg Tablet 20 Mg PO DAILY Flomax (Tamsulosin HCl) 0.4 Mg Cap 0.4 Mg PO DAILY Finasteride 5 Mg Tablet 5 Mg PO DAILY Assessment/Pt Instructions Chest pain uncertain etiology Diffuse B cell lymphoma BPH History of hypertension Discharge Instructions Discharge Diet: Cardiac Diet Activity as Tolerated: Yes Orders & Referrals Dr. Chow Consultations Dr. Phillips Discharge Physical Examination General Appearance: Alert, Oriented X3, Cooperative Respiratory: Clear to Auscultation Cardiovascular: Regular Rate, Normal S1, Normal S2 Abdominal: Normal Bowel Sounds, Soft Extremities: No Edema Skin: No Rashes Neuro: Normal Gait, Normal Speech, Strength at 5/5 X4 Ext Psych/Mental Status: Mental Status NL Allergies: Coded Allergies: No Known Drug Allergies (Unverified , 08/17/20) Copy Copies To 1: [facility] Discharge Summary Date of Admission Sep 10, 2020 at 12:45 Date of Discharge Discharge Date: Sep 11, 2020 Discharge Time: 1300 Admission Diagnosis chest pain-r/o RI Hx SBO secondary to [place] Lymphoma- Diffuse T cell-on Chemo Dr. Perdomo HTN- controlled Hyperlipidemia- on medication Admit for observation and r/o Clinical Quality Measures AMI/AHF: ASA po Prior to arrival: ROYER King MD Sep 11, 2020 11:37
== END 2020-09-11 12:38 | disposition home or self-care (01) ==
LOC: EDUNIT# 10:33 → ER 10:34 → 4TH 12:45
PROVIDERS: ADMIT Internal Medicine; ATTEND Internal Medicine
DX: R07.9 Chest pain, unspecified (principal); I10 Essential (primary) hypertension; E78.5 Hyperlipidemia, unspecified; I24.9 Acute ischemic heart disease, unspecified; N40.0 Benign prostatic hyperplasia without lower urinary tract symptoms; C85.90 Non-Hodgkin lymphoma, unspecified, unspecified site; K21.9 Gastro-esophageal reflux disease without esophagitis; K59.09 Other constipation; Z79.899 Other long term (current) drug therapy
CPT/HCPCS: 71045; 71275; 80053 ×2; 80061; 83690; 83735; 83874; 83880; 84484 ×2; 85025 ×2; 85379; 85610; 85730; 93005 ×2; 93971; 99284; G0378; 36415

== ENCOUNTER 2020-09-28 09:16 | Outpatient (RCR) | payer MEDICARE, OTHER ==
[2020-08-23 15:07] LABS: BASOPHILS % (AUTO) 0 % (0-10); EOSINOPHILS # (AUTO) 0.2 10^3/uL (0.0-0.3); EOSINOPHILS % (AUTO) 4 % (0-10); HEMATOCRIT 30 % (40-54); HEMOGLOBIN 9.5 g/dL (13.3-17.7); LYMPHOCYTES % (AUTO) 17 % (12-44); MEAN CORPUSCULAR HEMOGLOBIN 26 pg (25-34); MEAN CORPUSCULAR HGB CONC 31 g/dL (32-36); MEAN CORPUSCULAR VOLUME 84 fL (80-99); MEAN PLATELET VOLUME 8.5 fL (9.0-12.2); MONOCYTES # (AUTO) 0.7 10^3/uL (0.0-1.0); MONOCYTES % (AUTO) 11 % (0-12); NEUTROPHILS # (AUTO) 4.2 10^3/uL (1.8-7.8); NEUTROPHILS % (AUTO) 69 % (42-75); PLATELET COUNT 232 10^3/uL (130-400); WHITE BLOOD COUNT 6.2 10^3/uL (4.3-11.0)
[2020-08-23 15:17] LABS: ALANINE AMINOTRANSFERASE 17 U/L (0-55); ALBUMIN 3.5 GM/DL (3.2-4.5); ALKALINE PHOSPHATASE 83 U/L (40-136); BILIRUBIN,TOTAL 0.3 MG/DL (0.1-1.0); BUN/CREATININE RATIO 19; CALCIUM 8.8 MG/DL (8.5-10.1); CARBON DIOXIDE 29 MMOL/L (21-32); CHLORIDE 103 MMOL/L (98-107); CREATININE SERUM 1.14 MG/DL (0.60-1.30); GFR ESTIMATED > 60; GLUCOSE 104 MG/DL (70-105); POTASSIUM 5.1 MMOL/L (3.6-5.0); SODIUM 139 MMOL/L (135-145); TOTAL PROTEIN 5.7 GM/DL (6.4-8.2)
[2020-08-23 22:21] LABS: HEPATITIS C ANTIBODY C Non-Reactive (Non-Reactive)
[2020-08-31 08:53] LABS: BASOPHILS % (AUTO) 1 % (0-10); EOSINOPHILS # (AUTO) 0.2 10^3/uL (0.0-0.3); EOSINOPHILS % (AUTO) 4 % (0-10); HEMATOCRIT 28 % (40-54); HEMOGLOBIN 8.9 g/dL (13.3-17.7); LYMPHOCYTES # (AUTO) 1.1 10^3/uL (1.0-4.0); LYMPHOCYTES % (AUTO) 21 % (12-44); MEAN CORPUSCULAR HEMOGLOBIN 27 pg (25-34); MEAN CORPUSCULAR HGB CONC 32 g/dL (32-36); MEAN CORPUSCULAR VOLUME 85 fL (80-99); MEAN PLATELET VOLUME 8.5 fL (9.0-12.2); MONOCYTES # (AUTO) 0.6 10^3/uL (0.0-1.0); MONOCYTES % (AUTO) 11 % (0-12); NEUTROPHILS # (AUTO) 3.4 10^3/uL (1.8-7.8); NEUTROPHILS % (AUTO) 64 % (42-75); PLATELET COUNT 163 10^3/uL (130-400); WHITE BLOOD COUNT 5.3 10^3/uL (4.3-11.0)
[2020-08-31 09:20] LABS: ALBUMIN 3.6 GM/DL (3.2-4.5); BILIRUBIN,TOTAL 0.3 MG/DL (0.1-1.0); CALCIUM 8.6 MG/DL (8.5-10.1); CREATININE SERUM 1.31 MG/DL (0.60-1.30); POTASSIUM 4.5 MMOL/L (3.6-5.0); TOTAL PROTEIN 5.5 GM/DL (6.4-8.2)
[2020-09-07 10:38] LABS: BASOPHILS % (AUTO) 1 % (0-10); EOSINOPHILS # (AUTO) 0.2 10^3/uL (0.0-0.3); EOSINOPHILS % (AUTO) 4 % (0-10); HEMATOCRIT 29 % (40-54); HEMOGLOBIN 9.1 g/dL (13.3-17.7); LYMPHOCYTES # (AUTO) 0.6 10^3/uL (1.0-4.0); LYMPHOCYTES % (AUTO) 13 % (12-44); MEAN CORPUSCULAR HEMOGLOBIN 26 pg (25-34); MEAN CORPUSCULAR HGB CONC 31 g/dL (32-36); MEAN CORPUSCULAR VOLUME 84 fL (80-99); MEAN PLATELET VOLUME 8.6 fL (9.0-12.2); MONOCYTES # (AUTO) 0.2 10^3/uL (0.0-1.0); MONOCYTES % (AUTO) 5 % (0-12); NEUTROPHILS # (AUTO) 3.4 10^3/uL (1.8-7.8); NEUTROPHILS % (AUTO) 76 % (42-75); PLATELET COUNT 197 10^3/uL (130-400); WHITE BLOOD COUNT 4.4 10^3/uL (4.3-11.0)
[2020-09-07 10:54] LABS: BUN/CREATININE RATIO 19; CALCIUM 8.6 MG/DL (8.5-10.1); CARBON DIOXIDE 25 MMOL/L (21-32); CHLORIDE 103 MMOL/L (98-107); CREATININE SERUM 1.15 MG/DL (0.60-1.30); GFR ESTIMATED > 60; GLUCOSE 114 MG/DL (70-105); POTASSIUM 4.5 MMOL/L (3.6-5.0); SODIUM 138 MMOL/L (135-145)
[2020-09-14 10:01] LABS: BASOPHILS % (AUTO) 1 % (0-10); EOSINOPHILS # (AUTO) 0.2 10^3/uL (0.0-0.3); EOSINOPHILS % (AUTO) 7 % (0-10); HEMATOCRIT 29 % (40-54); HEMOGLOBIN 9.1 g/dL (13.3-17.7); LYMPHOCYTES # (AUTO) 0.5 10^3/uL (1.0-4.0); LYMPHOCYTES % (AUTO) 18 % (12-44); MEAN CORPUSCULAR HEMOGLOBIN 26 pg (25-34); MEAN CORPUSCULAR HGB CONC 31 g/dL (32-36); MEAN CORPUSCULAR VOLUME 84 fL (80-99); MEAN PLATELET VOLUME 8.6 fL (9.0-12.2); MONOCYTES # (AUTO) 0.4 10^3/uL (0.0-1.0); MONOCYTES % (AUTO) 13 % (0-12); NEUTROPHILS # (AUTO) 1.8 10^3/uL (1.8-7.8); NEUTROPHILS % (AUTO) 62 % (42-75); PLATELET COUNT 125 10^3/uL (130-400); WHITE BLOOD COUNT 2.9 10^3/uL (4.3-11.0)
[2020-09-14 10:23] LABS: CALCIUM 8.8 MG/DL (8.5-10.1); CREATININE SERUM 1.21 MG/DL (0.60-1.30); POTASSIUM 4.5 MMOL/L (3.6-5.0)
[2020-09-21 09:17] LABS: BASOPHILS % (AUTO) 1 % (0-10); EOSINOPHILS # (AUTO) 0.3 10^3/uL (0.0-0.3); EOSINOPHILS % (AUTO) 10 % (0-10); HEMATOCRIT 31 % (40-54); HEMOGLOBIN 9.8 g/dL (13.3-17.7); LYMPHOCYTES # (AUTO) 0.7 10^3/uL (1.0-4.0); LYMPHOCYTES % (AUTO) 21 % (12-44); MEAN CORPUSCULAR HEMOGLOBIN 27 pg (25-34); MEAN CORPUSCULAR HGB CONC 32 g/dL (32-36); MEAN CORPUSCULAR VOLUME 84 fL (80-99); MEAN PLATELET VOLUME 8.8 fL (9.0-12.2); MONOCYTES # (AUTO) 0.5 10^3/uL (0.0-1.0); MONOCYTES % (AUTO) 16 % (0-12); NEUTROPHILS # (AUTO) 1.6 10^3/uL (1.8-7.8); NEUTROPHILS % (AUTO) 53 % (42-75); PLATELET COUNT 162 10^3/uL (130-400); WHITE BLOOD COUNT 3.1 10^3/uL (4.3-11.0)
[2020-09-21 09:42] LABS: ALBUMIN 3.7 GM/DL (3.2-4.5); BILIRUBIN,TOTAL 0.3 MG/DL (0.1-1.0); CALCIUM 9.1 MG/DL (8.5-10.1); CREATININE SERUM 1.2 MG/DL (0.60-1.30); POTASSIUM 4.1 MMOL/L (3.6-5.0); TOTAL PROTEIN 5.8 GM/DL (6.4-8.2)
[~2020-09-28] VITALS: Ht 168.9 cm; Wt 76.2 kg
[~2020-09-28 09:16] MED LIST changes: +ACET-2267 PO; +ACETAMINOPHEN 500 MG TAB (TYLENOL) CANCER CTR PO PRN; +ALLO300T2 PO; +CYCLOPHOSPHAMIDE IV SCH; +DOXORUBICIN HCL IV SCH; +FAMOTIDINE 20MG/2ML IV (CANCER CTR) IV SCH; +FOSAPREPITANT (CANCER CENTER) 150 MG in NS (IVPB) CANCER CENTER ONLY 150 ML IV SCH; +LORA10TA7 PO; +NS IV 1000 ML (CANCER CTR) IV SCH; +NS IV SCH; +ONDA8TAB13 PO; +PANT40TA52 PO; +RITUXIMAB-ABBS 500 MG, RITUXIMAB-ABBS 200 MG in NS (IVPB) CANCER CENTER ONLY 150 ML IV SCH; +diphenhydrAMINE 25 MG TAB (BENADRYL) CANCER CENTER PO SCH; +vinCRIStine SULFATE 1 MG in NS (IVPB) CANCER CENTER 50 ML IV SCH
[2020-09-28 09:35] LABS: BASOPHILS % (AUTO) 1 % (0-10); EOSINOPHILS # (AUTO) 0.3 10^3/uL (0.0-0.3); EOSINOPHILS % (AUTO) 5 % (0-10); HEMATOCRIT 31 % (40-54); HEMOGLOBIN 9.8 g/dL (13.3-17.7); LYMPHOCYTES # (AUTO) 0.6 10^3/uL (1.0-4.0); LYMPHOCYTES % (AUTO) 12 % (12-44); MEAN CORPUSCULAR HEMOGLOBIN 27 pg (25-34); MEAN CORPUSCULAR HGB CONC 32 g/dL (32-36); MEAN CORPUSCULAR VOLUME 85 fL (80-99); MEAN PLATELET VOLUME 9.1 fL (9.0-12.2); MONOCYTES # (AUTO) 0.3 10^3/uL (0.0-1.0); MONOCYTES % (AUTO) 5 % (0-12); NEUTROPHILS # (AUTO) 3.9 10^3/uL (1.8-7.8); NEUTROPHILS % (AUTO) 76 % (42-75); PLATELET COUNT 192 10^3/uL (130-400); WHITE BLOOD COUNT 5.1 10^3/uL (4.3-11.0)
[2020-09-28 10:13] LABS: BUN/CREATININE RATIO 18; CALCIUM 8.6 MG/DL (8.5-10.1); CARBON DIOXIDE 25 MMOL/L (21-32); CHLORIDE 104 MMOL/L (98-107); CREATININE SERUM 1.04 MG/DL (0.60-1.30); GFR ESTIMATED > 60; GLUCOSE 115 MG/DL (70-105); POTASSIUM 4.1 MMOL/L (3.6-5.0); SODIUM 139 MMOL/L (135-145)
== END 2020-09-30 10:28 | disposition home or self-care (01) ==
LOC: ONC 09:16
PROVIDERS: ATTEND Internal Medicine Hematology & Oncology
DX: C83.30 Diffuse large B-cell lymphoma, unspecified site (principal); C85.98 Non-Hodgkin lymphoma, unspecified, lymph nodes of multiple sites; I10 Essential (primary) hypertension; D50.0 Iron deficiency anemia secondary to blood loss (chronic)
CPT/HCPCS: 80053; 80074; 82728; 83540; 83615; 85025; G0463; 36591; 80048; 83550; 96367; 96375; 96411; 96413; 96415; 96417; 99213

== ENCOUNTER 2020-09-30 10:31 | Outpatient (RCR) | payer MEDICARE ==
[~2020-09-30 10:31] MED LIST changes: -CATHETER FLUSH 10 ML SYR IV SCH; -HOLD METFORMIN - RECEIVED CONTRAST 20 ML VIAL IV SCH; -IOHEXOL 350 MG/ML 100 ML (OMNIPAQUE 350) VIAL IV ONE; -NS 100 ML (IVPB) BAG IV ONE
[2020-09-30] MEDS ORDERED: NS IV 500 ML (CANCER CENTER) 500 ML ONE (10:35)
[2020-09-30] MEDS ORDERED: FAMOTIDINE 20MG/2ML IV (CANCER CTR) ONE (10:35)
[2020-09-30] MEDS ORDERED: FAMOTIDINE 20MG/2ML IV (CANCER CTR) IV ONE (10:44)
[2020-09-30] MEDS ORDERED: ONDANSETRON MDV (CANCER CENTER 8 MG in NS (IVPB) CANCER CENTER 50 ML IV ONE (10:46)
[2020-09-30] MEDS ORDERED: morphine INJ 4 MG/ML 1 ML (CANCER CTR) IV ONE (10:48)
[2020-10-01] MEDS ORDERED: KETOROLAC 30 MG/ML VIAL IV ONE (10:43)
[2020-10-05 10:00] LABS: BASOPHILS % (AUTO) 1 % (0-10); EOSINOPHILS # (AUTO) 0.2 10^3/uL (0.0-0.3); EOSINOPHILS % (AUTO) 6 % (0-10); HEMATOCRIT 31 % (40-54); HEMOGLOBIN 9.6 g/dL (13.3-17.7); LYMPHOCYTES # (AUTO) 0.5 10^3/uL (1.0-4.0); LYMPHOCYTES % (AUTO) 15 % (12-44); MEAN CORPUSCULAR HEMOGLOBIN 26 pg (25-34); MEAN CORPUSCULAR HGB CONC 31 g/dL (32-36); MEAN CORPUSCULAR VOLUME 85 fL (80-99); MONOCYTES # (AUTO) 0.5 10^3/uL (0.0-1.0); MONOCYTES % (AUTO) 17 % (0-12); NEUTROPHILS # (AUTO) 1.9 10^3/uL (1.8-7.8); NEUTROPHILS % (AUTO) 61 % (42-75); PLATELET COUNT 129 10^3/uL (130-400); WHITE BLOOD COUNT 3.1 10^3/uL (4.3-11.0)
[2020-10-05 10:16] LABS: CREATININE SERUM 1.27 MG/DL (0.60-1.30); POTASSIUM 4.9 MMOL/L (3.6-5.0)
== END 2020-10-05 09:47 | disposition still patient (30) ==
LOC: ONC 10:31
PROVIDERS: ATTEND Internal Medicine Hematology & Oncology
DX: Z51.11 Encounter for antineoplastic chemotherapy (principal); C83.30 Diffuse large B-cell lymphoma, unspecified site; C85.98 Non-Hodgkin lymphoma, unspecified, lymph nodes of multiple sites; I10 Essential (primary) hypertension; D50.9 Iron deficiency anemia, unspecified
CPT/HCPCS: 80048; 85025; 96360; 96374; 96375; G0463

== ENCOUNTER → 2020-09-30 | Outpatient (CLI) | payer MEDICARE ==
[~2020-09-30] MED LIST changes: -ACETAMINOPHEN 500 MG TAB (TYLENOL) CANCER CTR PO PRN; +CATHETER FLUSH 10 ML SYR IV SCH; -CYCLOPHOSPHAMIDE IV SCH; -DOXORUBICIN HCL IV SCH; -FAMOTIDINE 20MG/2ML IV (CANCER CTR) IV SCH; -FOSAPREPITANT (CANCER CENTER) 150 MG in NS (IVPB) CANCER CENTER ONLY 150 ML IV SCH; +HOLD METFORMIN - RECEIVED CONTRAST 20 ML VIAL IV SCH; +IOHEXOL 350 MG/ML 100 ML (OMNIPAQUE 350) VIAL IV ONE; +NS 100 ML (IVPB) BAG IV ONE; -NS IV 1000 ML (CANCER CTR) IV SCH; -NS IV SCH; -RITUXIMAB-ABBS 500 MG, RITUXIMAB-ABBS 200 MG in NS (IVPB) CANCER CENTER ONLY 150 ML IV SCH; -diphenhydrAMINE 25 MG TAB (BENADRYL) CANCER CENTER PO SCH; -vinCRIStine SULFATE 1 MG in NS (IVPB) CANCER CENTER 50 ML IV SCH
--- NOTE | 2020-09-30 13:36 | Diagnostic Imaging Report ---
EXAMINATION: CT Abdomen Pelvis with and without intravenous contrast. TECHNIQUE: Precontrast acquisitions were acquired through the abdomen and pelvis. Multiple contiguous axial images were obtained through the abdomen and pelvis after the administration of intravenous contrast. All CT scans use one or more of the following dose optimizing techniques: automated exposure control, MA and/or KvP adjustment based on a patient size and exam type, or iterative reconstruction. HISTORY: Hypertension. COMPARISON: None available. FINDINGS: Limited views of the lower thorax are unremarkable. The liver is normal without focal lesion. There is no biliary ductal dilation. Gallbladder is surgically absent. Pancreas is normal. Spleen is normal. Adrenal glands are normal. There is peripelvic stranding and thickening in the area around the proximal right kidney. There is no hydronephrosis. Urinary bladder is normal. Small bowel is dilated proximally and distally decompressed with a relative transition in an area of narrowing in the ileum (series 5, image 61). The distal bowel is not completely decompressed and there is gas and stool in the colon. No free fluid or air. No abdominal or pelvic lymphadenopathy. Aorta is normal in caliber without aneurysm. There are no suspicious osseous lesions. IMPRESSION: 1. Stranding in the renal pelvis on the right with periureteral stranding and thickening proximally. Differential includes lymphomatous involvement of the renal pelvis, pyelonephritis and transitional cell neoplasm. 2. Dilated proximal small bowel and decompressed distal bowel with area of narrowing in the ileum. Findings favor to reflect a mild partial small bowel obstruction due to stricturing. Dictated by: Dictated on workstation # [id number]
== END ==
LOC: RAD 11:20
PROVIDERS: ATTEND Internal Medicine Hematology & Oncology
DX: K63.89 Other specified diseases of intestine (principal); I10 Essential (primary) hypertension; R14.0 Abdominal distension (gaseous); Z90.49 Acquired absence of other specified parts of digestive tract
CPT/HCPCS: 74178

== ENCOUNTER → 2020-11-17 | Outpatient (CLI) | payer MEDICARE ==
[~2020-11-17] MED LIST changes: +CATHETER FLUSH 10 ML SYR IV PRN; +REGADENOSON 0.4 MG/5 ML SYR (LEXISCAN) IV ONE
[2020-11-17 13:16] VITALS: BP 193/94
--- NOTE | 2020-11-17 15:47 | Cardiology Stress Test Report ---
Stress Test Report Date of Procedure/Referring: Date of Procedure: Nov 17, 2020 PCP Navjot Chow MD Admitting Physician Jose Claudio MD Indications: HTN Baseline Heart Rate: 62 Baseline Blood Pressure: Blood Pressure Systolic: 193 Blood Pressure Diastolic: 94 Baseline Vitals Vital Signs Date Time Temp Pulse Resp B/P (MAP) Pulse Ox O2 Delivery O2 Flow Rate FiO2 11/17/20 13:16 62 193/94 (127) Baseline EKG: Baseline EKG: NSR Summary After explaining the procedure to the patient, he signed a consent and then brought to the stress nuclear laboratory. Patient received 0.4 mg Lexiscan for stress test, ECG, heart rate and blood pressure were monitored continuously. Resting and stress dose of radio tracer were injected, imaging was acquired and reviewed in short axis, horizontal long axis and vertical long axis views. TID: 1.06 SSS: 7 SDS: 5 EF: 54 1. Patient tolerated Lexiscan well 2. Appropriate heart rate and blood pressure response to Lexiscan. 3. Mild decreased uptake involving the inferior apical segment and true apex with mild reversibility, could be secondary to diaphragmatic attenuation 4. Normal left ventricular size, EF 54% NAVJOT CHOW MD Nov 17, 2020 15:47
== END ==
LOC: CARD 11:30
PROVIDERS: ATTEND Internal Medicine Cardiovascular Disease
DX: Z51.11 Encounter for antineoplastic chemotherapy (principal); I11.9 Hypertensive heart disease without heart failure; I08.1 Rheumatic disorders of both mitral and tricuspid valves
CPT/HCPCS: 78452; 93017; 93306; A9502

== ENCOUNTER → 2020-12-28 | Outpatient (CLI) | payer MEDICARE ==
[~2020-12-28] MED LIST changes: -CATHETER FLUSH 10 ML SYR IV PRN; -REGADENOSON 0.4 MG/5 ML SYR (LEXISCAN) IV ONE
--- NOTE | 2020-12-28 13:55 | Diagnostic Imaging Report ---
INDICATION: Lymphoma, to evaluate response to treatment. COMPARISON: Exam compared with metabolic PET/CT performed 08/17/2020. TECHNIQUE: This patient received an intravenous dose of 11.6 mCi of 18-F fluorodeoxyglucose. After one hour, CT fusion PET from the calvarial vertex through the upper thighs is performed. FINDINGS: Right upper lobe lung mass measures 2.6 cm today, increased, previously measuring 2.2 cm. It is FDG avid with peak SUV value of 11.4 today, previously 9.9. There is some equivocal ipsilateral right hilar hypermetabolism without measurable soft tissue mass that showing SUV max of 3.0 and is a new finding. The left lower lobe mass, however, shows interval anatomic and scintigraphic resolution, and there has been interval resolution of bilateral pleural effusions present on the previous study. Small hypermetabolic nodule, subcentimeter, in the left superior pulmonary hilum has SUV max of 3.3. Remaining hilar and mediastinal lymph node stations and chest wall appear normal. Cervical lymph node chains and the mucosal spaces of the neck are negative. Scalp, calvarium, and intracranial contents revealed no suspicious hypermetabolic asymmetry. Below the diaphragms, hepatosplenic uptake is unremarkable, and no pathological or hypermetabolic abdominopelvic mesenteric or retroperitoneal lymph nodes are found. There is no suspicious bony lesion. Some physiologic uptake at the ileocecal valve noted incidentally. IMPRESSION: 1. Mixed changes, resolution of pleural effusions, and resolution of left lower lobe lung mass. 2. However, right upper lobe lung mass is larger and more metabolically active, and there are small equivocal hypermetabolic nodular foci in the right greater than left pulmonary luis felipe. 3. No suspicious finding above the clavicles or below the diaphragm. Dictated by: Dictated on workstation # [id number]
== END ==
LOC: RAD 10:07
PROVIDERS: ATTEND Internal Medicine Hematology & Oncology
DX: J90 Pleural effusion, not elsewhere classified (principal); C83.30 Diffuse large B-cell lymphoma, unspecified site; R91.8 Other nonspecific abnormal finding of lung field
CPT/HCPCS: 78815; A9552

== ENCOUNTER 2020-12-30 12:41 | Outpatient (RCR) | payer MEDICARE, OTHER ==
[2020-10-12 09:39] LABS: BASOPHILS % (AUTO) 1 % (0-10); EOSINOPHILS # (AUTO) 0.3 10^3/uL (0.0-0.3); EOSINOPHILS % (AUTO) 8 % (0-10); HEMATOCRIT 33 % (40-54); HEMOGLOBIN 10.5 g/dL (13.3-17.7); LYMPHOCYTES # (AUTO) 0.6 10^3/uL (1.0-4.0); LYMPHOCYTES % (AUTO) 16 % (12-44); MEAN CORPUSCULAR HEMOGLOBIN 27 pg (25-34); MEAN CORPUSCULAR HGB CONC 32 g/dL (32-36); MEAN CORPUSCULAR VOLUME 85 fL (80-99); MONOCYTES # (AUTO) 0.7 10^3/uL (0.0-1.0); MONOCYTES % (AUTO) 17 % (0-12); NEUTROPHILS # (AUTO) 2.3 10^3/uL (1.8-7.8); NEUTROPHILS % (AUTO) 58 % (42-75); PLATELET COUNT 198 10^3/uL (130-400); WHITE BLOOD COUNT 3.9 10^3/uL (4.3-11.0)
[2020-10-12 10:02] LABS: ALBUMIN 3.9 GM/DL (3.2-4.5); BILIRUBIN,TOTAL 0.3 MG/DL (0.1-1.0); CALCIUM 9.2 MG/DL (8.5-10.1); CREATININE SERUM 1.24 MG/DL (0.60-1.30); POTASSIUM 4.2 MMOL/L (3.6-5.0); TOTAL PROTEIN 6.3 GM/DL (6.4-8.2)
[2020-10-19 09:44] LABS: BASOPHILS % (AUTO) 1 % (0-10); EOSINOPHILS # (AUTO) 0.4 10^3/uL (0.0-0.3); EOSINOPHILS % (AUTO) 7 % (0-10); HEMATOCRIT 35 % (40-54); HEMOGLOBIN 10.9 g/dL (13.3-17.7); LYMPHOCYTES # (AUTO) 0.6 10^3/uL (1.0-4.0); LYMPHOCYTES % (AUTO) 10 % (12-44); MEAN CORPUSCULAR HEMOGLOBIN 27 pg (25-34); MEAN CORPUSCULAR HGB CONC 32 g/dL (32-36); MEAN CORPUSCULAR VOLUME 84 fL (80-99); MEAN PLATELET VOLUME 9.1 fL (9.0-12.2); MONOCYTES # (AUTO) 0.3 10^3/uL (0.0-1.0); MONOCYTES % (AUTO) 5 % (0-12); NEUTROPHILS # (AUTO) 4.5 10^3/uL (1.8-7.8); NEUTROPHILS % (AUTO) 77 % (42-75); PLATELET COUNT 232 10^3/uL (130-400); WHITE BLOOD COUNT 5.8 10^3/uL (4.3-11.0)
[2020-10-19 10:01] LABS: BUN/CREATININE RATIO 22; CALCIUM 8.8 MG/DL (8.5-10.1); CARBON DIOXIDE 29 MMOL/L (21-32); CHLORIDE 99 MMOL/L (98-107); CREATININE SERUM 1.11 MG/DL (0.60-1.30); GFR ESTIMATED > 60; GLUCOSE 105 MG/DL (70-105); POTASSIUM 4.6 MMOL/L (3.6-5.0); SODIUM 136 MMOL/L (135-145)
[2020-10-26 10:47] LABS: BASOPHILS % (AUTO) 1 % (0-10); EOSINOPHILS # (AUTO) 0.3 10^3/uL (0.0-0.3); EOSINOPHILS % (AUTO) 7 % (0-10); HEMATOCRIT 33 % (40-54); HEMOGLOBIN 10.5 g/dL (13.3-17.7); LYMPHOCYTES # (AUTO) 0.6 10^3/uL (1.0-4.0); LYMPHOCYTES % (AUTO) 13 % (12-44); MEAN CORPUSCULAR HEMOGLOBIN 27 pg (25-34); MEAN CORPUSCULAR HGB CONC 32 g/dL (32-36); MEAN CORPUSCULAR VOLUME 84 fL (80-99); MEAN PLATELET VOLUME 8.3 fL (9.0-12.2); MONOCYTES # (AUTO) 0.7 10^3/uL (0.0-1.0); MONOCYTES % (AUTO) 17 % (0-12); NEUTROPHILS # (AUTO) 2.6 10^3/uL (1.8-7.8); NEUTROPHILS % (AUTO) 62 % (42-75); PLATELET COUNT 144 10^3/uL (130-400); WHITE BLOOD COUNT 4.3 10^3/uL (4.3-11.0)
[2020-10-26 11:07] LABS: CALCIUM 8.9 MG/DL (8.5-10.1); CREATININE SERUM 1.19 MG/DL (0.60-1.30); POTASSIUM 4.5 MMOL/L (3.6-5.0)
[2020-11-02 13:17] LABS: BASOPHILS % (AUTO) 1 % (0-10); EOSINOPHILS # (AUTO) 0.5 10^3/uL (0.0-0.3); EOSINOPHILS % (AUTO) 12 % (0-10); HEMATOCRIT 31 % (40-54); HEMOGLOBIN 10.2 g/dL (13.3-17.7); LYMPHOCYTES # (AUTO) 0.6 10^3/uL (1.0-4.0); LYMPHOCYTES % (AUTO) 14 % (12-44); MEAN CORPUSCULAR HEMOGLOBIN 27 pg (25-34); MEAN CORPUSCULAR HGB CONC 33 g/dL (32-36); MEAN CORPUSCULAR VOLUME 82 fL (80-99); MEAN PLATELET VOLUME 8.4 fL (9.0-12.2); MONOCYTES # (AUTO) 0.7 10^3/uL (0.0-1.0); MONOCYTES % (AUTO) 16 % (0-12); NEUTROPHILS # (AUTO) 2.5 10^3/uL (1.8-7.8); NEUTROPHILS % (AUTO) 57 % (42-75); PLATELET COUNT 168 10^3/uL (130-400); WHITE BLOOD COUNT 4.3 10^3/uL (4.3-11.0)
[2020-11-02 13:36] LABS: ALBUMIN 3.7 GM/DL (3.2-4.5); BILIRUBIN,TOTAL 0.3 MG/DL (0.1-1.0); CALCIUM 9.1 MG/DL (8.5-10.1); CREATININE SERUM 1.21 MG/DL (0.60-1.30); POTASSIUM 4.4 MMOL/L (3.6-5.0); TOTAL PROTEIN 6.1 GM/DL (6.4-8.2)
[2020-11-09 11:33] LABS: BASOPHILS # (AUTO) 0.1 10^3/uL (0.0-0.1); BASOPHILS % (AUTO) 1 % (0-10); EOSINOPHILS # (AUTO) 0.4 10^3/uL (0.0-0.3); EOSINOPHILS % (AUTO) 5 % (0-10); HEMATOCRIT 32 % (40-54); HEMOGLOBIN 10.5 g/dL (13.3-17.7); LYMPHOCYTES # (AUTO) 0.5 10^3/uL (1.0-4.0); LYMPHOCYTES % (AUTO) 6 % (12-44); MEAN CORPUSCULAR HEMOGLOBIN 27 pg (25-34); MEAN CORPUSCULAR HGB CONC 33 g/dL (32-36); MEAN CORPUSCULAR VOLUME 82 fL (80-99); MEAN PLATELET VOLUME 8.6 fL (9.0-12.2); MONOCYTES # (AUTO) 0.4 10^3/uL (0.0-1.0); MONOCYTES % (AUTO) 5 % (0-12); NEUTROPHILS # (AUTO) 6.6 10^3/uL (1.8-7.8); NEUTROPHILS % (AUTO) 82 % (42-75); PLATELET COUNT 199 10^3/uL (130-400)
[2020-11-09 11:55] LABS: BUN/CREATININE RATIO 19; CALCIUM 9.3 MG/DL (8.5-10.1); CARBON DIOXIDE 29 MMOL/L (21-32); CHLORIDE 103 MMOL/L (98-107); CREATININE SERUM 1.13 MG/DL (0.60-1.30); GFR ESTIMATED > 60; GLUCOSE 118 MG/DL (70-105); POTASSIUM 4.5 MMOL/L (3.6-5.0); SODIUM 136 MMOL/L (135-145)
[2020-11-16 09:37] LABS: BASOPHILS % (AUTO) 1 % (0-10); EOSINOPHILS # (AUTO) 0.3 10^3/uL (0.0-0.3); EOSINOPHILS % (AUTO) 5 % (0-10); HEMATOCRIT 31 % (40-54); HEMOGLOBIN 10.3 g/dL (13.3-17.7); LYMPHOCYTES # (AUTO) 0.6 10^3/uL (1.0-4.0); LYMPHOCYTES % (AUTO) 11 % (12-44); MEAN CORPUSCULAR HEMOGLOBIN 28 pg (25-34); MEAN CORPUSCULAR HGB CONC 33 g/dL (32-36); MEAN CORPUSCULAR VOLUME 83 fL (80-99); MEAN PLATELET VOLUME 8.8 fL (9.0-12.2); MONOCYTES # (AUTO) 0.7 10^3/uL (0.0-1.0); MONOCYTES % (AUTO) 13 % (0-12); NEUTROPHILS # (AUTO) 3.7 10^3/uL (1.8-7.8); NEUTROPHILS % (AUTO) 70 % (42-75); PLATELET COUNT 146 10^3/uL (130-400); WHITE BLOOD COUNT 5.3 10^3/uL (4.3-11.0)
[2020-11-16 09:52] LABS: BUN/CREATININE RATIO 16; CALCIUM 9.2 MG/DL (8.5-10.1); CARBON DIOXIDE 24 MMOL/L (21-32); CHLORIDE 108 MMOL/L (98-107); CREATININE SERUM 1.16 MG/DL (0.60-1.30); GFR ESTIMATED > 60; GLUCOSE 101 MG/DL (70-105); POTASSIUM 4.3 MMOL/L (3.6-5.0); SODIUM 140 MMOL/L (135-145)
[2020-11-23 09:47] LABS: BASOPHILS % (AUTO) 1 % (0-10); EOSINOPHILS # (AUTO) 0.3 10^3/uL (0.0-0.3); EOSINOPHILS % (AUTO) 6 % (0-10); HEMATOCRIT 31 % (40-54); HEMOGLOBIN 10.3 g/dL (13.3-17.7); LYMPHOCYTES # (AUTO) 0.5 10^3/uL (1.0-4.0); LYMPHOCYTES % (AUTO) 11 % (12-44); MEAN CORPUSCULAR HEMOGLOBIN 27 pg (25-34); MEAN CORPUSCULAR HGB CONC 33 g/dL (32-36); MEAN CORPUSCULAR VOLUME 83 fL (80-99); MEAN PLATELET VOLUME 8.8 fL (9.0-12.2); MONOCYTES # (AUTO) 0.5 10^3/uL (0.0-1.0); MONOCYTES % (AUTO) 12 % (0-12); NEUTROPHILS % (AUTO) 69 % (42-75); PLATELET COUNT 171 10^3/uL (130-400); WHITE BLOOD COUNT 4.4 10^3/uL (4.3-11.0)
[2020-11-23 10:14] LABS: ALANINE AMINOTRANSFERASE 17 U/L (0-55); ALBUMIN 3.6 GM/DL (3.2-4.5); ALKALINE PHOSPHATASE 56 U/L (40-136); BILIRUBIN,TOTAL 0.2 MG/DL (0.1-1.0); BUN/CREATININE RATIO 18; CALCIUM 9.4 MG/DL (8.5-10.1); CARBON DIOXIDE 26 MMOL/L (21-32); CHLORIDE 105 MMOL/L (98-107); CREATININE SERUM 1.16 MG/DL (0.60-1.30); GFR ESTIMATED > 60; GLUCOSE 107 MG/DL (70-105); POTASSIUM 4.8 MMOL/L (3.6-5.0); SODIUM 138 MMOL/L (135-145); TOTAL PROTEIN 6.2 GM/DL (6.4-8.2)
[2020-11-30 11:42] LABS: BASOPHILS % (AUTO) 1 % (0-10); EOSINOPHILS # (AUTO) 0.3 10^3/uL (0.0-0.3); EOSINOPHILS % (AUTO) 5 % (0-10); HEMATOCRIT 33 % (40-54); HEMOGLOBIN 10.6 g/dL (13.3-17.7); LYMPHOCYTES # (AUTO) 0.7 10^3/uL (1.0-4.0); LYMPHOCYTES % (AUTO) 11 % (12-44); MEAN CORPUSCULAR HEMOGLOBIN 27 pg (25-34); MEAN CORPUSCULAR HGB CONC 32 g/dL (32-36); MEAN CORPUSCULAR VOLUME 83 fL (80-99); MEAN PLATELET VOLUME 8.4 fL (9.0-12.2); MONOCYTES # (AUTO) 0.3 10^3/uL (0.0-1.0); MONOCYTES % (AUTO) 5 % (0-12); NEUTROPHILS # (AUTO) 4.7 10^3/uL (1.8-7.8); NEUTROPHILS % (AUTO) 77 % (42-75); PLATELET COUNT 216 10^3/uL (130-400); WHITE BLOOD COUNT 6.1 10^3/uL (4.3-11.0)
[2020-11-30 11:59] LABS: BUN/CREATININE RATIO 19; CALCIUM 9.1 MG/DL (8.5-10.1); CARBON DIOXIDE 27 MMOL/L (21-32); CHLORIDE 105 MMOL/L (98-107); CREATININE SERUM 1.15 MG/DL (0.60-1.30); GFR ESTIMATED > 60; GLUCOSE 130 MG/DL (70-105); POTASSIUM 4.5 MMOL/L (3.6-5.0); SODIUM 137 MMOL/L (135-145)
[2020-12-07 14:22] LABS: BASOPHILS % (AUTO) 1 % (0-10); EOSINOPHILS # (AUTO) 0.2 10^3/uL (0.0-0.3); EOSINOPHILS % (AUTO) 6 % (0-10); HEMATOCRIT 31 % (40-54); HEMOGLOBIN 10.1 g/dL (13.3-17.7); LYMPHOCYTES # (AUTO) 0.6 X 10^3 (1.0-4.0); LYMPHOCYTES % (AUTO) 18 % (12-44); MEAN CORPUSCULAR HEMOGLOBIN 27 pg (25-34); MEAN CORPUSCULAR HGB CONC 32 g/dL (32-36); MEAN CORPUSCULAR VOLUME 83 fL (80-99); MEAN PLATELET VOLUME 8.8 fL (9.0-12.2); MONOCYTES # (AUTO) 0.6 X 10^3 (0.0-1.0); MONOCYTES % (AUTO) 19 % (0-12); NEUTROPHILS # (AUTO) 1.8 X 10^3 (1.8-7.8); NEUTROPHILS % (AUTO) 57 % (42-75); PLATELET COUNT 165 10^3/uL (130-400); WHITE BLOOD COUNT 3.2 10^3/uL (4.3-11.0)
[2020-12-07 14:39] LABS: CALCIUM 9.2 MG/DL (8.5-10.1); CREATININE SERUM 1.19 MG/DL (0.60-1.30); POTASSIUM 4.5 MMOL/L (3.6-5.0)
[2020-12-14 11:22] LABS: BASOPHILS % (AUTO) 0 % (0-10); EOSINOPHILS # (AUTO) 0.2 10^3/uL (0.0-0.3); EOSINOPHILS % (AUTO) 5 % (0-10); HEMATOCRIT 32 % (40-54); HEMOGLOBIN 10.4 g/dL (13.3-17.7); LYMPHOCYTES # (AUTO) 0.4 10^3/uL (1.0-4.0); LYMPHOCYTES % (AUTO) 12 % (12-44); MEAN CORPUSCULAR HEMOGLOBIN 28 pg (25-34); MEAN CORPUSCULAR HGB CONC 33 g/dL (32-36); MEAN CORPUSCULAR VOLUME 84 fL (80-99); MEAN PLATELET VOLUME 8.6 fL (9.0-12.2); MONOCYTES # (AUTO) 0.3 10^3/uL (0.0-1.0); MONOCYTES % (AUTO) 8 % (0-12); NEUTROPHILS # (AUTO) 2.6 10^3/uL (1.8-7.8); NEUTROPHILS % (AUTO) 74 % (42-75); PLATELET COUNT 157 10^3/uL (130-400); WHITE BLOOD COUNT 3.5 10^3/uL (4.3-11.0)
[2020-12-14 11:39] LABS: ALANINE AMINOTRANSFERASE 22 U/L (0-55); ALBUMIN 3.7 GM/DL (3.2-4.5); ALKALINE PHOSPHATASE 50 U/L (40-136); BILIRUBIN,TOTAL 0.3 MG/DL (0.1-1.0); BUN/CREATININE RATIO 20; CALCIUM 9.1 MG/DL (8.5-10.1); CARBON DIOXIDE 25 MMOL/L (21-32); CHLORIDE 107 MMOL/L (98-107); GFR ESTIMATED > 60; GLUCOSE 121 MG/DL (70-105); POTASSIUM 4.3 MMOL/L (3.6-5.0); SODIUM 140 MMOL/L (135-145)
[2020-12-21 11:12] LABS: BASOPHILS % (AUTO) 0 % (0-10); EOSINOPHILS # (AUTO) 0.2 10^3/uL (0.0-0.3); EOSINOPHILS % (AUTO) 5 % (0-10); HEMATOCRIT 30 % (40-54); HEMOGLOBIN 10.1 g/dL (13.3-17.7); LYMPHOCYTES # (AUTO) 0.5 X 10^3 (1.0-4.0); LYMPHOCYTES % (AUTO) 14 % (12-44); MEAN CORPUSCULAR HEMOGLOBIN 28 pg (25-34); MEAN CORPUSCULAR HGB CONC 33 g/dL (32-36); MEAN CORPUSCULAR VOLUME 83 fL (80-99); MONOCYTES # (AUTO) 0.3 X 10^3 (0.0-1.0); MONOCYTES % (AUTO) 7 % (0-12); NEUTROPHILS # (AUTO) 2.6 X 10^3 (1.8-7.8); NEUTROPHILS % (AUTO) 72 % (42-75); PLATELET COUNT 158 10^3/uL (130-400); WHITE BLOOD COUNT 3.7 10^3/uL (4.3-11.0)
[2020-12-21 11:22] LABS: BUN/CREATININE RATIO 17; CALCIUM 8.9 MG/DL (8.5-10.1); CARBON DIOXIDE 29 MMOL/L (21-32); CHLORIDE 103 MMOL/L (98-107); CREATININE SERUM 1.14 MG/DL (0.60-1.30); GFR ESTIMATED > 60; GLUCOSE 99 MG/DL (70-105); POTASSIUM 4.3 MMOL/L (3.6-5.0); SODIUM 138 MMOL/L (135-145)
[2020-12-28 10:03] LABS: BASOPHILS % (AUTO) 1 % (0-10); EOSINOPHILS # (AUTO) 0.1 10^3/uL (0.0-0.3); EOSINOPHILS % (AUTO) 5 % (0-10); HEMATOCRIT 33 % (40-54); HEMOGLOBIN 10.8 g/dL (13.3-17.7); LYMPHOCYTES # (AUTO) 0.5 10^3/uL (1.0-4.0); LYMPHOCYTES % (AUTO) 24 % (12-44); MEAN CORPUSCULAR HEMOGLOBIN 28 pg (25-34); MEAN CORPUSCULAR HGB CONC 33 g/dL (32-36); MEAN CORPUSCULAR VOLUME 84 fL (80-99); MEAN PLATELET VOLUME 8.8 fL (9.0-12.2); MONOCYTES # (AUTO) 0.7 10^3/uL (0.0-1.0); MONOCYTES % (AUTO) 31 % (0-12); NEUTROPHILS # (AUTO) 0.6 10^3/uL (1.8-7.8); NEUTROPHILS % (AUTO) 30 % (42-75); PLATELET COUNT 136 10^3/uL (130-400); WHITE BLOOD COUNT 2.1 10^3/uL (4.3-11.0)
[2020-12-28 10:20] LABS: CALCIUM 9.4 MG/DL (8.5-10.1); CREATININE SERUM 1.2 MG/DL (0.60-1.30); POTASSIUM 4.4 MMOL/L (3.6-5.0)
[~2020-12-30 12:41] MED LIST changes: +ACETAMINOPHEN 500 MG TAB (TYLENOL) CANCER CTR PO PRN; +CYCLOPHOSPHAMIDE IV SCH; +FAMOTIDINE 20MG/2ML IV (CANCER CTR) IV SCH; +FOSAPREPITANT (CANCER CENTER) 150 MG in NS (IVPB) CANCER CENTER ONLY 150 ML IV SCH; +NS IV 1000 ML (CANCER CTR) IV SCH; +NS IV SCH; +RITUXIMAB-ABBS 500 MG, RITUXIMAB-ABBS 200 MG in NS (IVPB) CANCER CENTER ONLY 150 ML IV SCH; +diphenhydrAMINE 25 MG TAB (BENADRYL) CANCER CENTER PO SCH; +vinCRIStine SULFATE 1 MG in NS (IVPB) CANCER CENTER 50 ML IV SCH
== END 2021-01-03 | disposition home or self-care (01) ==
LOC: ONC 12:41
PROVIDERS: ATTEND Internal Medicine Hematology & Oncology
DX: Z51.11 Encounter for antineoplastic chemotherapy (principal); C83.30 Diffuse large B-cell lymphoma, unspecified site; C85.98 Non-Hodgkin lymphoma, unspecified, lymph nodes of multiple sites; I10 Essential (primary) hypertension; D50.0 Iron deficiency anemia secondary to blood loss (chronic); Z95.828 Presence of other vascular implants and grafts; Z87.438 Personal history of other diseases of male genital organs
CPT/HCPCS: 36591; 80048; 80053; 82728; 83540; 83550; 83615; 85025; 96367; 96375; 96411; 96413; 96417; 99213

== ENCOUNTER 2021-01-11 10:28 | Outpatient (CLI) | payer MEDICARE, OTHER ==
[2021-01-11] VITALS (13 sets, daily range): BP systolic 158–188; BP diastolic 84–109
[~2021-01-11 10:28] MED LIST changes: -ACETAMINOPHEN 500 MG TAB (TYLENOL) CANCER CTR PO PRN; -CYCLOPHOSPHAMIDE IV SCH; -FAMOTIDINE 20MG/2ML IV (CANCER CTR) IV SCH; -FOSAPREPITANT (CANCER CENTER) 150 MG in NS (IVPB) CANCER CENTER ONLY 150 ML IV SCH; -NS IV 1000 ML (CANCER CTR) IV SCH; -NS IV SCH; -RITUXIMAB-ABBS 500 MG, RITUXIMAB-ABBS 200 MG in NS (IVPB) CANCER CENTER ONLY 150 ML IV SCH; -diphenhydrAMINE 25 MG TAB (BENADRYL) CANCER CENTER PO SCH; -vinCRIStine SULFATE 1 MG in NS (IVPB) CANCER CENTER 50 ML IV SCH
[2021-01-11] MEDS ORDERED: NS IV 1000 ML 1,000 ML IV STA (11:17)
[2021-01-11] MEDS ORDERED: fentaNYL INJ 100 MCG/2 ML AMP IVP ONE (11:30)
[2021-01-11] MEDS ORDERED: MIDAZOLAM 2 MG/2 ML (VERSED) VIAL IVP ONE (11:30)
[2021-01-11] MEDS ORDERED: LIDOCAINE 1% INJ 20 ML 20 ML VIAL INJ ONE (11:30)
[2021-01-11 11:41] LABS: BASOPHILS % (AUTO) 1 % (0-10); EOSINOPHILS # (AUTO) 0.2 10^3/uL (0.0-0.3); EOSINOPHILS % (AUTO) 5 % (0-10); HEMATOCRIT 31 % (40-54); HEMOGLOBIN 9.9 g/dL (13.3-17.7); LYMPHOCYTES # (AUTO) 0.6 10^3/uL (1.0-4.0); LYMPHOCYTES % (AUTO) 14 % (12-44); MEAN CORPUSCULAR HEMOGLOBIN 27 pg (25-34); MEAN CORPUSCULAR HGB CONC 32 g/dL (32-36); MEAN CORPUSCULAR VOLUME 85 fL (80-99); MEAN PLATELET VOLUME 8.6 fL (9.0-12.2); MONOCYTES # (AUTO) 0.5 10^3/uL (0.0-1.0); MONOCYTES % (AUTO) 12 % (0-12); NEUTROPHILS # (AUTO) 2.9 10^3/uL (1.8-7.8); NEUTROPHILS % (AUTO) 67 % (42-75); PLATELET COUNT 202 10^3/uL (130-400); WHITE BLOOD COUNT 4.3 10^3/uL (4.3-11.0)
[2021-01-11 11:56] LABS: PROTHROMBIN TIME PATIENT 13.8 SEC (12.2-14.7)
[2021-01-11] MEDS ORDERED: HYDROcodone/APAP 5 MG/325 MG (LORTAB) TAB PO PRN (13:15)
--- NOTE | 2021-01-11 13:51 | Pre-Op Note & Conscious Sedat ---
Pre-Operative Progress Note H&P Reviewed The H&P was reviewed, patient examined and no changes noted. Date H&P Reviewed: Jan 11, 2021 Time H&P Reviewed: 11:00 Pre-Op Diagnosis: lung mass Conscious Sedation Pre-Proced Time 11:00 ASA Score 2 For ASA 3 and 4: Consider anesthesia and medical clearance. Also, for patients with a history of failed moderate sedation consider anesthesia. Airway Lungs Heart ASA score ASA 1: a normal healthy patient ASA 2: a patient with a mild systemic disease (mid diabetes, controlled hypertension, obesity ASA 3: a patient with a severe systemic disease that limits activity (angina, COPD, prior Myocardial infarction) ASA 4: a patient with an incapacitating disease that is a constant threat to life (CHF, renal failure) ASA 5: a moribund patient not expected to survive 24 hrs. (ruptured aneurysm) ASA 6: a declared brain- patient whose organs are being harvested. For emergent operations, add the letter E after the classification Mallampati Classification Grade 2 Sedation Plan Analgesia, Amnesia, Plan communicated to team members, Discussed options with patient/fam, Discussed risks with patient/fam The patient is an appropriate candidate to undergo the planned procedure, sedation, and anesthesia. The patient immediately re-assessed prior to indication. IGLESIA SPAIN MD Jan 11, 2021 13:51
--- NOTE | 2021-01-11 18:36 | Diagnostic Imaging Report ---
INDICATION: Status post right lung biopsy. TIME OF EXAM: 2:05 PM Right chest wall port has tip overlying the SVC. A rounded mass in the right base is noted and was recently biopsied. No pneumothorax is identified, status post right lung biopsy. There is no effusion. IMPRESSION: No evidence of pneumothorax, status post right lung biopsy. Dictated by: Dictated on workstation # [id number]
--- NOTE | 2021-01-11 18:42 | Diagnostic Imaging Report ---
INDICATION: Right lung mass. PROCEDURE: The patient presents for a CT-guided biopsy. TECHNIQUE: All CT scans use one or more of the following dose optimizing techniques: automated exposure control, MA and/or KvP adjustment based on patient size and exam type or iterative reconstruction. The patient was brought to the CT suite, placed on the table in the supine position. Axial imaging through the chest was performed to evaluate appropriate entry site. Right lateral thorax was then prepped and draped in the usual sterile fashion. A small amount of 1% lidocaine was utilized for local anesthesia. The procedure was performed utilizing conscious sedation with radiology nursing and constant patient monitoring. Patient was administered a total of 50 mcg of fentanyl intravenously. Total procedure time was approximately 11 minutes. An 18-gauge coaxial Temno needle was advanced and placed with its tip within the lesion in the right upper lobe. A total of 4 core biopsies were obtained. BioSentry tract sealant device was deployed. Follow-up imaging showed no complicating features. Patient tolerated the procedure well and left the department in stable condition. IMPRESSION: Successful CT-guided core biopsy of right upper lobe lung mass utilizing conscious sedation. Pathology results are currently pending. Dictated by: Dictated on workstation # [id number]
== END 2021-01-11 15:15 | disposition home or self-care (01) ==
LOC: SDC 10:28 → RAD 15:15
PROVIDERS: ATTEND Internal Medicine Hematology & Oncology
DX: R91.8 Other nonspecific abnormal finding of lung field (principal); C83.30 Diffuse large B-cell lymphoma, unspecified site; Z98.890 Other specified postprocedural states
CPT/HCPCS: 36415; 71045; 77012; 85025; 85610; 85730

== ENCOUNTER 2021-03-22 10:49 | Outpatient (RCR) | payer MEDICARE ==
[2021-03-01 10:45] LABS: BASOPHILS % (AUTO) 1 % (0-10); EOSINOPHILS # (AUTO) 0.4 10^3/uL (0.0-0.3); EOSINOPHILS % (AUTO) 10 % (0-10); HEMATOCRIT 34 % (40-54); HEMOGLOBIN 11.3 g/dL (13.3-17.7); LYMPHOCYTES # (AUTO) 0.7 10^3/uL (1.0-4.0); LYMPHOCYTES % (AUTO) 20 % (12-44); MEAN CORPUSCULAR HEMOGLOBIN 29 pg (25-34); MEAN CORPUSCULAR HGB CONC 33 g/dL (32-36); MEAN CORPUSCULAR VOLUME 86 fL (80-99); MEAN PLATELET VOLUME 8.5 fL (9.0-12.2); MONOCYTES # (AUTO) 0.5 10^3/uL (0.0-1.0); MONOCYTES % (AUTO) 13 % (0-12); NEUTROPHILS # (AUTO) 1.9 10^3/uL (1.8-7.8); NEUTROPHILS % (AUTO) 53 % (42-75); PLATELET COUNT 146 10^3/uL (130-400); WHITE BLOOD COUNT 3.6 10^3/uL (4.3-11.0)
[2021-03-01 11:07] LABS: ALBUMIN 3.7 GM/DL (3.2-4.5); BILIRUBIN,TOTAL 0.4 MG/DL (0.1-1.0); CALCIUM 9.2 MG/DL (8.5-10.1); CREATININE SERUM 1.16 MG/DL (0.60-1.30); POTASSIUM 4.4 MMOL/L (3.6-5.0)
[~2021-03-22] VITALS: Ht 168.9 cm; Wt 76.2 kg
[~2021-03-22 10:49] MED LIST changes: +NS IV 1000 ML (CANCER CTR) IV SCH; +NS IV 500 ML (CANCER CENTER) IV SCH; +PEMBROLIZUMAB 200 MG in NS (IVPB) CANCER CENTER 50 ML IV SCH
[2021-03-22 11:11] LABS: BASOPHILS % (AUTO) 1 % (0-10); EOSINOPHILS # (AUTO) 0.5 10^3/uL (0.0-0.3); EOSINOPHILS % (AUTO) 17 % (0-10); HEMATOCRIT 37 % (40-54); HEMOGLOBIN 12.2 g/dL (13.3-17.7); LYMPHOCYTES # (AUTO) 0.9 10^3/uL (1.0-4.0); LYMPHOCYTES % (AUTO) 32 % (12-44); MEAN CORPUSCULAR HEMOGLOBIN 28 pg (25-34); MEAN CORPUSCULAR HGB CONC 33 g/dL (32-36); MEAN CORPUSCULAR VOLUME 86 fL (80-99); MEAN PLATELET VOLUME 8.3 fL (9.0-12.2); MONOCYTES # (AUTO) 0.6 10^3/uL (0.0-1.0); MONOCYTES % (AUTO) 21 % (0-12); NEUTROPHILS # (AUTO) 0.8 10^3/uL (1.8-7.8); NEUTROPHILS % (AUTO) 28 % (42-75); PLATELET COUNT 182 10^3/uL (130-400); WHITE BLOOD COUNT 2.8 10^3/uL (4.3-11.0)
[2021-03-22 11:25] LABS: ALBUMIN 3.9 GM/DL (3.2-4.5); BILIRUBIN,TOTAL 0.4 MG/DL (0.1-1.0); CALCIUM 9.4 MG/DL (8.5-10.1); CREATININE SERUM 1.25 MG/DL (0.60-1.30); POTASSIUM 4.7 MMOL/L (3.6-5.0); TOTAL PROTEIN 6.6 GM/DL (6.4-8.2)
[2021-03-22] MEDS ORDERED: NS IV SCH (12:15)
[2021-03-22] MEDS ORDERED: PEMBROLIZUMAB IV SCH (12:15)
== END 2021-04-25 | disposition home or self-care (01) ==
LOC: ONC 10:49
PROVIDERS: ATTEND Internal Medicine Hematology & Oncology
DX: Z51.11 Encounter for antineoplastic chemotherapy (principal); C83.30 Diffuse large B-cell lymphoma, unspecified site; C85.98 Non-Hodgkin lymphoma, unspecified, lymph nodes of multiple sites; I10 Essential (primary) hypertension; D50.0 Iron deficiency anemia secondary to blood loss (chronic); Z95.828 Presence of other vascular implants and grafts; Z87.438 Personal history of other diseases of male genital organs
CPT/HCPCS: 36591; 80053; 85025; 96413; 99213

== ENCOUNTER 2021-05-03 13:22 | Outpatient (RCR) | payer MEDICARE ==
[~2021-05-03 13:22] MED LIST changes: +NS IV SCH; -PEMBROLIZUMAB 200 MG in NS (IVPB) CANCER CENTER 50 ML IV SCH; +PEMBROLIZUMAB IV SCH
[2021-05-03 13:49] LABS: BASOPHILS % (AUTO) 1 % (0-10); EOSINOPHILS # (AUTO) 0.5 10^3/uL (0.0-0.3); EOSINOPHILS % (AUTO) 8 % (0-10); HEMATOCRIT 37 % (40-54); HEMOGLOBIN 12.5 g/dL (13.3-17.7); LYMPHOCYTES # (AUTO) 0.9 10^3/uL (1.0-4.0); LYMPHOCYTES % (AUTO) 13 % (12-44); MEAN CORPUSCULAR HEMOGLOBIN 28 pg (25-34); MEAN CORPUSCULAR HGB CONC 33 g/dL (32-36); MEAN CORPUSCULAR VOLUME 84 fL (80-99); MEAN PLATELET VOLUME 8.5 fL (9.0-12.2); MONOCYTES # (AUTO) 0.5 10^3/uL (0.0-1.0); MONOCYTES % (AUTO) 7 % (0-12); NEUTROPHILS # (AUTO) 5.2 10^3/uL (1.8-7.8); NEUTROPHILS % (AUTO) 72 % (42-75); PLATELET COUNT 168 10^3/uL (130-400); WHITE BLOOD COUNT 7.2 10^3/uL (4.3-11.0)
[2021-05-03 14:09] LABS: BILIRUBIN,TOTAL 0.3 MG/DL (0.1-1.0); CALCIUM 9.3 MG/DL (8.5-10.1); CREATININE SERUM 1.29 MG/DL (0.60-1.30); POTASSIUM 4.3 MMOL/L (3.6-5.0); TOTAL PROTEIN 6.6 GM/DL (6.4-8.2)
== END 2021-06-10 | disposition home or self-care (01) ==
LOC: ONC 13:22
PROVIDERS: ATTEND Internal Medicine Hematology & Oncology
DX: Z51.11 Encounter for antineoplastic chemotherapy (principal); C83.30 Diffuse large B-cell lymphoma, unspecified site; C85.83 Other specified types of non-Hodgkin lymphoma, intra-abdominal lymph nodes; C79.2 Secondary malignant neoplasm of skin; I10 Essential (primary) hypertension; D50.0 Iron deficiency anemia secondary to blood loss (chronic); Z95.828 Presence of other vascular implants and grafts; Z87.438 Personal history of other diseases of male genital organs; Z79.899 Other long term (current) drug therapy; Z79.01 Long term (current) use of anticoagulants
CPT/HCPCS: 80053; 85025; 96413; G0463; 36591

== ENCOUNTER 2021-06-15 13:49 | Outpatient (RCR) | payer MEDICARE ==
[~2021-06-15 13:49] MED LIST changes: -NS IV 1000 ML (CANCER CTR) IV SCH
[2021-06-15 14:07] LABS: BASOPHILS % (AUTO) 0 % (0-10); EOSINOPHILS # (AUTO) 0.5 10^3/uL (0.0-0.3); EOSINOPHILS % (AUTO) 7 % (0-10); HEMATOCRIT 37 % (40-54); HEMOGLOBIN 12.2 g/dL (13.3-17.7); LYMPHOCYTES # (AUTO) 0.9 10^3/uL (1.0-4.0); LYMPHOCYTES % (AUTO) 12 % (12-44); MEAN CORPUSCULAR HEMOGLOBIN 29 pg (25-34); MEAN CORPUSCULAR HGB CONC 33 g/dL (32-36); MEAN CORPUSCULAR VOLUME 86 fL (80-99); MEAN PLATELET VOLUME 8.7 fL (9.0-12.2); MONOCYTES # (AUTO) 0.5 10^3/uL (0.0-1.0); MONOCYTES % (AUTO) 7 % (0-12); NEUTROPHILS # (AUTO) 5.1 10^3/uL (1.8-7.8); NEUTROPHILS % (AUTO) 73 % (42-75); PLATELET COUNT 166 10^3/uL (130-400); WHITE BLOOD COUNT 7.1 10^3/uL (4.3-11.0)
[2021-06-15 14:25] LABS: BILIRUBIN,TOTAL 0.4 MG/DL (0.1-1.0); CALCIUM 9.2 MG/DL (8.5-10.1); CREATININE SERUM 1.27 MG/DL (0.60-1.30); POTASSIUM 4.1 MMOL/L (3.6-5.0); TOTAL PROTEIN 6.6 GM/DL (6.4-8.2)
== END 2021-07-11 | disposition home or self-care (01) ==
LOC: ONC 13:49
PROVIDERS: ATTEND Internal Medicine Hematology & Oncology
DX: Z51.11 Encounter for antineoplastic chemotherapy (principal); C83.30 Diffuse large B-cell lymphoma, unspecified site; D50.9 Iron deficiency anemia, unspecified; I10 Essential (primary) hypertension; Z95.9 Presence of cardiac and vascular implant and graft, unspecified
CPT/HCPCS: 80053; 85025; 96409; G0463; 99213

== ENCOUNTER → 2021-07-18 | Outpatient (CLI) | payer MEDICARE ==
[~2021-07-18] MED LIST changes: -NS IV 500 ML (CANCER CENTER) IV SCH; -NS IV SCH; -PEMBROLIZUMAB IV SCH
--- NOTE | 2021-07-18 13:25 | Diagnostic Imaging Report ---
INDICATION: Malignant melanoma. Study is performed for restaging. TECHNIQUE: Serum blood glucose level at the time of injection was 88 mg/dL. Patient was administered 12.4 mCi F-18 FDG in the right antecubital location, and whole body PET imaging was performed. Noncontrast CT was also performed for attenuation correction and anatomic correlation. COMPARISON: Comparison is made with prior PET/CT study from 12/28/2020. FINDINGS: There is symmetric activity throughout the brain. Soft tissues of the neck are unremarkable. No mediastinal or hilar hypermetabolism is seen. The hypermetabolic mass in the right upper lobe noted on prior PET study has significantly decreased in size, now measuring approximately 0.9 cm compared with 3.0 cm. No hypermetabolism is identified. No other pulmonary parenchymal masses are identified. Abdomen and pelvis demonstrate physiologic activity throughout the gastrointestinal and genitourinary tracts. No suspicious hypermetabolism is seen. Bilateral lower extremities are unremarkable. IMPRESSION: Improved PET/CT study when compared with prior study from 12/28/2020. The right upper lobe mass has significantly decreased in size and no longer appears metabolic. No new foci are identified. Dictated by: Dictated on workstation # [id number]
== END ==
LOC: RAD 09:45
PROVIDERS: ATTEND Internal Medicine Hematology & Oncology
DX: R91.8 Other nonspecific abnormal finding of lung field (principal); Z85.89 Personal history of malignant neoplasm of other organs and systems
CPT/HCPCS: 78816; A9552

== ENCOUNTER 2021-08-05 13:21 | Outpatient (RCR) | payer MEDICARE, OTHER ==
[2021-08-01 13:28] LABS: BASOPHILS % (AUTO) 1 % (0-10); EOSINOPHILS # (AUTO) 0.5 10^3/uL (0.0-0.3); EOSINOPHILS % (AUTO) 10 % (0-10); HEMATOCRIT 33 % (40-54); HEMOGLOBIN 11.1 g/dL (13.3-17.7); LYMPHOCYTES # (AUTO) 0.7 10^3/uL (1.0-4.0); LYMPHOCYTES % (AUTO) 15 % (12-44); MEAN CORPUSCULAR HEMOGLOBIN 29 pg (25-34); MEAN CORPUSCULAR HGB CONC 33 g/dL (32-36); MEAN CORPUSCULAR VOLUME 88 fL (80-99); MEAN PLATELET VOLUME 8.9 fL (9.0-12.2); MONOCYTES # (AUTO) 0.5 10^3/uL (0.0-1.0); MONOCYTES % (AUTO) 9 % (0-12); NEUTROPHILS # (AUTO) 3.2 10^3/uL (1.8-7.8); NEUTROPHILS % (AUTO) 65 % (42-75); PLATELET COUNT 155 10^3/uL (130-400); WHITE BLOOD COUNT 4.9 10^3/uL (4.3-11.0)
[2021-08-01 13:48] LABS: ALBUMIN 3.8 GM/DL (3.2-4.5); BILIRUBIN,TOTAL 0.4 MG/DL (0.1-1.0); CALCIUM 8.6 MG/DL (8.5-10.1); CREATININE SERUM 1.17 MG/DL (0.60-1.30); POTASSIUM 3.9 MMOL/L (3.6-5.0)
[~2021-08-05 13:21] MED LIST changes: +NS IV 500 ML (CANCER CENTER) IV SCH; +NS IV SCH; +PEMBROLIZUMAB IV SCH
== END 2021-08-08 | disposition home or self-care (01) ==
LOC: ONC 13:21
PROVIDERS: ATTEND Internal Medicine Hematology & Oncology
DX: Z51.11 Encounter for antineoplastic chemotherapy (principal); Z45.2 Encounter for adjustment and management of vascular access device; C83.30 Diffuse large B-cell lymphoma, unspecified site; D50.9 Iron deficiency anemia, unspecified; I10 Essential (primary) hypertension; J90 Pleural effusion, not elsewhere classified; Z95.9 Presence of cardiac and vascular implant and graft, unspecified; Z87.438 Personal history of other diseases of male genital organs
CPT/HCPCS: 80053; 82728; 83540; 83550; 85025; 96413; G0463; 36591; 82274; 99213

== ENCOUNTER 2021-09-12 09:27 | Outpatient (RCR) | payer MEDICARE, OTHER ==
[~2021-09-12 09:27] MED LIST changes: -FEXO-249 PO; +HEParin (CENTRAL IV FLUSH) 500 UNIT/5 ML SYR IV PRN; +NF-ALLE180 PO; +NS (IVPB) 250 ML IV SCH; +NS IV SCH; +PEMBROLIZUMAB IV SCH
[2021-09-12 09:53] LABS: BASOPHILS % (AUTO) 1 % (0-10); EOSINOPHILS # (AUTO) 0.4 10^3/uL (0.0-0.3); EOSINOPHILS % (AUTO) 8 % (0-10); HEMATOCRIT 36 % (40-54); LYMPHOCYTES # (AUTO) 0.7 10^3/uL (1.0-4.0); LYMPHOCYTES % (AUTO) 14 % (12-44); MEAN CORPUSCULAR HEMOGLOBIN 29 pg (25-34); MEAN CORPUSCULAR HGB CONC 33 g/dL (32-36); MEAN CORPUSCULAR VOLUME 88 fL (80-99); MEAN PLATELET VOLUME 8.7 fL (9.0-12.2); MONOCYTES # (AUTO) 0.5 10^3/uL (0.0-1.0); MONOCYTES % (AUTO) 9 % (0-12); NEUTROPHILS # (AUTO) 3.5 10^3/uL (1.8-7.8); NEUTROPHILS % (AUTO) 68 % (42-75); PLATELET COUNT 144 10^3/uL (130-400); WHITE BLOOD COUNT 5.1 10^3/uL (4.3-11.0)
[2021-09-12 10:19] LABS: ALBUMIN 3.8 GM/DL (3.2-4.5); BILIRUBIN,TOTAL 0.4 MG/DL (0.1-1.0); CALCIUM 8.6 MG/DL (8.5-10.1); CREATININE SERUM 1.19 MG/DL (0.60-1.30); POTASSIUM 3.7 MMOL/L (3.6-5.0); TOTAL PROTEIN 5.9 GM/DL (6.4-8.2)
== END 2021-10-08 | disposition home or self-care (01) ==
LOC: ONC 09:27
PROVIDERS: ATTEND Internal Medicine Hematology & Oncology
DX: Z51.11 Encounter for antineoplastic chemotherapy (principal); Z45.2 Encounter for adjustment and management of vascular access device; C83.33 Diffuse large B-cell lymphoma, intra-abdominal lymph nodes; D50.9 Iron deficiency anemia, unspecified; I10 Essential (primary) hypertension; J90 Pleural effusion, not elsewhere classified; Z95.9 Presence of cardiac and vascular implant and graft, unspecified; Z87.438 Personal history of other diseases of male genital organs
CPT/HCPCS: 80053; 85025; 96360; 96413; G0463; 36591; 99213

== ENCOUNTER → 2021-09-12 | Outpatient (CLI) | payer MEDICARE, OTHER ==
[~2021-09-12] MED LIST changes: +FEXO-249 PO; -FEXO-46 PO; -NS IV 500 ML (CANCER CENTER) IV SCH; -NS IV SCH; -PEMBROLIZUMAB IV SCH
[2021-09-12 10:17] LABS: ALBUMIN 3.8 GM/DL (3.2-4.5); BILIRUBIN,TOTAL 0.4 MG/DL (0.1-1.0); CALCIUM 8.6 MG/DL (8.5-10.1); CREATININE SERUM 1.19 MG/DL (0.60-1.30); POTASSIUM 3.8 MMOL/L (3.6-5.0); TOTAL PROTEIN 5.8 GM/DL (6.4-8.2)
== END ==
LOC: LAB 09:24
PROVIDERS: ATTEND Internal Medicine Cardiovascular Disease
DX: C83.30 Diffuse large B-cell lymphoma, unspecified site (principal); C85.98 Non-Hodgkin lymphoma, unspecified, lymph nodes of multiple sites; R07.9 Chest pain, unspecified; I25.10 Atherosclerotic heart disease of native coronary artery without angina pectoris; R07.2 Precordial pain; I65.23 Occlusion and stenosis of bilateral carotid arteries; E78.2 Mixed hyperlipidemia; I10 Essential (primary) hypertension
CPT/HCPCS: 36415; 80053; 80061

== ENCOUNTER 2021-10-24 10:47 | Outpatient (RCR) | payer MEDICARE, OTHER ==
[2021-10-24 11:12] LABS: BASOPHILS % (AUTO) 1 % (0-10); EOSINOPHILS # (AUTO) 0.5 10^3/uL (0.0-0.3); EOSINOPHILS % (AUTO) 7 % (0-10); HEMATOCRIT 36 % (40-54); HEMOGLOBIN 11.8 g/dL (13.3-17.7); LYMPHOCYTES # (AUTO) 0.9 10^3/uL (1.0-4.0); LYMPHOCYTES % (AUTO) 13 % (12-44); MEAN CORPUSCULAR HEMOGLOBIN 29 pg (25-34); MEAN CORPUSCULAR HGB CONC 33 g/dL (32-36); MEAN CORPUSCULAR VOLUME 88 fL (80-99); MEAN PLATELET VOLUME 8.7 fL (9.0-12.2); MONOCYTES # (AUTO) 0.7 10^3/uL (0.0-1.0); MONOCYTES % (AUTO) 10 % (0-12); NEUTROPHILS # (AUTO) 4.8 10^3/uL (1.8-7.8); NEUTROPHILS % (AUTO) 69 % (42-75); PLATELET COUNT 178 10^3/uL (130-400); WHITE BLOOD COUNT 6.9 10^3/uL (4.3-11.0)
[2021-10-24 11:20] LABS: POTASSIUM 4.1 MMOL/L (3.6-5.0)
[2021-10-24 11:21] LABS: CALCIUM 9.1 MG/DL (8.5-10.1)
[2021-10-24 11:22] LABS: TOTAL PROTEIN 6.1 GM/DL (6.4-8.2)
[2021-10-24 11:24] LABS: BILIRUBIN,TOTAL 0.5 MG/DL (0.1-1.0)
[2021-10-24 11:26] LABS: CREATININE SERUM 1.31 MG/DL (0.60-1.30)
== END 2021-11-08 | disposition home or self-care (01) ==
LOC: ONC 10:47
PROVIDERS: ATTEND Internal Medicine Hematology & Oncology
DX: C83.33 Diffuse large B-cell lymphoma, intra-abdominal lymph nodes (principal); C79.2 Secondary malignant neoplasm of skin; D50.9 Iron deficiency anemia, unspecified; I10 Essential (primary) hypertension; J90 Pleural effusion, not elsewhere classified; Z95.9 Presence of cardiac and vascular implant and graft, unspecified; Z87.438 Personal history of other diseases of male genital organs
CPT/HCPCS: 80053; 85025; G0463; 99213

== ENCOUNTER 2021-12-05 09:27 | Outpatient (RCR) | payer MEDICARE, OTHER ==
[~2021-12-05 09:27] MED LIST changes: -HEParin (CENTRAL IV FLUSH) 500 UNIT/5 ML SYR IV PRN; -NS (IVPB) 250 ML IV SCH
[2021-12-05 09:58] LABS: BASOPHILS % (AUTO) 1 % (0-10); EOSINOPHILS # (AUTO) 0.5 10^3/uL (0.0-0.3); EOSINOPHILS % (AUTO) 9 % (0-10); HEMATOCRIT 36 % (40-54); HEMOGLOBIN 11.9 g/dL (13.3-17.7); LYMPHOCYTES # (AUTO) 0.9 10^3/uL (1.0-4.0); LYMPHOCYTES % (AUTO) 16 % (12-44); MEAN CORPUSCULAR HEMOGLOBIN 29 pg (25-34); MEAN CORPUSCULAR HGB CONC 33 g/dL (32-36); MEAN CORPUSCULAR VOLUME 88 fL (80-99); MEAN PLATELET VOLUME 8.7 fL (9.0-12.2); MONOCYTES # (AUTO) 0.5 10^3/uL (0.0-1.0); MONOCYTES % (AUTO) 9 % (0-12); NEUTROPHILS # (AUTO) 3.7 10^3/uL (1.8-7.8); NEUTROPHILS % (AUTO) 65 % (42-75); PLATELET COUNT 145 10^3/uL (130-400); WHITE BLOOD COUNT 5.7 10^3/uL (4.3-11.0)
[2021-12-05 10:20] LABS: ALBUMIN 3.8 GM/DL (3.2-4.5); BILIRUBIN,TOTAL 0.5 MG/DL (0.1-1.0); CREATININE SERUM 1.22 MG/DL (0.60-1.30); TOTAL PROTEIN 6.1 GM/DL (6.4-8.2)
[2021-12-05] MEDS ORDERED: NS (IVPB) 250 ML ONE (10:32)
== END 2021-12-08 | disposition home or self-care (01) ==
LOC: ONC 09:27
PROVIDERS: ATTEND Internal Medicine Hematology & Oncology
DX: Z51.11 Encounter for antineoplastic chemotherapy (principal); Z45.2 Encounter for adjustment and management of vascular access device; C83.33 Diffuse large B-cell lymphoma, intra-abdominal lymph nodes; C79.2 Secondary malignant neoplasm of skin; D50.9 Iron deficiency anemia, unspecified; I10 Essential (primary) hypertension; J90 Pleural effusion, not elsewhere classified; Z95.9 Presence of cardiac and vascular implant and graft, unspecified; Z87.438 Personal history of other diseases of male genital organs
CPT/HCPCS: 80053; 85025; 96360; 96413; G0463; 36591

== ENCOUNTER 2022-01-16 09:12 | Outpatient (RCR) | payer MEDICARE, OTHER ==
[~2022-01-16 09:12] MED LIST changes: +HEParin (CENTRAL IV FLUSH) 500 UNIT/5 ML SYR IV PRN; +NS (IVPB) 250 ML IV SCH
[2022-01-16 09:38] LABS: BASOPHILS # (AUTO) 0.1 10^3/uL (0.0-0.1); BASOPHILS % (AUTO) 1 % (0-10); EOSINOPHILS # (AUTO) 0.5 10^3/uL (0.0-0.3); EOSINOPHILS % (AUTO) 9 % (0-10); HEMATOCRIT 37 % (40-54); HEMOGLOBIN 12.2 g/dL (13.3-17.7); LYMPHOCYTES % (AUTO) 16 % (12-44); MEAN CORPUSCULAR HEMOGLOBIN 29 pg (25-34); MEAN CORPUSCULAR HGB CONC 33 g/dL (32-36); MEAN CORPUSCULAR VOLUME 87 fL (80-99); MEAN PLATELET VOLUME 8.8 fL (9.0-12.2); MONOCYTES # (AUTO) 0.5 10^3/uL (0.0-1.0); MONOCYTES % (AUTO) 9 % (0-12); NEUTROPHILS % (AUTO) 65 % (42-75); PLATELET COUNT 155 10^3/uL (130-400); WHITE BLOOD COUNT 6.1 10^3/uL (4.3-11.0)
[2022-01-16 09:59] LABS: ALBUMIN 3.9 GM/DL (3.2-4.5); BILIRUBIN,TOTAL 0.3 MG/DL (0.1-1.0); CALCIUM 9.1 MG/DL (8.5-10.1); CREATININE SERUM 1.22 MG/DL (0.60-1.30); POTASSIUM 4.5 MMOL/L (3.6-5.0)
[2022-01-26] MEDS ORDERED: FERR325T24 PO (08:54)
[2022-01-26] MEDS ORDERED: OMG1KC PO (08:54)
[2022-01-26] MEDS ORDERED: ASPI-999 PO (08:54)
[2022-01-26] MEDS ORDERED: MAGN400T39 PO (08:54)
[2022-01-26] MEDS ORDERED: HYDR25TA4 PO (08:54)
== END 2022-02-08 | disposition home or self-care (01) ==
LOC: ONC 09:12
PROVIDERS: ATTEND Internal Medicine Hematology & Oncology
DX: Z51.11 Encounter for antineoplastic chemotherapy (principal); Z45.2 Encounter for adjustment and management of vascular access device; C83.33 Diffuse large B-cell lymphoma, intra-abdominal lymph nodes; C79.2 Secondary malignant neoplasm of skin; D50.9 Iron deficiency anemia, unspecified; I10 Essential (primary) hypertension; J90 Pleural effusion, not elsewhere classified; Z95.9 Presence of cardiac and vascular implant and graft, unspecified; Z87.438 Personal history of other diseases of male genital organs
CPT/HCPCS: 80053; 85025; 96413; G0463; 36591

== ENCOUNTER 2022-01-24 05:39 | Outpatient (CLI) | payer MEDICARE ==
[~2022-01-24] VITALS: Ht 177.8 cm; Wt 81.3 kg
[~2022-01-24 05:39] MED LIST changes: -HEParin (CENTRAL IV FLUSH) 500 UNIT/5 ML SYR IV PRN; -NS (IVPB) 250 ML IV SCH; -NS IV SCH; -PEMBROLIZUMAB IV SCH
[2022-01-26] MEDS ORDERED: HYDR25TA4 PO (08:54)
[2022-01-26] MEDS ORDERED: OMG1KC PO (08:54)
[2022-01-26] MEDS ORDERED: ASPI-999 PO (08:54)
[2022-01-26] MEDS ORDERED: FERR325T24 PO (08:54)
[2022-01-26] MEDS ORDERED: MAGN400T39 PO (08:54)
== END 2022-01-26 08:58 ==
LOC: PREOP 05:39
PROVIDERS: ATTEND Specialist
DX: Z01.818 Encounter for other preprocedural examination (principal); H26.9 Unspecified cataract

== ENCOUNTER 2022-01-27 11:11 | Day surgery (SDC) | payer MEDICARE ==
[~2022-01-27] VITALS: Ht 177.8 cm; Wt 81.3 kg
[~2022-01-27 11:11] MED LIST changes: +ASPI-999 PO; +FERR325T24 PO; +HYDR25TA4 PO; +MAGN400T39 PO; +OMG1KC PO
[2022-01-27] MEDS ORDERED: MIDAZOLAM 2 MG/2 ML (VERSED) VIAL ONE (11:25)
[2022-01-27] MEDS ORDERED: TIMOLOL MALEATE 0.5% 5 ML (TIMOPTIC) BTL OU PRN ×2 (12:00)
[2022-01-27] MEDS ORDERED: TROPICAMIDE 1% OPH SOLN (MYDRIACYL) 15 ML BTL OP SCH (12:00)
[2022-01-27] MEDS ORDERED: POVIDONE (BETADINE) OPHTH SOLN 5% 30 ML OP ONE ×2 (12:00)
[2022-01-27] MEDS ORDERED: TETRACAINE 0.5% OPHTH SOLN 4 ML BTL (SINGLE DOSE ONLY) OU PRN (12:00)
[2022-01-27] MEDS ORDERED: PHENYLEPHRINE 10% OPHTH (NEO-SYN) 5 ML BTL OU SCH (12:00)
[2022-01-27] MEDS ORDERED: MOXIFLOXACIN OPHTH SOLN 5 MG/ML 0.3 ML SYRINGE OP ONE ×2 (12:00)
[2022-01-27] MEDS: TETRACAINE 0.5% OPHTH SOLN 4 ML BTL (SINGLE DOSE ONLY) OU PRN ×4 (12:05→12:22)
[2022-01-27] MEDS: TROPICAMIDE 1% OPH SOLN (MYDRIACYL) 15 ML BTL OP SCH ×3 (12:12→12:22)
[2022-01-27] MEDS: PHENYLEPHRINE 10% OPHTH (NEO-SYN) 5 ML BTL OU SCH ×3 (12:12→12:22)
[2022-01-27 12:14] VITALS: BP 133/76
--- NOTE | 2022-01-27 12:46 | Ophthalmologist Pre-Op Note ---
Pre-Operative Progress Note H&P Reviewed The H&P was reviewed, patient examined and no changes noted. Date H&P Reviewed: Jan 27, 2022 Time H&P Reviewed: 12:46 Pre-Op Dx Cataract, Left Eye ARACELIS NEVES MD Jan 27, 2022 12:46
[2022-01-27] MEDS ORDERED: acetaZOLAMIDE ER 500 MG CAP (DIAMOX SEQUELS) PO ONE ×2 (13:00)
--- NOTE | 2022-01-27 13:09 | Ophthalmology Operative Report ---
Cataract removal/placement IOL PREOPERATIVE DIAGNOSIS: Cataract Left Eye POSTOPERATIVE DIAGNOSIS: Cataract Left Eye PROCEDURE: Cataract removal and placement of posterior chamber implant, left eye SURGEON: Adam Neves ANESTHESIA: Topical with sedation COMPLICATIONS: None ESTIMATED BLOOD LOSS: Minimal DESCRIPTION OF PROCEDURE: After proper informed consent was obtained, the patient, a 81 male, was taken to the Operating Room and the left eye was anesthetized with tetracaine. The left eye was then prepped and draped in the usual manner. A wire lid speculum was placed. A paracentesis was made at the left hand position. Preservative free lidocaine was injected into the anterior chamber followed by viscoelastic. A clear corneal incision was made in the temporal position. A capsulorrhexis was preformed and the central nuclear and cortical material were removed. The posterior capsule was polished and an Mitchell 21.0 [id number] was placed into the capsular bag. The residual viscoelastic was aspirated and balanced saline solution was injected into the anterior chamber. Moxifloxacin was injected into the anterior chamber. The wound was checked and found to be water tight. The patient tolerated the procedure well without complications. ADAM NEVES MD Jan 27, 2022 13:09
[2022-01-27 13:11] VITALS: BP 153/80
--- NOTE | 2022-01-27 14:54 | Anesthesia-General Post-Op ---
MAC Patient Condition Mental Status/LOC: Same as Preop Cardiovascular: Satisfactory Nausea/Vomiting: Absent Respiratory: Satisfactory Pain: Controlled Complications: Absent Post Op Complications Complications None Follow Up Care/Instructions Patient Instructions None needed. Anesthesiology Discharge Order Discharge Order Patient is doing well, no complaints, stable vital signs, no apparent adverse anesthesia problems. No complications reported per nursing. SOO VIEIRA CRNA Jan 27, 2022 14:54
== END 2022-01-27 13:15 ==
LOC: SDC 11:11
PROVIDERS: ATTEND Specialist
DX: H26.9 Unspecified cataract (principal)
CPT/HCPCS: 66984; V2632

== ENCOUNTER 2022-02-01 05:40 | Outpatient (CLI) | payer MEDICARE | END 2022-02-06 09:49 | LOC: PREOP 05:40 | PROVIDERS: ATTEND Specialist | DX: Z01.818 Encounter for other preprocedural examination (principal); H26.9 Unspecified cataract ==

== ENCOUNTER 2022-02-10 06:07 | Day surgery (SDC) | payer MEDICARE ==
[~2022-02-10] VITALS: Ht 177.8 cm; Wt 81.3 kg
[2022-02-10] MEDS ORDERED: POVIDONE (BETADINE) OPHTH SOLN 5% 30 ML OP ONE (06:15)
[2022-02-10] MEDS ORDERED: MOXIFLOXACIN OPHTH SOLN 5 MG/ML 0.3 ML SYRINGE OP ONE (06:15)
[2022-02-10] MEDS ORDERED: TIMOLOL MALEATE 0.5% 5 ML (TIMOPTIC) BTL OU PRN (06:15)
[2022-02-10] MEDS: TETRACAINE 0.5% OPHTH SOLN 4 ML BTL (SINGLE DOSE ONLY) OU PRN ×4 (06:22→06:44)
[2022-02-10 06:30] VITALS: BP 147/76
[2022-02-10] MEDS: TROPICAMIDE 1% OPH SOLN (MYDRIACYL) 15 ML BTL OP SCH ×3 (06:34→06:44)
[2022-02-10] MEDS: PHENYLEPHRINE 10% OPHTH (NEO-SYN) 5 ML BTL OU SCH ×3 (06:34→06:44)
--- NOTE | 2022-02-10 07:21 | Ophthalmologist Pre-Op Note ---
Pre-Operative Progress Note H&P Reviewed The H&P was reviewed, patient examined and no changes noted. Date H&P Reviewed: Feb 10, 2022 Time H&P Reviewed: 07:21 Pre-Op Dx Cataract, Right Eye ARACELIS NEVES MD Feb 10, 2022 07:21
[2022-02-10] MEDS ORDERED: MIDAZOLAM 2 MG/2 ML (VERSED) VIAL ONE (07:25)
[2022-02-10] MEDS ORDERED: acetaZOLAMIDE ER 500 MG CAP (DIAMOX SEQUELS) PO ONE (07:30)
--- NOTE | 2022-02-10 07:43 | Ophthalmology Operative Report ---
Cataract removal/placement IOL PREOPERATIVE DIAGNOSIS: Cataract Right Eye POSTOPERATIVE DIAGNOSIS: Cataract Right Eye PROCEDURE: Cataract removal and placement of posterior chamber implant, right eye SURGEON: Adam Neves ANESTHESIA: Topical with sedation COMPLICATIONS: None ESTIMATED BLOOD LOSS: Minimal DESCRIPTION OF PROCEDURE: After proper informed consent was obtained, the patient, a 81 male, was taken to the Operating Room and the right eye was anesthetized with tetracaine. The right eye was then prepped and draped in the usual manner. A wire lid speculum was placed. A paracentesis was made at the left hand position. Preservative free lidocaine was injected into the anterior chamber followed by viscoelastic. A clear corneal incision was made in the temporal position. A capsulorrhexis was preformed and the central nuclear and cortical material were removed. The posterior capsule was polished and Mitchell 21.5 [id number] IOL was placed into the capsular bag. The residual viscoelastic was aspirated and balanced saline solution was injected into the anterior chamber. Moxifloxacin was injected into the anterior chamber. The wound was checked and found to be water tight. The patient tolerated the procedure well without complications. ADAM NEVES MD Feb 10, 2022 07:43
[2022-02-10 07:48] VITALS: BP 134/87
--- NOTE | 2022-02-10 12:35 | Anesthesia-General Post-Op ---
MAC Patient Condition Mental Status/LOC: Same as Preop Cardiovascular: Satisfactory Nausea/Vomiting: Absent Respiratory: Satisfactory Pain: Controlled Complications: Absent Post Op Complications Complications None Follow Up Care/Instructions Patient Instructions None needed. Anesthesiology Discharge Order Discharge Order Patient is doing well, no complaints, stable vital signs, no apparent adverse anesthesia problems. No complications reported per nursing. BARI ZAIDI CRNA Feb 10, 2022 12:35
== END 2022-02-10 10:17 | disposition home or self-care (01) ==
LOC: SDC 06:07
PROVIDERS: ATTEND Specialist
DX: H25.9 Unspecified age-related cataract (principal); Z79.82 Long term (current) use of aspirin; Z85.118 Personal history of other malignant neoplasm of bronchus and lung; Z85.820 Personal history of malignant melanoma of skin
CPT/HCPCS: 66984; V2632

== ENCOUNTER 2022-02-27 09:22 | Outpatient (RCR) | payer MEDICARE, OTHER ==
[~2022-02-27 09:22] MED LIST changes: +HEParin (CENTRAL IV FLUSH) 500 UNIT/5 ML SYR IV PRN; +NS (IVPB) 250 ML IV SCH; +NS IV SCH; +PEMBROLIZUMAB IV SCH
[2022-02-27 10:01] LABS: BASOPHILS % (AUTO) 1 % (0-10); EOSINOPHILS # (AUTO) 0.5 10^3/uL (0.0-0.3); EOSINOPHILS % (AUTO) 9 % (0-10); HEMATOCRIT 35 % (40-54); HEMOGLOBIN 11.7 g/dL (13.3-17.7); LYMPHOCYTES % (AUTO) 17 % (12-44); MEAN CORPUSCULAR HEMOGLOBIN 29 pg (25-34); MEAN CORPUSCULAR HGB CONC 34 g/dL (32-36); MEAN CORPUSCULAR VOLUME 87 fL (80-99); MEAN PLATELET VOLUME 8.7 fL (9.0-12.2); MONOCYTES # (AUTO) 0.5 10^3/uL (0.0-1.0); MONOCYTES % (AUTO) 8 % (0-12); NEUTROPHILS # (AUTO) 3.8 10^3/uL (1.8-7.8); NEUTROPHILS % (AUTO) 65 % (42-75); PLATELET COUNT 130 10^3/uL (130-400); WHITE BLOOD COUNT 5.8 10^3/uL (4.3-11.0)
[2022-02-27 10:21] LABS: ALBUMIN 3.8 GM/DL (3.2-4.5); BILIRUBIN,TOTAL 0.4 MG/DL (0.1-1.0); CALCIUM 8.9 MG/DL (8.5-10.1); CREATININE SERUM 1.31 MG/DL (0.60-1.30); POTASSIUM 4.1 MMOL/L (3.6-5.0); TOTAL PROTEIN 5.8 GM/DL (6.4-8.2)
== END 2022-03-10 | disposition home or self-care (01) ==
LOC: ONC 09:22
PROVIDERS: ATTEND Internal Medicine Hematology & Oncology
DX: Z51.11 Encounter for antineoplastic chemotherapy (principal); Z45.2 Encounter for adjustment and management of vascular access device; C83.33 Diffuse large B-cell lymphoma, intra-abdominal lymph nodes; C79.2 Secondary malignant neoplasm of skin; D50.9 Iron deficiency anemia, unspecified; I10 Essential (primary) hypertension; J90 Pleural effusion, not elsewhere classified; Z95.9 Presence of cardiac and vascular implant and graft, unspecified; Z87.438 Personal history of other diseases of male genital organs
CPT/HCPCS: 80053; 85025; 96360; 96413; G0463; 36591

== ENCOUNTER 2022-03-31 19:33 | Observation (INO) | payer MEDICARE ==
[~2022-03-31] VITALS: Ht 178 cm; Wt 98.2 kg
[~2022-03-31 19:33] MED LIST changes: -HEParin (CENTRAL IV FLUSH) 500 UNIT/5 ML SYR IV PRN; -NS (IVPB) 250 ML IV SCH; -NS IV SCH; -PEMBROLIZUMAB IV SCH
[2022-03-31] MEDS ORDERED: morphine IMMEDIATE RELEASE 15 MG TABLET PO PRN (20:45)
[2022-03-31] MEDS ORDERED: HYDROmorphone 2 MG/ML VIAL (DILAUDID) IV PRN (20:45)
[2022-03-31] MEDS ORDERED: LACTULOSE SYRUP 10GM/15ML (ENULOSE) 30ML UDC PO PRN (20:45)
[2022-03-31] MEDS ORDERED: ONDANSETRON 4 MG (ZOFRAN) ORAL DISSOLVE TAB PO PRN (20:45)
[2022-03-31] MEDS ORDERED: ANTACID SUSP 30 ML UDC (MYLANTA) PO PRN (20:45)
[2022-03-31] MEDS ORDERED: MILK OF MAGNESIA 400 MG/5 ML 30 ML UDC PO PRN (20:45)
[2022-03-31] MEDS ORDERED: ONDANSETRON 4 MG/2 ML (SDV) Z0FRAN IV PRN (20:45)
[2022-03-31] MEDS ORDERED: cloNIDine 0.1 MG (CATAPRES) TAB PO PRN (20:45)
[2022-03-31] MEDS ORDERED: PROMETHAZINE INJ 25 MG/ML (PHENERGAN) AMP IM PRN (20:45)
[2022-03-31] MEDS ORDERED: LORazepam 0.5 MG (ATIVAN) TABLET PO PRN (20:45)
[2022-03-31] MEDS ORDERED: polyethylene glycoL POWDER 17 GM (MIRALAX) PACK PO PRN (20:45)
[2022-03-31] MEDS ORDERED: ACETAMINOPHEN 325 MG TABLET PO PRN (20:45)
[2022-03-31] MEDS ORDERED: CALCIUM CARBONATE 500 MG (TUMS) TAB.CHEW PO PRN (20:45)
[2022-03-31] MEDS ORDERED: BISACODYL 10 MG SUPP (DULCOLAX) PR PRN (20:45)
[2022-03-31] MEDS ORDERED: MELATONIN 3 MG TABLET PO PRN (20:45)
[2022-03-31] MEDS ORDERED: diphenhydrAMINE 50 MG/ML INJ (BENADRYL) IVP PRN (20:45)
[2022-03-31] MEDS ORDERED: NALOXONE 0.4 MG/ML 1 ML (NARCAN) VIAL IV PRN (20:45)
[2022-03-31] MEDS ORDERED: diphenhydrAMINE 25 MG TAB (BENADRYL) PO PRN (20:45)
[2022-03-31 21:35] VITALS: BP 150/79
[2022-03-31] MEDS: DOCUSATE SODIUM 100 MG (COLACE) CAP PO SCH (22:07)
[2022-03-31] MEDS: SENNOSIDES 8.6 MG (SENOKOT) TAB PO SCH (22:07)
[2022-03-31] MEDS: NS IV 1000 ML 1,000 ML IV SCH (22:34)
[2022-03-31 23:49] VITALS: BP 150/79
[2022-04-01] VITALS: BP 136/72
[2022-04-01] MEDS ORDERED: RT-ALBUTEROL SULF 2.5 MG/3 ML PRE-MIX VIAL INH PRN
[2022-04-01] MEDS ORDERED: DOCU-143 PO (00:33)
[2022-04-01] MEDS ORDERED: LEVO5TAB12 PO (00:33)
[2022-04-01] MEDS ORDERED: MOME17SP11 NSEACH (00:33)
[2022-04-01] MEDS ORDERED: POLY17PO6 PO (00:33)
[2022-04-01] MEDS ORDERED: CETI10TA17 PO (00:33)
[2022-04-01] MEDS ORDERED: PEMB100V IV (00:33)
[2022-04-01] MEDS ORDERED: ONDA4TAB11 SL (00:33)
[2022-04-01 03:51] VITALS: BP 126/70
[2022-04-01 05:24] LABS: BASOPHILS % (AUTO) 1 % (0-10); EOSINOPHILS # (AUTO) 0.5 10^3/uL (0.0-0.3); EOSINOPHILS % (AUTO) 9 % (0-10); HEMATOCRIT 36 % (40-54); HEMOGLOBIN 11.8 g/dL (13.3-17.7); LYMPHOCYTES # (AUTO) 1.1 10^3/uL (1.0-4.0); LYMPHOCYTES % (AUTO) 19 % (12-44); MEAN CORPUSCULAR HEMOGLOBIN 29 pg (25-34); MEAN CORPUSCULAR HGB CONC 33 g/dL (32-36); MEAN CORPUSCULAR VOLUME 87 fL (80-99); MEAN PLATELET VOLUME 8.7 fL (9.0-12.2); MONOCYTES # (AUTO) 0.6 10^3/uL (0.0-1.0); MONOCYTES % (AUTO) 11 % (0-12); NEUTROPHILS # (AUTO) 3.5 10^3/uL (1.8-7.8); NEUTROPHILS % (AUTO) 61 % (42-75); PLATELET COUNT 145 10^3/uL (130-400); WHITE BLOOD COUNT 5.8 10^3/uL (4.3-11.0)
--- NOTE | 2022-04-01 05:42 | History & Physical-Hospitalist ---
History of Present Illness Date Seen 04/01/22 Time Seen by a Provider: 11:00 Attending Physician Jose Claudio MD PCP Admitting Physician: Justina Reed DO Attending Physician: Justina Reed DO Referring Physician Date of Admission Mar 31, 2022 at 21:35 Home Medications & Allergies Home Medications Reviewed patient Home Medication Reconciliation performed by pharmacy medication reconciliations sterile processing technician and/or nursing. Patients Allergies have been reviewed. Allergies Allergies Coded Allergies No Known Drug Allergies (Unverified08/17/20) Past Janrodb-Irtjpg-Wedehj Hx Patient Social History Tobacco Use?: No Substance use?: No Alcohol Use?: No Pt feels they are or have been: No Immunizations Up To Date Date of Influenza Vaccine: Mar 11, 2020 Tetanus Booster (TDap): Unknown Date of Pneumonia Vaccine: Mar 27, 2018 Seasonal Allergies Seasonal Allergies: Yes (HAY FEVER) Current Status Advance Directives: No Communicates: Verbally Primary Language: Swedish Sensory deficits: Vision impairment Implanted or Applied Medical D: Port-a-cath Past Medical History Surgeries: Gallbladder Currently Using CPAP: No Currently Using BIPAP: No Hypertension Prostate Problems Gastroesophageal Reflux, Chronic Constipation, Chronic Diarrhea, Gall Bladder Disease Hearing Impairment: Hard of Hearing Skin, Colon Blood Disorders: No Ca colon- metastatic, s/p resection HTN Hyperlipidemia Family Medical History Cancer Physical Exam Physical Exam Vital Signs Vital Signs - First Documented 03/31/22 03/31/22 21:35 23:49 Temp 36.7 Pulse 79 Resp 18 B/P (MAP) 150/79 (102) Pulse Ox 96 O2 Delivery Room Air FiO2 21 Capillary Refill : Height, Weight, BMI Height: 5'10.00" Weight: 160lbs. 0.0oz. 72.640714do; 30.99 BMI Method:Stated Results Results/Procedures Labs Laboratory Tests 04/01/22 04:56 Patient resulted labs reviewed. JUSTINA REED DO Apr 01, 2022 05:42
[2022-04-01 05:45] LABS: ALBUMIN 3.4 GM/DL (3.2-4.5)
[2022-04-01 05:46] LABS: POTASSIUM 3.9 MMOL/L (3.6-5.0)
[2022-04-01 05:47] LABS: CALCIUM 8.5 MG/DL (8.5-10.1)
[2022-04-01 05:48] LABS: TOTAL PROTEIN 5.7 GM/DL (6.4-8.2)
[2022-04-01 05:50] LABS: BILIRUBIN,TOTAL 0.5 MG/DL (0.1-1.0)
[2022-04-01 05:52] LABS: CREATININE SERUM 1.15 MG/DL (0.60-1.30)
[2022-04-01 07:55] VITALS: BP 136/71
[2022-04-01] MEDS: NS IV 1000 ML 1,000 ML IV SCH (08:00)
--- NOTE | 2022-04-01 08:42 | Diagnostic Imaging Report ---
Indication: Small bowel obstruction. Time of Exam: 8:23 AM Correlation is made with an outside CT performed one day earlier. Bowel gas pattern appears similar to perhaps slightly improved since yesterday. In particular, left-sided gaseous distended small bowel loops appear to be slightly less distended. The colon appears to be decompressed. There are surgical clips in the gallbladder fossa. No free air is identified. Impression: There has been some improvement in the degree of small bowel distention when compared with CT study one day earlier. Dictated by: Dictated on workstation # [id number]
[2022-04-01] MEDS: DOCUSATE SODIUM 100 MG (COLACE) CAP PO SCH (08:56)
[2022-04-01] MEDS: SENNOSIDES 8.6 MG (SENOKOT) TAB PO SCH (08:56)
--- NOTE | 2022-04-01 11:40 | Short Stay Summary-Hospitalist ---
History of Present Illness HPI/Chief Complaint Chief complaint: SBO HPI: This is a 81-year-old male who presented from [place] [facility] with abdominal pain found to have CT scan suspicious for small bowel obstruction so Dr. GRANDE was consulted patient was placed on IV fluids and supportive care and currently he is doing very well just had a BM and wants to go home. Source: patient Exam Limitations: no limitations Date Seen 04/01/22 Time Seen by a Provider: 11:30 Attending Physician Jose Claudio MD PCP Admitting Physician: Justina Reed DO Attending Physician: Justina Reed DO Referring Physician Date of Admission Mar 31, 2022 at 21:35 Home Medications & Allergies Home Medications Reviewed patient Home Medication Reconciliation performed by pharmacy medication reconciliations cnc service technician and/or nursing. Patients Allergies have been reviewed. Allergies Allergies Coded Allergies No Known Drug Allergies (Unverified08/17/20) Past Kakzszr-Twnrey-Lundwr Hx Patient Social History Marrital Status: single Employed/Student: retired Tobacco Use?: No Substance use?: No Alcohol Use?: No Pt feels they are or have been: No Immunizations Up To Date Date of Influenza Vaccine: Mar 11, 2020 Tetanus Booster (TDap): Unknown Date of Pneumonia Vaccine: Mar 27, 2018 Seasonal Allergies Seasonal Allergies: Yes (HAY FEVER) Current Status Advance Directives: No Communicates: Verbally Primary Language: Irish Sensory deficits: Vision impairment Implanted or Applied Medical D: Port-a-cath Past Medical History Surgeries: Gallbladder Currently Using CPAP: No Currently Using BIPAP: No Hypertension Prostate Problems Gastroesophageal Reflux, Chronic Constipation, Chronic Diarrhea, Gall Bladder Disease Hearing Impairment: Hard of Hearing Skin, Colon Blood Disorders: No Ca colon- metastatic, s/p resection HTN Hyperlipidemia Family Medical History Cancer Review of Systems Constitutional: see HPI Gastrointestinal: abdominal pain, loss of appetite Physical Exam Physical Exam Vital Signs Vital Signs - First Documented 03/31/22 03/31/22 21:35 23:49 Temp 36.7 Pulse 79 Resp 18 B/P (MAP) 150/79 (102) Pulse Ox 96 O2 Delivery Room Air FiO2 21 Capillary Refill : Height, Weight, BMI Height: 5'10.00" Weight: 160lbs. 0.0oz. 72.866565lk; 30.99 BMI Method:Stated General Appearance: No Apparent Distress, WD/WN, Chronically ill Eyes: Bilateral Eye Normal Inspection, Bilateral Eye PERRL HEENT: PERRL/EOMI, Normal ENT Inspection, Pharynx Normal Neck: Full Range of Motion, Normal Inspection, Non Tender, Supple, Carotid Bruit Respiratory: Chest Non Tender, Lungs Clear, Normal Breath Sounds, No Accessory Muscle Use, No Respiratory Distress Cardiovascular: Regular Rate, Rhythm, No Edema, No Gallop, No JVD, No Murmur, Normal Peripheral Pulses Gastrointestinal: Normal Bowel Sounds, No Organomegaly, No Pulsatile Mass, Non Tender, Soft Back: Normal Inspection, No CVA Tenderness, No Vertebral Tenderness Extremity: Normal Capillary Refill, Normal Inspection, Normal Range of Motion, Non Tender, No Calf Tenderness, No Pedal Edema Neurologic/Psychiatric: Alert, Oriented x3, No Motor/Sensory Deficits, Normal Mood/Affect Skin: Normal Color, Warm/Dry Lymphatic: No Adenopathy Results Results/Procedures Labs Laboratory Tests 04/01/22 04:56 Patient resulted labs reviewed. Short Stay Diagnosis Discharge Diagnosis-Short Stay Admission Diagnosis Assessment: SBO status post resolution Final Discharge Diagnosis Assessment: SBO status post resolution Conclusion Plan Discharge home JUSTINA REED DO Apr 01, 2022 11:40
[2022-04-01 11:44] VITALS: BP 130/68
[2022-04-01] MEDS ORDERED: NS IV 1000 ML 1,000 ML IV SCH (11:46)
[2022-04-01] MEDS ORDERED: FINASTERIDE (PROSCAR) 5 MG TAB PO SCH (12:00)
[2022-04-01] MEDS ORDERED: DOCUSATE SODIUM 100 MG (COLACE) CAP PO SCH (12:00)
[2022-04-01] MEDS ORDERED: ONDANSETRON 4 MG (ZOFRAN) ORAL DISSOLVE TAB SL PRN (12:00)
[2022-04-01] MEDS ORDERED: FERROUS SULF 325 MG (IRON) TAB PO SCH (12:00)
[2022-04-01] MEDS ORDERED: PANTOPRAZOLE 40 MG (PROTONIX) TAB PO SCH (12:00)
[2022-04-01] MEDS ORDERED: polyethylene glycoL POWDER 17 GM (MIRALAX) PACK PO PRN (12:00)
[2022-04-01] MEDS ORDERED: OMEGA 3 (FISH OIL) 1000 MG CAP PO SCH (12:00)
[2022-04-01] MEDS ORDERED: TAMSULOSIN 0.4 MG (FLOMAX) CAP PO SCH (12:00)
[2022-04-01] MEDS ORDERED: ASPIRIN 81 MG CHEW (CHILDREN'S ASA) PO SCH (12:00)
[2022-04-01] MEDS ORDERED: LORATADINE (CLARITIN) 10 MG TAB PO SCH (12:00)
[2022-04-01] MEDS ORDERED: PEMBROLIZUMAB IV SCH (12:00)
[2022-04-01] MEDS ORDERED: lisINopril 20 MG (PRINIVIL) TABLET PO SCH (12:00)
--- NOTE | 2022-04-01 12:12 | CONSULTATION REPORT ---
DATE OF SERVICE: 04/01/2022 ADMITTING PHYSICIAN: Dr. Reed. ATTENDING PRIMARY CARE PHYSICIAN: Dr. Isaac Claudio. HISTORY OF PRESENT ILLNESS: The patient is a 81-year-old male, who presented to his primary care physician's office for a crampy abdominal pain as well as nausea and vomiting. He stated that this had occurred early in the morning and had persisted. He states that he had three bowel movements earlier in the day and then trying to eat cereal; however, developed nausea and vomiting again. This persisted and he went to the Emergency Department in [place], [place], where he was evaluated and abdominal x-rays done, which may have been consistent with partial small-bowel obstruction. This gentleman does have a history of lymphoma causing a small bowel perforation and is status post exploratory laparotomy, small bowel resection approximately two years ago. Since that time, he has done well and completed a course of chemotherapy. A PET scan detected lesion of the right lung, which was biopsied and consistent with a melanoma and he states that since that time, he has been on Keytruda. He reports a history of a left thigh melanoma 30 years ago, which was widely excised. Since being admitted, he has felt much better. He has a drink liquids without any difficulty and states that he continues to have bowel movements. 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 PAST SURGERIES: Laparoscopic cholecystectomy, exploratory laparotomy and small bowel resection. ALLERGIES: No known drug allergies. MEDICATIONS: Aspirin 81 mg daily, cetirizine 10 mg daily, iron 325 mg daily, finasteride 5 mg daily, hydrochlorothiazide 25 mg daily, levocetirizine 5 mg daily, lisinopril 20 mg daily, mometasone furoate 50 mcg spray b.i.d., Protonix 40 mg daily, Keytruda IV q.6 weeks, MiraLax p.r.n., and tamsulosin 0.4 mg daily. SOCIAL HISTORY: Negative smoke, negative alcohol. FAMILY HISTORY: Noncontributory. VITAL SIGNS: Temperature 36.6, blood pressure 136/71, pulse 69, respirations 18, and pulse ox 92% on room air. REVIEW OF SYSTEMS: This is a well-nourished male currently in no acute distress. He is not experiencing any shortness of breath or difficulty in breathing. No chest pain, palpitations, diaphoresis. Since being admitted, he has had no crampy abdominal pain as well as no nausea or vomiting and has had a bowel movement. He does not report any red blood per rectum nor any dark tarry stools. No fever, chills, no recent inadvertent weight loss. All other review of systems negative. PHYSICAL EXAMINATION: VITAL SIGNS: Temperature 36.6, blood pressure 136/71, pulse 69, respirations 18, and pulse ox 92% on room air. CHEST: Clear. Good breath sounds bilaterally. HEART: Regular, no murmurs. EXTREMITIES: No lower extremity edema and negative Homans sign. HEENT: No scleral icterus, no cervical lymphadenopathy. ABDOMEN: Soft, nontender, and nondistended. No hernias. SKIN: Warm and dry. LABORATORY DATA: WBC 5.8, hemoglobin 11.8, hematocrit 36, and platelets 145. BUN is 22, creatinine 1.15. Liver function enzymes normal. ASSESSMENT AND PLAN: A 81-year-old male with constipation versus a partial small bowel obstruction. Since being admitted and placed on IV fluids and bowel rest, this has resolved on its own and he has had multiple bowel movements and he is able to tolerate liquids without any crampy abdominal pain. We will advance his diet to a DYS3 advanced diet and if he is able to tolerate this, he may be discharged home from our perspective. He also does have an appointment to see oncology this coming Sunday for a repeat PET scan. We will also have him continue with a regular ambulation. Job ID: [id number] DocumentID: [id number] Dictated Date: 04/01/2022 11:47:55 Office System Analyst Date: 04/01/2022 12:12:00 Dictated By: TREMAINE GRANDE MD [facility]
[2022-04-01] MEDS ORDERED: MOMETASONE FUROATE NSEACH SCH (21:00)
[2022-04-01] MEDS ORDERED: FLUTICASONE NASAL SPRAY (FLONASE) 16 GM BTL NS SCH (21:00)
[2022-04-02] MEDS ORDERED: NON-FORMULARY MEDICATION 1 EA EA (Levocetirizine Dihydrochloride 5 MG) PO SCH (09:00)
[2022-04-03] MEDS ORDERED: MAGNESIUM OXIDE (MAG-OX)400 MG TAB PO SCH (09:00)
== END 2022-04-01 13:10 | disposition home or self-care (01) ==
LOC: 4TH 21:35 → UNDOADMOB 21:35 → 4TH 21:58 → UNDODISOB 04-01 13:10
PROVIDERS: ADMIT Internal Medicine; ATTEND Internal Medicine
DX: K56.609 Unspecified intestinal obstruction, unspecified as to partial versus complete obstruction (principal)
CPT/HCPCS: 74018; 80053; 85025; G0378; G0379; 36415

== ENCOUNTER → 2022-04-03 | Outpatient (CLI) | payer MEDICARE ==
[~2022-04-03] MED LIST changes: +CATHETER FLUSH 10 ML SYR IV PRN; +CETI10TA17 PO; +HOLD METFORMIN - RECEIVED CONTRAST 20 ML VIAL IV SCH; +IOHEXOL 350 MG/ML 100 ML (OMNIPAQUE 350) VIAL IV ONE; +LEVO5TAB12 PO; +MOME17SP11 NSEACH; +NS 100 ML (IVPB) BAG IV ONE; +ONDA4TAB11 SL; +PEMB100V IV; +POLY17PO6 PO
--- NOTE | 2022-04-03 17:28 | Diagnostic Imaging Report ---
PROCEDURE: CT chest with contrast only. TECHNIQUE: Multiple contiguous axial images were obtained through the chest after administration of intravenous contrast. Auto Exposure Controls were utilized during the CT exam to meet ALARA standards for radiation dose reduction. DATE: April 03, 2022. COMPARISON: CT chest September 10, 2020. INDICATION: 81-year-old male, history of large B-cell lymphoma. FINDINGS: There is a 5 mm noncalcified right upper lobe pulmonary nodule on axial image 33 which is unchanged. There is a subcentimeter calcified right upper lobe granuloma on axial image 49. There is an additional calcified granuloma on the right lung anteriorly on axial image 95. There is a subcentimeter calcified right lower lobe granuloma on axial image 136 and also on axial image 113. There is a noncalcified 5 mm right lower lobe pulmonary nodule on axial image 108 which appears unchanged. The previously noted right middle lobe pulmonary nodule on prior axial image 74 substantially improved with current predominantly linear opacities at this location most consistent with treatment related changes. There is a pleurally based 4 mm left lower lobe pulmonary nodule on axial image 78 which is unchanged. There are mild linear opacities in the left lower lobe which may relate to mild scarring and/or atelectasis. There is no new or enlarging pulmonary nodule. There is no otherwise noted focal airspace consolidation. There is no pneumothorax. There is no pleural effusion. The more central airways are patent. The heart is not enlarged. There is no pericardial effusion. There are coronary artery calcifications. There are additional areas of atherosclerotic disease. There are calcified mediastinal and hilar lymph nodes most consistent with sequela of prior granulomatous disease. There is no identified noncalcified mediastinal, hilar, or axillary lymph node specifically meeting CT size criteria for adenopathy. There is a 5 mm low-attenuation lesion in the right lobe of liver on axial image 134 too small to characterize, which is unchanged. The gallbladder is surgically absent. There is a small hiatal hernia. There are multilevel degenerative changes of the spine. There is no identified aggressive bone lesion or acute bony abnormality. IMPRESSION: CT CHEST. 1. The previously noted right middle lobe pulmonary nodule is essentially resolved with current predominantly linear opacities at this location most consistent with treatment related changes and scarring and/or atelectasis. 2. No new or enlarging pulmonary nodule. 3. Findings of prior granulomatous disease. 4. No identified acute cardiopulmonary abnormality. Dictated by: Dictated on workstation # [id number]
--- NOTE | 2022-04-04 13:07 | Diagnostic Imaging Report ---
Indication: Metastatic melanoma and diffuse large B-cell lymphoma, restaging. Serum blood glucose levels at the time of injection was 109 mg/dL. Patient was given 12.9 mCi F-18 FDG intravenously in the right antecubital location and whole-body PET imaging was performed. Noncontrast CT was performed for attenuation correction and anatomic correlation. Correlation is made with prior PET/CT study from 07/18/2021. There is symmetric activity throughout the brain. Soft tissues of the neck are unremarkable. There is borderline uptake in the luis felipe bilaterally with SUV values of approximately 3.3. No mediastinal or hypermetabolic foci are seen. No pulmonary parenchymal metabolic foci are seen. The previously noted nodule right upper lobe is now barely visible. There is physiologic activity throughout the abdomen and pelvis within the gastrointestinal and genitourinary tract. Bilateral lower extremities are unremarkable. IMPRESSION: Borderline uptake in the luis felipe bilaterally, as described. Study is otherwise unremarkable. Dictated by: Dictated on workstation # [id number]
== END ==
LOC: RAD 11:15
PROVIDERS: ATTEND Internal Medicine Hematology & Oncology
DX: C83.30 Diffuse large B-cell lymphoma, unspecified site (principal); R91.8 Other nonspecific abnormal finding of lung field
CPT/HCPCS: 71260; 78816; A9552

== ENCOUNTER → 2022-04-10 | Outpatient (RCR) | payer MEDICARE, OTHER ==
[~2022-04-10] MED LIST changes: -CATHETER FLUSH 10 ML SYR IV PRN; +HEParin (CENTRAL IV FLUSH) 500 UNIT/5 ML SYR IV PRN; -HOLD METFORMIN - RECEIVED CONTRAST 20 ML VIAL IV SCH; -IOHEXOL 350 MG/ML 100 ML (OMNIPAQUE 350) VIAL IV ONE; +NS (IVPB) 250 ML IV SCH; -NS 100 ML (IVPB) BAG IV ONE; +NS IV SCH; +PEMBROLIZUMAB IV SCH
[2022-04-10 09:56] LABS: BASOPHILS # (AUTO) 0.1 10^3/uL (0.0-0.1); BASOPHILS % (AUTO) 1 % (0-10); EOSINOPHILS # (AUTO) 0.7 10^3/uL (0.0-0.3); EOSINOPHILS % (AUTO) 12 % (0-10); HEMATOCRIT 38 % (40-54); HEMOGLOBIN 12.2 g/dL (13.3-17.7); LYMPHOCYTES # (AUTO) 1.1 10^3/uL (1.0-4.0); LYMPHOCYTES % (AUTO) 19 % (12-44); MEAN CORPUSCULAR HEMOGLOBIN 28 pg (25-34); MEAN CORPUSCULAR HGB CONC 33 g/dL (32-36); MEAN CORPUSCULAR VOLUME 87 fL (80-99); MEAN PLATELET VOLUME 8.8 fL (9.0-12.2); MONOCYTES # (AUTO) 0.5 10^3/uL (0.0-1.0); MONOCYTES % (AUTO) 10 % (0-12); NEUTROPHILS # (AUTO) 3.3 10^3/uL (1.8-7.8); NEUTROPHILS % (AUTO) 58 % (42-75); PLATELET COUNT 156 10^3/uL (130-400); WHITE BLOOD COUNT 5.7 10^3/uL (4.3-11.0)
[2022-04-10 10:21] LABS: ALBUMIN 3.9 GM/DL (3.2-4.5); BILIRUBIN,TOTAL 0.4 MG/DL (0.1-1.0); CALCIUM 9.4 MG/DL (8.5-10.1); CREATININE SERUM 1.18 MG/DL (0.60-1.30); POTASSIUM 4.4 MMOL/L (3.6-5.0); TOTAL PROTEIN 6.2 GM/DL (6.4-8.2)
== END ==
LOC: ONC 09:33
PROVIDERS: ATTEND Internal Medicine Hematology & Oncology
DX: Z51.11 Encounter for antineoplastic chemotherapy (principal); Z45.2 Encounter for adjustment and management of vascular access device; C83.33 Diffuse large B-cell lymphoma, intra-abdominal lymph nodes; C79.2 Secondary malignant neoplasm of skin; D50.9 Iron deficiency anemia, unspecified; I10 Essential (primary) hypertension; J90 Pleural effusion, not elsewhere classified; Z95.9 Presence of cardiac and vascular implant and graft, unspecified; Z87.438 Personal history of other diseases of male genital organs
CPT/HCPCS: 80053; 85025; 96360; 96413; G0463; 36591

== ENCOUNTER 2022-05-25 09:13 | Outpatient (RCR) | payer MEDICARE, OTHER ==
[2022-05-25 09:33] LABS: BASOPHILS % (AUTO) 1 % (0-10); EOSINOPHILS # (AUTO) 0.6 10^3/uL (0.0-0.3); EOSINOPHILS % (AUTO) 10 % (0-10); HEMATOCRIT 37 % (40-54); HEMOGLOBIN 12.2 g/dL (13.3-17.7); LYMPHOCYTES % (AUTO) 16 % (12-44); MEAN CORPUSCULAR HEMOGLOBIN 29 pg (25-34); MEAN CORPUSCULAR HGB CONC 33 g/dL (32-36); MEAN CORPUSCULAR VOLUME 87 fL (80-99); MEAN PLATELET VOLUME 8.7 fL (9.0-12.2); MONOCYTES # (AUTO) 0.5 10^3/uL (0.0-1.0); MONOCYTES % (AUTO) 7 % (0-12); NEUTROPHILS % (AUTO) 65 % (42-75); PLATELET COUNT 145 10^3/uL (130-400); WHITE BLOOD COUNT 6.1 10^3/uL (4.3-11.0)
[2022-05-25 09:53] LABS: BILIRUBIN,TOTAL 0.4 MG/DL (0.1-1.0); CALCIUM 9.1 MG/DL (8.5-10.1); CREATININE SERUM 1.15 MG/DL (0.60-1.30); POTASSIUM 4.2 MMOL/L (3.6-5.0); TOTAL PROTEIN 6.3 GM/DL (6.4-8.2)
== END 2022-06-10 | disposition home or self-care (01) ==
LOC: ONC 09:13
PROVIDERS: ATTEND Internal Medicine Hematology & Oncology
DX: Z51.11 Encounter for antineoplastic chemotherapy (principal); Z45.2 Encounter for adjustment and management of vascular access device; C83.33 Diffuse large B-cell lymphoma, intra-abdominal lymph nodes; C79.2 Secondary malignant neoplasm of skin; D50.9 Iron deficiency anemia, unspecified; I10 Essential (primary) hypertension; J90 Pleural effusion, not elsewhere classified; Z95.9 Presence of cardiac and vascular implant and graft, unspecified; Z87.438 Personal history of other diseases of male genital organs
CPT/HCPCS: 80053; 85025; 96360; 96413; G0463; 36591

== ENCOUNTER → 2022-06-07 | Outpatient (CLI) | payer MEDICARE ==
[~2022-06-07] VITALS: Ht 177 cm; Wt 81.0 kg
[~2022-06-07] MED LIST changes: +CATHETER FLUSH 10 ML SYR IVP PRN; -HEParin (CENTRAL IV FLUSH) 500 UNIT/5 ML SYR IV PRN; -NS (IVPB) 250 ML IV SCH; -NS IV SCH; -PEMBROLIZUMAB IV SCH
[2022-06-07 12:57] VITALS: BP 115/76
--- NOTE | 2022-06-07 17:15 | Cardiology Stress Test Report ---
Stress Test Report Date of Procedure/Referring: Date of Procedure: Jun 07, 2022 PCP Jose Claudio MD Admitting Physician Admitting Physician: Attending Physician: Navjot Chow MD Indications: HTN Baseline Heart Rate: 71 Baseline Blood Pressure: Blood Pressure Systolic: 115 Blood Pressure Diastolic: 76 Vital Signs Date Time Temp Pulse Resp B/P (MAP) Pulse Ox O2 Delivery O2 Flow Rate FiO2 06/07/22 12:57 83 115/76 (89) Baseline Vital Signs Vital Signs Date Time Temp Pulse Resp B/P (MAP) Pulse Ox O2 Delivery O2 Flow Rate FiO2 06/07/22 12:57 83 115/76 (89) Baseline EKG: Baseline EKG: NSR Summary: After explaining the procedure and details to the patient, he signed the consent and was brought to the stress nuclear laboratory. Patient exercised on standard Carlos protocol, EKG, heart rate and blood pressure were monitored continuously, resting and stress doses of radio tracer were injected, imaging was acquired and reviewed in the short axis, horizontal long axis and vertical long axis views Patient was able to exercise for a total of 6 minutes on Carlos protocol, METs 7.3 Maximum heart rate 130 Maximum blood pressure 171/77 Stress EKG, Minimal nondiagnostic changes Recovery EKG, Return to baseline TID: 1 SSS: 5 SDS: 1 EF: 58 Conclusion: 1. Fair exercise tolerance for a total of 6 minutes on standard Carlos protocol, 7.3 METS achieving 92% of maximum expected heart rate 2. Appropriate heart rate and blood pressure response to exercise return to baseline during recovery 3. Nondiagnostic EKG changes with exercise return to baseline during recovery 4. Diaphragmatic attenuation with typical male pattern with fixed defect at the mid to apical inferoseptum with no significant reversibility, no significant ischemia or infarction on SPECT images 5. Normal left ventricular size, ejection fraction 58% Copy Copies To 1: [facility] [place] NAVJOT [place]OW MD Jun 07, 2022 17:15
== END ==
LOC: CARD 11:00
PROVIDERS: ATTEND Internal Medicine Cardiovascular Disease
DX: I34.0 Nonrheumatic mitral (valve) insufficiency (principal); I11.9 Hypertensive heart disease without heart failure; I25.10 Atherosclerotic heart disease of native coronary artery without angina pectoris
CPT/HCPCS: 78452; 93017; A9502; C8929; 93306

== ENCOUNTER 2022-07-06 08:54 | Outpatient (RCR) | payer MEDICARE, OTHER ==
[~2022-07-06 08:54] MED LIST changes: -CATHETER FLUSH 10 ML SYR IVP PRN; +HEParin (CENTRAL IV FLUSH) 500 UNIT/5 ML SYR IV PRN; +NS (IVPB) 250 ML IV SCH; +NS IV SCH; +PEMBROLIZUMAB IV SCH
[2022-07-06 09:25] LABS: BASOPHILS % (AUTO) 1 % (0-10); EOSINOPHILS # (AUTO) 0.8 10^3/uL (0.0-0.3); EOSINOPHILS % (AUTO) 12 % (0-10); HEMATOCRIT 37 % (40-54); HEMOGLOBIN 12.4 g/dL (13.3-17.7); LYMPHOCYTES # (AUTO) 0.9 X 10^3 (1.0-4.0); LYMPHOCYTES % (AUTO) 15 % (12-44); MEAN CORPUSCULAR HEMOGLOBIN 29 pg (25-34); MEAN CORPUSCULAR HGB CONC 33 g/dL (32-36); MEAN CORPUSCULAR VOLUME 87 fL (80-99); MEAN PLATELET VOLUME 8.7 fL (9.0-12.2); MONOCYTES # (AUTO) 0.6 X 10^3 (0.0-1.0); MONOCYTES % (AUTO) 9 % (0-12); NEUTROPHILS % (AUTO) 64 % (42-75); PLATELET COUNT 154 10^3/uL (130-400); WHITE BLOOD COUNT 6.3 10^3/uL (4.3-11.0)
[2022-07-06 09:36] LABS: ALBUMIN 3.8 GM/DL (3.2-4.5); BILIRUBIN,TOTAL 0.5 MG/DL (0.1-1.0); CALCIUM 8.5 MG/DL (8.5-10.1); CREATININE SERUM 1.19 MG/DL (0.60-1.30); POTASSIUM 4.2 MMOL/L (3.6-5.0)
== END 2022-07-11 | disposition home or self-care (01) ==
LOC: ONC 08:54
PROVIDERS: ATTEND Internal Medicine Hematology & Oncology
DX: Z51.11 Encounter for antineoplastic chemotherapy (principal); Z45.2 Encounter for adjustment and management of vascular access device; C83.33 Diffuse large B-cell lymphoma, intra-abdominal lymph nodes; C79.2 Secondary malignant neoplasm of skin; D50.9 Iron deficiency anemia, unspecified; I10 Essential (primary) hypertension; J90 Pleural effusion, not elsewhere classified; Z95.9 Presence of cardiac and vascular implant and graft, unspecified; Z87.438 Personal history of other diseases of male genital organs
CPT/HCPCS: 80053; 84443; 85025; 96360; 96413; G0463; 36591

== ENCOUNTER 2022-08-16 09:21 | Outpatient (RCR) | payer MEDICARE, OTHER ==
[2022-08-16 09:40] LABS: BASOPHILS % (AUTO) 1 % (0-10); EOSINOPHILS # (AUTO) 0.9 10^3/uL (0.0-0.3); EOSINOPHILS % (AUTO) 14 % (0-10); HEMATOCRIT 37 % (40-54); HEMOGLOBIN 12.6 g/dL (13.3-17.7); LYMPHOCYTES # (AUTO) 1.2 10^3/uL (1.0-4.0); LYMPHOCYTES % (AUTO) 18 % (12-44); MEAN CORPUSCULAR HEMOGLOBIN 29 pg (25-34); MEAN CORPUSCULAR HGB CONC 34 g/dL (32-36); MEAN CORPUSCULAR VOLUME 85 fL (80-99); MEAN PLATELET VOLUME 8.4 fL (9.0-12.2); MONOCYTES # (AUTO) 0.6 10^3/uL (0.0-1.0); MONOCYTES % (AUTO) 9 % (0-12); NEUTROPHILS # (AUTO) 3.7 10^3/uL (1.8-7.8); NEUTROPHILS % (AUTO) 58 % (42-75); PLATELET COUNT 173 10^3/uL (130-400); WHITE BLOOD COUNT 6.4 10^3/uL (4.3-11.0)
[2022-08-16 09:59] LABS: ALBUMIN 3.9 GM/DL (3.2-4.5); BILIRUBIN,TOTAL 0.4 MG/DL (0.1-1.0); CREATININE SERUM 1.32 MG/DL (0.60-1.30); POTASSIUM 4.3 MMOL/L (3.6-5.0); TOTAL PROTEIN 6.3 GM/DL (6.4-8.2)
== END 2022-09-08 | disposition home or self-care (01) ==
LOC: ONC 09:21
PROVIDERS: ATTEND Internal Medicine Hematology & Oncology
DX: Z51.11 Encounter for antineoplastic chemotherapy (principal); Z45.2 Encounter for adjustment and management of vascular access device; C83.33 Diffuse large B-cell lymphoma, intra-abdominal lymph nodes; C79.2 Secondary malignant neoplasm of skin; D50.9 Iron deficiency anemia, unspecified; I10 Essential (primary) hypertension; Z95.9 Presence of cardiac and vascular implant and graft, unspecified; Z87.438 Personal history of other diseases of male genital organs
CPT/HCPCS: 36591; 80053; 85025; 96413

== ENCOUNTER → 2022-08-22 | Outpatient (CLI) | payer MEDICARE, OTHER ==
[~2022-08-22] MED LIST changes: -HEParin (CENTRAL IV FLUSH) 500 UNIT/5 ML SYR IV PRN; +HOLD METFORMIN - RECEIVED CONTRAST 20 ML VIAL IV SCH; +IOHEXOL 350 MG/ML 100 ML (OMNIPAQUE 350) VIAL IV ONE; -NS (IVPB) 250 ML IV SCH; +NS 100 ML (IVPB) BAG IV ONE; -NS IV SCH; -PEMBROLIZUMAB IV SCH
--- NOTE | 2022-08-22 14:35 | Diagnostic Imaging Report ---
PROCEDURE: CT chest, abdomen, and pelvis with contrast. TECHNIQUE: Multiple contiguous axial images were obtained through the chest, abdomen, and pelvis after the administration of intravenous contrast. Auto Exposure Controls were utilized during the CT exam to meet ALARA standards for radiation dose reduction. INDICATION: History of large B-cell lymphoma, followup. FINDINGS: CT CHEST: Correlation is made with the prior CT from 04/03/2022. A right chest wall port has the tip at the SVC/right atrial junction. No axillary lymphadenopathy is identified. No definite mediastinal or hilar lymphadenopathy is identified. No pericardial or pleural fluid is detected. A 5 mm right upper lobe nodule, noncalcified, is stable. A slightly irregular density more inferiorly in the right upper lobe measures 7 mm and is stable when compared to prior exam. There are several calcified nodules, consistent with granulomas. A small density in the posterior right lower lobe measures 6 mm and is stable. IMPRESSION: Stable CT chest when compared with the prior exam from 04/03/2022. The previously noted pulmonary nodules appear stable. No thoracic lymphadenopathy is detected. CT ABDOMEN AND PELVIS: Comparison is made with the prior CT from 09/30/2020. A tiny low-attenuation lesion in the right lobe of the liver is noted and appears stable. The gallbladder is surgically absent. There is no biliary ductal dilatation. The pancreas and spleen are unremarkable. No adrenal mass is detected. No discrete renal mass or calculi are seen. There is no hydronephrosis. The aorta is nonaneurysmal. There are some shotty lymph nodes in the central retroperitoneum. No significant bowel dilatation is seen. There does appear to be some post surgical changes involving bowel loops in the left para-midline mid abdomen. There is a long segment of small bowel wall thickening but no definite evidence of obstruction. There is some generalized colonic diverticulosis but no evidence of acute diverticulitis. No free fluid or fluid collection is seen. The bladder is unremarkable. The prostate is enlarged. There are fat-containing inguinal hernias bilaterally. No definite pelvic lymphadenopathy is identified. IMPRESSION: 1. Shotty lymph nodes in the central retroperitoneum; however, no pathologically enlarged lymph nodes are detected. 2. Long segment of small bowel wall thickening in the mid to lower abdomen, perhaps on the basis of enteritis. There is no evidence of small bowel obstruction. 3. Uncomplicated diverticulosis. 4. Prostatomegaly. 5. Fat-containing inguinal hernias bilaterally. Dictated by: Dictated on workstation # [id number]
== END ==
LOC: RAD 12:25
PROVIDERS: ATTEND Internal Medicine Hematology & Oncology
DX: C85.90 Non-Hodgkin lymphoma, unspecified, unspecified site (principal); R91.8 Other nonspecific abnormal finding of lung field; K57.90 Diverticulosis of intestine, part unspecified, without perforation or abscess without bleeding; N40.0 Benign prostatic hyperplasia without lower urinary tract symptoms; K40.20 Bilateral inguinal hernia, without obstruction or gangrene, not specified as recurrent
CPT/HCPCS: 71260; 74177

== ENCOUNTER 2022-09-28 09:16 | Outpatient (RCR) | payer MEDICARE, OTHER ==
[~2022-09-28 09:16] MED LIST changes: +HEParin (CENTRAL IV FLUSH) 500 UNIT/5 ML SYR IV PRN; -HOLD METFORMIN - RECEIVED CONTRAST 20 ML VIAL IV SCH; -IOHEXOL 350 MG/ML 100 ML (OMNIPAQUE 350) VIAL IV ONE; +NS (IVPB) 250 ML IV SCH; -NS 100 ML (IVPB) BAG IV ONE; +NS IV SCH; +PEMBROLIZUMAB IV SCH
[2022-09-28 09:38] LABS: BASOPHILS % (AUTO) 1 % (0-10); EOSINOPHILS # (AUTO) 0.5 10^3/uL (0.0-0.3); EOSINOPHILS % (AUTO) 9 % (0-10); HEMATOCRIT 37 % (40-54); HEMOGLOBIN 12.2 g/dL (13.3-17.7); LYMPHOCYTES # (AUTO) 0.9 10^3/uL (1.0-4.0); LYMPHOCYTES % (AUTO) 16 % (12-44); MEAN CORPUSCULAR HEMOGLOBIN 29 pg (25-34); MEAN CORPUSCULAR HGB CONC 33 g/dL (32-36); MEAN CORPUSCULAR VOLUME 89 fL (80-99); MEAN PLATELET VOLUME 8.8 fL (9.0-12.2); MONOCYTES # (AUTO) 0.5 10^3/uL (0.0-1.0); MONOCYTES % (AUTO) 8 % (0-12); NEUTROPHILS # (AUTO) 3.8 10^3/uL (1.8-7.8); NEUTROPHILS % (AUTO) 66 % (42-75); PLATELET COUNT 140 10^3/uL (130-400); WHITE BLOOD COUNT 5.7 10^3/uL (4.3-11.0)
[2022-09-28 09:54] LABS: BILIRUBIN,TOTAL 0.4 MG/DL (0.1-1.0); CALCIUM 9.1 MG/DL (8.5-10.1); CREATININE SERUM 1.17 MG/DL (0.60-1.30); POTASSIUM 4.3 MMOL/L (3.6-5.0); TOTAL PROTEIN 6.3 GM/DL (6.4-8.2)
== END 2022-10-08 | disposition home or self-care (01) ==
LOC: ONC 09:16
PROVIDERS: ATTEND Internal Medicine Hematology & Oncology
DX: Z51.11 Encounter for antineoplastic chemotherapy (principal); Z45.2 Encounter for adjustment and management of vascular access device; C83.33 Diffuse large B-cell lymphoma, intra-abdominal lymph nodes; C79.2 Secondary malignant neoplasm of skin; D50.9 Iron deficiency anemia, unspecified; I10 Essential (primary) hypertension; N40.0 Benign prostatic hyperplasia without lower urinary tract symptoms; K40.90 Unilateral inguinal hernia, without obstruction or gangrene, not specified as recurrent; Z95.9 Presence of cardiac and vascular implant and graft, unspecified; Z87.438 Personal history of other diseases of male genital organs
CPT/HCPCS: 36591; 80053; 82728; 83540; 83550; 84443; 85025; 96413

== ENCOUNTER 2022-11-09 10:08 | Outpatient (RCR) | payer MEDICARE, OTHER ==
[~2022-11-09] VITALS: Ht 172.7 cm; Wt 80.8 kg
[2022-11-09 10:27] LABS: BASOPHILS % (AUTO) 1 % (0-10); EOSINOPHILS # (AUTO) 0.7 10^3/uL (0.0-0.3); EOSINOPHILS % (AUTO) 13 % (0-10); HEMATOCRIT 36 % (40-54); LYMPHOCYTES % (AUTO) 18 % (12-44); MEAN CORPUSCULAR HEMOGLOBIN 29 pg (25-34); MEAN CORPUSCULAR HGB CONC 33 g/dL (32-36); MEAN CORPUSCULAR VOLUME 88 fL (80-99); MEAN PLATELET VOLUME 8.8 fL (9.0-12.2); MONOCYTES # (AUTO) 0.4 10^3/uL (0.0-1.0); MONOCYTES % (AUTO) 8 % (0-12); NEUTROPHILS # (AUTO) 3.2 10^3/uL (1.8-7.8); NEUTROPHILS % (AUTO) 60 % (42-75); PLATELET COUNT 132 10^3/uL (130-400); WHITE BLOOD COUNT 5.4 10^3/uL (4.3-11.0)
[2022-11-09 10:44] LABS: ALBUMIN 3.9 GM/DL (3.2-4.5); BILIRUBIN,TOTAL 0.5 MG/DL (0.1-1.0); CALCIUM 8.8 MG/DL (8.5-10.1); CREATININE SERUM 1.41 MG/DL (0.60-1.30); POTASSIUM 4.4 MMOL/L (3.6-5.0)
[2022-11-09] MEDS ORDERED: NS IV 500 ML 500 ML ONE (10:52)
[2022-11-09] MEDS ORDERED: NS IV 500 ML 500 ML IV ONE (11:00)
[2022-11-09 12:50] VITALS: BP 140/76
[2022-11-23] MEDS ORDERED: MULT-593 PO (10:47)
== END 2022-12-08 | disposition home or self-care (01) ==
LOC: ONC 10:08
PROVIDERS: ATTEND Internal Medicine Hematology & Oncology
DX: Z51.11 Encounter for antineoplastic chemotherapy (principal); Z45.2 Encounter for adjustment and management of vascular access device; C83.33 Diffuse large B-cell lymphoma, intra-abdominal lymph nodes; C79.2 Secondary malignant neoplasm of skin; C85.93 Non-Hodgkin lymphoma, unspecified, intra-abdominal lymph nodes; D50.9 Iron deficiency anemia, unspecified; I10 Essential (primary) hypertension; N40.0 Benign prostatic hyperplasia without lower urinary tract symptoms; K40.90 Unilateral inguinal hernia, without obstruction or gangrene, not specified as recurrent; Z95.9 Presence of cardiac and vascular implant and graft, unspecified; Z87.438 Personal history of other diseases of male genital organs
CPT/HCPCS: 36591; 80053; 84443; 85025; 96360; 96413

== ENCOUNTER 2022-11-22 05:53 | Outpatient (CLI) | payer MEDICARE ==
[~2022-11-22] VITALS: Ht 172.7 cm; Wt 80.8 kg
[~2022-11-22 05:53] MED LIST changes: -HEParin (CENTRAL IV FLUSH) 500 UNIT/5 ML SYR IV PRN; -NS (IVPB) 250 ML IV SCH; -NS IV SCH; -PEMBROLIZUMAB IV SCH
[2022-11-23] MEDS ORDERED: MULT-593 PO (10:47)
== END 2022-11-23 10:56 | disposition home or self-care (01) ==
LOC: PREOP 05:53
PROVIDERS: ATTEND Surgery
DX: Z01.818 Encounter for other preprocedural examination (principal)

== ENCOUNTER 2022-12-05 09:11 | Day surgery (SDC) | payer MEDICARE ==
[~2022-12-05] VITALS: Ht 172.7 cm; Wt 80.8 kg
[~2022-12-05 09:11] MED LIST changes: +MULT-593 PO
[2022-12-05] MEDS ORDERED: LACTATED RINGERS 1,000 ML IV STA (09:15)
[2022-12-05 09:45] VITALS: BP 124/75
--- NOTE | 2022-12-05 11:48 | Discharge Inst-Simple/Standard ---
Discharge Inst-Standard Patient Instructions/Follow Up Plan of Care/Instructions/FU: 2 weeks juhi Activity as Tolerated: Yes Discharge Diet: Regular Diet (high fiber) HEIDI KIDD DO Dec 05, 2022 11:48
[2022-12-05 11:50] VITALS: BP 92/51
--- NOTE | 2022-12-05 11:50 | Progress Note-Post Operative ---
Post-Operative Progess Note Surgeon (s)/Database Administration Project Manager (s) Surgeon HEIDI KIDD DO Database Administration Project Manager: na Pre-Operative Diagnosis gerd, constipation Post-Operative Diagnosis left prostate nodule, diverticulosis, hemorrhoids, hiatal hernia Procedure & Operative Findings Date of Procedure 12/05/22 Procedure Performed/Findings egd c biopsies, colonoscopy Anesthesia Type per sql application developer Estimated Blood Loss Estimated blood loss (mL): none Specimens/Packing Specimens Removed antrum, ge HEIDI KIDD DO Dec 05, 2022 11:50
[2022-12-05 11:55] VITALS: BP 93/54
[2022-12-05 12:00] VITALS: BP 85/56
--- NOTE | 2022-12-05 12:14 | Anesthesia-General Post-Op ---
MAC Patient Condition Mental Status/LOC: Same as Preop Cardiovascular: Satisfactory Nausea/Vomiting: Absent Respiratory: Satisfactory Pain: Controlled Complications: Absent Post Op Complications Complications None Follow Up Care/Instructions Patient Instructions None needed. Anesthesiology Discharge Order Discharge Order Patient is doing well, no complaints, stable vital signs, no apparent adverse anesthesia problems. No complications reported per nursing. JENNIFER KAUFMAN CRNA Dec 05, 2022 12:14
[2022-12-05] MEDS ORDERED: HURRICAINE EXT TUBE (BENZOCAINE) XX PRN (12:15)
[2022-12-05 12:23] VITALS: BP 93/54
--- NOTE | 2022-12-05 16:47 | OPERATIVE REPORT ---
DATE OF SERVICE: 12/05/2022 PREOPERATIVE DIAGNOSES: Gastroesophageal reflux disease, constipation. POSTOPERATIVE DIAGNOSES: Small hiatal hernia, left prostate nodule, diverticulosis, internal hemorrhoids. PROCEDURES: EGD with biopsies, colonoscopy. SURGEON: Heidi Stewart DO ANESTHESIA: Per FUR LINER. ESTIMATED BLOOD LOSS: None. COMPLICATIONS: None. INDICATIONS: The patient is an 82-year-old male with GERD symptoms and constipation issues. He understands risks and benefits and wishes to proceed. A consent was signed and in chart. DESCRIPTION OF PROCEDURE: The patient was taken to endoscopy suite, placed in left lateral recumbent position. Timeout was performed. Scope was inserted in the mouth, down the esophagus, stomach, into the duodenum without difficulty. No polyps, masses or ulcerations within the duodenum. Scope was slowly retracted back into stomach where it was further insufflated. No polyps, masses or ulcerations. Biopsy of the antrum was obtained. Scope was retroflexed noting a small hiatal hernia. Scope was returned to its normal position, slowly withdrawn until distal esophagus. Biopsy of GE junction was obtained. Scope was slowly retracted back until completely removed, noting no other pathology. Digital rectal exam was performed, noting what was to be a small left prostate nodule. No other palpable polyps, masses or ulcerations. The patient with some slight internal hemorrhoids. Scope was inserted in the rectum, advanced all the way to the cecum with minimal difficulty. Prep was adequate. Scope was slowly retracted back. No polyps, masses or ulcerations within the cecum, ascending, transverse, descending and sigmoid colon. Once in the rectum, scope was retroflexed noting some small internal hemorrhoids, no other pathology. Scope was returned to its normal position, slowly withdrawn until completely removed. The patient tolerated the procedure well without complications, taken to recovery room in stable condition. RECOMMENDATIONS: The patient has diverticulosis and also constipation, we would recommend high fiber diet to see if this does [ ] help. The left prostate nodule would refer to Urology if this is a new finding and has not been worked up. He will follow up on biopsies in 2 weeks. The patient does not need any further colonoscopies. Any issues. We would consider repeating at that time. Job ID: [id number] DocumentID: [id number] Dictated Date: 12/05/2022 11:53:29 Straddle Carrier Operator Date: 12/05/2022 16:45:00 Dictated By: HEIDI STEWART DO
== END 2022-12-05 12:31 | disposition home or self-care (01) ==
LOC: ENDO 09:11
PROVIDERS: ATTEND Surgery
DX: K57.30 Diverticulosis of large intestine without perforation or abscess without bleeding (principal); K64.8 Other hemorrhoids; K44.9 Diaphragmatic hernia without obstruction or gangrene; N40.2 Nodular prostate without lower urinary tract symptoms; K21.00 Gastro-esophageal reflux disease with esophagitis, without bleeding; K59.09 Other constipation; C43.20 Malignant melanoma of unspecified ear and external auricular canal; C78.00 Secondary malignant neoplasm of unspecified lung; Z85.72 Personal history of non-Hodgkin lymphomas
CPT/HCPCS: 88305

== ENCOUNTER 2022-12-21 09:45 | Outpatient (RCR) | payer MEDICARE, OTHER ==
[~2022-12-21] VITALS: Ht 172.7 cm; Wt 79.7 kg
[~2022-12-21 09:45] MED LIST changes: +HEParin (CENTRAL IV FLUSH) 500 UNIT/5 ML SYR IV PRN; +NS (IVPB) 250 ML 250 ML IV SCH; +NS IV 500 ML 500 ML IV SCH; +NS IV SCH; +PEMBROLIZUMAB IV SCH
[2022-12-21 10:00] LABS: BASOPHILS # (AUTO) 0.1 10^3/uL (0.0-0.1); BASOPHILS % (AUTO) 1 % (0-10); EOSINOPHILS # (AUTO) 0.5 10^3/uL (0.0-0.3); EOSINOPHILS % (AUTO) 8 % (0-10); HEMATOCRIT 37 % (40-54); HEMOGLOBIN 12.3 g/dL (13.3-17.7); LYMPHOCYTES # (AUTO) 1.1 10^3/uL (1.0-4.0); LYMPHOCYTES % (AUTO) 17 % (12-44); MEAN CORPUSCULAR HEMOGLOBIN 29 pg (25-34); MEAN CORPUSCULAR HGB CONC 33 g/dL (32-36); MEAN CORPUSCULAR VOLUME 88 fL (80-99); MEAN PLATELET VOLUME 8.6 fL (9.0-12.2); MONOCYTES # (AUTO) 0.5 10^3/uL (0.0-1.0); MONOCYTES % (AUTO) 9 % (0-12); NEUTROPHILS % (AUTO) 65 % (42-75); PLATELET COUNT 147 10^3/uL (130-400); WHITE BLOOD COUNT 6.1 10^3/uL (4.3-11.0)
[2022-12-21 10:18] LABS: ALBUMIN 4.1 GM/DL (3.2-4.5); BILIRUBIN,TOTAL 0.5 MG/DL (0.1-1.0); CALCIUM 9.2 MG/DL (8.5-10.1); CREATININE SERUM 1.45 MG/DL (0.60-1.30); POTASSIUM 4.2 MMOL/L (3.6-5.0); TOTAL PROTEIN 6.1 GM/DL (6.4-8.2)
[2022-12-21 10:20] VITALS: BP 121/73
== END 2023-01-08 | disposition home or self-care (01) ==
LOC: ONC 09:45
PROVIDERS: ATTEND Internal Medicine Hematology & Oncology
DX: Z51.11 Encounter for antineoplastic chemotherapy (principal); Z45.2 Encounter for adjustment and management of vascular access device; C83.33 Diffuse large B-cell lymphoma, intra-abdominal lymph nodes; C79.2 Secondary malignant neoplasm of skin; C85.93 Non-Hodgkin lymphoma, unspecified, intra-abdominal lymph nodes; D50.9 Iron deficiency anemia, unspecified; I10 Essential (primary) hypertension; N40.0 Benign prostatic hyperplasia without lower urinary tract symptoms; K40.00 Bilateral inguinal hernia, with obstruction, without gangrene, not specified as recurrent
CPT/HCPCS: 36591; 80053; 85025; 96413

== ENCOUNTER 2023-02-01 07:32 | Outpatient (RCR) | payer MEDICARE, OTHER ==
[~2023-02-01] VITALS: Ht 172.7 cm; Wt 79.8 kg
[~2023-02-01 07:32] MED LIST changes: +DICY-11 PO; -DICY10CA12 PO; -HEParin (CENTRAL IV FLUSH) 500 UNIT/5 ML SYR IV PRN; -NS (IVPB) 250 ML 250 ML IV SCH; -NS IV 500 ML 500 ML IV SCH; -NS IV SCH; -PEMBROLIZUMAB IV SCH
[2023-02-01] MEDS ORDERED: NS IV 500 ML 500 ML IV SCH (08:20)
[2023-02-01] MEDS ORDERED: NS (IVPB) 250 ML 250 ML IV SCH (08:20)
[2023-02-01] MEDS ORDERED: NS IV SCH (08:20)
[2023-02-01] MEDS ORDERED: PEMBROLIZUMAB IV SCH (08:20)
[2023-02-01] MEDS ORDERED: HEParin (CENTRAL IV FLUSH) 500 UNIT/5 ML SYR IV PRN (08:20)
[2023-02-01 10:42] LABS: BASOPHILS % (AUTO) 1 % (0-10); EOSINOPHILS # (AUTO) 0.5 10^3/uL (0.0-0.3); EOSINOPHILS % (AUTO) 9 % (0-10); HEMATOCRIT 36 % (40-54); HEMOGLOBIN 11.5 g/dL (13.3-17.7); LYMPHOCYTES # (AUTO) 0.9 10^3/uL (1.0-4.0); LYMPHOCYTES % (AUTO) 16 % (12-44); MEAN CORPUSCULAR HEMOGLOBIN 29 pg (25-34); MEAN CORPUSCULAR HGB CONC 32 g/dL (32-36); MEAN CORPUSCULAR VOLUME 90 fL (80-99); MEAN PLATELET VOLUME 8.6 fL (9.0-12.2); MONOCYTES # (AUTO) 0.6 10^3/uL (0.0-1.0); MONOCYTES % (AUTO) 11 % (0-12); NEUTROPHILS # (AUTO) 3.8 10^3/uL (1.8-7.8); NEUTROPHILS % (AUTO) 64 % (42-75); PLATELET COUNT 145 10^3/uL (130-400); WHITE BLOOD COUNT 5.9 10^3/uL (4.3-11.0)
[2023-02-01 10:45] VITALS: BP 128/75
[2023-02-01 11:01] LABS: ALBUMIN 3.9 GM/DL (3.2-4.5); BILIRUBIN,TOTAL 0.4 MG/DL (0.1-1.0); CALCIUM 8.7 MG/DL (8.5-10.1); CREATININE SERUM 1.29 MG/DL (0.60-1.30); POTASSIUM 4.1 MMOL/L (3.6-5.0); TOTAL PROTEIN 5.8 GM/DL (6.4-8.2)
== END 2023-02-08 | disposition still patient (30) ==
LOC: ONC 07:32
PROVIDERS: ATTEND Internal Medicine Hematology & Oncology
DX: Z51.11 Encounter for antineoplastic chemotherapy (principal); Z45.2 Encounter for adjustment and management of vascular access device; C83.33 Diffuse large B-cell lymphoma, intra-abdominal lymph nodes; C79.2 Secondary malignant neoplasm of skin; C85.93 Non-Hodgkin lymphoma, unspecified, intra-abdominal lymph nodes; D50.9 Iron deficiency anemia, unspecified; I10 Essential (primary) hypertension; N40.0 Benign prostatic hyperplasia without lower urinary tract symptoms; K40.00 Bilateral inguinal hernia, with obstruction, without gangrene, not specified as recurrent
CPT/HCPCS: 80053; 85025; 96413; G0463; 36591; 99214

== ENCOUNTER → 2023-03-01 | Outpatient (CLI) | payer MEDICARE ==
[~2023-03-01] MED LIST changes: +IOHEXOL 350 MG/ML 100 ML (OMNIPAQUE 350) VIAL IV ONE; +NS 100 ML (IVPB) BAG IV ONE
--- NOTE | 2023-03-01 10:26 | Diagnostic Imaging Report ---
EXAMINATION: CT chest, abdomen and pelvis with intravenous contrast. TECHNIQUE: Multiple contiguous axial images were obtained through the chest, abdomen and pelvis after the uneventful administration of intravenous contrast. All CT scans use one or more of the following dose optimizing techniques: automated exposure control, MA and/or KvP adjustment based on patient size and exam type or iterative reconstruction. HISTORY: Colon cancer, lung cancer, lymphoma COMPARISON: 08/22/2022 FINDINGS: There is no edema or pneumonia. No pleural effusion. No pneumothorax. Right upper lobe 4 mm nodule is unchanged. No new nodules are seen. There is no axillary or supraclavicular lymphadenopathy. There is no mediastinal lymphadenopathy. Heart size is normal. There are severe coronary artery calcifications. No pericardial effusion. Aorta is normal in caliber. A right-sided [id number] is present. Small cyst in the right liver is unchanged. There is no biliary ductal dilation. Gallbladder is absent. Pancreas is normal. Spleen is normal. Adrenal glands are normal. The kidneys are normal. There is no hydronephrosis. Urinary bladder is normal. Bowel is normal in caliber without obstruction or inflammation. No free fluid or air. A low attenuating right external iliac nodule measures 2.8 x 1.4 cm, previously 1.8 x 1.2 cm. Aorta is normal in caliber without aneurysm. There are no suspicious osseus lesions. IMPRESSION: 1. Unchanged 4 mm right upper lobe nodule. 2. A low attenuating right external iliac nodule measures slightly larger than on prior exam and is indeterminate and possibly representing a chronic seroma or lymphocele with low attenuating adenopathy felt to be less likely. Continued attention on follow-up recommended. Dictated by: Dictated on workstation # [id number]
== END ==
LOC: RAD 09:30
PROVIDERS: ATTEND Internal Medicine Hematology & Oncology
DX: C85.90 Non-Hodgkin lymphoma, unspecified, unspecified site (principal); R91.1 Solitary pulmonary nodule
CPT/HCPCS: 71260; 74177

== ENCOUNTER 2023-03-15 08:15 | Outpatient (RCR) | payer MEDICARE, OTHER ==
[~2023-03-15 08:15] MED LIST changes: +HEParin (CENTRAL IV FLUSH) 500 UNIT/5 ML SYR IV PRN; -IOHEXOL 350 MG/ML 100 ML (OMNIPAQUE 350) VIAL IV ONE; +NS (IVPB) 250 ML 250 ML IV SCH; -NS 100 ML (IVPB) BAG IV ONE; +NS IV 500 ML 500 ML IV SCH; +NS IV SCH; +PEMBROLIZUMAB IV SCH
[2023-03-15 10:52] LABS: BASOPHILS # (AUTO) 0.1 10^3/uL (0.0-0.1); BASOPHILS % (AUTO) 1 % (0-10); EOSINOPHILS # (AUTO) 0.6 10^3/uL (0.0-0.3); EOSINOPHILS % (AUTO) 10 % (0-10); HEMATOCRIT 35 % (40-54); HEMOGLOBIN 11.5 g/dL (13.3-17.7); LYMPHOCYTES # (AUTO) 1.1 10^3/uL (1.0-4.0); LYMPHOCYTES % (AUTO) 18 % (12-44); MEAN CORPUSCULAR HEMOGLOBIN 29 pg (25-34); MEAN CORPUSCULAR HGB CONC 33 g/dL (32-36); MEAN CORPUSCULAR VOLUME 90 fL (80-99); MEAN PLATELET VOLUME 8.4 fL (9.0-12.2); MONOCYTES # (AUTO) 0.6 10^3/uL (0.0-1.0); MONOCYTES % (AUTO) 9 % (0-12); NEUTROPHILS % (AUTO) 62 % (42-75); PLATELET COUNT 154 10^3/uL (130-400); WHITE BLOOD COUNT 6.4 10^3/uL (4.3-11.0)
[2023-03-15 11:11] VITALS: BP 142/77
[2023-03-15 11:12] LABS: ALBUMIN 3.9 GM/DL (3.2-4.5); BILIRUBIN,TOTAL 0.6 MG/DL (0.1-1.0); CALCIUM 8.8 MG/DL (8.5-10.1); CREATININE SERUM 1.43 MG/DL (0.60-1.30); POTASSIUM 4.3 MMOL/L (3.6-5.0)
== END 2023-04-10 | disposition home or self-care (01) ==
LOC: ONC 08:15
PROVIDERS: ATTEND Internal Medicine Hematology & Oncology
DX: Z51.11 Encounter for antineoplastic chemotherapy (principal); Z45.2 Encounter for adjustment and management of vascular access device; C83.33 Diffuse large B-cell lymphoma, intra-abdominal lymph nodes; C78.00 Secondary malignant neoplasm of unspecified lung; C79.2 Secondary malignant neoplasm of skin; C85.93 Non-Hodgkin lymphoma, unspecified, intra-abdominal lymph nodes; D50.9 Iron deficiency anemia, unspecified; I10 Essential (primary) hypertension; N40.0 Benign prostatic hyperplasia without lower urinary tract symptoms; K40.00 Bilateral inguinal hernia, with obstruction, without gangrene, not specified as recurrent
CPT/HCPCS: 80053; 85025; 96413; G0463; 36591; 99214

== ENCOUNTER 2023-04-26 08:08 | Outpatient (RCR) | payer MEDICARE, OTHER ==
[~2023-04-26] VITALS: Ht 172.7 cm; Wt 78.5 kg
[~2023-04-26 08:08] MED LIST changes: -HEParin (CENTRAL IV FLUSH) 500 UNIT/5 ML SYR IV PRN; -NS (IVPB) 250 ML 250 ML IV SCH; -NS IV 500 ML 500 ML IV SCH; -NS IV SCH; -PEMBROLIZUMAB IV SCH
[2023-04-26] MEDS ORDERED: NS IV 500 ML 500 ML IV SCH ×2 (08:51→08:53)
[2023-04-26] MEDS ORDERED: NS IV SCH (08:53)
[2023-04-26] MEDS ORDERED: NS (IVPB) 250 ML 250 ML IV SCH (08:53)
[2023-04-26] MEDS ORDERED: PEMBROLIZUMAB IV SCH (08:53)
[2023-04-26] MEDS ORDERED: HEParin (CENTRAL IV FLUSH) 500 UNIT/5 ML SYR IV PRN (08:53)
[2023-04-26 11:16] LABS: BASOPHILS % (AUTO) 1 % (0-10); EOSINOPHILS # (AUTO) 0.4 10^3/uL (0.0-0.3); EOSINOPHILS % (AUTO) 8 % (0-10); HEMATOCRIT 37 % (40-54); HEMOGLOBIN 12.1 g/dL (13.3-17.7); LYMPHOCYTES # (AUTO) 0.9 10^3/uL (1.0-4.0); LYMPHOCYTES % (AUTO) 17 % (12-44); MEAN CORPUSCULAR HEMOGLOBIN 29 pg (25-34); MEAN CORPUSCULAR HGB CONC 33 g/dL (32-36); MEAN CORPUSCULAR VOLUME 90 fL (80-99); MEAN PLATELET VOLUME 8.7 fL (9.0-12.2); MONOCYTES # (AUTO) 0.5 10^3/uL (0.0-1.0); MONOCYTES % (AUTO) 9 % (0-12); NEUTROPHILS # (AUTO) 3.5 10^3/uL (1.8-7.8); NEUTROPHILS % (AUTO) 65 % (42-75); PLATELET COUNT 147 10^3/uL (130-400); WHITE BLOOD COUNT 5.3 10^3/uL (4.3-11.0)
[2023-04-26 11:43] LABS: BILIRUBIN,TOTAL 0.5 MG/DL (0.1-1.0); CREATININE SERUM 1.22 MG/DL (0.60-1.30); POTASSIUM 4.2 MMOL/L (3.6-5.0); TOTAL PROTEIN 6.1 GM/DL (6.4-8.2)
[2023-04-26 12:20] VITALS: BP 125/73
== END 2023-05-10 | disposition home or self-care (01) ==
LOC: ONC 08:08
PROVIDERS: ATTEND Internal Medicine Hematology & Oncology
DX: Z51.11 Encounter for antineoplastic chemotherapy (principal); Z45.2 Encounter for adjustment and management of vascular access device; C83.33 Diffuse large B-cell lymphoma, intra-abdominal lymph nodes; C78.00 Secondary malignant neoplasm of unspecified lung; C79.2 Secondary malignant neoplasm of skin; C85.93 Non-Hodgkin lymphoma, unspecified, intra-abdominal lymph nodes; C34.91 Malignant neoplasm of unspecified part of right bronchus or lung; D50.9 Iron deficiency anemia, unspecified; I10 Essential (primary) hypertension; N40.0 Benign prostatic hyperplasia without lower urinary tract symptoms; K40.00 Bilateral inguinal hernia, with obstruction, without gangrene, not specified as recurrent
CPT/HCPCS: 36591; 80053; 85025; 96413

== ENCOUNTER → 2023-05-10 | Outpatient (CLI) | payer MEDICARE ==
[~2023-05-10] MED LIST changes: +CATHETER FLUSH 10 ML SYR IV PRN; +HOLD METFORMIN - RECEIVED CONTRAST 20 ML VIAL IV SCH; +IOHEXOL 350 MG/ML 100 ML (OMNIPAQUE 350) VIAL IV ONE; +NS 100 ML (IVPB) BAG IV ONE
--- NOTE | 2023-05-10 10:13 | Diagnostic Imaging Report ---
EXAMINATION: CT chest, abdomen and pelvis with intravenous contrast. TECHNIQUE: Multiple contiguous axial images were obtained through the chest, abdomen and pelvis after the uneventful administration of intravenous contrast. All CT scans use one or more of the following dose optimizing techniques: automated exposure control, MA and/or KvP adjustment based on patient size and exam type or iterative reconstruction. HISTORY: Lymphoma with, lung cancer. COMPARISON: 03/01/2023. FINDINGS: There is no edema or pneumonia. No pleural effusion. No pneumothorax. A 4 mm right lower lobe nodule is unchanged.. There are mild scattered areas of scarring or atelectasis. There is no axillary or supraclavicular lymphadenopathy. There is no mediastinal lymphadenopathy.A right-sided Port-A-Cath is present. Heart size is normal. There are severe coronary artery calcifications. No pericardial effusion. Aorta is normal in caliber. There is a small cyst in the liver. No suspicious liver lesion. There is no biliary ductal dilation. Gallbladder is absent. Pancreas is normal. Spleen is normal. Adrenal glands are normal. The kidneys are normal. There is no hydronephrosis. Urinary bladder is normal. Prostate is enlarged. Bowel is normal in caliber without obstruction or inflammation. There is diverticulosis without diverticulitis. There is an unchanged low attenuating right external iliac collection measuring 2.8 x 1.4 cm. No free fluid or air. Retroperitoneal lymph nodes remain subcentimeter in short axis Aorta is normal in caliber without aneurysm. There are no suspicious osseus lesions. IMPRESSION: 1. Unchanged low attenuation right external iliac collection favored to represent a seroma or lymphocele. Otherwise no metastatic disease is seen. Dictated by: Dictated on workstation # [id number]
== END ==
LOC: RAD 09:11
PROVIDERS: ATTEND Internal Medicine Hematology & Oncology
DX: C83.30 Diffuse large B-cell lymphoma, unspecified site (principal)
CPT/HCPCS: 71260; 74177